=== PATIENT | female | born 1955 | race Caucasian/White ===

== ENCOUNTER → 2017-10-20 | Outpatient (CLI) | payer OTHER ==
--- NOTE | 2017-10-21 11:18 | Diagnostic Imaging Report ---
EXAMINATION: Digital mammogram INDICATION: Bilateral screening This study was compared to the prior exam of 05/24/2012. At this time there are no current complaints. The current study was also evaluated with a Computer Aided Detection (CAD) system. There are scattered fibroglandular densities in both breasts which could obscure a lesion. When compared to the previous study there does not appear to have been any significant change. There are numerous benign-appearing calcifications scattered throughout both breasts. These calcifications do not seem to have changed significantly in the 5-1/2 year interval since the prior exam. Vascular calcifications are seen as well. Small benign-appearing nodular densities are also evident in each breast. There is no primary or secondary sign of malignancy noted. IMPRESSION: 1. There is no evidence of malignancy. 2. The patient should have her annual bilateral screening mammogram on schedule in October 2018. ACR BI-RADS Category 1: Negative. Result letter will be mailed to the patient. Note: At least 10% of breast cancer is not imaged by mammography. Dictated by: Dictated on workstation # [id number]
== END ==
LOC: RAD 08:34
PROVIDERS: ATTEND Nurse Practitioner Family
DX: Z12.31 Encounter for screening mammogram for malignant neoplasm of breast (principal)
CPT/HCPCS: 77067

== ENCOUNTER → 2018-02-03 | Outpatient (CLI) | payer OTHER ==
--- NOTE | 2018-02-10 15:26 | RADIOLOGY REPORT ---
NAME: [facility] REC#: [id number] PT STATUS: REG CLI : 1955 PHYSICIAN: YARI RAMOS DO ADMIT DATE: 02/03/18/RAD CORRECTED Signed Date of Exam:02/03/18 KNEE, RIGHT, 2 VIEWS INDICATION: Right knee pain and arthritis. TIME OF EXAM: 09:26 a.m. Frontal and lateral views of the right knee demonstrate medial and patellofemoral compartmental degenerative change with joint space narrowing and marginal spurring. There is mild marginal spurring of the lateral compartment. No fracture, dislocation or effusion is seen. IMPRESSION: Degenerative changes. No acute bony abnormality is detected. Dictated by: Dictated on workstation # [id number] Dict: 02/03/18 1517 Trans: 02/03/18 1556 [facility] [id number] Interpreted by: LAWRENCE CRAWFORD MD Electronically signed by: LAWRENCE CRAWFORD MD 02/03/18 [facility]
== END ==
LOC: RAD 08:53
PROVIDERS: ATTEND Family Medicine
DX: Z02.71 Encounter for disability determination (principal); M17.11 Unilateral primary osteoarthritis, right knee
CPT/HCPCS: 73560

== ENCOUNTER 2020-05-31 05:27 | Outpatient (RCR) | payer MEDICARE ==
[~2020-05-31] VITALS: Ht 157 cm; Wt 100.0 kg
== END 2020-05-31 09:35 | disposition home or self-care (01) ==
LOC: PREOP 05:27
PROVIDERS: ATTEND Surgery
DX: Z01.812 Encounter for preprocedural laboratory examination (principal); Z20.828 Contact with and (suspected) exposure to other viral communicable diseases
CPT/HCPCS: 87635

== ENCOUNTER → 2020-05-31 | Outpatient (CLI) | payer MEDICARE ==
[~2020-05-31] MED LIST: ACET-2650 PO; ALPR0.254 PO; ATOR10TA66 PO; CELE200C PO; CETI10TA17 PO; FLUO20CA42 PO; GABA-486 PO; HYDR25TA4 PO; LEVO112T55 PO; METF-397 PO; NF-ESOM40C PO; RANITIDINE PO; SPIR100T4 PO; TURM538C PO
== END ==
LOC: CARD 08:24
PROVIDERS: ATTEND Surgery
DX: R07.9 Chest pain, unspecified (principal); Z20.828 Contact with and (suspected) exposure to other viral communicable diseases
CPT/HCPCS: 93005

== ENCOUNTER 2020-06-04 07:29 | Day surgery (SDC) | payer MEDICARE ==
[~2020-06-04] VITALS: Ht 157 cm; Wt 100.0 kg
[~2020-06-04 07:29] MED LIST changes: +ALPR.25T PO; -ALPR0.254 PO
[2020-06-04] MEDS ORDERED: LACTATED RINGERS 1,000 ML IV ONE (07:45)
[2020-06-04] MEDS ORDERED: LACTATED RINGERS 1,000 ML IV STA (07:46)
[2020-06-04 07:59] VITALS: BP 144/66
[2020-06-04] MEDS ORDERED: HURRICAINE EXT TUBE (BENZOCAINE) XX PRN (08:00)
[2020-06-04] MEDS ORDERED: MIDAZOLAM 2 MG/2 ML (VERSED) VIAL ONE (08:05)
[2020-06-04] MEDS ORDERED: PROPOFOL INJECTION 50 ML IV ONE ×2 (08:05→08:29)
[2020-06-04] MEDS ORDERED: HURRICAINE EXT TUBE (BENZOCAINE) ONE (08:11)
[2020-06-04 09:05] VITALS: BP 117/56
[2020-06-04 09:10] VITALS: BP 118/58
--- NOTE | 2020-06-04 09:12 | Progress Note-Post Operative ---
Post-Operative Progess Note Surgeon (s)/Fish Inspector (s) Surgeon WIL SANTOS DO Fish Inspector: Lacey Rausch, MSIII Pre-Operative Diagnosis Gastritis, Screening colon Post-Operative Diagnosis Gastritis Gastric ulcer Hiatal hernia - large Polyps diverticula Internal hemorrhoids Procedure & Operative Findings Date of Procedure 06/04/20 Procedure Performed/Findings EGD with bx Colon with snare Colon with hot bx Anesthesia Type IV sedation by PRESS OPERATOR MEAT Estimated Blood Loss Estimated blood loss (mL): scant Specimens/Packing Specimens Removed antral bx bx of ulcer body of stomach bx GE jxn bx Asc colon polyp Rectal polyp x 2 WIL SANTOS DO Jun 04, 2020 09:12
--- NOTE | 2020-06-04 09:12 | Endoscopy Discharge Instruct ---
Endo Procedure/Findings Findings 1.: Gastric Ulcer, Gastritis 2.: Hiatal Hernia 3.: Polyp 4.: Diverticulosis, Internal Hemorrhoids Discharge Instructions - Activity: You might feel a little sleepy until tomorrow. This is due to the medicine you received to relax you. Until tomorrow, you should: NOT drive a car, operate machinery or power tools. NOT drink any alcoholic beverages. NOT make any important decisions or sign importortant papers. Do not return to work until tomorrow, unless otherwise instructed. Resume previous activities tomorrow. Diet: Start by taking liquids. If you tolerate liquids, advance to solid food. 1.: Colonscopy in 3 years, EGD in 3 years Notify Physician - If you experience excessive bleeding, unusual abdominal pain, fever, or chest pain, contact your doctor immediately. WIL SANTOS DO Jun 04, 2020 09:12
[2020-06-04 09:30] VITALS: BP 145/69
[2020-06-04 09:45] VITALS: BP 145/69
--- NOTE | 2020-06-04 10:21 | Anesthesia-General Post-Op ---
MAC Patient Condition Mental Status/LOC: Same as Preop Cardiovascular: Satisfactory Nausea/Vomiting: Absent Respiratory: Satisfactory Pain: Controlled Complications: Absent Post Op Complications Complications None Follow Up Care/Instructions Patient Instructions None needed. Anesthesiology Discharge Order Discharge Order Patient is doing well, no complaints, stable vital signs, no apparent adverse anesthesia problems. No complications reported per nursing. MALA RAMOS CRNA Jun 04, 2020 10:21
--- NOTE | 2020-06-05 02:41 | OPERATIVE REPORT ---
DATE OF SERVICE: 06/04/2020 PREOPERATIVE DIAGNOSES: Gastritis and screening colonoscopy. POSTOPERATIVE DIAGNOSES: 1. Gastritis. 2. Gastric ulcer. 3. Hiatal hernia. 4. Colon polyps. 5. Diverticula. 6. Internal hemorrhoids. PROCEDURE: 1. EGD with biopsy. 2. Colonoscopy with snare polypectomy. 3. Colonoscopy with hot biopsy. SURGEON: Vineet Leone DO SWISS MACHINIST: Lacey Rausch, MS3 ANESTHESIA: IV sedation by the PIPE CLEANER. SPECIMEN: Antral biopsy, biopsy of ulcer, biopsy of body of stomach, biopsy of GE junction, then ascending colon polyp and rectal polyp x2. BLOOD LOSS: Scant. FLUIDS: Per anesthesia. POSTOPERATIVE CONDITION: Stable. INDICATION FOR PROCEDURE: The patient is a 65-year-old female who is having some gastritis and has never had a colonoscopy, need one for screening. DESCRIPTION OF PROCEDURE: The patient had gastritis and what looked like ulcers in the stomach. She also had a very large hiatal hernia. In the colon, she had a small polyp in the descending colon, then a very large polyp in the rectum, another small polyp in the rectum as well as multiple diverticula and some internal hemorrhoids. PROCEDURE NOTE: After informed consent was obtained, the patient was brought to the endoscopy suite, placed in bed in left lateral decubitus position. She was administered IV sedation by the PIPE CLEANER who then monitored her vitals the entire time, heart rate, blood pressure and pulse ox and the scope was inserted, started with the EGD, placing scope down the mouth through the esophagus into the stomach. Upon entering the stomach, noted some gastritis, took a picture, pushed into the duodenum. Duodenum looked fine, took a picture. Pulled back and then saw what looked like an ulcer, did a biopsy of the antrum, then did a biopsy of this ulcer, which is near the antrum, then retroflexed the scope, saw a large hiatal hernia and did a biopsy of body of stomach, pulled the scope into the GE junction, did a biopsy, then pushed the scope into the stomach, suctioned all the air out and then pulled the scope up the esophagus out the mouth. Switched camera, switched gloves, went down below, started the colonoscopy. Placed a scope in, pushed all the way to about 140 cm, able to get to the cecum. On the way in, noted large diverticula. Pictures were taken. Once in the cecum, took a picture of appendiceal orifice, noted the ileocecal valve and then slowly withdrew the scope insufflating the circumferential alvarado looking the cecum, up the ascending colon. In the ascending colon, saw flat polyp, was smaller one so I like to do a hot biopsy of this to remove it and then continued up to the hepatic flexure, then down the transverse colon, splenic flexure, into the descending colon down to the sigmoid and finally into the rectum. In the rectum, saw a large polyp, wanted to remove this completely, so used a snare polypectomy to remove this, able to get this out and suctioned this up, saw another small polyp, did another biopsy and then retroflexed the scope in the rectal vault and saw some internal hemorrhoids, took a picture and then removed the scope. The patient tolerated the procedure. She recovered in endoscopy suite. Job ID: [id number] DocumentID: [id number] Dictated Date: 06/04/2020 16:06:44 Electrical Development Engineer Date: 06/05/2020 02:41:11 Dictated By: VINEET LEONE DO MTDDennise
== END 2020-06-04 09:45 | disposition home or self-care (01) ==
LOC: ENDO 07:29
PROVIDERS: ATTEND Surgery
DX: Z12.11 Encounter for screening for malignant neoplasm of colon (principal); D12.2 Benign neoplasm of ascending colon; K62.1 Rectal polyp; K57.90 Diverticulosis of intestine, part unspecified, without perforation or abscess without bleeding; K64.8 Other hemorrhoids; K29.50 Unspecified chronic gastritis without bleeding; K25.9 Gastric ulcer, unspecified as acute or chronic, without hemorrhage or perforation; K44.9 Diaphragmatic hernia without obstruction or gangrene; K31.9 Disease of stomach and duodenum, unspecified; I10 Essential (primary) hypertension; F32.9 Major depressive disorder, single episode, unspecified; E11.9 Type 2 diabetes mellitus without complications; E03.9 Hypothyroidism, unspecified; F41.9 Anxiety disorder, unspecified; E78.5 Hyperlipidemia, unspecified; M06.9 Rheumatoid arthritis, unspecified; M19.91 Primary osteoarthritis, unspecified site; K21.9 Gastro-esophageal reflux disease without esophagitis; E66.01 Morbid (severe) obesity due to excess calories; Z68.41 Body mass index [BMI] 40.0-44.9, adult; Z79.890 Hormone replacement therapy; Z79.899 Other long term (current) drug therapy; Z79.84 Long term (current) use of oral hypoglycemic drugs
CPT/HCPCS: 82962; 88305

== ENCOUNTER 2021-02-25 05:29 | Outpatient (RCR) | payer MEDICARE ==
[2021-02-20 12:12] VITALS: BP 174/84
[2021-02-20 13:17] LABS: BASOPHILS # (AUTO) 0.1 10^3/uL (0.0-0.1); BASOPHILS % (AUTO) 1 % (0-10); EOSINOPHILS # (AUTO) 0.1 10^3/uL (0.0-0.3); EOSINOPHILS % (AUTO) 2 % (0-10); HEMATOCRIT 43 % (35-52); HEMOGLOBIN 13.5 g/dL (11.5-16.0); LYMPHOCYTES # (AUTO) 1.6 10^3/uL (1.0-4.0); LYMPHOCYTES % (AUTO) 23 % (12-44); MEAN CORPUSCULAR HEMOGLOBIN 29 pg (25-34); MEAN CORPUSCULAR HGB CONC 32 g/dL (32-36); MEAN CORPUSCULAR VOLUME 90 fL (80-99); MEAN PLATELET VOLUME 11.7 fL (9.0-12.2); MONOCYTES # (AUTO) 0.6 10^3/uL (0.0-1.0); MONOCYTES % (AUTO) 8 % (0-12); NEUTROPHILS # (AUTO) 4.7 10^3/uL (1.8-7.8); NEUTROPHILS % (AUTO) 66 % (42-75); PLATELET COUNT 264 10^3/uL (130-400); WHITE BLOOD COUNT 7.1 10^3/uL (4.3-11.0)
[2021-02-20 13:18] LABS: BILIRUBIN,URINE NEGATIVE (NEGATIVE); CLARITY,URINE CLEAR; COLOR,URINE YELLOW; GLUCOSE, URINE (UA) NEGATIVE (NEGATIVE); KETONES,URINE NEGATIVE (NEGATIVE); LEUKOCYTE ESTERASE ,URINE NEGATIVE (NEGATIVE); NITRITE,URINE NEGATIVE (NEGATIVE); PROTEIN,URINE TRACE (NEGATIVE)
[2021-02-20 13:27] LABS: INR 0.9 (0.8-1.4); PROTHROMBIN TIME PATIENT 12.6 SEC (12.2-14.7)
[2021-02-20 13:28] LABS: BACTERIA,URINE TRACE /HPF; RBC,URINE 0-2 /HPF
[2021-02-20 13:34] LABS: ALANINE AMINOTRANSFERASE 24 U/L (0-55); ALBUMIN 4.5 GM/DL (3.2-4.5); ALKALINE PHOSPHATASE 82 U/L (40-136); BILIRUBIN,TOTAL 0.4 MG/DL (0.1-1.0); BUN/CREATININE RATIO 21; CALCIUM 10.5 MG/DL (8.5-10.1); CARBON DIOXIDE 25 MMOL/L (21-32); CHLORIDE 107 MMOL/L (98-107); CREATININE SERUM 0.84 MG/DL (0.60-1.30); GFR ESTIMATED > 60; GLUCOSE 114 MG/DL (70-105); SODIUM 141 MMOL/L (135-145); TOTAL PROTEIN 7.2 GM/DL (6.4-8.2)
[2021-02-20 13:38] LABS: ERYTHROCYTE SEDIMENTATION RATE 13 MM/HR (0-30)
--- NOTE | 2021-02-20 13:47 | Diagnostic Imaging Report ---
INDICATION: Preop bilateral total knee arthroplasty. COMPARISON: There are no prior studies available for comparison. FINDINGS: The heart size is within normal limits. The lungs are clear. There is no evidence for failure, pneumonia, or pleural effusion. The mediastinum is not widened. The osseous structures are intact. IMPRESSION: There is no evidence for active disease. Dictated by: Dictated on workstation # [id number]
[~2021-02-25] VITALS: Ht 157.5 cm; Wt 97.9 kg
[~2021-02-25 05:29] MED LIST changes: +ACET-168 PO; +FAMO-119 PO; +SIMV10TA26 PO
== END 2021-02-25 09:08 | disposition home or self-care (01) ==
LOC: PREOP 05:29
PROVIDERS: ATTEND Orthopaedic Surgery
DX: Z01.812 Encounter for preprocedural laboratory examination (principal); M17.0 Bilateral primary osteoarthritis of knee
CPT/HCPCS: 36415; 71046; 80053; 81000; 85025; 85610; 85652; 86850; 86900; 86901; 87081; 87635

== ENCOUNTER 2021-02-27 06:01 | Inpatient (IN) | payer MEDICARE ==
--- NOTE | 2021-02-20 19:26 | HISTORY AND PHYSICAL ---
DATE OF SERVICE: ADMISSION HISTORY AND PHYSICAL This will be for regular inpatient admission for bilateral total knee arthroplasties. DATE OF ADMISSION: 02/27/2021. DATE OF SURGERY: 02/27/2021. The patient will require regular inpatient admission due to need for pain management, physical therapy and associated comorbidities. HISTORY OF PRESENT ILLNESS: The patient is a 65-year-old female with a 20-year history of bilateral knee pain. She has undergone treatment with injections without relief. She reports the pain has progressed to the point where it is limiting her activities of daily living and recreational activities. She reports stiffness in her knees. She reports inability to go to the store because of her knees. Radiographs reveal severe medial and patellofemoral arthrosis. Due to functional impairment and failure to improve with conservative measures, the patient has elected to proceed with surgical intervention. REVIEW OF SYSTEMS: No chest pain, no shortness of breath, no dysuria. PAST MEDICAL HISTORY: Allergic rhinitis, anxiety disorder, depression, diabetes, fibromyalgia, reflux, hyperlipidemia, hypertension, hypothyroidism, neck pain, osteoarthritis, history of ulcers. PAST SURGICAL HISTORY: Cataracts, hysterectomy, bladder sling, breast biopsy, hiatal hernia. FAMILY HISTORY: Consistent for congestive heart failure, and diabetes. PRIMARY CARE PROVIDER: Madina Nevarez. MEDICATIONS: Celebrex, simvastatin, Nexium, spironolactone, Prozac, Pepcid, nystatin, metformin, levothyroxine, gabapentin, alprazolam. ALLERGIES: No known drug allergies. SOCIAL HISTORY: The patient denies alcohol and tobacco use. PHYSICAL EXAMINATION: GENERAL: The patient is well-developed, well-nourished, in no acute distress. HEENT: Normocephalic, atraumatic. Pupils are equal, round, reactive to light. Oropharynx is clear. NECK: Supple, no lymphadenopathy. LUNGS: Clear to auscultation bilaterally. HEART: Regular rate and rhythm. ABDOMEN: Soft, nontender, nondistended. EXTREMITIES: Bilateral knees demonstrate varus alignment. She ambulates with an antalgic gait. She has slight effusions bilaterally. She has marked patellofemoral crepitus and pain with patellar loading. She is tender along the medial joint lines and has pain along the medial femoral condyle. Range of motion is 0/2/120 bilaterally. No varus or valgus laxity. Negative anterior and posterior drawer sign. IMPRESSION: Bilateral knee osteoarthritis. PLAN: Bilateral total knee arthroplasty. The risks, benefits, options, ramifications and recovery have been discussed at length with the patient. She understands and wishes to proceed. Job ID: [id number] DocumentID: [id number] Dictated Date: 02/18/2021 08:19:52 Applied Psychology Teacher Date: 02/18/2021 09:14:25 Dictated By: JAIR TAEVRA MD
[~2021-02-27] VITALS: Ht 157.5 cm; Wt 97.9 kg
[2021-02-27] VITALS (12 sets, daily range): BP systolic 110–181; BP diastolic 65–105
[2021-02-27] MEDS ORDERED: CEFUROXIME INJECTION 1,500 MG in WATER (STERILE) FOR INJECTION 15 ML IV ONE (06:15)
[2021-02-27] MEDS ORDERED: fentaNYL INJ 100 MCG/2 ML AMP ONE ×2 (06:22→09:21)
[2021-02-27] MEDS ORDERED: BUPIVACAINE 0.5% 30 ML (SENSORCAINE) VIAL ONE (06:22)
[2021-02-27] MEDS ORDERED: MIDAZOLAM 2 MG/2 ML (VERSED) VIAL ONE (06:22)
[2021-02-27] MEDS: LACTATED RINGERS 1,000 ML IV PRN ×2 (06:34→07:27)
[2021-02-27] MEDS ORDERED: proPOfol 200 MG/20 ML (DIPRIVAN) VIAL IV ONE ×2 (07:04→07:05)
[2021-02-27] MEDS ORDERED: LIDOCAINE PF 2% 5 ML (XYLOCAINE) VIAL ONE (07:04)
[2021-02-27] MEDS ORDERED: SUCCINYLCHOLINE INJ 100 MG/5 ML SYR/VIAL ONE (07:05)
[2021-02-27] MEDS ORDERED: TRANEXAMIC ACID 100 MG/ML 10 ML INJECTION ONE (07:05)
[2021-02-27] MEDS ORDERED: ONDANSETRON 4 MG/2 ML (SDV) Z0FRAN ONE ×3 (07:05→10:40)
[2021-02-27] MEDS ORDERED: morphine PCA 100 MG/100 ML BAG IV PRN ×3 (07:15→12:00)
[2021-02-27] MEDS ORDERED: diphenhydrAMINE 50 MG/ML INJ (BENADRYL) IVP PRN (07:15)
[2021-02-27] MEDS ORDERED: SCOPOLAMINE 1.5 MG (TRANSDERM-SCOP) PATCH TOP ONE (07:15)
[2021-02-27] MEDS ORDERED: ONDANSETRON 4 MG/2 ML (SDV) Z0FRAN IV ONE (07:15)
[2021-02-27] MEDS ORDERED: ACETAMINOPHEN 325 MG TABLET PO PRN (07:15)
[2021-02-27] MEDS ORDERED: FAMOTIDINE 20MG/2ML IV (PEPCID) IV ONE (07:15)
--- NOTE | 2021-02-27 07:25 | Progress Note-Pre Operative ---
Pre-Operative Progress Note H&P Reviewed The H&P was reviewed, patient examined and no changes noted. Date Seen by Provider: Feb 27, 2021 Time Seen by Provider: 07:15 Date H&P Reviewed: Feb 27, 2021 Time H&P Reviewed: 07:11 Pre-Operative Diagnosis: bilateral knee primary osteoarthritis JAIR TAVERA MD Feb 27, 2021 07:25
--- NOTE | 2021-02-27 07:26 | Progress Note-Post Operative ---
Post-Operative Progess Note Surgeon (s)/Marketing Technology Coordinator (s) Surgeon JAIR TAVERA MD Marketing Technology Coordinator: Misbah Jarquin Pre-Operative Diagnosis bilateral knee primary osteoarthritis Post-Operative Diagnosis bilateral knee primary osteoarthritis Procedure & Operative Findings Date of Procedure 02/27/21 Procedure Performed/Findings bilateral total knee arthroplasty Anesthesia Type GETA Estimated Blood Loss Estimated blood loss (mL): minimal Specimens/Packing Specimens Removed none Packing: none JAIR TAVERA MD Feb 27, 2021 07:26
--- NOTE | 2021-02-27 07:28 | D/C HH Face to Face Order ---
D/C Face to Face Orders Reconcile Patient Problems Problems Reviewed?: Yes Instructions for Patient Via Roxanne Cordium, Patient Instructions/FollowUp: three weeks Physician to follow Patient: three weeks Discharge Diet for Home: Regular Diet Patient Data-Allergies,Ht & Wt Patient Allergies: Coded Allergies: No Known Drug Allergies (Unverified , 02/27/21) Home Health Need/Face to Face Date of Face to Face: Feb 27, 2021 Clinical Findings: Instability, Muscle weakness, Pain with ambulation, Unsteady gait I have seen Pt [id number]: Yes Discharged To: Home Diagnosis/Conditions: bilateral total knee arhtroplasties Patient is Homebound due to: Muscle weakness, Pain w/ambulation Homebound Status Due to the above stated illness, injury or surgical procedure (medical condition or diagnosis) and associated clinical findings, the patient is homebound because of his/her inability to leave home except with aid of a supportive device and/or person AND leaving the home requires a considerable and taxing effort or is medically contraindicated. Pt req the following assistanc: Walker Home Health Nursing Orders Home Health Services Order: Physical Therapy-Evaluate & Treat DC bilateral knee keli and apply steri strips 03/13/21 Home Health Infusion Therapy Line Start Date: Feb 27, 2021 Therapy Orders Therapy Orders: Physical Therapy, PT to assess for OT Therapy Specific Orders: Eval assistive deivces, Gait training, Increase strength/endurance, Provider maintenance therapy, Restore ROM Certify Stmt I certify that this patient is under my care and that I, a nurse practitioner or a physician; a chiropractor assistant working with me, had a face to face encounter that - meets the physician face to face encounter requirements with this patient as dated. JAIR TAVERA MD Feb 27, 2021 07:28
[2021-02-27] MEDS ORDERED: INTRA-ARTICULAR IU ONE ×5 (07:45)
[2021-02-27] MEDS ORDERED: SEVOFLURANE (ULTANE) 15 ML INHAL SOLN ONE (09:04)
[2021-02-27] MEDS ORDERED: morphine INJ 10 MG/ML 1ML (SYR OR VIAL) ONE (10:49)
[2021-02-27] MEDS ORDERED: MEPERIDINE (DEMEROL) INJ 50 MG/ML ONE (10:49)
--- NOTE | 2021-02-27 10:55 | Anesthesia-General Post-Op ---
General Patient Condition Mental Status/LOC: Same as Preop Cardiovascular: Satisfactory Nausea/Vomiting: Absent Respiratory: Satisfactory Pain: Controlled Complications: Absent Post Op Complications Complications None Follow Up Care/Instructions Patient Instructions None needed. Anesthesia/Patient Condition Patient Condition Patient is doing well, no complaints, stable vital signs, no apparent adverse anesthesia problems. No complications reported per nursing. CHRISTAL WHITE CRNA Feb 27, 2021 10:55
[2021-02-27] MEDS ORDERED: PROMETHAZINE INJ 25 MG/ML (PHENERGAN) AMP ONE (10:59)
[2021-02-27] MEDS ORDERED: HYDROmorphone 2 MG/ML VIAL (DILAUDID) IV ONE (11:00)
[2021-02-27] MEDS ORDERED: morphine INJ 10 MG/ML 1ML (SYR OR VIAL) IVP ONE (11:00)
[2021-02-27] MEDS ORDERED: fentaNYL INJ 100 MCG/2 ML AMP IVP ONE (11:00)
[2021-02-27] MEDS ORDERED: ONDANSETRON 4 MG/2 ML (SDV) Z0FRAN IVP PRN (11:00)
[2021-02-27] MEDS ORDERED: MEPERIDINE (DEMEROL) INJ 50 MG/ML IVP ONE (11:00)
[2021-02-27] MEDS: NS IV 1000 ML 1,000 ML IV SCH ×2 (11:48→20:24)
--- NOTE | 2021-02-27 12:06 | Progress Note ---
Standard Progress Note Progress Notes/Assess & Plan Date Seen by a Provider: Feb 27, 2021 Time Seen by a Provider: 12:04 Progress/Assessment & Plan post op check no complaints denies paresthesias radiographs--HW well positioned without fractre BLE--2 plus DP pulse with brisk cap refill, INtact DF and PF of toes and ankle. intact sensation throughout s/p BTKA mobilize as able JAIR TAVERA MD Feb 27, 2021 12:05
--- NOTE | 2021-02-27 13:56 | Physical Therapy Evaluation ---
PT Evaluation-General Medical Diagnosis Admission Date Feb 27, 2021 at 06:01 Medical Diagnosis: bilateral TKA Onset Date: Feb 27, 2021 Therapy Diagnosis Therapy Diagnosis: impaired mobility, strength, endurance, ROM Precautions Precautions/Isolations: Fall Prevention, Standard Precautions Weight Bear Status Right Lower Extremity: Right Weight Bearing/Tolerated Left Lower Extremity: Left Weight Bearing/Tolerated Referral Physician: Britton Reason for Referral: Evaluation/Treatment Medical History Additional Medical History PAST MEDICAL HISTORY: Allergic rhinitis, anxiety disorder, depression, diabetes, fibromyalgia, reflux, hyperlipidemia, hypertension, hypothyroidism, neck pain, osteoarthritis, history of ulcers. PAST SURGICAL HISTORY: Cataracts, hysterectomy, bladder sling, breast biopsy, hiatal hernia. Reviewed History: Yes Social History Home: Single Level Current Living Status: Spouse Entry Into Home: Stairs Without Railing PT Steps Into Home: 2 Prior Prior Level of Function SCALE: Activities may be completed with or without assistive devices. 4-Sowbudraba-ciquabo completes the activity by him/herself with no assistance from a helper. 5-Set-up or Clean-up Assistance-helper sets up or cleans up; patient completes activity. [place] assists only prior to or following the activity. 4-Supervision or Touching Assistance-helper provides verbal cues and/or touching/steadying and/or contact guard assistance as patient completes a ctivity. Assistance may be provided throughout the activity or intermittently. 3-Partial/Moderate Assistance-helper does LESS THAN HALF the effort. [place] lifts, holds or supports trunk or limbs, but provides less than half the effort. 2-Substantial/Maximal Assistance-helper does MORE THAN HALF the effort. [place] lifts or holds trunk or limbs and provides more than half the effort. 0-Nugvrumfz-mfofex does ALL the effort. Patient does none of the effort to complete the activity. Or, the assistance of 2 or more helpers is required for the patient to complete the activity. If activity was not attempted, code reason: 7-Patient Refused. 9-Not Applicable-not attempted and the patient did not perform the activity before the current illness, exacerbation or injury. 10-Not Attempted due to Environmental Limitations-(lack of equipment, weather restraints, etc.). 88-Not Attempted due to Medical Conditions or Safety Concerns. Bed Mobility: 6 Transfers (B,C,W/C): 6 Gait: 6 Stairs: 6 Indoor Mobility (Ambulation): Independent Stairs: Independent PT Evaluation-Current Subjective Patient in bed pre tx, agrees to PT, has 5-7/10 pain in both knees. Pt/Family Goals to be independent at home Objective Patient Orientation: Person, Place, Situation Attachments: SCD's, Polar Pack, IV ROM/Strength ROM Lower Extremities left knee extension +5 degrees, flexion 85 degrees, right knee has full extension but only 50 degrees flexion Sensory Vision: Functional Hearing: Functional Sensation Right Lower Extremit: Intact Sensation Left Lower Extremity: Intact Transfers Roll Left to Right (QC): 6 Sit to Lying (QC): 4 Lying to Sitting/Side of Bed(Q: 4 Sit to Stand (QC): 4 Patient is able to perform supine <-> sit with SBA, patient starts to perform sit to stand but gets nauseated and ends up vomiting in her basin. Nurse notified. Patient lays back down. Balance Sitting Static: Good Treatment BLE TKA protocol x10 (AP, QS, HS, SAQ, SLR), CPM donned on right leg and set to 46/-2 degrees (put on this knee since it has less ROM) Assessment/Needs Patient in bed post tx with nurse call, phone, tray, all needs met, has CPM on, SCD's, polar care. Patient has impaired mobility, strength, endurance, ROM. Patient is still pretty nauseated, has less ROM in right knee. Rehab Potential: Fair PT Ex Assistant/Program Director Goals Senior Care Goals PT Ex Assistant/Program Director Goals Time Frame: Mar 06, 2021 Roll Left & Right (QC): 6 Sit to Lying (QC): 6 Lying-Sitting on Side/Bed(QC): 6 Sit to Stand (QC): 4 Chair/Soc-lj-Ayrof Xfer(QC): 4 Walk 10 feet (QC): 4 Walk 50ft with 2 Turns (QC): 4 Walk 150 ft (QC): 4 1 Step (curb) (QC): 4 4 Steps (QC): 4 PT Plan Problem List Problem List: Activity Tolerance, Functional Strength, Safety, Balance, Gait, Transfer, Bed Mobility, ROM Treatment/Plan Treatment Plan: Continue Plan of Care Treatment Plan: Bed Mobility, Education, Functional Activity Shelley, Functional Strength, Gait, Safety, Therapeutic Exercise, Transfers Treatment Duration: Mar 06, 2021 Frequency: 11 times per week Estimated Hrs Per Day: .25 hour per day Patient and/or Family Agrees t: Yes Safety Risks/Education Patient Education: Transfer Techniques, Reviewed Use of Ice, Correct Positioning, Safety Issues Teaching Recipient: Patient Teaching Methods: Demonstration, Discussion Response to Teaching: Reinforcement Needed Discharge Recommendations Plan Patient will perform bed mobility and transfer training, balance and endurance training, functional strengthening, stair training, gait training, and education, to improve functional mobility and independence at home. Therapy Discharge Recommendati: Home & Family, Post Acute PT Time/GCodes Time In: 1258 Time Out: 1323 Total Billed Treatment Time: 25 Total Billed Treatment 1 visit LOUANN 15' EX 10' ISH SIERRA PT Feb 27, 2021 13:56
[2021-02-27] MEDS: SENNA W/DOCUSATE (SENOKOT S) TABLET PO SCH ×2 (14:47→20:23)
[2021-02-27] MEDS: CEFUROXIME INJECTION 750 MG in WATER (STERILE) FOR INJECTION 10 ML IV SCH ×2 (15:28→22:38)
--- NOTE | 2021-02-27 16:18 | OPERATIVE REPORT ---
DATE OF SERVICE: 02/27/2021 PREOPERATIVE DIAGNOSES: 1. Right knee primary osteoarthritis. 2. Left primary knee osteoarthritis. POSTOPERATIVE DIAGNOSES: 1. Right knee primary osteoarthritis. 2. Left primary knee osteoarthritis. PROCEDURES: 1. Right total knee arthroplasty. 2. Left total knee arthroplasty. SURGEON: Raad Tavera MD HEADER SET UP OPERATOR: Misbah Jarquin, who assisted throughout the procedure and closed the incisions. ANESTHESIA: General endotracheal by Noel Hernandez CRNA. TOURNIQUET TIME: 63 minutes at 300 mmHg on the right and 65 minutes at 300 mmHg on the left. ESTIMATED BLOOD LOSS: Less than 50 mL. DRAINS: None. COMPLICATIONS: None. POSTOPERATIVE PLAN: Routine total knee protocol. The patient was transferred to the recovery room awake and in stable condition. MATERIALS: MicroPort. On the right, 4 femur with a 4 tibia, a 10 mm insert and 29 patella. On the left, 4 femur, 4 tibia with 12 mm insert and 29 patella. STATEMENT OF MEDICAL NECESSITY: The patient is a 65-year-old female with longstanding progressive bilateral knee pain. Radiographs revealed severe bilateral tricompartmental osteoarthritis. She has undergone treatment with injections, anti-inflammatories and rest without relief. She reported progressive functional loss and because of this, I elected to proceed with surgical intervention. DESCRIPTION OF PROCEDURE: After risks and benefits of procedure were discussed and questions were answered, an informed consent was signed and placed on the chart. The operative sites were confirmed in the preoperative holding area initialed by the surgeon. The patient was then transferred to the operating room and after adequate levels of general endotracheal anesthetic were obtained, a timeout was called, confirming the operative site. The right lower extremity was prepped and draped in the usual sterile fashion with the leg elevated and the knee flexed. The tourniquet was inflated to 300 mmHg. Standard anterior approach was utilized. Hemostasis was obtained with cautery. A medial parapatellar arthrotomy was performed leaving 1 cm cuff on the patella for later reattachment. A portion of the fat pad was resected and subperiosteal release was performed in the proximal medial tibia being careful to stay on the bony surface. The ACL was resected. The intramedullary guide was passed and the distal cutting block was placed. Distal cut was made and the femur sized to a size 4. The 4 cutting block was placed parallel to the epicondylar axis and cuts were made from posterior to anterior. Subperiosteal release was then carefully performed on the posterior distal femur, being careful to stay on the bony surface. Intramedullary guide was then passed into the tibia and the cutting block was placed. The drop otto transected the intermalleolar axis and the cut was made. The baseplate was then placed in this. The drop otto transected the intermalleolar axis. With the drill and keel punch, the femoral trial was placed and trochlear cut was made. The patella was then prepared using the freehand technique and resecting 10 mm off the undersurface. The peg guide was placed and peg holes were drilled. The trials were inserted with 10 mm insert. Full extension was easily obtained, greater than 120 degrees of flexion with gravity was easily obtained. There was trace varus laxity in full extension. No valgus laxity and no anterior/posterior or medial/lateral laxity in flexion. The trials were removed. The joint was irrigated with pulse lavage. Periarticular block was placed in the posterior capsule, medial and lateral retinaculum and extensor mechanism as well as subcutaneous tissues. The bone ends were irrigated and dried and the tibial baseplate was cemented into position. Excessive cement was removed. The superior surface was then irrigated and dried and the polyethylene insert was placed. The distal femur was irrigated and dried and the femoral prosthesis was cemented into position. The undersurface of the patella was irrigated and dried and the button was cemented into position. Excessive cement was removed. The knee was brought into full extension until cement had cured. Once the cement had cured, the knee was taken through range of motion. Full extension was easily obtained, 120 degrees of flexion with gravity was easily obtained. There was no anterior/posterior or medial/lateral laxity in flexion or extension with the exception of some mild varus laxity in flexion. The joint was further irrigated with pulse lavage. The arthrotomy was closed with #2 Tevdek in [id number] interrupted fashion. The knee was flexed. No new tension was noted at the repair site. The patella tracked well. The subcutaneous tissues were irrigated using a total of 6 liters throughout the procedure. A 0 Vicryl was used for deep subcutaneous tissue, 2-0 Vicryl for the superficial subcutaneous tissue, keli used on the skin. A soft dressing was applied. Tourniquet was deflated and the left lower extremity was then prepped and draped in the usual sterile fashion. Separate sets were used and re-gowning and gloving was performed after prepping and draping the left lower extremity with the leg elevated and the knee flexed, tourniquet was inflated to 300 mmHg. A standard anterior approach was utilized. Hemostasis was obtained with cautery. Medial parapatellar arthrotomy was performed leaving 1 cm cuff on the patella for later reattachment. A portion of the fat pad was resected. Subperiosteal release was performed on the proximal medial tibia being careful to stay on the bony surface. The ACL was resected. Intramedullary guide was passed into the femur. The distal cutting block was . Distal cut was made and the femur sized to a size 4. The 4 cutting block was placed parallel to the epicondylar axis and cuts were made from posterior to anterior. A subperiosteal release was then carefully performed on the posterior distal femur, being careful to stay on the bony surface. Intramedullary guide was then passed into the tibia. Cutting block was placed and drop otto transected the intermalleolar axis and the cut was made. The four baseplate was then placed. Again, the drop otto transected the intermalleolar axis and this was prepared with the drill and keel punch. The femoral trial was placed. Trochlear cut was made. The patella was then prepared by using the freehand technique and resecting 10 mm off the undersurface. Peg guide was placed and peg holes were drilled. A 12 mm insert was placed. Full extension was easily obtained, 120 degrees of flexion with gravity was easily obtained. The patella tracked well. There was no anterior/posterior or medial/lateral laxity in flexion or extension. Trials were removed. The bone ends were irrigated with pulse lavage as well as subcutaneous tissue. The other half of the periarticular block was placed in the posterior capsule, medial and lateral retinaculum extensor mechanism, subcutaneous tissues. The bone ends were irrigated and dried and the tibial baseplate was cemented into position. Excessive cement was removed. Superior surface was irrigated and dried and the polyethylene insert was placed. The distal femur was irrigated and dried and the femoral prosthesis was cemented into position. The knee was brought out into full extension until cement had cured. The undersurface of patella was irrigated and dried and the patellar button was cemented into position. Excessive cement was removed. Once the cement had cured, the knee was taken through range of motion. Patella tracked well. There was no anterior/posterior or medial/lateral laxity in flexion or extension. The joint was further irrigated with pulse lavage. Arthrotomy was closed with #2 Tevdek in [id number] interrupted fashion. The knee was flexed. No undue tension was noted at the repair site. The patella tracked well. Subcutaneous tissues were further irrigated using a total of 6 liters throughout the procedure. A 0 Vicryl was used to deep subcutaneous tissue, 2-0 Vicryl for the superficial subcutaneous tissue, keli used on the skin. A soft dressing was applied. The tourniquet was deflated and the patient was transferred to the recovery room awake and in stable condition. Job ID: [id number] DocumentID: [id number] Dictated Date: 02/27/2021 10:23:51 Media Operator Date: 02/27/2021 16:18:12 Dictated By: RAAD TAVERA MD
--- NOTE | 2021-02-27 16:44 | Diagnostic Imaging Report ---
INDICATION: Bilateral knee pain. TECHNIQUE: AP and lateral views of both knees were obtained. FINDINGS: The patient has had bilateral total knee arthroplasties with patellar resurfacing. The prostheses appear to be in good position. Alignment is normal. There is no acute fracture seen. IMPRESSION: Good alignment of the left and right knee following joint arthroplasties. Dictated by: Dictated on workstation # [id number]
[2021-02-27] MEDS: ONDANSETRON 4 MG/2 ML (SDV) Z0FRAN IVP PRN (22:38)
[2021-02-28] VITALS: BP 126/78
[2021-02-28 04:02] VITALS: BP 121/63
--- NOTE | 2021-02-28 05:52 | Consultation - Hospitalist ---
HPI History of Present Illness: HPI/Chief Complaint Chief complaint: Bilateral knee replacements by Dr. Alves uncomplicated postop day#1 History of present illness: This is a 65-year-old white female clinic patient of [facility] who presents to room 411 after an uncomplicated bilateral knee replacement procedure. Currently she is having a lot of pain. Méndez catheter in place: Blood pressure stable: Getting ready to work with therapy. Check meds and labs. Restarted home meds. Source: patient, RN/MD Exam Limitations: no limitations Date Seen 02/28/21 Attending Physician Raad Alves MD PCP Center/[facility] Referring Physician Date of Admission Feb 27, 2021 at 06:01 Home Medications & Allergies Home Medications Reviewed patient Home Medication Reconciliation performed by pharmacy medication reconciliations hvac maintenance technician and/or nursing. Patients Allergies have been reviewed. Allergies Allergies Coded Allergies No Known Drug Allergies (Unverified02/27/21) Past Rhlsjjo-Ptoqbz-Wgasgi Hx Patient Social History Marrital Status: Employed/Student: retired Tobacco Use?: No Smoking Status: Never a Smoker Substance use?: No Alcohol Use?: No Pt feels they are or have been: No Immunizations Up To Date Date of Influenza Vaccine: Jun 20, 2020 First/Initial COVID19 Vaccinat: 10/15/2020 Second COVID19 Vaccination Ambrose: 11/12/2020 Tetanus Booster (TDap): Unknown Seasonal Allergies Seasonal Allergies: Yes Current Status status: No status: No Advance Directives: No Communicates: Verbally Primary Language: Macanese Preferred Spoken Language: Macanese Is interpretation needed?: No Sensory deficits: Vision impairment Additional sensory deficits: ONLY TO READ Past Medical History Surgeries: Hysterectomy High Cholesterol Neuropathy 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 OCCUPATIONAL History: Hysterectomy Sexually Transmitted Disease: No HIV/AIDS: No Gastroesophageal Reflux, Chronic Constipation, Chronic Diarrhea, Irritable Bowel Degenerate Disk Disease, Arthritis, Chronic Back Pain Hypothyroidsim, Diabetes, Non-Insulin dep Loss of Vision: Denies Hearing Impairment: Denies Depression Blood Disorders: No Adverse Reaction/Blood Tranf: No (N/A) Review of Systems Constitutional: see HPI Musculoskeletal: joint pain Physical Exam Physical Exam Vital Signs Vital Signs - First Documented 02/27/21 07:06 Temp 35.9 Pulse 80 Resp 18 B/P (MAP) 139/65 (89) Pulse Ox 80 O2 Delivery Room Air Capillary Refill : Less Than 3 Seconds Height, Weight, BMI Height: '" Weight: lbs. oz. kg; 39.46 BMI Method: General Appearance: No Apparent Distress, WD/WN, Chronically ill, Obese Eyes: Bilateral Eye Normal Inspection, Bilateral Eye PERRL HEENT: PERRL/EOMI, Normal ENT Inspection, Pharynx Normal Neck: Full Range of Motion, Normal Inspection, Non Tender, Supple, Carotid Bruit Respiratory: Chest Non Tender, Lungs Clear, Normal Breath Sounds, No Accessory Muscle Use, No Respiratory Distress Cardiovascular: Regular Rate, Rhythm, No Edema, No Gallop, No JVD, No Murmur, Normal Peripheral Pulses Gastrointestinal: Normal Bowel Sounds, No Organomegaly, No Pulsatile Mass, Non Tender, Soft Back: Normal Inspection, No CVA Tenderness, No Vertebral Tenderness Extremity: Normal Capillary Refill, Normal Inspection, Normal Range of Motion (Except lower extremities due to bilateral surgical status), Non Tender, No Calf Tenderness, No Pedal Edema Neurologic/Psychiatric: Alert, Oriented x3, No Motor/Sensory Deficits, Normal Mood/Affect Skin: Normal Color, Warm/Dry Lymphatic: No Adenopathy Results Results/Procedures Labs Laboratory Tests 02/28/21 05:43 Patient resulted labs reviewed. Assessment/Plan Assessment and Plan Assess & Plan/Chief Complaint Assessment: Bilateral knee replacements by Dr. Alves uncomplicated Hypertension Osteoarthritis Diabetes Irritable bowel syndrome Plan: Knee pain management DVT prophylaxis per Ortho Inpatient rehab tomorrow Diagnosis/Problems Diagnosis/Problems (1) Osteoarthritis of knees, bilateral HARRIETT KELLY DO Feb 28, 2021 05:52
[2021-02-28] MEDS: MULTIVIT W/MINERALS TAB (THERAGRAN M) PO SCH (05:54)
[2021-02-28 06:15] LABS: BASOPHILS % (AUTO) 1 % (0-10); EOSINOPHILS # (AUTO) 0.1 10^3/uL (0.0-0.3); EOSINOPHILS % (AUTO) 1 % (0-10); HEMATOCRIT 32 % (35-52); HEMOGLOBIN 10.1 g/dL (11.5-16.0); LYMPHOCYTES # (AUTO) 1.3 10^3/uL (1.0-4.0); LYMPHOCYTES % (AUTO) 15 % (12-44); MEAN CORPUSCULAR HEMOGLOBIN 29 pg (25-34); MEAN CORPUSCULAR HGB CONC 32 g/dL (32-36); MEAN CORPUSCULAR VOLUME 92 fL (80-99); MEAN PLATELET VOLUME 11.6 fL (9.0-12.2); MONOCYTES % (AUTO) 12 % (0-12); NEUTROPHILS # (AUTO) 6.1 10^3/uL (1.8-7.8); NEUTROPHILS % (AUTO) 71 % (42-75); PLATELET COUNT 194 10^3/uL (130-400); WHITE BLOOD COUNT 8.6 10^3/uL (4.3-11.0)
[2021-02-28] MEDS: oxyCODONE/APAP 5/325MG (PERCOCET 5) TABLET PO PRN ×5 (06:23→18:37)
[2021-02-28] MEDS: ONDANSETRON 4 MG/2 ML (SDV) Z0FRAN IVP PRN (06:23)
[2021-02-28] MEDS: NS IV 1000 ML 1,000 ML IV SCH ×2 (06:32→16:27)
[2021-02-28 06:34] LABS: ALBUMIN 3.6 GM/DL (3.2-4.5); CHLORIDE 104 MMOL/L (98-107); SODIUM 138 MMOL/L (135-145)
[2021-02-28 06:35] LABS: CALCIUM 8.5 MG/DL (8.5-10.1)
[2021-02-28 06:37] LABS: GLUCOSE 109 MG/DL (70-105); TOTAL PROTEIN 5.7 GM/DL (6.4-8.2)
[2021-02-28 06:38] LABS: CARBON DIOXIDE 24 MMOL/L (21-32)
[2021-02-28 06:39] LABS: BILIRUBIN,TOTAL 0.7 MG/DL (0.1-1.0)
[2021-02-28 06:40] LABS: ALKALINE PHOSPHATASE 69 U/L (40-136); CREATININE SERUM 0.83 MG/DL (0.60-1.30); GFR ESTIMATED > 60
[2021-02-28 06:41] LABS: BUN/CREATININE RATIO 13
[2021-02-28 06:43] LABS: ALANINE AMINOTRANSFERASE 17 U/L (0-55)
--- NOTE | 2021-02-28 08:02 | Progress Note ---
Standard Progress Note Progress Notes/Assess & Plan Date Seen by a Provider: Feb 28, 2021 Time Seen by a Provider: 08:01 Progress/Assessment & Plan post op check no complaints denies paresthesias radiographs--HW well positioned without fractre BLE--2 plus DP pulse with brisk cap refill, INtact DF and PF of toes and ankle. intact sensation throughout s/p BTKA mobilize as able Final Diagnosis no complaints other than pain Vital Signs Date Time Temp Pulse Resp B/P (MAP) Pulse Ox O2 Delivery O2 Flow Rate FiO2 02/28/21 04:02 36.5 80 18 121/63 (82) 96 Nasal Cannula 2.00 02/28/21 00:00 36.0 88 18 126/78 (94) 92 Nasal Cannula 2.00 02/27/21 20:00 Room Air 02/27/21 20:00 35.8 79 20 110/67 (81) 94 Room Air 02/27/21 18:00 16 02/27/21 16:00 35.6 81 20 154/71 (98) 95 Room Air 02/27/21 12:58 35.7 88 19 167/77 (107) 94 Room Air 02/27/21 12:38 Room Air 02/27/21 12:36 95 Nasal Cannula 3.00 02/27/21 11:30 36.9 14 167/88 (114) 98 Nasal Cannula 4 02/27/21 11:30 Nasal Cannula 3 02/27/21 11:25 Nasal Cannula 3 02/27/21 11:20 14 146/81 (102) 98 Nasal Cannula 4 02/27/21 11:10 Nasal Cannula 4 02/27/21 11:10 14 169/86 (113) 98 Nasal Cannula 4 02/27/21 11:00 12 168/88 (114) 98 Nasal Cannula 4 02/27/21 10:55 Nasal Cannula 4 02/27/21 10:50 14 151/84 (106) 99 Nasal Cannula 4 02/27/21 10:43 OxyMask 4 02/27/21 10:40 20 165/105 (125) 98 OxyMask 4 02/27/21 10:30 14 181/92 (121) 100 OxyMask 6 02/27/21 10:23 OxyMask 8 02/27/21 10:23 37.3 16 160/88 (112) 99 OxyMask 8 I & O 6/17/21 07:00 Intake Total 3255 ml Balance 3255 ml Laboratory Tests Test 02/28/21 05:43 Range/Units White Blood Count 8.6 4.3-11.0 10^3/uL Red Blood Count 3.45 L 3.80-5.11 10^6/uL Hemoglobin 10.1 L 11.5-16.0 g/dL Hematocrit 32 L 35-52 % Mean Corpuscular Volume 92 80-99 fL Mean Corpuscular Hemoglobin 29 25-34 pg Mean Corpuscular Hemoglobin Concent 32 32-36 g/dL Red Cell Distribution Width 14.4 10.0-14.5 % Platelet Count 194 130-400 10^3/uL Mean Platelet Volume 11.6 9.0-12.2 fL Immature Granulocyte % (Auto) 0 % Neutrophils (%) (Auto) 71 42-75 % Lymphocytes (%) (Auto) 15 12-44 % Monocytes (%) (Auto) 12 0-12 % Eosinophils (%) (Auto) 1 0-10 % Basophils (%) (Auto) 1 0-10 % Neutrophils # (Auto) 6.1 1.8-7.8 10^3/uL Lymphocytes # (Auto) 1.3 1.0-4.0 10^3/uL Monocytes # (Auto) 1.0 0.0-1.0 10^3/uL Eosinophils # (Auto) 0.1 0.0-0.3 10^3/uL Basophils # (Auto) 0.0 0.0-0.1 10^3/uL Immature Granulocyte # (Auto) 0.0 0.0-0.1 10^3/uL Sodium Level 138 135-145 MMOL/L Potassium Level 4.0 3.6-5.0 MMOL/L Chloride Level 104 98-107 MMOL/L Carbon Dioxide Level 24 21-32 MMOL/L Anion Gap 10 5-14 MMOL/L Blood Urea Nitrogen 11 7-18 MG/DL Creatinine 0.83 0.60-1.30 MG/DL Estimat Glomerular Filtration Rate > 60 BUN/Creatinine Ratio 13 Glucose Level 109 H 70-105 MG/DL Calcium Level 8.5 8.5-10.1 MG/DL Corrected Calcium 8.8 8.5-10.1 MG/DL Total Bilirubin 0.7 0.1-1.0 MG/DL Aspartate Amino Transf (AST/SGOT) 20 5-34 U/L Alanine Aminotransferase (ALT/SGPT) 17 0-55 U/L Alkaline Phosphatase 69 40-136 U/L Total Protein 5.7 L 6.4-8.2 GM/DL Albumin 3.6 3.2-4.5 GM/DL BLE--dressings intact. NVI distally. No calf tenderness. Neg Carmen's s/p BTKA mobilize JAIR TAVERA MD Feb 28, 2021 08:02
[2021-02-28 08:09] VITALS: BP 109/64
[2021-02-28] MEDS: ENOXAPARIN 30 MG/0.3 ML (LOVENOX) SYR SC SCH ×2 (09:02→20:56)
[2021-02-28] MEDS: SENNA W/DOCUSATE (SENOKOT S) TABLET PO SCH ×2 (09:02→20:56)
[2021-02-28] MEDS: ASPIRIN E.C. 81 MG (ECOTRIN) TAB PO SCH (09:02)
--- NOTE | 2021-02-28 09:59 | Physical Therapy Daily Note ---
PT Daily Note-Current Subjective Patient agrees to PT. Pain Numeric Pain Scale: 10-Worst Possible Pain Location: Right, Left Location Body Site: Knee Pain Description: Acute Comment: with BLOCK INSPECTOR and pain pill issued Mental Status Patient Orientation: Normal For Age Attachments: IV Transfers SCALE: Activities may be completed with or without assistive devices. 2-Jqlvjlgfzf-cmcclpb completes the activity by him/herself with no assistance from a helper. 5-Set-up or Clean-up Assistance-helper sets up or cleans up; patient completes activity. Stevenson assists only prior to or following the activity. 4-Supervision or Touching Assistance-helper provides verbal cues and/or touching/steadying and/or contact guard assistance as patient completes activi ty. Assistance may be provided throughout the activity or intermittently. 3-Partial/Moderate Assistance-helper does LESS THAN HALF the effort. Stevenson lifts, holds or supports trunk or limbs, but provides less than half the effort. 2-Substantial/Maximal Assistance-helper does MORE THAN HALF the effort. Stevenson lifts or holds trunk or limbs and provides more than half the effort. 0-Rbitirodw-nypysd does ALL the effort. Patient does none of the effort to complete the activity. Or, the assistance of 2 or more helpers is required for the patient to complete the activity. If activity was not attempted, code reason: 7-Patient Refused. 9-Not Applicable-not attempted and the patient did not perform the activity before the current illness, exacerbation or injury. 10-Not Attempted due to Environmental Limitations-(lack of equipment, weather restraints, etc.). 88-Not Attempted due to Medical Conditions or Safety Concerns. Sit to Lying (QC): 2 Lying to Sitting/Side of Bed(Q: 2 Patient unable to perform sit to stand/patient attempted several time with PT assist, however, bilateral knee pain and morbid obesity prevents this task. Weight Bearing Right Lower Extremity: Right Weight Bearing/Tolerated Left Lower Extremity: Left Weight Bearing/Tolerated Gait Training Does the Patient Walk?: No and Walking Goal IS indicated Exercises Supine Ex: Ankle pumps, Quad Set, Heel Slides, Straight leg raise Supine Reps: 12 (AAROM bilateral LE x 2 sets with very slow AAROM) Seated Therapy Exercises: Long arc quads Seated Reps: 12 (bilateral AAROM x 3 sets) Treatments bilateral LE CPM 0-[address] with polar pack Assessment Patient unable to perform sit to stand with multiple attempts. PT assist attempt, however, due to morbid obesity and bilateral knee pain, unable to perform. PT to increase activity as tolerated by patient. PT Assisted Goals Manual Arts Therapist Goals PT Manual Arts Therapist Goals Time Frame: Mar 06, 2021 Roll Left & Right (QC): 6 Sit to Lying (QC): 6 Lying-Sitting on Side/Bed(QC): 6 Sit to Stand (QC): 4 Chair/Ctj-um-Wdwyd Xfer(QC): 4 Walk 10 feet (QC): 4 Walk 50ft with 2 Turns (QC): 4 Walk 150 ft (QC): 4 1 Step (curb) (QC): 4 4 Steps (QC): 4 PT Plan Treatment/Plan Treatment Plan: Continue Plan of Care Treatment Plan: Bed Mobility, Education, Functional Activity Shelley, Functional Strength, Gait, Safety, Therapeutic Exercise, Transfers Treatment Duration: Mar 06, 2021 Frequency: 11 times per week Estimated Hrs Per Day: .25 hour per day Patient and/or Family Agrees t: Yes Time/GCodes Time In: 815 Time Out: 855 Total Billed Treatment Time: 40 Total Billed Treatment 1 visit EX x 3 40 min CPM/PADS CARMEN LONGORIA PT Feb 28, 2021 09:59
[2021-02-28 11:55] VITALS: BP 127/68
--- NOTE | 2021-02-28 12:09 | Occupational Therapy Eval ---
OT Evaluation-General/PLF Medical Diagnosis Admission Date Feb 27, 2021 at 06:01 Medical Diagnosis: bilateral TKA Onset Date: Feb 27, 2021 Therapy Diagnosis Therapy Diagnosis: decreased ADL status, weakness Precautions Precautions/Isolations: Fall Prevention, Standard Precautions Referral Physician: Britton Referral Reason: Evaluation/Treatment Medical History Additional Medical History anxiety/depression, DM, fibromyalgia, reflux, HTN, hypothyroidism, OA Current History s/p Bilateral TKA 02/27/21 Social History Home: Single Level Current Living Status: Spouse Entry Into Home: Stairs Without Railing Steps Into Home: 2 ADL-Prior Level of Function SCALE: Activities may be completed with or without assistive devices. 6-Nmgxcgngyz-vtlhgto completes the activity by him/herself with no assistance from a helper. 5-Set-up or Clean-up Assistance-helper sets up or cleans up; patient completes activity. [place] assists only prior to or following the activity. 4-Supervision or Touching Assistance-helper provides verbal cues and/or touching/steadying and/or contact guard assistance as patient completes activity. Assistance may be provided throughout the activity or intermittently. 3-Partial/Moderate Assistance-helper does LESS THAN HALF the effort. [place] lifts, holds or supports trunk or limbs, but provides less than half the effort. 2-Substantial/Maximal Assistance-helper does MORE THAN HALF the effort. [place] lifts or holds trunk or limbs and provides more than half the effort. 0-Bxsoniadu-ynugxx does ALL the effort. Patient does none of the effort to complete the activity. Or, the assistance of 2 or more helpers is required for the patient to complete the activity. If activity was not attempted, code reason: 7-Patient Refused. 9-Not Applicable-not attempted and the patient did not perform the activity before the current illness, exacerbation or injury. 10-Not Attempted due to Environmental Limitations-(lack of equipment, weather restraints, etc.). 88-Not Attempted due to Medical Conditions or Safety Concerns. ADL PLOF Comments Pt indicates she was IND with ADLs at [facility] including bathing, dressing and toileting. She has assistance with cooking and cleaning. Pt indicates she was not using a walker/AD at [facility], instead held onto alvarado or other people as she walked. Self Care: Independent Functional Cognition: Independent DME/Equipment: Tub/Shower OT Current Status Subjective Pt laying in bed, agreeable to OT tx. Nurse and aide present at start of tx, and pt's present. Reports pain in LEs but does not verbalize pain rating. Mental Status/Objective Patient Orientation: Person, Place, Time, Situation Attachments: IV, Oxygen, Other-See Comments (purewick) Current Hand Dominance: Left Upper Extremity ROM WFL Upper Extremity Coordination WFL Upper Extremity Sensation pt reports tingling/numbness based on position of arms. Upper Extremity Strength grossly 3+/5 ADL-Treatment Eating (QC): 6 (per pt report) Oral Hygiene (QC): 5 (based on clincial judgement) Lower Body Dressing (QC): 1 (based on clincial judgement, pt would require total assistance with task.) On/Off Footwear (QC): 1 (based on clincial judgement, pt would require total assistance with task.) Toileting Hygiene (QC): 1 (Pt currently using purewick to void urine.) Other Treatments Pt laying in bed, OT assisted with placement of purewick/pericare and placing BLE CPMs. Pt provided information about PLOF and home set up, and participated in UE screen. OT educated pt on purpose and benefit of OT in order to increase safety and independence with ADLs. Pt indicates she believes she has a shower chair at home, but has a bathtub ledge to step over. OT educated pt on shower chair vs extended tub bench, with recommendations of bench, she verbalized understanding. OT informed pt about OT POC while she is admitted to the hospital. Pt indicates pain in R knee, OT assisted pt with repositioning CPM RLE. Post tx, pt laying in bed, call light in reach and all needs met. Education OT Patient Education: Correct positioning, Modified ADL techniques, Progress toward Goal/Update tx plan, Purpose of tx/functional activities, Rehab process, Safety issues Teaching Recipient: Patient Teaching Methods: Discussion Response to Teaching: Verbalize Understanding OT Route Driver Goals Residential Goals Time Frame: Mar 08, 2021 Eating (QC): 6 Oral Hygiene (QC): 5 Toileting Hygiene (QC): 4 Shower/Bathe Self (QC): 4 Upper Body Dressing (QC): 5 Lower Body Dressing (QC): 4 On/Off Footwear (QC): 4 1=Demonstrate adherence to instructed precautions during ADL tasks. 2=Patient will verbalize/demonstrate understanding of assistive devices/modifications for ADL. 3=Patient will improve strength/tolerance for activity to enable patient to perform ADL's. OT Education/Plan Problem List/Assessment Assessment: Decreased Activ Tolerance, Decreased UE Strength, Impaired Bed Mobility, Impaired Funct Balance, Impaired I ADL's, Impaired Self-Care Skills Discharge Recommendations Plan/Recommendations: Continue POC Equpiment Recommendations-D/C: Extended Bath Bench Treatment Plan/Plan of Care Patient would benefit from OT for education, treatment and training to promote independence in ADL's, mobility, safety and/or upper extremity function for ADL's. Plan of Care: ADL Retraining, Functional Mobility, UE Funct Exercise/Act Treatment Duration: Mar 08, 2021 Frequency: 5 times per week Estimated Hrs Per Day: .25 hour per day Rehab Potential: Fair Time/GCodes Start Time: 11:29 Stop Time: 11:44 Total Time Billed (hr/min): 15 Billed Treatment Time 1, PURA COLEMAN OT Feb 28, 2021 12:09
[2021-02-28] MEDS ORDERED: FAMOTIDINE 20 MG (PEPCID) TABLET PO PRN (12:45)
[2021-02-28] MEDS ORDERED: GABAPENTIN 100 MG (NEURONTIN) CAP PO PRN (12:45)
[2021-02-28] MEDS ORDERED: NON-FORMULARY MEDICATION 1 EA EA (Cetirizine HCl 10 MG) PO PRN (12:45)
[2021-02-28] MEDS ORDERED: ALPRAZolam 0.25 MG (XANAX) TAB PO PRN (12:45)
[2021-02-28] MEDS ORDERED: NON-FORMULARY MEDICATION 1 EA EA (Celecoxib (Celebrex) 200 MG) PO PRN (12:45)
[2021-02-28] MEDS: ACETAMINOPHEN 500 MG TAB (TYLENOL) PO SCH ×2 (13:00→20:56)
[2021-02-28] MEDS ORDERED: LORATADINE (CLARITIN) 10 MG TAB PO PRN (13:00)
--- NOTE | 2021-02-28 13:55 | Physical Therapy Daily Note ---
PT Daily Note-Current Subjective Patient agrees to PT. Continues to c/o 10/10 bilateral knee pain with pain pills and METAL DEALER. Pain Numeric Pain Scale: 10-Worst Possible Pain Location: Right, Left Location Body Site: Knee Pain Description: Acute Mental Status Patient Orientation: Normal For Age Attachments: IV Transfers SCALE: Activities may be completed with or without assistive devices. 1-Xzxpbywaer-oxxvwkx completes the activity by him/herself with no assistance from a helper. 5-Set-up or Clean-up Assistance-helper sets up or cleans up; patient completes activity. [place] assists only prior to or following the activity. 4-Supervision or Touching Assistance-helper provides verbal cues and/or touching/steadying and/or contact guard assistance as patient completes a ctivity. Assistance may be provided throughout the activity or intermittently. 3-Partial/Moderate Assistance-helper does LESS THAN HALF the effort. [place] lifts, holds or supports trunk or limbs, but provides less than half the effort. 2-Substantial/Maximal Assistance-helper does MORE THAN HALF the effort. [place] lifts or holds trunk or limbs and provides more than half the effort. 3-Twplwhkpg-abzbqn does ALL the effort. Patient does none of the effort to complete the activity. Or, the assistance of 2 or more helpers is required for the patient to complete the activity. If activity was not attempted, code reason: 7-Patient Refused. 9-Not Applicable-not attempted and the patient did not perform the activity before the current illness, exacerbation or injury. 10-Not Attempted due to Environmental Limitations-(lack of equipment, weather restraints, etc.). 88-Not Attempted due to Medical Conditions or Safety Concerns. Roll Left & Right (QC): 2 Sit to Lying (QC): 2 Lying to Sitting/Side of Bed(Q: 2 attempted to perform sit to stand to FWW, however, patient unable to perform this task Weight Bearing Right Lower Extremity: Right Weight Bearing/Tolerated Left Lower Extremity: Left Weight Bearing/Tolerated Gait Training Does the Patient Walk?: No and Walking Goal IS indicated Exercises Supine Ex: Ankle pumps, Quad Set, Heel Slides, Straight leg raise Supine Reps: 12 (AAROM with patient resisting knee flexion bilaterally) Seated Therapy Exercises: Long arc quads Seated Reps: 12 Treatments right knee AAROM flexion 25 degrees with increased resistance/left knee AAROM flexion 40 degrees Assessment Patient continues to be unable to perform sit to stand to FWW due to bilateral knee pain. not progressing with treatment plan PT Long-Term Goals Long-Term Goals PT Corporate Training Manager Goals Time Frame: Mar 06, 2021 Roll Left & Right (QC): 6 Sit to Lying (QC): 6 Lying-Sitting on Side/Bed(QC): 6 Sit to Stand (QC): 4 Chair/Stz-yj-Opecz Xfer(QC): 4 Walk 10 feet (QC): 4 Walk 50ft with 2 Turns (QC): 4 Walk 150 ft (QC): 4 1 Step (curb) (QC): 4 4 Steps (QC): 4 PT Plan Treatment/Plan Treatment Plan: Continue Plan of Care Treatment Plan: Bed Mobility, Education, Functional Activity Shelley, Functional Strength, Gait, Safety, Therapeutic Exercise, Transfers Treatment Duration: Mar 06, 2021 Frequency: 11 times per week Estimated Hrs Per Day: .25 hour per day Patient and/or Family Agrees t: Yes Time/GCodes Time In: 1301 Time Out: 1330 Total Billed Treatment Time: 29 Total Billed Treatment 1 visit EX x 2 29 min CARMEN LONGORIA PT Feb 28, 2021 13:55
[2021-02-28 16:30] VITALS: BP 128/60
[2021-02-28] MEDS: CELECOXIB 100 MG (CeleBREX) CAP PO PRN (16:56)
[2021-02-28] MEDS ORDERED: metFORMIN 500 MG (GLUCOPHAGE) TAB PO SCH (19:00)
[2021-02-28] MEDS: FLUoxetine HCL 20 MG (PROzac) CAP PO SCH (20:56)
[2021-02-28 21:00] VITALS: BP 115/66
[2021-02-28] MEDS ORDERED: NON-FORMULARY MEDICATION 1 EA EA (Turmeric Root Extract (Turmeric) 538 MG) PO SCH (21:00)
[2021-02-28] MEDS ORDERED: PANTOPRAZOLE 40 MG (PROTONIX) TAB PO SCH (21:00)
[2021-02-28] MEDS ORDERED: NON-FORMULARY MEDICATION 1 EA EA (Esomeprazole Magnesium (Nexium) 40 MG) PO SCH (21:00)
[2021-02-28] MEDS ORDERED: SIMvastatin 10 MG (ZOCOR) TAB PO SCH (21:00)
[2021-03-01 00:20] VITALS: BP 134/71
[2021-03-01] MEDS: oxyCODONE/APAP 5/325MG (PERCOCET 5) TABLET PO PRN ×3 (02:09→08:01)
[2021-03-01] MEDS: NS IV 1000 ML 1,000 ML IV SCH (02:12)
[2021-03-01 04:17] VITALS: BP 148/67
--- NOTE | 2021-03-01 04:55 | DISCHARGE SUMMARY ---
DATE OF SERVICE: DIAGNOSES: 1. Bilateral knee primary osteoarthritis. 2. Allergic rhinitis. 3. Anxiety disorder. 4. Depression. 5. Diabetes. 6. Fibromyalgia. 7. Reflux. 8. Hyperlipidemia. 9. Hypertension. 10. Hypothyroidism. 11. Peptic ulcer disease. PROCEDURE: Bilateral total knee arthroplasty. SUMMARY: The patient is a 65-year-old female who underwent bilateral total knee arthroplasties the day of admission. Postoperatively, she was slow to mobilize. Her wounds were clean and dry. She had no calf tenderness. Negative Homans sign. CONDITION AT DISCHARGE: Good. DISCHARGE DISPOSITION: Transferred to the patient rehabilitation unit for continued physical and occupational therapy. Job ID: [id number] DocumentID: [id number] Dictated Date: 02/28/2021 19:20:53 Ground Equipment Mechanic Date: 03/01/2021 04:54:23 Dictated By: JAIR TAVERA MD
[2021-03-01] MEDS: MULTIVIT W/MINERALS TAB (THERAGRAN M) PO SCH (05:20)
[2021-03-01 06:13] LABS: BASOPHILS # (AUTO) 0.1 10^3/uL (0.0-0.1); BASOPHILS % (AUTO) 1 % (0-10); EOSINOPHILS # (AUTO) 0.1 10^3/uL (0.0-0.3); EOSINOPHILS % (AUTO) 1 % (0-10); HEMATOCRIT 31 % (35-52); HEMOGLOBIN 9.7 g/dL (11.5-16.0); LYMPHOCYTES # (AUTO) 1.1 10^3/uL (1.0-4.0); LYMPHOCYTES % (AUTO) 14 % (12-44); MEAN CORPUSCULAR HEMOGLOBIN 29 pg (25-34); MEAN CORPUSCULAR HGB CONC 31 g/dL (32-36); MEAN CORPUSCULAR VOLUME 93 fL (80-99); MEAN PLATELET VOLUME 12.1 fL (9.0-12.2); MONOCYTES # (AUTO) 0.9 10^3/uL (0.0-1.0); MONOCYTES % (AUTO) 12 % (0-12); NEUTROPHILS # (AUTO) 5.4 10^3/uL (1.8-7.8); NEUTROPHILS % (AUTO) 71 % (42-75); PLATELET COUNT 179 10^3/uL (130-400); WHITE BLOOD COUNT 7.6 10^3/uL (4.3-11.0)
[2021-03-01 06:25] LABS: ALBUMIN 3.4 GM/DL (3.2-4.5); CHLORIDE 102 MMOL/L (98-107); POTASSIUM 3.6 MMOL/L (3.6-5.0); SODIUM 135 MMOL/L (135-145)
[2021-03-01 06:26] LABS: CALCIUM 9.1 MG/DL (8.5-10.1)
[2021-03-01 06:27] LABS: GLUCOSE 119 MG/DL (70-105)
[2021-03-01 06:28] LABS: CARBON DIOXIDE 23 MMOL/L (21-32)
[2021-03-01 06:29] LABS: BILIRUBIN,TOTAL 0.9 MG/DL (0.1-1.0)
[2021-03-01] MEDS ORDERED: LEVOTHYROXINE 112 MCG (LEVOTHROID) TAB PO SCH (06:30)
[2021-03-01 06:31] LABS: ALKALINE PHOSPHATASE 76 U/L (40-136); CREATININE SERUM 0.79 MG/DL (0.60-1.30); GFR ESTIMATED > 60
[2021-03-01 06:32] LABS: BUN/CREATININE RATIO 10
[2021-03-01 06:34] LABS: ALANINE AMINOTRANSFERASE 17 U/L (0-55)
--- NOTE | 2021-03-01 06:57 | Progress Note ---
Standard Progress Note Progress Notes/Assess & Plan Date Seen by a Provider: Mar 01, 2021 Time Seen by a Provider: 06:56 Progress/Assessment & Plan post op check no complaints denies paresthesias radiographs--HW well positioned without fractre BLE--2 plus DP pulse with brisk cap refill, INtact DF and PF of toes and ankle. intact sensation throughout s/p BTKA mobilize as able Final Diagnosis feeling better today Vital Signs Date Time Temp Pulse Resp B/P (MAP) Pulse Ox O2 Delivery O2 Flow Rate FiO2 03/01/21 04:17 36.6 99 18 148/67 (94) 91 Room Air 03/01/21 00:20 36.8 88 20 134/71 (92) 91 Room Air 02/28/21 21:00 36.8 87 20 115/66 (82) 92 Room Air 02/28/21 21:00 18 02/28/21 20:00 Room Air 02/28/21 16:30 36.0 75 20 128/60 (82) 94 Room Air 02/28/21 15:27 96 Nasal Cannula 2.00 02/28/21 11:55 37.0 74 18 127/68 (87) 97 Nasal Cannula 2.00 02/28/21 09:08 18 02/28/21 08:09 37.1 89 18 109/64 (79) 97 Nasal Cannula 2.00 02/28/21 08:00 Room Air I & O 03/01/21 07:00 Intake Total 1780 ml Output Total 1625 ml Balance 155 ml Laboratory Tests Test 03/01/21 05:15 Range/Units White Blood Count 7.6 4.3-11.0 10^3/uL Red Blood Count 3.33 L 3.80-5.11 10^6/uL Hemoglobin 9.7 L 11.5-16.0 g/dL Hematocrit 31 L 35-52 % Mean Corpuscular Volume 93 80-99 fL Mean Corpuscular Hemoglobin 29 25-34 pg Mean Corpuscular Hemoglobin Concent 31 L 32-36 g/dL Red Cell Distribution Width 14.2 10.0-14.5 % Platelet Count 179 130-400 10^3/uL Mean Platelet Volume 12.1 9.0-12.2 fL Immature Granulocyte % (Auto) 1 % Neutrophils (%) (Auto) 71 42-75 % Lymphocytes (%) (Auto) 14 12-44 % Monocytes (%) (Auto) 12 0-12 % Eosinophils (%) (Auto) 1 0-10 % Basophils (%) (Auto) 1 0-10 % Neutrophils # (Auto) 5.4 1.8-7.8 10^3/uL Lymphocytes # (Auto) 1.1 1.0-4.0 10^3/uL Monocytes # (Auto) 0.9 0.0-1.0 10^3/uL Eosinophils # (Auto) 0.1 0.0-0.3 10^3/uL Basophils # (Auto) 0.1 0.0-0.1 10^3/uL Immature Granulocyte # (Auto) 0.1 0.0-0.1 10^3/uL Sodium Level 135 135-145 MMOL/L Potassium Level 3.6 3.6-5.0 MMOL/L Chloride Level 102 98-107 MMOL/L Carbon Dioxide Level 23 21-32 MMOL/L Anion Gap 10 5-14 MMOL/L Blood Urea Nitrogen 8 7-18 MG/DL Creatinine 0.79 0.60-1.30 MG/DL Estimat Glomerular Filtration Rate > 60 BUN/Creatinine Ratio 10 Glucose Level 119 H 70-105 MG/DL Calcium Level 9.1 8.5-10.1 MG/DL Corrected Calcium 9.6 8.5-10.1 MG/DL Total Bilirubin 0.9 0.1-1.0 MG/DL Aspartate Amino Transf (AST/SGOT) 21 5-34 U/L Alanine Aminotransferase (ALT/SGPT) 17 0-55 U/L Alkaline Phosphatase 76 40-136 U/L Total Protein 6.0 L 6.4-8.2 GM/DL Albumin 3.4 3.2-4.5 GM/DL BLE--incisions clean and dry. No calf tenderness s/p BTKA with poor mobility DC to JAIR CHATMAN MD Mar 01, 2021 06:57
[2021-03-01] MEDS ORDERED: morphine INJ 4 MG/ML 1 ML (VIAL/SYRINGE) IVP PRN (07:00)
[2021-03-01 07:46] VITALS: BP 130/71
[2021-03-01] MEDS: ENOXAPARIN 30 MG/0.3 ML (LOVENOX) SYR SC SCH (07:58)
[2021-03-01] MEDS: ASPIRIN E.C. 81 MG (ECOTRIN) TAB PO SCH (07:58)
[2021-03-01] MEDS: SENNA W/DOCUSATE (SENOKOT S) TABLET PO SCH (07:58)
[2021-03-01] MEDS: ACETAMINOPHEN 500 MG TAB (TYLENOL) PO SCH (07:58)
[2021-03-01] MEDS: FLUoxetine HCL 20 MG (PROzac) CAP PO SCH (07:58)
[2021-03-01] MEDS: CELECOXIB 100 MG (CeleBREX) CAP PO PRN (08:01)
[2021-03-01] MEDS ORDERED: SPIRONOLACTONE 100 MG (ALDACTONE) TABLET PO SCH (09:00)
== END 2021-03-01 10:50 | DRG 462 ==
LOC: 4TH 06:01 → SURG 06:02 → 4TH 10:26
PROVIDERS: ADMIT Orthopaedic Surgery; ATTEND Orthopaedic Surgery
PROC: 0SRC0J9 Replacement of Right Knee Joint with Synthetic Substitute, Cemented, Open Approach (ICD-10-PCS; 2021-02-27)
PROC: 0SRD0J9 Replacement of Left Knee Joint with Synthetic Substitute, Cemented, Open Approach (ICD-10-PCS; principal; 2021-02-27 07:26)
DX: M17.0 Bilateral primary osteoarthritis of knee (principal); J31.0 Chronic rhinitis; F41.9 Anxiety disorder, unspecified; F32.9 Major depressive disorder, single episode, unspecified; M79.7 Fibromyalgia; K21.9 Gastro-esophageal reflux disease without esophagitis; I10 Essential (primary) hypertension; E03.9 Hypothyroidism, unspecified; K27.9 Peptic ulcer, site unspecified, unspecified as acute or chronic, without hemorrhage or perforation; E78.00 Pure hypercholesterolemia, unspecified; K58.9 Irritable bowel syndrome, unspecified; G89.29 Other chronic pain; M54.9 Dorsalgia, unspecified; E11.40 Type 2 diabetes mellitus with diabetic neuropathy, unspecified
CPT/HCPCS: 36415; 80053; 82947; 85025; 85027; 86850; 86900; 86901; 94664; 94760

== ENCOUNTER 2021-03-01 06:01 | Inpatient (IN) | payer MEDICARE ==
[~2021-03-01] VITALS: Ht 157.5 cm; Wt 106.1 kg
[~2021-03-01 06:01] MED LIST changes: +ACETAMINOPHEN 325 MG TABLET PO PRN; +ALPRAZolam 0.25 MG (XANAX) TAB PO PRN; +BISACODYL 10 MG SUPP (DULCOLAX) PR PRN; +CALCIUM CARBONATE 500 MG (TUMS) TAB.CHEW PO PRN; +DOCUSATE SODIUM 100 MG (COLACE) CAP PO PRN; +FLEET ENEMA ADULT 1 EA BTL PR PRN; +LACTULOSE SYRUP 10GM/15ML (ENULOSE) 30ML UDC PO PRN; +LOPERAMIDE 2 MG (IMODIUM) TABLET PO PRN; +MELATONIN 3 MG TABLET PO PRN; +diphenhydrAMINE 25 MG TAB (BENADRYL) PO PRN
[2021-03-01] MEDS: SENNA W/DOCUSATE (SENOKOT S) TABLET PO SCH ×2 (10:41→20:47)
[2021-03-01] MEDS: polyethylene glycoL POWDER 17 GM (MIRALAX) PACK PO SCH ×2 (10:41→21:00)
[2021-03-01] MEDS: DOCUSATE SODIUM 100 MG (COLACE) CAP PO SCH ×2 (10:41→20:47)
--- NOTE | 2021-03-01 11:50 | PM&R Post Admission Assessment ---
PM&R Date of Visit: Mar 01, 2021 Time of Visit: 11:00 History of Present Illness Chief complaint: Recovery from bilateral knee arthroplasties uncomplicated by Dr. TAVERA History of present illness: This is a 65-year-old white female status post uncomplicated bilateral knee arthroplasties who presents to inpatient rehab in need of recovery and strengthening. Méndez catheter has been discontinued. Restarting all home meds. Bowels have not moved but regimen initiated. Pain is manageable. Prior level of functioning was independent without the use of ass istive devices. Past Kjgxman-Tkzsfa-Jesdfz Hx Past Med/Social Hx: Reviewed Nursing Past Med/Soc Hx, Reviewed and Corrections made Patient Social History Marrital Status: Employed/Student: retired Alcohol Use: Denies Use Smoking Status: Never a Smoker 2nd Hand Smoke Exposure: No Recent Hopitalizations: No Immunizations Up To Date Date of Influenza Vaccine: Jun 20, 2020 Seasonal Allergies Seasonal Allergies: Yes Past Medical History Surgeries: Hysterectomy Cardiac: High Cholesterol Neurological: Neuropathy Sexually Transmitted Disease: No HIV/AIDS: No Hysterectomy Gastrointestinal: Gastroesophageal Reflux, Chronic Constipation, Chronic Diarrhea, Irritable Bowel Musculoskeletal: Degenerate Disk Disease, Arthritis, Chronic Back Pain Endocrine: Hypothyroidsim, Diabetes, Non-Insulin dep Loss of Vision: Denies Hearing Impairment: Denies Psychosocial: Depression History of Blood Disorders: No Adverse Reaction to Blood Morales: No (N/A) PM&R Allergy/Meds/Data Review Allergies Coded Allergies: No Known Drug Allergies (Unverified , 02/27/21) Home Medications Scheduled Acetaminophen (Acetaminophen Extra Strength), 500-1,000 MG PO TID, (Reported) Esomeprazole Magnesium (Nexium), 40 MG PO HS, (Reported) Fluoxetine HCl (Prozac), 20 MG PO BID, (Reported) Levothyroxine Sodium (Levothyroxine Sodium), 112 MCG PO DAILY, (Reported) Metformin HCl (Metformin HCl), 500 MG PO DAILY@1900, (Reported) Simvastatin (Simvastatin), 10 MG PO HS, (Reported) Spironolactone (Spironolactone), 100 MG PO DAILY, (Reported) Turmeric Root Extract (Turmeric), 538 MG PO BID, (Reported) Scheduled PRN ALPRAZolam (Xanax Tablet), 0.25 MG PO BID PRN for ANXIETY, (Reported) Celecoxib (Celebrex), 200 MG PO BID PRN for PAIN-MODERATE (5-7), (Reported) Cetirizine HCl (Cetirizine HCl), 10 MG PO DAILY PRN for CONGESTION, (Reported) Famotidine (Pepcid), 20 MG PO DAILY PRN for HEARTBURN, (Reported) Gabapentin (Gabapentin), 100-300 MG PO TID PRN for PAIN-MODERATE (5-7), (Reported) Hydrochlorothiazide (Hydrochlorothiazide), 25 MG PO DAILY PRN for SWELLING, (Reported) Current Medications Current Medications Reviewed Review of Systems Constitutional: see HPI, malaise, weakness EENTM: no symptoms reported Respiratory: no symptoms reported Cardiovascular: no symptoms reported Gastrointestinal: constipation Genitourinary: no symptoms reported Musculoskeletal: joint pain Skin: no symptoms reported Psychiatric/Neurological: No Symptoms Reported All Other Systems Reviewed Negative Unless Noted: Yes Physical Exam Physical Exam Vital Signs Capillary Refill : Height, Weight, BMI Height: '" Weight: lbs. oz. kg; 39.46 BMI Method: General Appearance: No Apparent Distress, WD/WN, Chronically ill, Obese Eyes: Bilateral Eye Normal Inspection, Bilateral Eye PERRL HEENT: PERRL/EOMI, Normal ENT Inspection, Pharynx Normal Neck: Full Range of Motion, Normal Inspection, Non Tender, Supple, Carotid Bruit Respiratory: Chest Non Tender, Lungs Clear, Normal Breath Sounds, No Accessory Muscle Use, No Respiratory Distress Cardiovascular: Regular Rate, Rhythm, No Edema, No Gallop, No JVD, No Murmur, Normal Peripheral Pulses Gastrointestinal: Normal Bowel Sounds, No Organomegaly, No Pulsatile Mass, Non Tender, Soft Back: Normal Inspection, No CVA Tenderness, No Vertebral Tenderness Extremity: Normal Capillary Refill, Normal Inspection, Normal Range of Motion (Decreased range of motion both legs), Non Tender, No Calf Tenderness, No Pedal Edema Neurologic/Psychiatric: Alert, Oriented x3, No Motor/Sensory Deficits, Normal Mood/Affect, Abnormal Gait Skin: Normal Color, Warm/Dry Lymphatic: No Adenopathy PM&R Medical Assessment & Plan REHAB/MEDICAL ASSESSMENT AND PLAN: REHAB IMPAIRMENT GROUP: Bilateral knee arthroplasties ETIOLOGIC DIAGNOSIS: Bilateral knee arthroplasties The comorbidities that impact the patients function and/or functional outcome by: Increased BMI, diabetes REHAB PLAN: The patient is being admitted to our comprehensive inpatient rehabilitation facility and can tolerate the intensity of service consisting of at least: 180 minutes of therapy a day, 5 out of 7 days a week Rehab treatment will consist of: PT and OT will focus on regaining function of postop knee replacements with the use of assistive devices to increase ADL independence and ambulation The patient/family has a good understanding of our discharge process and will benefit from an interdisciplinary inpatient rehabilitation program. The patient has potential to make improvement and is in need of at least two of the following multidisciplinary therapies including but not limited to physical, occupational, speech, and prosthetics and orthotics. Additionally the patient will need services from respiratory, nutritional services, wound care, psychology, etc. (Customize this to each patient). Given the patients complex condition and risk of further medical complications, rehabilitation services cannot be safely or effectively provided at a lower level of care such as a [facility] facility. BARRIERS TO DISCHARGE: Bilateral lower extremity surgeries ESTIMATED LOS: 7 days DISPOSITION: Home RELEVANT CHANGES SINCE PREADMISSION SCREENING: I have compared the patients medical and functional status at the time of the preadmission screening and there are: no changes PROGNOSIS: Good REHABILITATION GOALS: 1.PT and OT will focus on regaining function of postop knee replacements with the use of assistive devices to increase ADL independence and ambulation All the above goals were reviewed with the patient and he/she is in agreement. By signing this document, I acknowledge that I have personally performed a full physical examination on this patient within 24 hours of admission to this inpatient rehabilitation facility and have determined the patient to be able to tolerate the above course of treatment at an intensive level for a reasonable period of time. I will be completing a detailed individualized Plan of Care for this patient by day #4 of the patients stay based upon the Preadmission Screen, the Post-Admission Evaluation, and the therapy evaluations. Admission Dx/Comorbidities: (1) History of bilateral knee arthroplasty ICD Codes: Z96.653 - Presence of artificial knee joint, bilateral (2) Hypothyroidism ICD Codes: E03.9 - Hypothyroidism, unspecified (3) Diabetes ICD Codes: E11.9 - Type 2 diabetes mellitus without complications (4) Obesity ICD Codes: E66.9 - Obesity, unspecified Assessment/Plan Assessment and Plan Assess & Plan/Chief Complaint Assessment: Bilateral knee arthroplasties Obesity Diabetes Hypothyroidism Irritable bowel syndrome Plan: Inpatient rehab protocol Bowel regimen Monitor closely HARRIETT KELLY DO Mar 01, 2021 11:50
[2021-03-01] MEDS: ONDANSETRON 4 MG (ZOFRAN) ORAL DISSOLVE TAB PO PRN (11:55)
[2021-03-01] MEDS: HYDROcodone/APAP 5 MG/325 MG (LORTAB) TAB PO PRN ×2 (11:55→20:47)
[2021-03-01 11:59] VITALS: BP 139/87
[2021-03-01] MEDS ORDERED: SALIVA STIMULANT MOUTH SPRAY (BIOTENE) 1.5 OZ MM PRN (12:00)
--- NOTE | 2021-03-01 13:31 | Occupational Therapy Eval ---
OT Evaluation-General/PLF Medical Diagnosis Admission Date Mar 01, 2021 at 06:01 Medical Diagnosis: s/p Bilateral TKA Onset Date: Feb 27, 2021 Therapy Diagnosis Therapy Diagnosis: weakness, decreased ADL status. Precautions Precautions/Isolations: Fall Prevention, Standard Precautions, Pressure Ulcer Referral Physician: Fransisca Hopper Reason: Evaluation/Treatment Medical History Additional Medical History Hysterectomy, High Cholesterol, Neuropathy, Gastroesophageal Reflux, Chronic Constipation, Chronic Diarrhea, Irritable Bowel, Degenerate Disk Disease, Arthritis, Chronic Back Pain, Hypothyroidsim, Diabetes, Non-Insulin dep Current History s/p Bilateral TKA 02/27/21. Transfer to ARU 03/01/21 for continued medication management and skilled therapy. Social History Home: Single Level Current Living Status: Spouse Entry Into Home: Stairs Without Railing Steps Into Home: 2 ADL-Prior Level of Function SCALE: Activities may be completed with or without assistive devices. 9-Bwwdsnwffu-pslwtmq completes the activity by him/herself with no assistance from a helper. 5-Set-up or Clean-up Assistance-helper sets up or cleans up; patient completes activity. [place] assists only prior to or following the activity. 4-Supervision or Touching Assistance-helper provides verbal cues and/or touching/steadying and/or contact guard assistance as patient completes acti vity. Assistance may be provided throughout the activity or intermittently. 3-Partial/Moderate Assistance-helper does LESS THAN HALF the effort. [place] lifts, holds or supports trunk or limbs, but provides less than half the effort. 2-Substantial/Maximal Assistance-helper does MORE THAN HALF the effort. [place] lifts or holds trunk or limbs and provides more than half the effort. 9-Qfrctenjz-qyqmwr does ALL the effort. Patient does none of the effort to complete the activity. Or, the assistance of 2 or more helpers is required for the patient to complete the activity. If activity was not attempted, code reason: 7-Patient Refused. 9-Not Applicable-not attempted and the patient did not perform the activity before the current illness, exacerbation or injury. 10-Not Attempted due to Environmental Limitations-(lack of equipment, weather restraints, etc.). 88-Not Attempted due to Medical Conditions or Safety Concerns. ADL PLOF Comments Pt indicates she was IND with ADLs at PLOF including bathing, dressing and toileting. She has assistance with cooking and cleaning. Pt indicates she was not using a walker/AD at [facility], instead held onto alvarado or other people as she walked. Self Care: Independent Functional Cognition: Independent DME/Equipment: Tub/Shower OT Current Status Subjective Pt agreeable to OT evaluation and OT/PT cotreat. Mental Status/Objective Patient Orientation: Person, Place, Time, Situation Current Hand Dominance: Left Upper Extremity ROM WFL, BUE shoulder flexion to approx 140 degrees Upper Extremity Coordination WFL Upper Extremity Sensation Pt reports some tingling/numbness based on position of BUEs Upper Extremity Strength grossly 3+/5 ADL-Treatment Eating (QC): 6 (IND with utensils, able to open containers.) Oral Hygiene (QC): 5 (set up) Shower/Bathe Self (QC): 1 (Based on clinical judgement, pt would require assist x2 with task in order to wash buttocks) Upper Body Dressing (QC): 4 (based on clincial judgement, pt requires supervision with task.) Lower Body Dressing (QC): 1 (total assist donning brief at bed level) On/Off Footwear (QC): 1 (total assist with BLE gripper socks and TEDhose.) Toileting Hygiene (QC): 1 (total assist at bed level.) Other Treatments OT evaluation complete. OT/PT cotreat due to skill of 2 clinicians required which a rehabilitation center manager could not perform due to pt's limitations in pain, UE strength, activity tolerance, functional mobility, and transfers as well as to decrease fall risk. OT focused on UE placement, cues for safety and sequencing, ADLs, assist with mobility/transfers, PT focused on overall gross movements, ambulation, transfers, and LE placement. Pt laying in bed, states need to use bed ag. Pt's bed soiled. Pt rolled side to side in order to use bed pain, change linens, and don clean brief. Pt transferred supine to sit EOB, then transferred to w/c. Pt propelled w/c in hallway, requiring skilled cue for UE placement. Pt taken to parallel bars, stood x3 trials, skilled cues for UE placement with stands. Pt taken back to room, attempted to transfer to recliner, unsuccessful though multiple attempts with multiple staff. Pt then completed SB transfer (dependent, assist x2) from w/c to recliner. Post tx, pt seated in recliner, call light in reach and all needs met, nursing staff present Bed mobility min A, supine <-> sit max A, sit <-> stand dependent (assist x2) with difficulty bearing weight through UEs in order to maintain upright posture. Education OT Patient Education: Correct positioning, Energy conservation, Exercise program, Modified ADL techniques, Progress toward Goal/Update tx plan, Purpose of tx/functional activities, Rehab process, Safety issues, Transfer techniques Teaching Recipient: Patient Teaching Methods: Discussion Response to Teaching: Verbalize Understanding OT Short Term Goals Short Term Goals Time Frame: Mar 11, 2021 Toileting hygiene: 3 Shower/bathe self: 3 Upper body dressin Lower body dressin Putting on/taking off footwear: 3 OT Cadd Operator Goals Cadd Operator Goals Time Frame: Mar 29, 2021 Eating (QC): 6 Oral Hygiene (QC): 6 Toileting Hygiene (QC): 3 Shower/Bathe Self (QC): 3 Upper Body Dressing (QC): 5 Lower Body Dressing (QC): 3 On/Off Footwear (QC): 4 Additional Goals: 1-Demonstrate ADL Tasks, 2-Verbalize Understanding, 3- ImproveStrength/Shelley 1=Demonstrate adherence to instructed precautions during ADL tasks. 2=Patient will verbalize/demonstrate understanding of assistive devices/modifications for ADL. 3=Patient will improve strength/tolerance for activity to enable patient to perform ADL's. OT Education/Plan Problem List/Assessment Assessment: Decreased Activ Tolerance, Decreased UE Strength, Dependent Transfers, Impaired Bed Mobility, Impaired Funct Balance, Impaired I ADL's, Impaired Self-Care Skills Discharge Recommendations Plan/Recommendations: Continue POC Equpiment Recommendations-D/C: Extended Bath Bench Treatment Plan/Plan of Care Patient would benefit from OT for education, treatment and training to promote independence in ADL's, mobility, safety and/or upper extremity function for ADL's. Plan of Care: ADL Retraining, Functional Mobility, Group Exercise/Act as Ind, UE Funct Exercise/Act Treatment Duration: Mar 29, 2021 Frequency: At least 5 of 7 days/Wk (IRF) Estimated Hrs Per Day: 1.5 hours per day Agreement: Yes Rehab Potential: Fair Time/GCodes Start Time: 11:10 Stop Time: 12:20 Total Time Billed (hr/min): 60 Billed Treatment Time 1057-2708 OT evaluation, [id number] PT evaluation, 9413-6844 OT/PT cotreat 1, EVH (10'), ADL (20'), FA 2 (30') PURA CUEVAS OT Mar 01, 2021 13:31
--- NOTE | 2021-03-01 14:27 | Physical Therapy Evaluation ---
PT Evaluation-General Medical Diagnosis Admission Date Mar 01, 2021 at 06:01 Medical Diagnosis: s/p Bilateral TKA Onset Date: Feb 27, 2021 Therapy Diagnosis Therapy Diagnosis: impaired mobility, strength, endurance, ROM Precautions Precautions/Isolations: Fall Prevention, Standard Precautions, Pressure Ulcer Weight Bear Status Right Lower Extremity: Right Weight Bearing/Tolerated Left Lower Extremity: Left Weight Bearing/Tolerated Referral Physician: Fransisca Reason for Referral: Evaluation/Treatment Medical History Additional Medical History PAST MEDICAL HISTORY: Allergic rhinitis, anxiety disorder, depression, diabetes, fibromyalgia, reflux, hyperlipidemia, hypertension, hypothyroidism, neck pain, osteoarthritis, history of ulcers. PAST SURGICAL HISTORY: Cataracts, hysterectomy, bladder sling, breast biopsy, hiatal hernia. Reviewed History: Yes Social History Home: Single Level Current Living Status: Spouse Entry Into Home: Stairs Without Railing PT Steps Into Home: 2 Prior Prior Level of Function SCALE: Activities may be completed with or without assistive devices. 3-Hnfglfncbl-rmbmfur completes the activity by him/herself with no assistance from a helper. 5-Set-up or Clean-up Assistance-helper sets up or cleans up; patient completes activity. [place] assists only prior to or following the activity. 4-Supervision or Touching Assistance-helper provides verbal cues and/or touching/steadying and/or contact guard assistance as patient completes activity. Assistance may be provided throughout the activity or intermittently. 3-Partial/Moderate Assistance-helper does LESS THAN HALF the effort. [place] lifts, holds or supports trunk or limbs, but provides less than half the effort. 2-Substantial/Maximal Assistance-helper does MORE THAN HALF the effort. [place] lifts or holds trunk or limbs and provides more than half the effort. 4-Rqpduhmin-fhcxvw does ALL the effort. Patient does none of the effort to complete the activity. Or, the assistance of 2 or more helpers is required for the patient to complete the activity. If activity was not attempted, code reason: 7-Patient Refused. 9-Not Applicable-not attempted and the patient did not perform the activity before the current illness, exacerbation or injury. 10-Not Attempted due to Environmental Limitations-(lack of equipment, weather restraints, etc.). 88-Not Attempted due to Medical Conditions or Safety Concerns. Bed Mobility: 6 Transfers (B,C,W/C): 6 Gait: 6 Stairs: 6 Indoor Mobility (Ambulation): Independent Stairs: Independent PT Evaluation-Current Subjective Patient in bed pre tx, agrees to PT, has 10/10 bilateral knee pain. Will be co- treating with OT for part of tx due to poor patient mobility, strength, endurance, severe pain with activity, safety and reduce risk of falls, coordinate UE and LE during activity. Pt/Family Goals to be independent at home Objective Patient Orientation: Person, Place, Situation ROM/Strength ROM Lower Extremities severely limited bilateral knee ROM, motion is painful, patient resists flexion and extension, visible motion of about 20 degrees each side Sensory Vision: Functional Hearing: Functional Hand Dominance: Left Sensation Right Lower Extremit: Intact Sensation Left Lower Extremity: Intact Transfers Roll Left & Right (QC): 3 Sit to Lying (QC): 2 Lying to Sitting/Side of Bed(Q: 2 Sit to Stand (QC): 1 Chair/Xlw-mq-Syovz Xfer(QC): 1 Toilet Transfer (QC): 1 Car Transfer (QC): 88 Patient performs bed mobility with min assist, supine <-> sit max assist, sit <- > stand and transfers dependent. Patient requires the assist of 2 people and a very elevated bed in order to stand from the side of the bed, 2 people assist to get patient to turn and sit in WC, patient is able to bear very little weight through her legs due to pain and is very obese and cannot take the weight through her arms. After getting to rehab she performs a sliding board transfer (dependent) with 2 people assist. Gait Walk 10 feet (QC): 88 Walk 50 ft with 2 Turns(QC): 88 Walk 150 ft (QC): 88 Walking 10ft/uneven surface-QC: 88 Wheelchair Training Wheel 50 ft with 2 turns (QC): 3 Wheel 150 ft (QC): 3 Type of Wheelchair: Manual Stairs 1 Step (curb) (QC): 88 4 Steps (QC): 88 12 Steps (QC): 88 Balance Sitting Static: Fair Sitting Dynamic: Poor Standing Static: Poor Standing Dynamic: Poor Picking up an Object (QC): 88 Assessment/Needs Patient in recliner post tx with nurse call, phone, tray, all needs met. Patient is dependent for transfers. Bilateral knee ROM is very poor. Rehab Potential: Guarded PT Short Term Goals Short Term Goals Time Frame: Mar 08, 2021 Roll Left & Right: 6 Sit to lyin Lying to sitting on side of be: 3 Sit to stand: 2 Chair/eak-lh-tmjkn transfer: 2 PT Half-Way Goals Linen Checker Goals PT Linen Checker Goals Time Frame: Mar 22, 2021 Roll Left & Right (QC): 6 Sit to Lying (QC): 3 ([place]) Lying-Sitting on Side/Bed(QC): 3 ([place]) Sit to Stand (QC): 3 (modA) Chair/Ppj-eb-Ywvfr Xfer(QC): 3 (modA) Toilet Transfer (QC): 3 (modA) Car Transfer (QC): 3 (modA) Does the Patient Walk: Yes Walk 10 feet (QC): 3 (modA) Walk 50ft with 2 Turns (QC): 88 Walk 150 ft (QC): 88 Walking 10ft on Uneven Surface: 88 1 Step (curb) (QC): 88 4 Steps (QC): 88 12 Steps (QC): 88 Picking up an Object (QC): 88 Wheel 50 feet with 2 turns (QC: 6 Wheel 150 feet: 6 PT Plan Problem List Problem List: Activity Tolerance, Functional Strength, Safety, Balance, Gait, Transfer, Bed Mobility, ROM Treatment/Plan Treatment Plan: Continue Plan of Care Treatment Plan: Bed Mobility, Education, Functional Activity [place], Functional Strength, Group Therapy, Gait, Safety, Therapeutic Exercise, Transfers Treatment Duration: Mar 22, 2021 Frequency: At least 5 of 7 days/Wk (IRF) Estimated Hrs Per Day: 1.5 hours per day Patient and/or Family Agrees t: Yes Safety Risks/Education Patient Education: Transfer Techniques, Correct Positioning, W/C Management, Safety Issues Teaching Recipient: Patient Teaching Methods: Demonstration, Discussion Response to Teaching: Reinforcement Needed Discharge Recommendations Plan Patient will perform bed mobility and transfer training, balance and endurance training, functional strengthening, stair training, gait training, and education, to improve functional mobility and independence at home. Therapy Discharge Recommendati: Home & Family, Post Acute PT Time/GCodes Time In: 1120 Time Out: 1220 Total Billed Treatment Time: 60 Total Billed Treatment 1 visit EVM 10' FA 50' PT eval from [id number], co-treat from [id number] ISH SIERRA PT Mar 01, 2021 14:27
--- NOTE | 2021-03-01 15:00 | Therapy Group Daily Note ---
Therapy Daily Group Note Patient Education Topic Home Safety, Exercises Exercises LE Seated Exercise, ROM, Gross Motor, UE Exercise Session Ratio (pt:therapist): 4:1 Goal of Session: Home Safety Strategies, UE/LE Strengthing Goal Met for this Session: Yes Pt Benefit of Group: Contributions to Others, Increased Functional Safety, Increased Functional Strength, Improved Cognition, Recognition of Peers, Socialization Other/Notes Patient was pushed in her recliner to group therapy in the common area of rehab. Each patient introduced themselves and said where they were from and answered a question requiring recall and critical thinking. Each patient participated in a home safety activity involving flash cards and had to teach a couple of exercises (UE and LE) to the other patients from a card they were given, finally patients worked on UE strength with ball throw/catch. Patient was rolled back to her room and transferred to bed and put on bedpan, has nurse call. Start Time: 13:00 Stop Time: 14:00 Total Billed Treatment Time: 60 Total Billed Treatment 1 visit ISH AVILA PT Mar 01, 2021 15:00
--- NOTE | 2021-03-01 15:08 | ST Cognitive Linguistic Eval ---
Speech Evaluation-General Medical Diagnosis s/p Bilateral TKA Onset Date: Feb 27, 2021 Therapy Diagnosis Therapy Diagnosis: Cognitive-communication Precautions Precautions/Isolations: Fall Prevention, Standard Precautions Referral Referring Physician: Dr. Gongora Medical History Pertinent Medical History: DM, Neuropathy Reviewed History: Yes Social History Current Living Status: Spouse Speech PLF-Current Status Prior Level of Function Patient lives at home with her who assists her as needed. Subjective Patient was pleasant and cooperative with the cognitive assessment. Language Eval: Auditory Comprehends Simple Yes/No Ques: Functional Indent/Objects Multiple [place]: Functional Ident/Pics in Multiple Davis: Functional Follows 1-Step Commands: Functional Follows Complex Directions: Functional Follows General Conversations: Functional Language Eval: Verbal Language Completes Spontaneous Greeting: Functional Produces Auto, Serial Info: Functional Imitates Simple Words/Phrases: Functional Word Finding: Functional Requests Basic Needs: Functional States Basic Personal Info: Functional Expresses Complex Ideas: Functional Objective Cognitive Domain Attention: WNL Memory: WNL Problem Solving: Functional Executive Functions: WNL Visuospatial Skills: WNL Composite Severity Rating: WNL Clock Drawing Severity Rating: WNL Objective Formal/Standardized Tests [facility] Mental Status ([facility]) Results 28/30, within normal range of function Oral Motor/Speech Production Within Normal Limits Impression The patient is a 65 y/o female who was admitted to the ARU due to bilateral knee replacement. Patient was given the SLUMS at bedside with a score of 28/30 obta ined. Patient's score is within the normal range of function and does not indicate the need for further ST. Speech Patient Assess Expression of Ideas/Wants: Expression (4) Understanding Verbal Content: Understands (4) Brief Interview-Mental Status: Yes Repetition of Three Words: Three (3) Temporal Orientation: Year: Correct (3) Temporal Orientation: Month: Accurate within 5 days(2) Temporal Orientation: Day: Correct (1) Recall : Wear to say "Sock": Yes, no cue required (2) Recall : Color: Yes, no cue required (2) Recall : Bed: Yes, no cue required (2) Memory/Recall Ability: Current season, Location of own room, That he or she is in a hsp/hsp unit Speech-Plan Patient/Family Goals Patient/Family Goals: Patient plans on returning to her home where she lives with her . Treatment Plan Speech Therapy Treatment Plan: Discontinue ST Treatment Duration: Mar 01, 2021 Frequency: 1 time per week Estimated Hrs Per Day: .25 hour per day Rehab Potential: Guarded Barriers to Learning: None identified Pt/Family Agrees to Plan: Yes Safety Risks/Education Teaching Recipient: Patient Teaching Methods: Discussion Response to Teaching: Verbalize Understanding Education Topics Provided: Safety within her room and communication of wants/needs Time Speech Therapy Time In: 14:45 Speech Therapy Time Out: 15:00 Total Billed Time: 15 Billed Treatment Time 1, VIJAYA GUEVARA [address] Mar 01, 2021 15:08
[2021-03-01 20:00] VITALS: BP 127/58
[2021-03-01] MEDS ORDERED: CELECOXIB 100 MG (CeleBREX) CAP PO PRN (21:15)
[2021-03-01] MEDS ORDERED: ALPRAZolam 0.25 MG (XANAX) TAB PO PRN (21:15)
[2021-03-01] MEDS ORDERED: GABAPENTIN 100 MG (NEURONTIN) CAP PO PRN (21:15)
[2021-03-01] MEDS ORDERED: ACETAMINOPHEN 325 MG TABLET PO PRN (21:15)
[2021-03-01] MEDS ORDERED: diphenhydrAMINE 50 MG/ML INJ (BENADRYL) IVP PRN (21:15)
[2021-03-01] MEDS: ENOXAPARIN 40 MG/0.4 ML (LOVENOX) SYR SC SCH (22:57)
[2021-03-02] MEDS: FAMOTIDINE 20 MG (PEPCID) TABLET PO PRN ×2 (05:59→21:09)
[2021-03-02] MEDS: oxyCODONE/APAP 5/325MG (PERCOCET 5) TABLET PO PRN ×3 (06:00→13:40)
[2021-03-02 06:08] LABS: BASOPHILS % (AUTO) 1 % (0-10); EOSINOPHILS # (AUTO) 0.1 10^3/uL (0.0-0.3); EOSINOPHILS % (AUTO) 2 % (0-10); HEMATOCRIT 27 % (35-52); HEMOGLOBIN 8.6 g/dL (11.5-16.0); LYMPHOCYTES # (AUTO) 0.9 10^3/uL (1.0-4.0); LYMPHOCYTES % (AUTO) 13 % (12-44); MEAN CORPUSCULAR HEMOGLOBIN 29 pg (25-34); MEAN CORPUSCULAR HGB CONC 32 g/dL (32-36); MEAN CORPUSCULAR VOLUME 92 fL (80-99); MEAN PLATELET VOLUME 12.1 fL (9.0-12.2); MONOCYTES # (AUTO) 0.7 10^3/uL (0.0-1.0); MONOCYTES % (AUTO) 10 % (0-12); NEUTROPHILS # (AUTO) 5.2 10^3/uL (1.8-7.8); NEUTROPHILS % (AUTO) 75 % (42-75); PLATELET COUNT 169 10^3/uL (130-400); WHITE BLOOD COUNT 6.9 10^3/uL (4.3-11.0)
[2021-03-02 06:22] LABS: ALBUMIN 3.2 GM/DL (3.2-4.5); CHLORIDE 105 MMOL/L (98-107); POTASSIUM 4.1 MMOL/L (3.6-5.0); SODIUM 140 MMOL/L (135-145)
[2021-03-02 06:23] LABS: CALCIUM 9.6 MG/DL (8.5-10.1)
[2021-03-02 06:25] LABS: GLUCOSE 117 MG/DL (70-105); TOTAL PROTEIN 5.8 GM/DL (6.4-8.2)
[2021-03-02 06:26] LABS: BILIRUBIN,TOTAL 0.8 MG/DL (0.1-1.0); CARBON DIOXIDE 27 MMOL/L (21-32)
[2021-03-02 06:28] LABS: ALKALINE PHOSPHATASE 107 U/L (40-136); CREATININE SERUM 0.73 MG/DL (0.60-1.30); GFR ESTIMATED > 60
[2021-03-02 06:29] LABS: BUN/CREATININE RATIO 10
[2021-03-02 06:31] LABS: ALANINE AMINOTRANSFERASE 22 U/L (0-55)
[2021-03-02] MEDS: MULTIVIT W/MINERALS TAB (THERAGRAN M) PO SCH (06:39)
[2021-03-02] MEDS: LEVOTHYROXINE 112 MCG (LEVOTHROID) TAB PO SCH (06:40)
[2021-03-02 07:25] VITALS: BP 141/65
--- NOTE | 2021-03-02 07:32 | Progress Note ---
Standard Progress Note Progress Notes/Assess & Plan Date Seen by a Provider: Mar 02, 2021 Time Seen by a Provider: 07:31 Progress/Assessment & Plan no complaints dressings intact. No calf tenderness still difficulty with sit to stand cont;inue PT/OT JAIR TAVERA MD Mar 02, 2021 07:32
--- NOTE | 2021-03-02 08:41 | PM&R Progress Note ---
Subjective HPI/CC On Admission Date Seen by Provider: Mar 02, 2021 Time Seen by Provider: 11:30 Subjective/Events-last exam 03/02/2021: Patient doing pretty well but difficult to ambulate Celebrex twice daily will be restarted Home dosing of medication altered to her satisfaction No bowel movement yet Hemoglobin 8.6 Sisters are at the bedside Review of Systems General: Fatigue, Malaise Musculoskeletal: leg pain Objective Exam Vital Signs Vital Signs Date Time Temp Pulse Resp B/P (MAP) Pulse Ox O2 Delivery O2 Flow Rate FiO2 03/02/21 10:46 Room Air 03/02/21 07:25 36.8 88 20 141/65 (90) 94 Capillary Refill : General Appearance: No Apparent Distress, WD/WN, Chronically ill, Obese HEENT: PERRL/EOMI, Normal ENT Inspection, Pharynx Normal Neck: Full Range of Motion, Normal Inspection, Non Tender, Supple, Carotid Bruit Respiratory: Chest Non Tender, Lungs Clear, Normal Breath Sounds, No Accessory Muscle Use, No Respiratory Distress Cardiovascular: Regular Rate, Rhythm, No Edema, No Gallop, No JVD, No Murmur, Normal Peripheral Pulses Gastrointestinal: Normal Bowel Sounds, No Organomegaly, No Pulsatile Mass, Non Tender, Soft Back: Normal Inspection, No CVA Tenderness, No Vertebral Tenderness Extremity: Normal Capillary Refill, Normal Inspection, Normal Range of Motion (Decreased range of motion both legs), Non Tender, No Calf Tenderness, No Pedal Edema Neurologic/Psychiatric: Alert, Oriented x3, No Motor/Sensory Deficits, Normal Mood/Affect, Abnormal Gait Skin: Normal Color, Warm/Dry Lymphatic: No Adenopathy Results/Procedures Lab Laboratory Tests 03/02/21 05:25 Patient resulted labs reviewed. FIM Transfers Therapy Code Descriptions/Definitions Functional [place] Measure: 0=Not Assessed/NA 4=Minimal Assistance 1=Total Assistance 5=Supervision or Setup 2=Maximal Assistance 6=Modified [place] 3=Moderate Assistance 7=Complete IndependenceSCALE: Activities may be completed with or without assistive devices. 3-Klpdvgibtz-mxnbfik completes the activity by him/herself with no assistance from a helper. 5-Set-up or Clean-up Assistance-helper sets up or cleans up; patient completes activity. [place] assists only prior to or following the activity. 4-Supervision or Touching Assistance-helper provides verbal cues and/or touching/steadying and/or contact guard assistance as patient completes activity. Assistance may be provided throughout the activity or intermittently. 3-Partial/Moderate Assistance-helper does LESS THAN HALF the effort. [place] lifts, holds or supports trunk or limbs, but provides less than half the effort. 2-Substantial/Maximal Assistance-helper does MORE THAN HALF the effort. [place] lifts or holds trunk or limbs and provides more than half the effort. 6-Lhordvciz-psofel does ALL the effort. Patient does none of the effort to complete the activity. Or, the assistance of 2 or more helpers is required for the patient to complete the activity. If activity was not attempted, code reason: 7-Patient Refused. 9-Not Applicable-not attempted and the patient did not perform the activity before the current illness, exacerbation or injury. 10-Not Attempted due to Environmental Limitations-(lack of equipment, weather restraints, etc.). 88-Not Attempted due to Medical Conditions or Safety Concerns. Roll Left to Right (QC): 3 Sit to Lying (QC): 2 Sit to Stand (QC): 1 Chair/Qsd-at-Xtnds Xfer(QC): 1 Car Transfer (QC): 88 Gait Training Walk 10 feet (QC): 88 Walk 50 ft with 2 Turns(QC): 88 Walk 150 ft (QC): 88 Walking 10ft/uneven surface-QC: 88 Wheelchair Training Wheel 50 ft with 2 turns (QC): 3 Wheel 150 ft (QC): 3 Type of Wheelchair: Manual Stair Training 1 Step (curb) (QC): 88 4 Steps (QC): 88 12 Steps (QC): 88 Balance Picking up an Object (QC): 88 ADL-Treatment Eating (QC): 6 (IND with utensils, able to open containers.) Oral Hygiene (QC): 5 (set up) Shower/Bathe Self (QC): 1 (Based on clinical judgement, pt would require assist x2 with task in order to wash buttocks) Upper Body Dressing (QC): 4 (based on clincial judgement, pt requires supervision with task.) Lower Body Dressing (QC): 1 (total assist donning brief at bed level) On/Off Footwear (QC): 1 (total assist with BLE gripper socks and TEDhose.) Toileting Hygiene (QC): 1 (total assist at bed level.) Assessment/Plan Assessment and Plan Assess & Plan/Chief Complaint Assessment: Bilateral knee arthroplasties Obesity Diabetes Hypothyroidism Irritable bowel syndrome Plan: Inpatient rehab protocol Bowel regimen Monitor closely 03/02/2021: Pain control Ambulate Intensify bowel regimen (1) History of bilateral knee arthroplasty (2) Hypothyroidism (3) Diabetes (4) Obesity HARRIETT KELLY DO Mar 02, 2021 08:41
--- NOTE | 2021-03-02 08:42 | Individualized Plan of Care ---
Individualized Plan of Care Rehab Nursing IPOC Order Admission Date Mar 01, 2021 at 06:01 Current Orders Orders Admission Order(Inpt,Obs,Sdc) (03/01/21 05:59) Vital Signs: Per Unit Policy ( (03/01/21 05:59) Sammy Rhodasusie (03/01/21 05:59) Sequential Compression Device .admit (03/01/21 05:59) Continuous Process Machine Operator-Inpt Rehab Con (03/01/21 05:59) Rehab Nursing Orders-Ipoc (03/01/21 05:59) Physical Therapy Rehab Orders (03/01/21 05:59) Occupational Therapy Rehab Ord (03/01/21 05:59) Speech Therapy Rehab Orders (03/01/21 05:59) Cbc With Automated Diff (03/02/21 06:00) Comprehensive Metabolic Panel (03/02/21 06:00) Precautions (Aru) (03/01/21 05:59) Rehab-Intensity Of Therapy (03/01/21 05:59) Initiate Admission Nursing Pro .admission (03/01/21 05:59) Acetaminophen Tablet/Caplet (Tylenol T (03/01/21 06:00) Alprazolam Tablet (Xanax Tablet) (03/01/21 06:00) Calcium Carbonate Chew Tablet (Antacid C (03/01/21 06:00) Diphenhydramine Tablet (Benadryl Tablet) (03/01/21 06:00) Docusate Sodium Capsule (Colace Capsule) (03/01/21 09:00) Docusate Sodium Capsule (Colace Capsule) (03/01/21 06:00) Bisacodyl Suppository (Dulcolax Supposit (03/01/21 06:00) Lactulose Oral Solution (Enulose Oral So (03/01/21 06:00) Na Phos/Na Biphos Enema (Fleet Enema Tuan (03/01/21 06:00) Guaifenesin/Codeine Syrup (Robitussin Ac (03/01/21 06:00) Hydrocodone/Apap 5/325 Tablet (Lortab 5 (03/01/21 06:00) Loperamide Tablet (Imodium Tablet) (03/01/21 06:00) Melatonin Tablet (Melatonin Tablet) (03/01/21 06:00) Polyethylene Glycol Powder Pkt (Miralax (03/01/21 09:00) Ondansetron Oral Dissolve Tab (Zofran (03/01/21 06:00) Senna S Tablet (Senokot S Tablet) (03/01/21 09:00) Code/Resuscitation (03/01/21 05:59) Patient Visit (03/01/21 ) Speech Sound Lang Comp (03/01/21 ) Treat. Speech/Lang/Voice (03/01/21 ) Admission Arrival Bed Request (03/01/21 11:08) Saliva Stimulant Mouth [place] (Biotene Mo (03/01/21 12:00) General/Regular (03/01/21 Lunch) Patient Visit (03/01/21 ) Pt Eval Moderate Complexity (03/01/21 ) Functional Activities, Ea 15 (03/01/21 ) Therapeutic, Group (03/01/21 ) Dressing Order (Intervention) DAILY (03/01/21 21:01) Incentive Spirometry (Nursing) Q2H (03/01/21 21:01) General/Regular (03/02/21 Breakfast) Alprazolam Tablet (Xanax Tablet) (03/01/21 21:15) Acetaminophen Tablet (Tylenol Tablet) (03/02/21 09:00) Aspirin Enteric Coated Tablet (Ecotrin T (03/02/21 09:00) Celecoxib Capsule (Celebrex Capsule) (03/01/21 21:15) Fluoxetine Capsule (Prozac Capsule) (03/02/21 09:00) Famotidine Tablet (Pepcid Tablet) (03/01/21 21:15) Gabapentin Capsule/Tablet (Neurontin Cap (03/01/21 21:15) Levothyroxine Tablet (Synthroid Tablet) (03/02/21 06:30) Loratadine Tablet (Claritin Tablet) (03/01/21 21:15) Therapeutic Multivitamin Tab (Vitamins, (03/02/21 07:00) Pantoprazole Tablet (Protonix Tablet) (03/02/21 21:00) Senna S Tablet (Senokot S Tablet) (03/02/21 09:00) Simvastatin Tablet (Zocor Tablet) (03/02/21 21:00) Spironolactone Tablet (Aldactone Tablet) (03/02/21 09:00) Acetaminophen Tablet/Caplet (Tylenol T (03/01/21 21:15) Diphenhydramine Injection (Benadryl Inje (03/01/21 21:15) Metformin Tablet (Glucophage Tablet) (03/02/21 19:00) Oxycodone/Apap 5/325mg Tablet (Percocet (03/01/21 21:15) Incentive Spirometry Initial (03/01/21 21:01) Incentive Spirometry (Nursing) Q2H (03/01/21 21:01) Enoxaparin Injection (Lovenox Injection) (03/01/21 22:15) Celecoxib Capsule (Celebrex Capsule) (03/02/21 21:00) Gabapentin Capsule/Tablet (Neurontin Cap (03/02/21 13:00) Gabapentin Capsule/Tablet (Neurontin Cap (03/02/21 21:00) Patient Visit (03/02/21 ) Exercise Therap, Ea 15 Min (03/02/21 ) Functional Activities, Ea 15 (03/02/21 ) Rehab Nursing Orders: Ongoing Assess. of Function Status, Bladder Management, Bladder Scan, Bladder Training, Bowel Management, Bowel Training, Disease Management & Educaiton, DVT Prophylaxis, Fall Prevention, Fluid/Electrolyte/Nutrition Mgmt, Infection Prevention, Medication Management & Education, Management of Risks & Complications, Nutrition Management, Pain Management, Patient/Family Support, Safety Management Intensity of Therapy to be met Patient to be seen: Min.3h per day/5 of 7d PT IPOC Problem List: Activity Tolerance, Functional Strength, Safety, Balance, Gait, Transfer, Bed Mobility, ROM Treatment Plan: Continue Plan of Care Bed Mobility, Education, Functional Activity Shelley, Functional Strength, Group Therapy, Gait, Safety, Therapeutic Exercise, Transfers Treatment Duration: Mar 22, 2021 Frequency: At least 5 of 7 days/Wk (IRF) Estimated Hrs Per Day: 1.5 hours per day OT IPOC Problems: Decreased Activ Tolerance, Decreased UE Strength, Dependent Transfers, Impaired Bed Mobility, Impaired Funct Balance, Impaired I ADL's, Impaired Self-Care Skills OT Treatment, Training and Edu: Yes Plan of Care: ADL Retraining, Functional Mobility, Group Exercise/Act as Ind, UE Funct Exercise/Act Treatment Duration: Mar 29, 2021 Frequency: At least 5 of 7 days/Wk (IRF) Estimated Hrs Per Day: 1.[address] IPOC Speech Therapy Treatment Plan: Discontinue ST Treatment Duration: Mar 01, 2021 Frequency: 1 time per week Estimated Hrs Per Day: .25 hour per day Continuous Process Machine Operator/Case Mgmt Continuous Process Machine Operator/Case Managemen: Discharge Planning Dietitian/Rfid Analyst Dietitian/Rfid Analyst to monitor nutritional status and make changes and/or recommendations as needed and work with speech pathology on dietary upgrades as the occur. Physician IPOC Medical Issues being managed closely and that require the 24 hour availability of a physician: Recent bilateral knee replacements with postop acute blood loss anemia and postop constipation will require close monitoring for decline in status Medical Issues: Bowel/Bladder Function, DVT Prophylaxis, Falls Precautions, Fluid/Electrolyte/Nutrition Balance, Infection Protection, Pain Management Brief Synthesis of Preadmission Screen, Post-Admission Evaluation, and Therapy Evaluations: PT and OT will focus on ambulating and tolerating pain while recovering and increasing the use of assistive devices to increase independency of ADL Medical Prognosis: Good Anticipated Length of Stay: 10 days HARRIETT KELLY DO Mar 02, 2021 08:42
[2021-03-02] MEDS: FLUoxetine HCL 20 MG (PROzac) CAP PO SCH ×2 (09:20→21:09)
[2021-03-02] MEDS: ASPIRIN E.C. 81 MG (ECOTRIN) TAB PO SCH (09:20)
[2021-03-02] MEDS: DOCUSATE SODIUM 100 MG (COLACE) CAP PO SCH ×2 (09:20→21:09)
[2021-03-02] MEDS: SPIRONOLACTONE 100 MG (ALDACTONE) TABLET PO SCH (09:20)
[2021-03-02] MEDS: polyethylene glycoL POWDER 17 GM (MIRALAX) PACK PO SCH ×2 (09:21→21:00)
[2021-03-02] MEDS: SENNA W/DOCUSATE (SENOKOT S) TABLET PO SCH ×2 (09:21→21:00)
[2021-03-02] MEDS: ACETAMINOPHEN 500 MG TAB (TYLENOL) PO SCH ×3 (09:23→19:52)
[2021-03-02] MEDS: ENOXAPARIN 40 MG/0.4 ML (LOVENOX) SYR SC SCH ×2 (09:24→21:54)
--- NOTE | 2021-03-02 12:36 | Physical Therapy Daily Note ---
PT Daily Note-Current Subjective Patient reports knee pain isn't "too bad" currently. Reports that she feels like she is still very weak and cannot ambulate yet. Pain Numeric Pain Scale: 5-Moderate Pain Location: Right, Left Location Body Site: Knee Pain Description: Ache Mental Status Patient Orientation: Person, Place, Time, Situation Transfers SCALE: Activities may be completed with or without assistive devices. 6-Dgoywjhbyz-wfmnsue completes the activity by him/herself with no assistance from a helper. 5-Set-up or Clean-up Assistance-helper sets up or cleans up; patient completes activity. [place] assists only prior to or following the activity. 4-Supervision or Touching Assistance-helper provides verbal cues and/or touching/steadying and/or contact guard assistance as patient completes activity. Assistance may be provided throughout the activity or intermittently. 3-Partial/Moderate Assistance-helper does LESS THAN HALF the effort. [place] lifts, holds or supports trunk or limbs, but provides less than half the effort. 2-Substantial/Maximal Assistance-helper does MORE THAN HALF the effort. [place] lifts or holds trunk or limbs and provides more than half the effort. 3-Kjbdfespp-sfexkc does ALL the effort. Patient does none of the effort to complete the activity. Or, the assistance of 2 or more helpers is required for the patient to complete the activity. If activity was not attempted, code reason: 7-Patient Refused. 9-Not Applicable-not attempted and the patient did not perform the activity before the current illness, exacerbation or injury. 10-Not Attempted due to Environmental Limitations-(lack of equipment, weather restraints, etc.). 88-Not Attempted due to Medical Conditions or Safety Concerns. Roll Left & Right (QC): 3 Sit to Lying (QC): 3 Lying to Sitting/Side of Bed(Q: 3 Sit to Stand (QC): 2 Chair/Jyv-yz-Xezim Xfer(QC): 1 Toilet Transfer (QC): 1 Car Transfer (QC): 88 Weight Bearing Right Lower Extremity: Right Weight Bearing/Tolerated Left Lower Extremity: Left Weight Bearing/Tolerated Gait Training Does the Patient Walk?: No and Walking Goal IS indicated Distance: 0 Walk 10 feet (QC): 1 Walk 50 ft with 2 Turns(QC): 1 Walk 150 ft (QC): 1 Walking 10ft/uneven surface-QC: 1 Gait Persons Needed: 2 Gait Assistive Device: FWW Patient unable to safely take steps at this time due to strength deficit and patients report of fear of falling. Wheelchair Training Does the Pt Use a Wheelchair?: Yes Wheel 50 ft with 2 turns (QC): 88 Wheel 150 ft (QC): 88 Type of Wheelchair: Manual Stair Training #of Steps: 0 1 Step (curb) (QC): 1 4 Steps (QC): 1 12 Steps (QC): 1 Balance Picking up an Object (QC): 1 Exercises Supine Ex: LE Protocol Supine Reps: 20 Assessment Current Status: Fair Progress Patient lying supine in bed upon PT arrival, agreeable to treatment. Performs LE protocol while supine in bed, tolerated well. Patient performs all observed bed mobility with mod A. Patient performs all observed transfers with max A. Patient able to perform sit to stand with max A, however unable to stand fully erect. Patient required max A x 2 for stand pivot to chair. Patient in chair post treatment with all needs met, nursing notified, and call light in reach. PT Short Term Goals Short Term Goals Time Frame: Mar 08, 2021 Roll Left & Right: 6 Sit to lyin Lying to sitting on side of be: 3 Sit to stand: 2 Chair/sgc-wq-hdzhq transfer: 2 PT Fpc Goals Janitorial Services Supervisor Goals PT Janitorial Services Supervisor Goals Time Frame: Mar 22, 2021 Roll Left & Right (QC): 6 Sit to Lying (QC): 3 ([place]) Lying-Sitting on Side/Bed(QC): 3 ([place]) Sit to Stand (QC): 3 (modA) Chair/Sqk-yg-Rrrjf Xfer(QC): 3 (modA) Toilet Transfer (QC): 3 (modA) Car Transfer (QC): 3 (modA) Does the Patient Walk: Yes Walk 10 feet (QC): 3 (modA) Walk 50ft with 2 Turns (QC): 88 Walk 150 ft (QC): 88 Walking 10ft on Uneven Surface: 88 1 Step (curb) (QC): 88 4 Steps (QC): 88 12 Steps (QC): 88 Picking up an Object (QC): 88 Wheel 50 feet with 2 turns (QC: 6 Wheel 150 feet: 6 PT Plan Problem List Problem List: Activity Tolerance, Functional Strength, Safety, Balance, Gait, Transfer, Bed Mobility, ROM Treatment/Plan Treatment Plan: Continue Plan of Care Treatment Plan: Bed Mobility, Education, Functional Activity Shelley, Functional Strength, Group Therapy, Gait, Safety, Therapeutic Exercise, Transfers Treatment Duration: Mar 22, 2021 Frequency: At least 5 of 7 days/Wk (IRF) Estimated Hrs Per Day: 1.5 hours per day Patient and/or Family Agrees t: Yes Time/GCodes Time In: 1010 Time Out: 1035 Total Billed Treatment Time: 25 Total Billed Treatment Visit, exMUKESH JOHN A PT Mar 02, 2021 12:36
[2021-03-02] MEDS: GABAPENTIN 100 MG (NEURONTIN) CAP PO SCH (13:40)
[2021-03-02] MEDS: metFORMIN 500 MG (GLUCOPHAGE) TAB PO SCH (18:05)
[2021-03-02] MEDS: LORATADINE (CLARITIN) 10 MG TAB PO PRN (19:51)
[2021-03-02] MEDS: guaiFENesin/CODEINE (ROBITUSSIN AC) 10ML UDC PO PRN (19:52)
[2021-03-02 20:00] VITALS: BP 124/57
[2021-03-02] MEDS: SIMvastatin 10 MG (ZOCOR) TAB PO SCH (21:09)
[2021-03-02] MEDS: CELECOXIB 100 MG (CeleBREX) CAP PO SCH (21:10)
[2021-03-02] MEDS: PANTOPRAZOLE 40 MG (PROTONIX) TAB PO SCH (21:10)
[2021-03-02] MEDS: GABAPENTIN 300 MG (NEURONTIN) CAP PO SCH (21:10)
--- NOTE | 2021-03-03 05:56 | Progress Note - Hospitalist ---
Subjective HPI/CC On Admission Date Seen by Provider: Mar 03, 2021 Objective Exam Vital Signs Vital Signs Date Time Temp Pulse Resp B/P (MAP) Pulse Ox O2 Delivery O2 Flow Rate FiO2 03/02/21 21:00 Room Air 03/02/21 20:00 36.6 91 16 124/57 (79) 92 Capillary Refill : Results/Procedures Lab Patient resulted labs reviewed. Assessment/Plan Assessment and Plan Assess & Plan/Chief Complaint Assessment: Bilateral knee arthroplasties Obesity Diabetes Hypothyroidism Irritable bowel syndrome Plan: Inpatient rehab protocol Bowel regimen Monitor closely 03/02/2021: Pain control Ambulate Intensify bowel regimen Diagnosis/Problems Diagnosis/Problems (1) History of bilateral knee arthroplasty (2) Hypothyroidism (3) Diabetes (4) Obesity HARRIETT KELLY DO Mar 03, 2021 05:56
--- NOTE | 2021-03-03 05:57 | PM&R Progress Note ---
Subjective HPI/CC On Admission Date Seen by Provider: Mar 03, 2021 Time Seen by Provider: 12:00 Subjective/Events-last exam 03/03/2021: Patient doing pretty well Bowels moved yesterday Has a chronic cough but lungs remain clear Using her CPM machine Got out of bed for the first time 03/02/2021: Patient doing pretty well but difficult to ambulate Celebrex twice daily will be restarted Home dosing of medication altered to her satisfaction No bowel movement yet Hemoglobin 8.6 Sisters are at the bedside Review of Systems General: Fatigue Pulmonary: Cough Musculoskeletal: leg pain Objective Exam Vital Signs Vital Signs Date Time Temp Pulse Resp B/P (MAP) Pulse Ox O2 Delivery O2 Flow Rate FiO2 03/03/21 21:00 Room Air 03/03/21 20:00 36.8 111 18 159/68 (98) 97 Capillary Refill : General Appearance: No Apparent Distress, WD/WN, Chronically ill, Obese HEENT: PERRL/EOMI, Normal ENT Inspection, Pharynx Normal Neck: Full Range of Motion, Normal Inspection, Non Tender, Supple, Carotid Bruit Respiratory: Chest Non Tender, Lungs Clear, Normal Breath Sounds, No Accessory Muscle Use, No Respiratory Distress Cardiovascular: Regular Rate, Rhythm, No Edema, No Gallop, No JVD, No Murmur, Normal Peripheral Pulses Gastrointestinal: Normal Bowel Sounds, No Organomegaly, No Pulsatile Mass, Non Tender, Soft Back: Normal Inspection, No CVA Tenderness, No Vertebral Tenderness Extremity: Normal Capillary Refill, Normal Inspection, Normal Range of Motion (Decreased range of motion both legs), Non Tender, No Calf Tenderness, No Pedal Edema Neurologic/Psychiatric: Alert, Oriented x3, No Motor/Sensory Deficits, Normal Mood/Affect, Abnormal Gait Skin: Normal Color, Warm/Dry Lymphatic: No Adenopathy Results/Procedures Lab Laboratory Tests 03/04/21 06:10 Patient resulted labs reviewed. FIM Transfers Therapy Code Descriptions/Definitions Functional [place] Measure: 0=Not Assessed/NA 4=Minimal Assistance 1=Total Assistance 5=Supervision or Setup 2=Maximal Assistance 6=Modified [place] 3=Moderate Assistance 7=Complete IndependenceSCALE: Activities may be completed with or without assistive devices. 2-Pjykniowfm-qdptnna completes the activity by him/herself with no assistance from a helper. 5-Set-up or Clean-up Assistance-helper sets up or cleans up; patient completes activity. [place] assists only prior to or following the activity. 4-Supervision or Touching Assistance-helper provides verbal cues and/or touching/steadying and/or contact guard assistance as patient completes activity. Assistance may be provided throughout the activity or intermittently. 3-Partial/Moderate Assistance-helper does LESS THAN HALF the effort. [place] lifts, holds or supports trunk or limbs, but provides less than half the effort. 2-Substantial/Maximal Assistance-helper does MORE THAN HALF the effort. [place] lifts or holds trunk or limbs and provides more than half the effort. 6-Amuukowfz-nmgfcw does ALL the effort. Patient does none of the effort to complete the activity. Or, the assistance of 2 or more helpers is required for the patient to complete the activity. If activity was not attempted, code reason: 7-Patient Refused. 9-Not Applicable-not attempted and the patient did not perform the activity before the current illness, exacerbation or injury. 10-Not Attempted due to Environmental Limitations-(lack of equipment, weather re straints, etc.). 88-Not Attempted due to Medical Conditions or Safety Concerns. Roll Left to Right (QC): 3 Sit to Lying (QC): 3 Sit to Stand (QC): 2 Chair/Zvq-no-Uckvw Xfer(QC): 1 Car Transfer (QC): 88 Gait Training Does the Patient Walk?: No and Walking Goal IS indicated Distance: 0 Walk 10 feet (QC): 1 Walk 50 ft with 2 Turns(QC): 1 Walk 150 ft (QC): 1 Walking 10ft/uneven surface-QC: 1 Gait Persons Needed: 2 Gait Assistive Device: FWW Wheelchair Training Does the Pt Use a Wheelchair?: Yes Wheel 50 ft with 2 turns (QC): 88 Wheel 150 ft (QC): 88 Type of Wheelchair: Manual Stair Training #of Steps: 0 1 Step (curb) (QC): 1 4 Steps (QC): 1 12 Steps (QC): 1 Balance Picking up an Object (QC): 1 ADL-Treatment Eating (QC): 6 (IND with utensils, able to open containers.) Oral Hygiene (QC): 5 (set up) Shower/Bathe Self (QC): 1 (Based on clinical judgement, pt would require assist x2 with task in order to wash buttocks) Upper Body Dressing (QC): 4 (based on clincial judgement, pt requires supervision with task.) Lower Body Dressing (QC): 1 (total assist donning brief at bed level) On/Off Footwear (QC): 1 (total assist with BLE gripper socks and TEDhose.) Toileting Hygiene (QC): 1 (total assist at bed level.) Assessment/Plan Assessment and Plan Assess & Plan/Chief Complaint Assessment: Bilateral knee arthroplasties Obesity Diabetes Hypothyroidism Irritable bowel syndrome Plan: Inpatient rehab protocol Bowel regimen Monitor closely 03/02/2021: Pain control Ambulate Intensify bowel regimen 03/03/2021: Continue bowel regimen Monitor cough Pain control CPM machine use (1) History of bilateral knee arthroplasty (2) Hypothyroidism (3) Diabetes (4) Obesity HARRIETT KELLY DO Mar 03, 2021 05:57
[2021-03-03] MEDS: oxyCODONE/APAP 5/325MG (PERCOCET 5) TABLET PO PRN ×4 (06:30→20:07)
[2021-03-03] MEDS: LEVOTHYROXINE 112 MCG (LEVOTHROID) TAB PO SCH (06:30)
[2021-03-03] MEDS: MULTIVIT W/MINERALS TAB (THERAGRAN M) PO SCH (06:30)
[2021-03-03 07:20] VITALS: BP 143/63
[2021-03-03] MEDS: CELECOXIB 100 MG (CeleBREX) CAP PO SCH ×2 (08:47→21:18)
[2021-03-03] MEDS: ASPIRIN E.C. 81 MG (ECOTRIN) TAB PO SCH (08:47)
[2021-03-03] MEDS: SPIRONOLACTONE 100 MG (ALDACTONE) TABLET PO SCH (08:47)
[2021-03-03] MEDS: FLUoxetine HCL 20 MG (PROzac) CAP PO SCH ×2 (08:48→21:19)
[2021-03-03] MEDS: SENNA W/DOCUSATE (SENOKOT S) TABLET PO SCH ×2 (08:48→21:18)
[2021-03-03] MEDS: ACETAMINOPHEN 500 MG TAB (TYLENOL) PO SCH ×3 (08:48→21:19)
[2021-03-03] MEDS: DOCUSATE SODIUM 100 MG (COLACE) CAP PO SCH ×2 (08:48→21:20)
[2021-03-03] MEDS: GABAPENTIN 100 MG (NEURONTIN) CAP PO SCH ×2 (08:52→13:37)
[2021-03-03] MEDS: polyethylene glycoL POWDER 17 GM (MIRALAX) PACK PO SCH ×2 (08:52→21:24)
--- NOTE | 2021-03-03 09:17 | Progress Note ---
Standard Progress Note Progress Notes/Assess & Plan Date Seen by a Provider: Mar 03, 2021 Time Seen by a Provider: 09:16 Progress/Assessment & Plan no complaints dressings intact. No calf tenderness still difficulty with sit to stand cont;inue PT/OT Final Diagnosis feeling better Vital Signs Date Time Temp Pulse Resp B/P (MAP) Pulse Ox O2 Delivery O2 Flow Rate FiO2 03/03/21 07:20 37.0 86 16 143/63 (89) 94 Room Air 03/02/21 21:00 Room Air 03/02/21 20:00 36.6 91 16 124/57 (79) 92 03/02/21 10:46 Room Air walked a few steps yesterday fracture blister posterior right knee no calf tenderness s/p BTKA continue mobilizing JAIR TAVERA MD Mar 03, 2021 09:17
[2021-03-03] MEDS: ENOXAPARIN 40 MG/0.4 ML (LOVENOX) SYR SC SCH ×2 (10:35→21:20)
[2021-03-03] MEDS: guaiFENesin/CODEINE (ROBITUSSIN AC) 10ML UDC PO PRN (10:46)
[2021-03-03] MEDS: metFORMIN 500 MG (GLUCOPHAGE) TAB PO SCH (18:04)
[2021-03-03 20:00] VITALS: BP 159/68
[2021-03-03] MEDS: FAMOTIDINE 20 MG (PEPCID) TABLET PO PRN (20:21)
[2021-03-03] MEDS: GABAPENTIN 300 MG (NEURONTIN) CAP PO SCH (21:18)
[2021-03-03] MEDS: PANTOPRAZOLE 40 MG (PROTONIX) TAB PO SCH (21:19)
[2021-03-03] MEDS: SIMvastatin 10 MG (ZOCOR) TAB PO SCH (21:19)
[2021-03-03] MEDS: LORATADINE (CLARITIN) 10 MG TAB PO PRN (21:20)
[2021-03-04] MEDS: oxyCODONE/APAP 5/325MG (PERCOCET 5) TABLET PO PRN ×3 (04:46→20:38)
[2021-03-04] MEDS: ONDANSETRON 4 MG (ZOFRAN) ORAL DISSOLVE TAB PO PRN ×2 (04:50→22:15)
[2021-03-04] MEDS: LEVOTHYROXINE 112 MCG (LEVOTHROID) TAB PO SCH (06:27)
[2021-03-04] MEDS: MULTIVIT W/MINERALS TAB (THERAGRAN M) PO SCH (06:27)
[2021-03-04 06:28] LABS: BASOPHILS # (AUTO) 0.1 10^3/uL (0.0-0.1); BASOPHILS % (AUTO) 1 % (0-10); EOSINOPHILS # (AUTO) 0.3 10^3/uL (0.0-0.3); EOSINOPHILS % (AUTO) 4 % (0-10); HEMATOCRIT 28 % (35-52); HEMOGLOBIN 8.7 g/dL (11.5-16.0); LYMPHOCYTES # (AUTO) 1.3 10^3/uL (1.0-4.0); LYMPHOCYTES % (AUTO) 21 % (12-44); MEAN CORPUSCULAR HEMOGLOBIN 29 pg (25-34); MEAN CORPUSCULAR HGB CONC 31 g/dL (32-36); MEAN CORPUSCULAR VOLUME 93 fL (80-99); MEAN PLATELET VOLUME 10.9 fL (9.0-12.2); MONOCYTES # (AUTO) 0.7 10^3/uL (0.0-1.0); MONOCYTES % (AUTO) 12 % (0-12); NEUTROPHILS # (AUTO) 3.7 10^3/uL (1.8-7.8); NEUTROPHILS % (AUTO) 61 % (42-75); PLATELET COUNT 265 10^3/uL (130-400); WHITE BLOOD COUNT 6.1 10^3/uL (4.3-11.0)
[2021-03-04 06:37] LABS: ALBUMIN 3.3 GM/DL (3.2-4.5); CHLORIDE 103 MMOL/L (98-107); SODIUM 141 MMOL/L (135-145)
[2021-03-04 06:38] LABS: CALCIUM 9.8 MG/DL (8.5-10.1)
[2021-03-04 06:40] LABS: GLUCOSE 113 MG/DL (70-105); TOTAL PROTEIN 6.1 GM/DL (6.4-8.2)
[2021-03-04 06:41] LABS: BILIRUBIN,TOTAL 0.7 MG/DL (0.1-1.0); CARBON DIOXIDE 28 MMOL/L (21-32)
[2021-03-04 06:43] LABS: ALKALINE PHOSPHATASE 129 U/L (40-136); CREATININE SERUM 0.83 MG/DL (0.60-1.30); GFR ESTIMATED > 60
[2021-03-04 06:44] LABS: BUN/CREATININE RATIO 12
[2021-03-04 06:46] LABS: ALANINE AMINOTRANSFERASE 31 U/L (0-55)
[2021-03-04 07:35] VITALS: BP 179/77
[2021-03-04] MEDS: CELECOXIB 100 MG (CeleBREX) CAP PO SCH ×2 (09:24→20:37)
[2021-03-04] MEDS: ASPIRIN E.C. 81 MG (ECOTRIN) TAB PO SCH (09:24)
[2021-03-04] MEDS: FLUoxetine HCL 20 MG (PROzac) CAP PO SCH ×2 (09:24→20:54)
[2021-03-04] MEDS: DOCUSATE SODIUM 100 MG (COLACE) CAP PO SCH ×2 (09:24→20:50)
[2021-03-04] MEDS: SENNA W/DOCUSATE (SENOKOT S) TABLET PO SCH ×2 (09:24→20:50)
[2021-03-04] MEDS: SPIRONOLACTONE 100 MG (ALDACTONE) TABLET PO SCH (09:24)
[2021-03-04] MEDS: ACETAMINOPHEN 500 MG TAB (TYLENOL) PO SCH ×3 (09:25→20:51)
[2021-03-04] MEDS: GABAPENTIN 100 MG (NEURONTIN) CAP PO SCH ×2 (09:29→14:09)
[2021-03-04] MEDS: ENOXAPARIN 40 MG/0.4 ML (LOVENOX) SYR SC SCH ×2 (09:30→22:17)
[2021-03-04] MEDS: polyethylene glycoL POWDER 17 GM (MIRALAX) PACK PO SCH ×2 (09:36→20:50)
--- NOTE | 2021-03-04 10:03 | Occupational Ther Daily Note ---
OT Current Status-Daily Note Subjective Pt laying in bed, agreeable to OT/PT cotreat. Reports 2/10 pain at rest. Mental Status/Objective Patient Orientation: Normal For Age ADL-Treatment Therapy Code Descriptions/Definitions Functional [place] Measure: 0=Not Assessed/NA 4=Minimal Assistance 1=Total Assistance 5=Supervision or Setup 2=Maximal Assistance 6=Modified [place] 3=Moderate Assistance 7=Complete IndependenceSCALE: Activities may be completed with or without assistive devices. 3-Xelfbawbvz-vunvcvg completes the activity by him/herself with no assistance from a helper. 5-Set-up or Clean-up Assistance-helper sets up or cleans up; patient completes activity. [place] assists only prior to or following the activity. 4-Supervision or Touching Assistance-helper provides verbal cues and/or touching/steadying and/or contact guard assistance as patient completes activity. Assistance may be provided throughout the activity or intermittently. 3-Partial/Moderate Assistance-helper does LESS THAN HALF the effort. [place] lifts, holds or supports trunk or limbs, but provides less than half the effort. 2-Substantial/Maximal Assistance-helper does MORE THAN HALF the effort. [place] lifts or holds trunk or limbs and provides more than half the effort. 4-Xchuubcvu-wthddj does ALL the effort. Patient does none of the effort to c omplete the activity. Or, the assistance of 2 or more helpers is required for the patient to complete the activity. If activity was not attempted, code reason: 7-Patient Refused. 9-Not Applicable-not attempted and the patient did not perform the activity before the current illness, exacerbation or injury. 10-Not Attempted due to Environmental Limitations-(lack of equipment, weather restraints, etc.). 88-Not Attempted due to Medical Conditions or Safety Concerns. Eating (QC): 6 (Per pt report) Upper Body Dressing (QC): 5 (set up with bra and puller out shirt) Lower Body Dressing (QC): 2 (Max A at bed level, assist with threading pants, pt able to assist with managing up and pant hike, slight assist provided by OT with pant hike in backside.) Toileting Hygiene (QC): 2 (Assist with clothing management, pt able to complete pericare) Toilet Transfer (QC): 3 ([place]) Other Treatment OT/PT cotreat due to skill of 2 clinicians required which a rvda master certified rv technician could not perform in order to decrease fall risk, and due to pt's limitations in pain, activity tolerance, mobility, and BP. OT focused on ADLs, UE placement, and cues for sequencing and safety, PT focused on LE placement, gross overall movements, transfers/mobility. Pt in bed, CPM on RLE, and polar packs BLEs. Pt donned clothes at bed level, then transferred supine to sit EOB. Pt stood at FWW, transferring to w/c (min A). Pt began propelling w/c to therapy gym, BP 208/91 with nurse present. BP taken again 190/86 seated. Pt propelled to therapy gym. Pt completed x20 reps BUE shoulder flexion and elbow flexion/extension. BP 153/64. Pt performed functional mobility x2 in parallel bars with w/c follow, BP 182/69 upon sitting. Pt completed seated BUE exercises, x20 reps wrist flexion/extension and horizontal abduction, BP 150/66. Pt ambulated x1 in parallel bars, then propelled w/c back to room. Pt requests to use toilet, used FWW to transfer from w/c to toilet ([place]), then used FWW to perform functional mobility to recliner. Post tx, pt seated in recliner, call light in reach and all needs met. Education OT Patient Education: Correct positioning, Modified ADL techniques, Progress toward Goal/Update tx plan, Purpose of tx/functional activities Teaching Recipient: Patient Teaching Methods: Discussion Response to Teaching: Verbalize Understanding OT Short Term Goals Short Term Goals Time Frame: Mar 11, 2021 Toileting hygiene: 3 Shower/bathe self: 3 Upper body dressin Lower body dressin Putting on/taking off footwear: 3 OT [facility] Goals Special Service Representative Goals Time Frame: Mar 29, 2021 Eating (QC): 6 Oral Hygiene (QC): 6 Toileting Hygiene (QC): 3 Shower/Bathe Self (QC): 3 Upper Body Dressing (QC): 5 Lower Body Dressing (QC): 3 On/Off Footwear (QC): 4 Additional Goals: 1-Demonstrate ADL Tasks, 2-Verbalize Understanding, 3- ImproveStrength/[place]hel[place] 1=Demonstrate adherence to instructed precautions during ADL tasks. 2=Patient will verbalize/demonstrate understanding of assistive devices/m odifications for ADL. 3=Patient will improve strength/tolerance for activity to enable patient to perform ADL's. OT Education/Plan Problem List/Assessment Assessment: Decreased Activ Tolerance, Decreased UE Strength, Impaired Funct Balance, Impaired I ADL's, Impaired Self-Care Skills Discharge Recommendations Plan/Recommendations: Continue POC Treatment Plan/Plan of Care Patient would benefit from OT for education, treatment and training to promote independence in ADL's, mobility, safety and/or upper extremity function for ADL's. Plan of Care: ADL Retraining, Functional Mobility, Group Exercise/Act as Ind, UE Funct Exercise/Act Treatment Duration: Mar 29, 2021 Frequency: At least 5 of 7 days/Wk (IRF) Estimated Hrs Per Day: 1.5 hours per day Agreement: Yes Rehab Potential: Guarded Time/GCodes Start Time: 09:00 Stop Time: 10:00 Total Time Billed (hr/min): 60 Billed Treatment Time cotreat x60' 1, ADL 2 (25'), EX (15'), FA (20) PURA CUEVAS OT Mar 04, 2021 10:03
--- NOTE | 2021-03-04 10:15 | PM&R Progress Note ---
Subjective HPI/CC On Admission Date Seen by Provider: Mar 04, 2021 Time Seen by Provider: 10:15 Subjective/Events-last exam 03/04/2021: Patient doing pretty well Shortness of breath noted so will obtain echocardiogram she has never had one Add BNP to the labs Lasix will be given 1 dose Bowels are moving very well now Elevated blood pressure noted she has taken hydrochlorothiazide before Moving around a lot better now 03/03/2021: Patient doing pretty well Bowels moved yesterday Has a chronic cough but lungs remain clear Using her CPM machine Got out of bed for the first time 03/02/2021: Patient doing pretty well but difficult to ambulate Celebrex twice daily will be restarted Home dosing of medication altered to her satisfaction No bowel movement yet Hemoglobin 8.6 Sisters are at the bedside Review of Systems Pulmonary: Dyspnea Musculoskeletal: leg pain Objective Exam Vital Signs Vital Signs Date Time Temp Pulse Resp B/P (MAP) Pulse Ox O2 Delivery O2 Flow Rate FiO2 03/04/21 20:50 Nasal Cannula 2.00 03/04/21 20:00 36.4 78 14 164/70 (101) 94 Capillary Refill : General Appearance: No Apparent Distress, WD/WN, Chronically ill, Obese HEENT: PERRL/EOMI, Normal ENT Inspection, Pharynx Normal Neck: Full Range of Motion, Normal Inspection, Non Tender, Supple, Carotid Bruit Respiratory: Chest Non Tender, Lungs Clear, Normal Breath Sounds, No Accessory Muscle Use, No Respiratory Distress Cardiovascular: Regular Rate, Rhythm, No Edema, No Gallop, No JVD, No Murmur, Normal Peripheral Pulses Gastrointestinal: Normal Bowel Sounds, No Organomegaly, No Pulsatile Mass, Non Tender, Soft Back: Normal Inspection, No CVA Tenderness, No Vertebral Tenderness Extremity: Normal Capillary Refill, Normal Inspection, Normal Range of Motion (Decreased range of motion both legs), Non Tender, No Calf Tenderness, No Pedal Edema Neurologic/Psychiatric: Alert, Oriented x3, No Motor/Sensory Deficits, Normal Mood/Affect, Abnormal Gait Skin: Normal Color, Warm/Dry Lymphatic: No Adenopathy Results/Procedures Lab Laboratory Tests 03/04/21 06:10 Patient resulted labs reviewed. FIM Transfers Therapy Code Descriptions/Definitions Functional [place] Measure: 0=Not Assessed/NA 4=Minimal Assistance 1=Total Assistance 5=Supervision or Setup 2=Maximal Assistance 6=Modified [place] 3=Moderate Assistance 7=Complete IndependenceSCALE: Activities may be completed with or without assistive devices. 5-Etztsigwly-dslqwpi completes the activity by him/herself with no assistance fr om a helper. 5-Set-up or Clean-up Assistance-helper sets up or cleans up; patient completes activity. [place] assists only prior to or following the activity. 4-Supervision or Touching Assistance-helper provides verbal cues and/or touching/steadying and/or contact guard assistance as patient completes activity. Assistance may be provided throughout the activity or intermittently. 3-Partial/Moderate Assistance-helper does LESS THAN HALF the effort. [place] lifts, holds or supports trunk or limbs, but provides less than half the effort. 2-Substantial/Maximal Assistance-helper does MORE THAN HALF the effort. [place] lifts or holds trunk or limbs and provides more than half the effort. 2-Ghbxpwsxn-hwnzyf does ALL the effort. Patient does none of the effort to complete the activity. Or, the assistance of 2 or more helpers is required for the patient to complete the activity. If activity was not attempted, code reason: 7-Patient Refused. 9-Not Applicable-not attempted and the patient did not perform the activity before the current illness, exacerbation or injury. 10-Not Attempted due to Environmental Limitations-(lack of equipment, weather restraints, etc.). 88-Not Attempted due to Medical Conditions or Safety Concerns. Roll Left to Right (QC): 3 Sit to Lying (QC): 3 Sit to Stand (QC): 2 Chair/Mgr-ue-Ciusf Xfer(QC): 1 Car Transfer (QC): 88 Gait Training Does the Patient Walk?: No and Walking Goal IS indicated Distance: 0 Walk 10 feet (QC): 1 Walk 50 ft with 2 Turns(QC): 1 Walk 150 ft (QC): 1 Walking 10ft/uneven surface-QC: 1 Gait Persons Needed: 2 Gait Assistive Device: FWW Wheelchair Training Does the Pt Use a Wheelchair?: Yes Wheel 50 ft with 2 turns (QC): 88 Wheel 150 ft (QC): 88 Type of Wheelchair: Manual Stair Training #of Steps: 0 1 Step (curb) (QC): 1 4 Steps (QC): 1 12 Steps (QC): 1 Balance Picking up an Object (QC): 1 ADL-Treatment Eating (QC): 6 (Per pt report) Oral Hygiene (QC): 5 (set up) Shower/Bathe Self (QC): 1 (Based on clinical judgement, pt would require assist x2 with task in order to wash buttocks) Upper Body Dressing (QC): 5 (set up with bra and pull up hand shirt) Lower Body Dressing (QC): 2 (Max A at bed level, assist with threading pants, pt able to assist with managing up and pant hike, slight assist provided by OT with pant hike in backside.) On/Off Footwear (QC): 1 (total assist with BLE gripper socks and TEDhose.) Toileting Hygiene (QC): 2 (Assist with clothing management, pt able to complete pericare) Assessment/Plan Assessment and Plan Assess & Plan/Chief Complaint Assessment: Bilateral knee arthroplasties Obesity Diabetes Hypothyroidism Irritable bowel syndrome Plan: Inpatient rehab protocol Bowel regimen Monitor closely 03/02/2021: Pain control Ambulate Intensify bowel regimen 03/03/2021: Continue bowel regimen Monitor cough Pain control CPM machine use 03/04/2021: Echocardiogram Volume overload management Supportive care (1) History of bilateral knee arthroplasty (2) Hypothyroidism (3) Diabetes (4) Obesity HARRIETT KELLY DO Mar 04, 2021 10:15
[2021-03-04] MEDS ORDERED: PHENAZOPYRIDINE 100 MG (PYRIDIUM) TABLET PO ONE (10:30)
--- NOTE | 2021-03-04 10:35 | Physical Therapy Daily Note ---
PT Daily Note-Current Subjective Patient in bed pre tx, agrees to PT, voices no complaints of pain, will be co- treating with OT due to poor patient mobility, strength, endurance, coordinate UE and LE during activity, safety and reduce risk of falls. Appearance Patient in recliner post tx with nurse call, phone, tray, all needs met. Mental Status Patient Orientation: Normal For Age Transfers SCALE: Activities may be completed with or without assistive devices. 1-Mmnmihoghv-gzaamjx completes the activity by him/herself with no assistance from a helper. 5-Set-up or Clean-up Assistance-helper sets up or cleans up; patient completes activity. [place] assists only prior to or following the activity. 4-Supervision or Touching Assistance-helper provides verbal cues and/or touching/steadying and/or contact guard assistance as patient completes activity. Assistance may be provided throughout the activity or intermittently. 3-Partial/Moderate Assistance-helper does LESS THAN HALF the effort. [place] lifts, holds or supports trunk or limbs, but provides less than half the effort. 2-Substantial/Maximal Assistance-helper does MORE THAN HALF the effort. [place] lifts or holds trunk or limbs and provides more than half the effort. 5-Vehcqldlf-hduoxe does ALL the effort. Patient does none of the effort to complete the activity. Or, the assistance of 2 or more helpers is required for the patient to complete the activity. If activity was not attempted, code reason: 7-Patient Refused. 9-Not Applicable-not attempted and the patient did not perform the activity before the current illness, exacerbation or injury. 10-Not Attempted due to Environmental Limitations-(lack of equipment, weather restraints, etc.). 88-Not Attempted due to Medical Conditions or Safety Concerns. Roll Left & Right (QC): 6 Lying to Sitting/Side of Bed(Q: 4 Sit to Stand (QC): 3 Chair/Kzo-cd-Alcyr Xfer(QC): 3 Toilet Transfer (QC): 3 Patient dresses in bed and after sitting on the side of bed. Patient then stands from an elevated bed using a rolling walker with min assist, then transfers to with min assist. She propels to therapy gym. After getting back to her room she needs to use the restroom, stands and transfers to toilet with min assist, OT assists with cleaning and pants after she is done and then ambulates to the recliner. Weight Bearing Right Lower Extremity: Right Weight Bearing/Tolerated Left Lower Extremity: Left Weight Bearing/Tolerated Gait Training Does the Patient Walk?: Yes Distance: 6'x3, 10' Walk 10 feet (QC): 4 Gait Persons Needed: 1 Gait Assistive Device: Parallel Bars Patient ambulated 6'x3 in the parallel bars and 10' from toilet to recliner using a rolling walker. Gait is antalgic, has flexed bilateral knees but she can bear weight now and ambulate. Wheelchair Training Does the Pt Use a Wheelchair?: Yes Wheel 50 ft with 2 turns (QC): 3 Type of Wheelchair: Manual 120'x2 Exercises Seated Therapy Exercises: Ankle pumps, Long arc quads, Hip flexion, Hip abd/add Seated Reps: 20 Treatments PT performed bed mobility and transfers, ambulation, WC mobility, LE exercise, OT performed UE exercise, toileting, dressing, UE positioning and safety during activity. Assessment Current Status: Fair Progress Patient is finally able to ambulate but having problems with her BP. It started out pretty high at 208/91, a little later was 190/86, after rest and seated exercises it was 153/64, after ambulating it was 182/69, then after more rest and LE exercises it was 150/66. PT Short Term Goals Short Term Goals Time Frame: Mar 08, 2021 Roll Left & Right: 6 Sit to lyin Lying to sitting on side of be: 3 Sit to stand: 2 Chair/pdb-pl-qkerm transfer: 2 PT Detention Goals Felled Seam Operator Chainstitch Goals PT Felled Seam Operator Chainstitch Goals Time Frame: Mar 22, 2021 Roll Left & Right (QC): 6 Sit to Lying (QC): 3 ([place]) Lying-Sitting on Side/Bed(QC): 3 ([place]) Sit to Stand (QC): 3 (modA) Chair/Yye-se-Phosb Xfer(QC): 3 (modA) Toilet Transfer (QC): 3 (modA) Car Transfer (QC): 3 (modA) Does the Patient Walk: Yes Walk 10 feet (QC): 3 (modA) Walk 50ft with 2 Turns (QC): 88 Walk 150 ft (QC): 88 Walking 10ft on Uneven Surface: 88 1 Step (curb) (QC): 88 4 Steps (QC): 88 12 Steps (QC): 88 Picking up an Object (QC): 88 Wheel 50 feet with 2 turns (QC: 6 Wheel 150 feet: 6 PT Plan Problem List Problem List: Activity Tolerance, Functional Strength, Safety, Balance, Gait, Transfer, Bed Mobility, ROM Treatment/Plan Treatment Plan: Continue Plan of Care Treatment Plan: Bed Mobility, Education, Functional Activity [place], Functional Strength, Group Therapy, Gait, Safety, Therapeutic Exercise, Transfers Treatment Duration: Mar 22, 2021 Frequency: At least 5 of 7 days/Wk (IRF) Estimated Hrs Per Day: 1.5 hours per day Patient and/or Family Agrees t: Yes Safety Risks/Education Patient Education: Gait Training, Transfer Techniques, Correct Positioning, W/C Management, Safety Issues Teaching Recipient: Patient Teaching Methods: Demonstration, Discussion Response to Teaching: Reinforcement Needed Time/GCodes Time In: 0900 Time Out: 1000 Total Billed Treatment Time: 60 Total Billed Treatment 1 visit EX 15' GT 30' FA 15' ISH SIERRA PT Mar 04, 2021 10:35
[2021-03-04 11:08] VITALS: BP 173/73
[2021-03-04 12:14] VITALS: BP 152/67
[2021-03-04] MEDS: PHENAZOPYRIDINE 100 MG (PYRIDIUM) TABLET PO SCH ×2 (14:07→18:07)
--- NOTE | 2021-03-04 14:20 | Therapy Group Daily Note ---
Therapy Daily Group Note Patient Education Topic Home Safety, Fall Prevention, Exercises Exercises LE Seated Exercise, UE Exercise Session Ratio (pt:therapist): 3:1 Goal of Session: Home Safety Strategies, UE/LE Strengthing Goal Met for this Session: Yes Pt Benefit of Group: Contributions to Others, F/U Use of Strategies @Home, Increased Functional Safety, Increased Functional Strength, Improved Cognition, Recognition of Peers, Socialization Other/Notes Patient was transferred from bed to and propelled to therapy gym for group therapy. Each person had to introduce themselves and state where they were from and answer a question involving memory and critical thinking. Then patient's played home safety and fall prevention jeopardy with intermittent UE and LE exercises. When done patient propelled back to room and transferred back to bed with nurse call, phone, tray, all needs met. Start Time: 13:00 Stop Time: 14:00 Total Billed Treatment Time: 60 Total Billed Treatment 1 visit GRP 60ISH BEJARANO PT Mar 04, 2021 14:20
[2021-03-04 15:15] VITALS: BP 139/66
[2021-03-04] MEDS: metFORMIN 500 MG (GLUCOPHAGE) TAB PO SCH (18:07)
[2021-03-04 20:00] VITALS: BP 164/70
[2021-03-04] MEDS: PANTOPRAZOLE 40 MG (PROTONIX) TAB PO SCH (20:37)
[2021-03-04] MEDS: SIMvastatin 10 MG (ZOCOR) TAB PO SCH (20:37)
[2021-03-04] MEDS: GABAPENTIN 300 MG (NEURONTIN) CAP PO SCH (20:37)
[2021-03-04] MEDS: FAMOTIDINE 20 MG (PEPCID) TABLET PO PRN (20:39)
[2021-03-04] MEDS: guaiFENesin/CODEINE (ROBITUSSIN AC) 10ML UDC PO PRN (23:29)
[2021-03-05] MEDS: oxyCODONE/APAP 5/325MG (PERCOCET 5) TABLET PO PRN ×4 (03:48→18:24)
[2021-03-05] MEDS: ONDANSETRON 4 MG (ZOFRAN) ORAL DISSOLVE TAB PO PRN ×2 (03:52→21:23)
[2021-03-05] MEDS ORDERED: FUROSEMIDE 40 MG/4 ML INJ (LASIX) IVP ONE (06:15)
[2021-03-05] MEDS ORDERED: FUROSEMIDE 40 MG (LASIX) TAB PO ONE (06:15)
[2021-03-05] MEDS: LEVOTHYROXINE 112 MCG (LEVOTHROID) TAB PO SCH (06:41)
[2021-03-05] MEDS: MULTIVIT W/MINERALS TAB (THERAGRAN M) PO SCH (06:41)
[2021-03-05 07:50] VITALS: BP 163/70
[2021-03-05] MEDS: CELECOXIB 100 MG (CeleBREX) CAP PO SCH ×2 (09:06→20:16)
[2021-03-05] MEDS: ASPIRIN E.C. 81 MG (ECOTRIN) TAB PO SCH (09:07)
[2021-03-05] MEDS: FLUoxetine HCL 20 MG (PROzac) CAP PO SCH ×2 (09:07→20:16)
[2021-03-05] MEDS: DOCUSATE SODIUM 100 MG (COLACE) CAP PO SCH ×2 (09:07→20:17)
[2021-03-05] MEDS: amLODIPine 5 MG (NORVASC) TAB PO SCH (09:07)
[2021-03-05] MEDS: SPIRONOLACTONE 100 MG (ALDACTONE) TABLET PO SCH (09:07)
[2021-03-05] MEDS: ACETAMINOPHEN 500 MG TAB (TYLENOL) PO SCH ×3 (09:07→20:17)
[2021-03-05] MEDS: polyethylene glycoL POWDER 17 GM (MIRALAX) PACK PO SCH ×2 (09:07→20:54)
[2021-03-05] MEDS: PHENAZOPYRIDINE 100 MG (PYRIDIUM) TABLET PO SCH ×3 (09:07→18:10)
[2021-03-05] MEDS: SENNA W/DOCUSATE (SENOKOT S) TABLET PO SCH ×2 (09:08→20:16)
[2021-03-05] MEDS: GABAPENTIN 100 MG (NEURONTIN) CAP PO SCH ×2 (09:12→13:32)
--- NOTE | 2021-03-05 09:39 | PM&R Progress Note ---
Subjective HPI/CC On Admission Date Seen by Provider: Mar 05, 2021 Time Seen by Provider: 09:45 Subjective/Events-last exam 03/05/2021: Patient doing much better Bowels moved yesterday Lasix 40 mg p.o. 1 time given for elevated BNP and volume overload Moving around a little better Pain is more controlled Echocardiogram updated to patient 03/04/2021: Patient doing pretty well Shortness of breath noted so will obtain echocardiogram she has never had one Add BNP to the labs Lasix will be given 1 dose Bowels are moving very well now Elevated blood pressure noted she has taken hydrochlorothiazide before Moving around a lot better now 03/03/2021: Patient doing pretty well Bowels moved yesterday Has a chronic cough but lungs remain clear Using her CPM machine Got out of bed for the first time 03/02/2021: Patient doing pretty well but difficult to ambulate Celebrex twice daily will be restarted Home dosing of medication altered to her satisfaction No bowel movement yet Hemoglobin 8.6 Sisters are at the bedside Review of Systems General: Fatigue Pulmonary: Cough Musculoskeletal: leg pain Objective Exam Vital Signs Vital Signs Date Time Temp Pulse Resp B/P (MAP) Pulse Ox O2 Delivery O2 Flow Rate FiO2 03/05/21 21:00 Nasal Cannula 2.00 03/05/21 20:00 36.0 70 18 145/65 (91) 93 Capillary Refill : General Appearance: No Apparent Distress, WD/WN, Chronically ill, Obese HEENT: PERRL/EOMI, Normal ENT Inspection, Pharynx Normal Neck: Full Range of Motion, Normal Inspection, Non Tender, Supple, Carotid Bruit Respiratory: Chest Non Tender, Lungs Clear, Normal Breath Sounds, No Accessory Muscle Use, No Respiratory Distress Cardiovascular: Regular Rate, Rhythm, No Edema, No Gallop, No JVD, No Murmur, Normal Peripheral Pulses Gastrointestinal: Normal Bowel Sounds, No Organomegaly, No Pulsatile Mass, Non Tender, Soft Back: Normal Inspection, No CVA Tenderness, No Vertebral Tenderness Extremity: Normal Capillary Refill, Normal Inspection, Normal Range of Motion (Decreased range of motion both legs), Non Tender, No Calf Tenderness, No Pedal Edema Neurologic/Psychiatric: Alert, Oriented x3, No Motor/Sensory Deficits, Normal Mood/Affect, Abnormal Gait Skin: Normal Color, Warm/Dry Lymphatic: No Adenopathy Results/Procedures Lab Patient resulted labs reviewed. FIM Transfers Therapy Code Descriptions/Definitions Functional [place] Measure: 0=Not Assessed/NA 4=Minimal Assistance 1=Total Assistance 5=Supervision or Setup 2=Maximal Assistance 6=Modified [place] 3=Moderate Assistance 7=Complete IndependenceSCALE: Activities may be completed with or without assistive devices. 3-Gluterqjjo-kcverif completes the activity by him/herself with no assistance from a helper. 5-Set-up or Clean-up Assistance-helper sets up or cleans up; patient completes activity. [place] assists only prior to or following the activity. 4-Supervision or Touching Assistance-helper provides verbal cues and/or touching/steadying and/or contact guard assistance as patient completes activity. Assistance may be provided throughout the activity or intermittently. 3-Partial/Moderate Assistance-helper does LESS THAN HALF the effort. [place] lifts, holds or supports trunk or limbs, but provides less than half the effort. 2-Substantial/Maximal Assistance-helper does MORE THAN HALF the effort. [place] lifts or holds trunk or limbs and provides more than half the effort. 4-Bwgpnjtsm-ihzjyh does ALL the effort. Patient does none of the effort to complete the activity. Or, the assistance of 2 or more helpers is required for the patient to complete the activity. If activity was not attempted, code reason: 7-Patient Refused. 9-Not Applicable-not attempted and the patient did not perform the activity before the current illness, exacerbation or injury. 10-Not Attempted due to Environmental Limitations-(lack of equipment, weather restraints, etc.). 88-Not Attempted due to Medical Conditions or Safety Concerns. Roll Left to Right (QC): 6 Sit to Lying (QC): 3 Sit to Stand (QC): 3 Chair/Rco-fd-Ylxzh Xfer(QC): 3 Car Transfer (QC): 88 Gait Training Does the Patient Walk?: Yes Distance: 6'x3, 10' Walk 10 feet (QC): 4 Walk 50 ft with 2 Turns(QC): 1 Walk 150 ft (QC): 1 Walking 10ft/uneven surface-QC: 1 Gait Persons Needed: 1 Gait Assistive Device: Parallel Bars Wheelchair Training Does the Pt Use a Wheelchair?: Yes Wheel 50 ft with 2 turns (QC): 3 Wheel 150 ft (QC): 88 Type of Wheelchair: Manual Stair Training #of Steps: 0 1 Step (curb) (QC): 1 4 Steps (QC): 1 12 Steps (QC): 1 Balance Picking up an Object (QC): 1 ADL-Treatment Eating (QC): 6 (Per pt report) Oral Hygiene (QC): 5 (set up) Shower/Bathe Self (QC): 1 (Based on clinical judgement, pt would require assist x2 with task in order to wash buttocks) Upper Body Dressing (QC): 5 (set up with bra and farmworker pullet farm shirt) Lower Body Dressing (QC): 2 (Max A at bed level, assist with threading pants, pt able to assist with managing up and pant hike, slight assist provided by OT with pant hike in backside.) On/Off Footwear (QC): 1 (total assist with BLE gripper socks and TEDhose.) Toileting Hygiene (QC): 2 (Assist with clothing management, pt able to complete pericare) Toilet Transfer (QC): 3 ([place]) Assessment/Plan Assessment and Plan Assess & Plan/Chief Complaint Assessment: Bilateral knee arthroplasties Obesity Diabetes Hypothyroidism Irritable bowel syndrome Plan: Inpatient rehab protocol Bowel regimen Monitor closely 03/02/2021: Pain control Ambulate Intensify bowel regimen 03/03/2021: Continue bowel regimen Monitor cough Pain control CPM machine use 03/04/2021: Echocardiogram Volume overload management Supportive care 03/05/2021: Lasix for volume overload Bowel regimen Pain control Aggressive physical therapy (1) History of bilateral knee arthroplasty (2) Hypothyroidism (3) Diabetes (4) Obesity HARRIETT KELLY DO Mar 05, 2021 09:39
--- NOTE | 2021-03-05 09:56 | Physical Therapy Daily Note ---
PT Daily Note-Current Subjective Patient in recliner pre tx, agrees to PT, has 8/10 pain, nurse brings in meds during therapy. Mental Status Patient Orientation: Normal For Age Transfers SCALE: Activities may be completed with or without assistive devices. 1-Slylkgnrjd-mvfmzlx completes the activity by him/herself with no assistance from a helper. 5-Set-up or Clean-up Assistance-helper sets up or cleans up; patient completes activity. [place] assists only prior to or following the activity. 4-Supervision or Touching Assistance-helper provides verbal cues and/or touching/steadying and/or contact guard assistance as patient completes activity. Assistance may be provided throughout the activity or intermittently. 3-Partial/Moderate Assistance-helper does LESS THAN HALF the effort. [place] lifts, holds or supports trunk or limbs, but provides less than half the effort. 2-Substantial/Maximal Assistance-helper does MORE THAN HALF the effort. [place] lifts or holds trunk or limbs and provides more than half the effort. 2-Aiglwjtgo-bebsvf does ALL the effort. Patient does none of the effort to complete the activity. Or, the assistance of 2 or more helpers is required for the patient to complete the activity. If activity was not attempted, code reason: 7-Patient Refused. 9-Not Applicable-not attempted and the patient did not perform the activity before the current illness, exacerbation or injury. 10-Not Attempted due to Environmental Limitations-(lack of equipment, weather restraints, etc.). 88-Not Attempted due to Medical Conditions or Safety Concerns. Roll Left & Right (QC): 6 Sit to Lying (QC): 6 Lying to Sitting/Side of Bed(Q: 6 Sit to Stand (QC): 4 Chair/Eey-tt-Rszde Xfer(QC): 4 CGA for sit to stand and transfers now, good hand placement Weight Bearing Right Lower Extremity: Right Weight Bearing/Tolerated Left Lower Extremity: Left Weight Bearing/Tolerated Gait Training Distance: 10'x4 Walk 10 feet (QC): 4 Gait Assistive Device: FWW CGA, slow, antalgic, bilateral flexed knees, patient ambulates to the restroom at one point (she is able to do her pants herself and clean herself) and then ambulates back to the recliner when done. Exercises Supine Ex: Ankle pumps, Quad Set, Heel Slides, Short Arc Quads, Straight leg raise Supine Reps: 20 (BLE) Standing: Heel/toe raises, Mini squats Standing Reps: 10 Treatments toileting, bed mobility and transfers, ambulation, LE strengthening Assessment Current Status: Fair Progress slow progress with functional mobility, left knee extension +3 degrees, flexion 80 degrees, right knee extension +2 degrees, flexion 60 degrees PT Short Term Goals Short Term Goals Time Frame: Mar 08, 2021 Roll Left & Right: 6 Sit to lyin Lying to sitting on side of be: 3 Sit to stand: 2 Chair/hpz-jr-ggxgo transfer: 2 PT Half-Way Goals Life Skills Consultant Goals PT Half-Way Goals Time Frame: Mar 22, 2021 Roll Left & Right (QC): 6 Sit to Lying (QC): 3 ([place]) Lying-Sitting on Side/Bed(QC): 3 ([place]) Sit to Stand (QC): 3 (modA) Chair/Kfr-zi-Gfrsg Xfer(QC): 3 (modA) Toilet Transfer (QC): 3 (modA) Car Transfer (QC): 3 (modA) Does the Patient Walk: Yes Walk 10 feet (QC): 3 (modA) Walk 50ft with 2 Turns (QC): 88 Walk 150 ft (QC): 88 Walking 10ft on Uneven Surface: 88 1 Step (curb) (QC): 88 4 Steps (QC): 88 12 Steps (QC): 88 Picking up an Object (QC): 88 Wheel 50 feet with 2 turns (QC: 6 Wheel 150 feet: 6 PT Plan Problem List Problem List: Activity Tolerance, Functional Strength, Safety, Balance, Gait, Transfer, Bed Mobility, ROM Treatment/Plan Treatment Plan: Continue Plan of Care Treatment Plan: Bed Mobility, Education, Functional Activity [place], Functional Strength, Group Therapy, Gait, Safety, Therapeutic Exercise, Transfers Treatment Duration: Mar 22, 2021 Frequency: At least 5 of 7 days/Wk (IRF) Estimated Hrs Per Day: 1.5 hours per day Patient and/or Family Agrees t: Yes Safety Risks/Education Patient Education: Gait Training, Transfer Techniques, Correct Positioning, Safety Issues Teaching Recipient: Patient Teaching Methods: Demonstration, Discussion Response to Teaching: Reinforcement Needed Time/GCodes Time In: 0900 Time Out: 1000 Total Billed Treatment Time: 60 Total Billed Treatment 1 visit EX 20' FA 40' ISH SIERRA PT Mar 05, 2021 09:56
--- NOTE | 2021-03-05 10:23 | Occupational Ther Daily Note ---
OT Current Status-Daily Note Subjective Pt alert, sitting in recliner. Pt agrees to therapy. Pt rates pain 4/10, has already had pain meds. Mental Status/Objective Patient Orientation: Person, Place, Time, Situation ADL-Treatment Independent with meal set up and uses regular utensils to eat. Pt agrees to shower. CGA for sit to stand using FWW. CGA to ambulate to bathroom and transfer to toilet using FWW. CGA to manipulate clothing, pt attempts to cleanse self though will benefit from toilet tongs. CGA to transfer in/out of shower. Sitting on shower bench, pt able to complete shower with SBA using hand held shower, grabbars and LH sponge. After set up, pt able to complete upper body dressing. Using senior bi architect, pt able to thread clothing over feet by self then CGA in standing while pt hikes pants over hips. Pt educated on using sock aide and dressing stick to don/doff footwear, min A. Standing at sink, pt completes oral care independently. Pt takes increased time to complete all tasks due to increased pain with movement. After session, pt sitting in recliner with call light/phone in reach. All needs met in room. Therapy Code Descriptions/Definitions Functional [place] Measure: 0=Not Assessed/NA 4=Minimal Assistance 1=Total Assistance 5=Supervision or Setup 2=Maximal Assistance 6=Modified [place] 3=Moderate Assistance 7=Complete IndependenceSCALE: Activities may be completed with or without assistive devices. 0-Zagljekgph-bnpwkkt completes the activity by him/herself with no assistance from a helper. 5-Set-up or Clean-up Assistance-helper sets up or cleans up; patient completes activity. [place] assists only prior to or following the activity. 4-Supervision or Touching Assistance-helper provides verbal cues and/or touching/steadying and/or contact guard assistance as patient completes activity. Assistance may be provided throughout the activity or intermittently. 3-Partial/Moderate Assistance-helper does LESS THAN HALF the effort. [place] lifts, holds or supports trunk or limbs, but provides less than half the effort. 2-Substantial/Maximal Assistance-helper does MORE THAN HALF the effort. [place] lifts or holds trunk or limbs and provides more than half the effort. 2-Jjudjpjgf-jrabcj does ALL the effort. Patient does none of the effort to complete the activity. Or, the assistance of 2 or more helpers is required for the patient to complete the activity. If activity was not attempted, code reason: 7-Patient Refused. 9-Not Applicable-not attempted and the patient did not perform the activity before the current illness, exacerbation or injury. 10-Not Attempted due to Environmental Limitations-(lack of equipment, weather restraints, etc.). 88-Not Attempted due to Medical Conditions or Safety Concerns. Eating (QC): 6 Oral Hygiene (QC): 6 Shower/Bathe Self (QC): 4 Upper Body Dressing (QC): 5 Lower Body Dressing (QC): 4 On/Off Footwear: 3 Toileting Hygiene (QC): 3 Toilet Transfer (QC): 4 OT Short Term Goals Short Term Goals Time Frame: Mar 11, 2021 Toileting hygiene: 3 Shower/bathe self: 3 Upper body dressin Lower body dressin Putting on/taking off footwear: 3 OT Care Home Goals Ceo Goals Time Frame: Mar 29, 2021 Eating (QC): 6 Oral Hygiene (QC): 6 Toileting Hygiene (QC): 3 Shower/Bathe Self (QC): 3 Upper Body Dressing (QC): 5 Lower Body Dressing (QC): 3 On/Off Footwear (QC): 4 Additional Goals: 1-Demonstrate ADL Tasks, 2-Verbalize Understanding, 3- ImproveStrength/[place] 1=Demonstrate adherence to instructed precautions during ADL tasks. 2=Patient will verbalize/demonstrate understanding of assistive de vices/modifications for ADL. 3=Patient will improve strength/tolerance for activity to enable patient to perform ADL's. OT Education/Plan Problem List/Assessment Assessment: Decreased Activ Tolerance, Decreased UE Strength, Impaired Self- Care Skills Discharge Recommendations Plan/Recommendations: Continue POC Treatment Plan/Plan of Care Patient would benefit from OT for education, treatment and training to promote independence in ADL's, mobility, safety and/or upper extremity function for ADL's. Plan of Care: ADL Retraining, Functional Mobility, Group Exercise/Act as Ind, UE Funct Exercise/Act Treatment Duration: Mar 29, 2021 Frequency: At least 5 of 7 days/Wk (IRF) Estimated Hrs Per Day: 1.5 hours per day Agreement: Yes Rehab Potential: Guarded Time/GCodes Start Time: :30 Stop Time: 09:00 Total Time Billed (hr/min): 90 Billed Treatment Time 1 visit-ADL 6 (90 min) JOSHUA GASPAR Mar 05, 2021 10:23
[2021-03-05] MEDS: ENOXAPARIN 40 MG/0.4 ML (LOVENOX) SYR SC SCH ×2 (10:53→21:27)
[2021-03-05] MEDS ORDERED: PATIENT MAY USE OWN MED,SINGLE MED PO SCH (14:45)
[2021-03-05] MEDS ORDERED: ANTIACID PO PRN (15:30)
[2021-03-05] MEDS: metFORMIN 500 MG (GLUCOPHAGE) TAB PO SCH (18:10)
[2021-03-05 20:00] VITALS: BP 145/65
[2021-03-05] MEDS: LORATADINE (CLARITIN) 10 MG TAB PO PRN (20:16)
[2021-03-05] MEDS: SIMvastatin 10 MG (ZOCOR) TAB PO SCH (20:16)
[2021-03-05] MEDS: GABAPENTIN 300 MG (NEURONTIN) CAP PO SCH (20:16)
[2021-03-05] MEDS: PANTOPRAZOLE 40 MG (PROTONIX) TAB PO SCH (20:17)
[2021-03-05] MEDS: guaiFENesin/CODEINE (ROBITUSSIN AC) 10ML UDC PO PRN (21:26)
[2021-03-06] MEDS: ONDANSETRON 4 MG (ZOFRAN) ORAL DISSOLVE TAB PO PRN ×2 (06:03→14:24)
[2021-03-06] MEDS: oxyCODONE/APAP 5/325MG (PERCOCET 5) TABLET PO PRN ×3 (06:04→17:32)
[2021-03-06] MEDS: MULTIVIT W/MINERALS TAB (THERAGRAN M) PO SCH (06:04)
[2021-03-06] MEDS: LEVOTHYROXINE 112 MCG (LEVOTHROID) TAB PO SCH (06:04)
[2021-03-06 07:42] VITALS: BP 131/60
--- NOTE | 2021-03-06 08:47 | Progress Note ---
Standard Progress Note Progress Notes/Assess & Plan Date Seen by a Provider: Mar 06, 2021 Time Seen by a Provider: 08:46 Progress/Assessment & Plan no complaints dressings intact. No calf tenderness still difficulty with sit to stand cont;inue PT/OT Final Diagnosis patient doing much better Vital Signs Date Time Temp Pulse Resp B/P (MAP) Pulse Ox O2 Delivery O2 Flow Rate FiO2 03/06/21 07:42 36.1 82 16 131/60 (83) 92 Room Air 03/05/21 21:00 Nasal Cannula 2.00 03/05/21 20:00 36.0 70 18 145/65 (91) 93 Room Air 03/05/21 09:00 Room Air Bilateral knee incisions clean and dry. No calf tenderness. Neg Carmen's s/p B TKA with slow progress continue PT and OT JAIR TAVERA MD Mar 06, 2021 08:47
--- NOTE | 2021-03-06 08:47 | Occupational Ther Daily Note ---
OT Current Status-Daily Note Subjective Pt alert, sitting in recliner. Pt agrees to therapy. No c/o pain at this time. Mental Status/Objective Patient Orientation: Person, Place, Time, Situation ADL-Treatment Pt agrees to shower. SBA for sit to stand then uses FWW to ambulate to bathroom SBA. SBA for toilet transfers. Pt able to manipulate clothing with SBA, able to cleanse after voiding and assist for BM (toilet tongs). SBA to transfer into shower using FWW and grabbars. Sitting on shower bench, pt able to complete shower using LH sponge, hand held shower and grabbars by self (leans side to side to cleanse ciaran area and buttocks). After set up, pt able to complete upper body dressing by self. Threads pants and footwear on with AE then SBA while standing to hike pants over hips. Pt stands at sink to complete oral care independently. After session, pt sitting in recliner with call light/phone in reach. All needs met in room. Therapy Code Descriptions/Definitions Functional [place] Measure: 0=Not Assessed/NA 4=Minimal Assistance 1=Total Assistance 5=Supervision or Setup 2=Maximal Assistance 6=Modified [place] 3=Moderate Assistance 7=Complete IndependenceSCALE: Activities may be completed with or without assistive devices. 0-Debpzrkuec-xsgpttp completes the activity by him/herself with no assistance from a helper. 5-Set-up or Clean-up Assistance-helper sets up or cleans up; patient completes activity. [place] assists only prior to or following the activity. 4-Supervision or Touching Assistance-helper provides verbal cues and/or touching/steadying and/or contact guard assistance as patient completes activity. Assistance may be provided throughout the activity or intermittently. 3-Partial/Moderate Assistance-helper does LESS THAN HALF the effort. [place] lifts, holds or supports trunk or limbs, but provides less than half the effort. 2-Substantial/Maximal Assistance-helper does MORE THAN HALF the effort. [place] lifts or holds trunk or limbs and provides more than half the effort. 4-Kqljvsxag-hpitpo does ALL the effort. Patient does none of the effort to complete the activity. Or, the assistance of 2 or more helpers is required for the patient to complete the activity. If activity was not attempted, code reason: 7-Patient Refused. 9-Not Applicable-not attempted and the patient did not perform the activity before the current illness, exacerbation or injury. 10-Not Attempted due to Environmental Limitations-(lack of equipment, weather restraints, etc.). 88-Not Attempted due to Medical Conditions or Safety Concerns. Oral Hygiene (QC): 6 Shower/Bathe Self (QC): 4 Upper Body Dressing (QC): 5 Lower Body Dressing (QC): 4 On/Off Footwear: 5 Toileting Hygiene (QC): 3 Toilet Transfer (QC): 4 OT Short Term Goals Short Term Goals Time Frame: Mar 11, 2021 Toileting hygiene: 3 Shower/bathe self: 3 Upper body dressin Lower body dressin Putting on/taking off footwear: 3 OT Assisted Goals Assisted Goals Time Frame: Mar 29, 2021 Eating (QC): 6 Oral Hygiene (QC): 6 Toileting Hygiene (QC): 3 Shower/Bathe Self (QC): 3 Upper Body Dressing (QC): 5 Lower Body Dressing (QC): 3 On/Off Footwear (QC): 4 Additional Goals: 1-Demonstrate ADL Tasks, 2-Verbalize Understanding, 3- ImproveStrength/[place] 1=Demonstrate adherence to instructed precautions during ADL tasks. 2=Patient will verbalize/demonstrate understanding of assistive devices/modifications for ADL. 3=Patient will improve strength/tolerance for activity to enable patient to perform ADL's. OT Education/Plan Problem List/Assessment Assessment: Decreased Activ Tolerance, Impaired Self-Care Skills Discharge Recommendations Plan/Recommendations: Continue POC Equpiment Recommendations-D/C: Hip Kit Treatment Plan/Plan of Care Patient would benefit from OT for education, treatment and training to promote independence in ADL's, mobility, safety and/or upper extremity function for ADL's. Plan of Care: ADL Retraining, Functional Mobility, Group Exercise/Act as Ind, UE Funct Exercise/Act Treatment Duration: Mar 29, 2021 Frequency: At least 5 of 7 days/Wk (IRF) Estimated Hrs Per Day: 1.5 hours per day Agreement: Yes Rehab Potential: Guarded Time/GCodes Start Time: 07:30 Stop Time: 08:30 Total Time Billed (hr/min): 60 Billed Treatment Time 1 visit-ADL 4 (60 min) JOSHUA GASPAR Mar 06, 2021 08:47
--- NOTE | 2021-03-06 09:46 | PM&R Progress Note ---
Subjective HPI/CC On Admission Date Seen by Provider: Mar 06, 2021 Time Seen by Provider: 10:00 Subjective/Events-last exam 03/06/2021: Pt is doing pretty well She denies any issues Pt had a bowel movement yesterday She is having a lot of reflux so she will take her home Nexium and I will initiate Carafate before meals and at bedtime 03/05/2021: Patient doing much better Bowels moved yesterday Lasix 40 mg p.o. 1 time given for elevated BNP and volume overload Moving around a little better Pain is more controlled Echocardiogram updated to patient 03/04/2021: Patient doing pretty well Shortness of breath noted so will obtain echocardiogram she has never had one Add BNP to the labs Lasix will be given 1 dose Bowels are moving very well now Elevated blood pressure noted she has taken hydrochlorothiazide before Moving around a lot better now 03/03/2021: Patient doing pretty well Bowels moved yesterday Has a chronic cough but lungs remain clear Using her CPM machine Got out of bed for the first time 03/02/2021: Patient doing pretty well but difficult to ambulate Celebrex twice daily will be restarted Home dosing of medication altered to her satisfaction No bowel movement yet Hemoglobin 8.6 Sisters are at the bedside Review of Systems General: Fatigue Gastrointestinal: Nausea Musculoskeletal: leg pain Objective Exam Vital Signs Vital Signs Date Time Temp Pulse Resp B/P (MAP) Pulse Ox O2 Delivery O2 Flow Rate FiO2 03/06/21 20:20 Nasal Cannula 2.00 03/06/21 20:00 36.3 81 20 143/62 (89) 91 Capillary Refill : General Appearance: No Apparent Distress, WD/WN, Chronically ill, Obese HEENT: PERRL/EOMI, Normal ENT Inspection, Pharynx Normal Neck: Full Range of Motion, Normal Inspection, Non Tender, Supple, Carotid Bruit Respiratory: Chest Non Tender, Lungs Clear, Normal Breath Sounds, No Accessory Muscle Use, No Respiratory Distress Cardiovascular: Regular Rate, Rhythm, No Edema, No Gallop, No JVD, No Murmur, Normal Peripheral Pulses Gastrointestinal: Normal Bowel Sounds, No Organomegaly, No Pulsatile Mass, Non Tender, Soft Back: Normal Inspection, No CVA Tenderness, No Vertebral Tenderness Extremity: Normal Capillary Refill, Normal Inspection, Normal Range of Motion (Decreased range of motion both legs), Non Tender, No Calf Tenderness, No Pedal Edema Neurologic/Psychiatric: Alert, Oriented x3, No Motor/Sensory Deficits, Normal Mood/Affect, Abnormal Gait Skin: Normal Color, Warm/Dry Lymphatic: No Adenopathy Results/Procedures Lab Patient resulted labs reviewed. FIM Transfers Therapy Code Descriptions/Definitions Functional [place] Measure: 0=Not Assessed/NA 4=Minimal Assistance 1=Total Assistance 5=Supervision or Setup 2=Maximal Assistance 6=Modified [place] 3=Moderate Assistance 7=Complete IndependenceSCALE: Activities may be completed with or without assistive devices. 5-Pnyptyypjq-hxchavx completes the activity by him/herself with no assistance from a helper. 5-Set-up or Clean-up Assistance-helper sets up or cleans up; patient completes activity. [place] assists only prior to or following the activity. 4-Supervision or Touching Assistance-helper provides verbal cues and/or touching/steadying and/or contact guard assistance as patient completes activity. Assistance may be provided throughout the activity or intermittently. 3-Partial/Moderate Assistance-helper does LESS THAN HALF the effort. [place] lifts, holds or supports trunk or limbs, but provides less than half the effort. 2-Substantial/Maximal Assistance-helper does MORE THAN HALF the effort. [place] lifts or holds trunk or limbs and provides more than half the effort. 4-Dufwznzci-jtnsgj does ALL the effort. Patient does none of the effort to complete the activity. Or, the assistance of 2 or more helpers is required for the patient to complete the activity. If activity was not attempted, code reason: 7-Patient Refused. 9-Not Applicable-not attempted and the patient did not perform the activity before the current illness, exacerbation or injury. 10-Not Attempted due to Environmental Limitations-(lack of equipment, weather restraints, etc.). 88-Not Attempted due to Medical Conditions or Safety Concerns. Roll Left to Right (QC): 6 Sit to Lying (QC): 6 Sit to Stand (QC): 4 Chair/Knf-zk-Bhgou Xfer(QC): 4 Car Transfer (QC): 88 Gait Training Does the Patient Walk?: Yes Distance: 10'x4 Walk 10 feet (QC): 4 Walk 50 ft with 2 Turns(QC): 1 Walk 150 ft (QC): 1 Walking 10ft/uneven surface-QC: 1 Gait Persons Needed: 1 Gait Assistive Device: FWW Wheelchair Training Does the Pt Use a Wheelchair?: Yes Wheel 50 ft with 2 turns (QC): 3 Wheel 150 ft (QC): 88 Type of Wheelchair: Manual Stair Training #of Steps: 0 1 Step (curb) (QC): 1 4 Steps (QC): 1 12 Steps (QC): 1 Balance Picking up an Object (QC): 1 ADL-Treatment Eating (QC): 6 Oral Hygiene (QC): 6 Shower/Bathe Self (QC): 4 Upper Body Dressing (QC): 5 Lower Body Dressing (QC): 4 On/Off Footwear (QC): 5 Toileting Hygiene (QC): 3 Toilet Transfer (QC): 4 Assessment/Plan Assessment and Plan Assess & Plan/Chief Complaint Assessment: Bilateral knee arthroplasties Obesity Diabetes Hypothyroidism Irritable bowel syndrome GERD Volume overload with elevated BNP but normal echo Plan: Inpatient rehab protocol Bowel regimen Monitor closely 03/02/2021: Pain control Ambulate Intensify bowel regimen 03/03/2021: Continue bowel regimen Monitor cough Pain control CPM machine use 03/04/2021: Echocardiogram Volume overload management Supportive care 03/05/2021: Lasix for volume overload Bowel regimen Pain control Aggressive physical therapy 03/06/2021: Monitor for recurrence and edema Bowel regimen GERD treatment (1) History of bilateral knee arthroplasty (2) Hypothyroidism (3) Diabetes (4) Obesity HARRIETT KELLY DO Mar 06, 2021 09:46
[2021-03-06] MEDS: SENNA W/DOCUSATE (SENOKOT S) TABLET PO SCH ×2 (09:57→21:27)
[2021-03-06] MEDS: CELECOXIB 100 MG (CeleBREX) CAP PO SCH ×2 (09:57→21:28)
[2021-03-06] MEDS: FLUoxetine HCL 20 MG (PROzac) CAP PO SCH ×2 (09:58→21:27)
[2021-03-06] MEDS: ENOXAPARIN 40 MG/0.4 ML (LOVENOX) SYR SC SCH ×2 (09:58→21:26)
[2021-03-06] MEDS: ASPIRIN E.C. 81 MG (ECOTRIN) TAB PO SCH (09:58)
[2021-03-06] MEDS: ACETAMINOPHEN 500 MG TAB (TYLENOL) PO SCH ×3 (09:58→21:27)
[2021-03-06] MEDS: SPIRONOLACTONE 100 MG (ALDACTONE) TABLET PO SCH (09:58)
[2021-03-06] MEDS: PHENAZOPYRIDINE 100 MG (PYRIDIUM) TABLET PO SCH ×3 (09:58→17:50)
[2021-03-06] MEDS: DOCUSATE SODIUM 100 MG (COLACE) CAP PO SCH ×2 (09:58→21:27)
[2021-03-06] MEDS: polyethylene glycoL POWDER 17 GM (MIRALAX) PACK PO SCH ×2 (09:59→21:25)
[2021-03-06] MEDS: amLODIPine 5 MG (NORVASC) TAB PO SCH (09:59)
[2021-03-06] MEDS: GABAPENTIN 100 MG (NEURONTIN) CAP PO SCH ×2 (10:05→14:24)
--- NOTE | 2021-03-06 10:13 | Physical Therapy Daily Note ---
PT Daily Note-Current Subjective Pt agreeable and without complaint. Pt did not c/o or rate pain. Mental Status Patient Orientation: Person, Place, Situation Transfers SCALE: Activities may be completed with or without assistive devices. 4-Gwfzqfkixa-yrqbnjc completes the activity by him/herself with no assistance from a helper. 5-Set-up or Clean-up Assistance-helper sets up or cleans up; patient completes activity. [place] assists only prior to or following the activity. 4-Supervision or Touching Assistance-helper provides verbal cues and/or touching/steadying and/or contact guard assistance as patient completes activity. Assistance may be provided throughout the activity or intermittently. 3-Partial/Moderate Assistance-helper does LESS THAN HALF the effort. [place] lifts, holds or supports trunk or limbs, but provides less than half the effort. 2-Substantial/Maximal Assistance-helper does MORE THAN HALF the effort. [place] lifts or holds trunk or limbs and provides more than half the effort. 9-Yjaeiozlq-quxrci does ALL the effort. Patient does none of the effort to complete the activity. Or, the assistance of 2 or more helpers is required for the patient to complete the activity. If activity was not attempted, code reason: 7-Patient Refused. 9-Not Applicable-not attempted and the patient did not perform the activity before the current illness, exacerbation or injury. 10-Not Attempted due to Environmental Limitations-(lack of equipment, weather restraints, etc.). 88-Not Attempted due to Medical Conditions or Safety Concerns. Pt mod (I) with transfers in/out bed. Pt mod (I) sit<-.>stand from elevated plinth and bed, relies heavily on UEs. Pt used BR with SBA only. Weight Bearing Right Lower Extremity: Right Weight Bearing/Tolerated Left Lower Extremity: Left Weight Bearing/Tolerated Gait Training Gait Assistive Device: FWW Pt amb with FWW 2 x 125ft, CGA Exercises Supine Ex: LE Protocol Supine Reps: 20 Treatments (R) Knee AAROM flexion 70deg, (L) knee AAROM flexion 85deg. CPM (R) LE 0 - 60deg Assessment Current Status: Good Progress Pt showing improved functional mobility. Pt transfers are slow and careful but able to manage all transfers this morning mod (I). Pt gait is smooth with good stride length but little knee flexion at this time. Pt progressing appropriately. Pt resting in bed with (B) cryotherapy, (R) CPM and call light in reach. All needs met. PT Short Term Goals Short Term Goals Time Frame: Mar 08, 2021 Roll Left & Right: 6 Sit to lyin Lying to sitting on side of be: 3 Sit to stand: 2 Chair/nzd-jg-tserd transfer: 2 PT Belt Repairer Goals Skilled Nursing Goals PT Belt Repairer Goals Time Frame: Mar 22, 2021 Roll Left & Right (QC): 6 Sit to Lying (QC): 3 ([place]) Lying-Sitting on Side/Bed(QC): 3 ([place]) Sit to Stand (QC): 3 (modA) Chair/Vvq-xf-Sedjb Xfer(QC): 3 (modA) Toilet Transfer (QC): 3 (modA) Car Transfer (QC): 3 (modA) Does the Patient Walk: Yes Walk 10 feet (QC): 3 (modA) Walk 50ft with 2 Turns (QC): 88 Walk 150 ft (QC): 88 Walking 10ft on Uneven Surface: 88 1 Step (curb) (QC): 88 4 Steps (QC): 88 12 Steps (QC): 88 Picking up an Object (QC): 88 Wheel 50 feet with 2 turns (QC: 6 Wheel 150 feet: 6 PT Plan Treatment/Plan Treatment Plan: Continue Plan of Care Treatment Plan: Bed Mobility, Education, Functional Activity [place], Functional Strength, Group Therapy, Gait, Safety, Therapeutic Exercise, Transfers Treatment Duration: Mar 22, 2021 Frequency: At least 5 of 7 days/Wk (IRF) Estimated Hrs Per Day: 1.5 hours per day Patient and/or Family Agrees t: Yes Time/GCodes Time In: 830 Time Out: 945 Total Billed Treatment Time: 75 Total Billed Treatment 1, ther ex x 35', gait x 25, FA x 15'' ERIC ESPINAL CPTA Mar 06, 2021 10:13
[2021-03-06] MEDS ORDERED: PATIENT MAY USE OWN MED,SINGLE MED PO SCH (10:30)
[2021-03-06] MEDS: SUCRALFATE 1 GM (CARAFATE) TAB PO SCH ×3 (12:08→21:27)
[2021-03-06] MEDS: HYDROcodone/APAP 5 MG/325 MG (LORTAB) TAB PO PRN (12:09)
--- NOTE | 2021-03-06 14:35 | Therapy Group Daily Note ---
Therapy Daily Group Note Patient Education Topic Exercises Exercises LE Seated Exercise, UE Exercise Session Ratio (pt:therapist): 3:1 Goal of Session: UE/LE Strengthing Goal Met for this Session: Yes Pt Benefit of Group: Contributions to Others, F/U Use of Strategies @Home, Increased Functional Safety, Increased Functional Strength, Improved Cognition, Recognition of Peers, Socialization Other/Notes Pt ambulated using FWW to therapy gym for OT/PT group. Group consisted of introductions (name, place living, trivia question), socialization, B UE/LE seated exercises and education on benefits of exercise. Pt introduced self appropriately and actively listened to peers. Pt able to complete exercises and tolerated well. Pt given light resistance theraband and HEP for use in room and home. Pt gave personal strategies and examples of educational topics. After session, pt in bathroom, nrsg aware of position, call light in reach. All needs met in room. Start Time: 13:00 Stop Time: 14:00 Total Billed Treatment Time: 60 Total Billed Treatment 1-GRP JOSHUA GASPAR Mar 06, 2021 14:34
[2021-03-06] MEDS: metFORMIN 500 MG (GLUCOPHAGE) TAB PO SCH (17:50)
[2021-03-06 20:00] VITALS: BP 143/62
[2021-03-06] MEDS: SIMvastatin 10 MG (ZOCOR) TAB PO SCH (21:27)
[2021-03-06] MEDS: PANTOPRAZOLE 40 MG (PROTONIX) TAB PO SCH (21:27)
[2021-03-06] MEDS: GABAPENTIN 300 MG (NEURONTIN) CAP PO SCH (21:28)
[2021-03-07] MEDS: oxyCODONE/APAP 5/325MG (PERCOCET 5) TABLET PO PRN ×6 (00:35→21:10)
[2021-03-07] MEDS: SUCRALFATE 1 GM (CARAFATE) TAB PO SCH ×4 (06:32→21:09)
[2021-03-07] MEDS: MULTIVIT W/MINERALS TAB (THERAGRAN M) PO SCH (06:32)
[2021-03-07] MEDS: LEVOTHYROXINE 112 MCG (LEVOTHROID) TAB PO SCH (06:32)
[2021-03-07] MEDS: ONDANSETRON 4 MG (ZOFRAN) ORAL DISSOLVE TAB PO PRN ×2 (06:35→15:37)
[2021-03-07 07:36] VITALS: BP 120/58
[2021-03-07] MEDS: CELECOXIB 100 MG (CeleBREX) CAP PO SCH ×2 (08:07→21:09)
[2021-03-07] MEDS: PHENAZOPYRIDINE 100 MG (PYRIDIUM) TABLET PO SCH ×3 (08:07→18:35)
[2021-03-07] MEDS: ASPIRIN E.C. 81 MG (ECOTRIN) TAB PO SCH (08:08)
[2021-03-07] MEDS: FLUoxetine HCL 20 MG (PROzac) CAP PO SCH ×2 (08:08→21:09)
[2021-03-07] MEDS: amLODIPine 5 MG (NORVASC) TAB PO SCH (08:09)
[2021-03-07] MEDS: SPIRONOLACTONE 100 MG (ALDACTONE) TABLET PO SCH (08:09)
[2021-03-07] MEDS: ACETAMINOPHEN 500 MG TAB (TYLENOL) PO SCH ×4 (08:09→22:09)
[2021-03-07] MEDS: DOCUSATE SODIUM 100 MG (COLACE) CAP PO SCH ×2 (08:18→21:09)
[2021-03-07] MEDS: SENNA W/DOCUSATE (SENOKOT S) TABLET PO SCH ×2 (08:18→21:09)
[2021-03-07] MEDS: polyethylene glycoL POWDER 17 GM (MIRALAX) PACK PO SCH ×2 (08:24→21:07)
[2021-03-07] MEDS: GABAPENTIN 100 MG (NEURONTIN) CAP PO SCH ×2 (08:39→13:18)
[2021-03-07] MEDS: ENOXAPARIN 40 MG/0.4 ML (LOVENOX) SYR SC SCH ×2 (09:38→21:10)
--- NOTE | 2021-03-07 10:28 | Occupational Ther Daily Note ---
OT Current Status-Daily Note Subjective Pt alert, lying in bed. Pt agrees to therapy. Rated pain 5/10, nrsg brought pain meds. Mental Status/Objective Patient Orientation: Person, Place, Time, Situation ADL-Treatment Pt agrees to shower. SBA for supine to EOB then uses FWW to ambulate to bat hroom SBA. SBA for toilet transfers. Pt able to manipulate clothing with SBA, able to cleanse after voiding. Pt able to cleanse self easier using regular toilet instead of BSC. SBA to transfer into shower using FWW and grabbars. Sitting on shower bench, pt able to complete shower using LH sponge, hand held shower and grabbars by self (leans side to side to cleanse ciaran area and buttocks). After set up, pt able to complete upper body dressing by self. Threads pants and footwear on with AE then SBA while standing to hike pants over hips. Pt stands at sink to complete oral care independently. Therapy Code Descriptions/Definitions Functional [place] Measure: 0=Not Assessed/NA 4=Minimal Assistance 1=Total Assistance 5=Supervision or Setup 2=Maximal Assistance 6=Modified [place] 3=Moderate Assistance 7=Complete IndependenceSCALE: Activities may be completed with or without assistive devices. 1-Lhrrgyxxsb-vfswqym completes the activity by him/herself with no assistance from a helper. 5-Set-up or Clean-up Assistance-helper sets up or cleans up; patient completes activity. [place] assists only prior to or following the activity. 4-Supervision or Touching Assistance-helper provides verbal cues and/or touching/steadying and/or contact guard assistance as patient completes act ivity. Assistance may be provided throughout the activity or intermittently. 3-Partial/Moderate Assistance-helper does LESS THAN HALF the effort. [place] lifts, holds or supports trunk or limbs, but provides less than half the effort. 2-Substantial/Maximal Assistance-helper does MORE THAN HALF the effort. [place] lifts or holds trunk or limbs and provides more than half the effort. 0-Qqfudtzrs-zzieat does ALL the effort. Patient does none of the effort to complete the activity. Or, the assistance of 2 or more helpers is required for the patient to complete the activity. If activity was not attempted, code reason: 7-Patient Refused. 9-Not Applicable-not attempted and the patient did not perform the activity before the current illness, exacerbation or injury. 10-Not Attempted due to Environmental Limitations-(lack of equipment, weather restraints, etc.). 88-Not Attempted due to Medical Conditions or Safety Concerns. Oral Hygiene (QC): 6 Shower/Bathe Self (QC): 4 Upper Body Dressing (QC): 5 Lower Body Dressing (QC): 4 On/Off Footwear: 5 Toileting Hygiene (QC): 4 Toilet Transfer (QC): 4 Other Treatment Pt completed 1 set 10 reps of light resistance theraband exercises to increase B UE strength for daily functional tasks. Skilled instructions for technique required. After session, pt sitting in recliner with call light/phone in reach. All needs met in room. OT Short Term Goals Short Term Goals Time Frame: Mar 11, 2021 Toileting hygiene: 3 Shower/bathe self: 3 Upper body dressin Lower body dressin Putting on/taking off footwear: 3 OT Detention Goals Detention Goals Time Frame: Mar 29, 2021 Eating (QC): 6 Oral Hygiene (QC): 6 Toileting Hygiene (QC): 3 Shower/Bathe Self (QC): 3 Upper Body Dressing (QC): 5 Lower Body Dressing (QC): 3 On/Off Footwear (QC): 4 Additional Goals: 1-Demonstrate ADL Tasks, 2-Verbalize Understanding, 3-Impro veStrength/Shelley 1=Demonstrate adherence to instructed precautions during ADL tasks. 2=Patient will verbalize/demonstrate understanding of assistive devices/modifications for ADL. 3=Patient will improve strength/tolerance for activity to enable patient to perform ADL's. OT Education/Plan Problem List/Assessment Assessment: Decreased Activ Tolerance, Decreased UE Strength, Impaired Self- Care Skills Discharge Recommendations Plan/Recommendations: Continue POC Treatment Plan/Plan of Care Patient would benefit from OT for education, treatment and training to promote independence in ADL's, mobility, safety and/or upper extremity function for ADL's. Plan of Care: ADL Retraining, Functional Mobility, Group Exercise/Act as Ind, UE Funct Exercise/Act Treatment Duration: Mar 29, 2021 Frequency: At least 5 of 7 days/Wk (IRF) Estimated Hrs Per Day: 1.5 hours per day Agreement: Yes Rehab Potential: Guarded Time/GCodes Start Time: 07:30 Stop Time: 09:00 Total Time Billed (hr/min): 90 Billed Treatment Time 1 visit-ADL 5 (75 min) EX 1 (15 min) JOSHUA GASPAR Mar 07, 2021 10:28
--- NOTE | 2021-03-07 10:30 | Physical Therapy Daily Note ---
PT Daily Note-Current Subjective Pt sitting in recliner upon arrival. Pt agrees to PT but asks to use BR. Pain Numeric Pain Scale: 5-Moderate Pain Location: Right, Left Location Body Site: Knee Pain Description: Ache, Tightness Mental Status Patient Orientation: Person, Place, Time, Situation Transfers SCALE: Activities may be completed with or without assistive devices. 2-Cxqfmoorkd-yhysbma completes the activity by him/herself with no assistance from a helper. 5-Set-up or Clean-up Assistance-helper sets up or cleans up; patient completes activity. [place] assists only prior to or following the activity. 4-Supervision or Touching Assistance-helper provides verbal cues and/or touching/steadying and/or contact guard assistance as patient completes activity. Assistance may be provided throughout the activity or intermittently. 3-Partial/Moderate Assistance-helper does LESS THAN HALF the effort. [place] li fts, holds or supports trunk or limbs, but provides less than half the effort. 2-Substantial/Maximal Assistance-helper does MORE THAN HALF the effort. [place] lifts or holds trunk or limbs and provides more than half the effort. 6-Oxjhapedc-didesq does ALL the effort. Patient does none of the effort to complete the activity. Or, the assistance of 2 or more helpers is required for the patient to complete the activity. If activity was not attempted, code reason: 7-Patient Refused. 9-Not Applicable-not attempted and the patient did not perform the activity before the current illness, exacerbation or injury. 10-Not Attempted due to Environmental Limitations-(lack of equipment, weather restraints, etc.). 88-Not Attempted due to Medical Conditions or Safety Concerns. Sit to Stand (QC): 5 Toilet Transfer (QC): 5 Weight Bearing Right Lower Extremity: Right Weight Bearing/Tolerated Left Lower Extremity: Left Weight Bearing/Tolerated Gait Training Does the Patient Walk?: Yes Distance: 150' x2 Walk 10 feet (QC): 5 Walk 50 ft with 2 Turns(QC): 5 Walk 150 ft (QC): 5 Gait Persons Needed: 1 Gait Assistive Device: FWW Wheelchair Training Does the Pt Use a Wheelchair?: No Exercises Supine Ex: Ankle pumps, Quad Set, Glut sets, Heel Slides, Straight leg raise, Hip abd/add Supine Reps: 15 Seated Therapy Exercises: Ankle pumps, Long arc quads, Hip flexion Seated Reps: 15 Treatments TF to standing and uses BR. Pt returns to recliner to rest and receive Lovenox shot. Pt amb. in hallway then completes Supine & Seated Ex at Therapy mat. Pt amb. in hallway, returning to room. Pt asks to use BR again. Assessment Current Status: Good Progress Pt's amb. and mobility are improving. Pt continues to work on flexion & extension of B LE. PT Short Term Goals Short Term Goals Time Frame: Mar 08, 2021 Roll Left & Right: 6 Sit to lyin Lying to sitting on side of be: 3 Sit to stand: 2 Chair/vuc-wd-diqek transfer: 2 PT Usp Goals Air Bag Builder Goals PT Usp Goals Time Frame: Mar 22, 2021 Roll Left & Right (QC): 6 Sit to Lying (QC): 3 ([place]) Lying-Sitting on Side/Bed(QC): 3 ([place]) Sit to Stand (QC): 3 (modA) Chair/Boz-yk-Guocn Xfer(QC): 3 (modA) Toilet Transfer (QC): 3 (modA) Car Transfer (QC): 3 (modA) Does the Patient Walk: Yes Walk 10 feet (QC): 3 (modA) Walk 50ft with 2 Turns (QC): 88 Walk 150 ft (QC): 88 Walking 10ft on Uneven Surface: 88 1 Step (curb) (QC): 88 4 Steps (QC): 88 12 Steps (QC): 88 Picking up an Object (QC): 88 Wheel 50 feet with 2 turns (QC: 6 Wheel 150 feet: 6 PT Plan Problem List Problem List: ROM Treatment/Plan Treatment Plan: Continue Plan of Care Treatment Plan: Bed Mobility, Education, Functional Activity Shelley, Functional Strength, Group Therapy, Gait, Safety, Therapeutic Exercise, Transfers Treatment Duration: Mar 22, 2021 Frequency: At least 5 of 7 days/Wk (IRF) Estimated Hrs Per Day: 1.5 hours per day Patient and/or Family Agrees t: Yes Safety Risks/Education Patient Education: Correct Positioning Teaching Recipient: Patient Teaching Methods: Discussion Response to Teaching: Verbalize Understanding Time/GCodes Time In: 915 Time Out: 1015 Total Billed Treatment Time: 60 Total Billed Treatment 1, EX x2 (30m), GT (15m) & FA (15m) JOEL ZAMBRANO [employer]PERINTENDENT [employer] Mar 07, 2021 10:30
--- NOTE | 2021-03-07 10:58 | PM&R Progress Note ---
Subjective HPI/CC On Admission Date Seen by Provider: Mar 07, 2021 Time Seen by Provider: 11:00 Subjective/Events-last exam 03/07/2021: Patient improving dramatically Still has some nausea Bowels moved on 03/05 Percocet given 03/06/2021: Pt is doing pretty well She denies any issues Pt had a bowel movement yesterday She is having a lot of reflux so she will take her home Nexium and I will initiate Carafate before meals and at bedtime 03/05/2021: Patient doing much better Bowels moved yesterday Lasix 40 mg p.o. 1 time given for elevated BNP and volume overload Moving around a little better Pain is more controlled Echocardiogram updated to patient 03/04/2021: Patient doing pretty well Shortness of breath noted so will obtain echocardiogram she has never had one Add BNP to the labs Lasix will be given 1 dose Bowels are moving very well now Elevated blood pressure noted she has taken hydrochlorothiazide before Moving around a lot better now 03/03/2021: Patient doing pretty well Bowels moved yesterday Has a chronic cough but lungs remain clear Using her CPM machine Got out of bed for the first time 03/02/2021: Patient doing pretty well but difficult to ambulate Celebrex twice daily will be restarted Home dosing of medication altered to her satisfaction No bowel movement yet Hemoglobin 8.6 Sisters are at the bedside Review of Systems General: Fatigue, Malaise Objective Exam Vital Signs Vital Signs Date Time Temp Pulse Resp B/P (MAP) Pulse Ox O2 Delivery O2 Flow Rate FiO2 03/07/21 20:20 36.4 79 20 111/56 (74) 93 Nasal Cannula 2.00 Capillary Refill : General Appearance: No Apparent Distress, WD/WN, Chronically ill, Obese HEENT: PERRL/EOMI, Normal ENT Inspection, Pharynx Normal Neck: Full Range of Motion, Normal Inspection, Non Tender, Supple, Carotid Bruit Respiratory: Chest Non Tender, Lungs Clear, Normal Breath Sounds, No Accessory Muscle Use, No Respiratory Distress Cardiovascular: Regular Rate, Rhythm, No Edema, No Gallop, No JVD, No Murmur, Normal Peripheral Pulses Gastrointestinal: Normal Bowel Sounds, No Organomegaly, No Pulsatile Mass, Non Tender, Soft Back: Normal Inspection, No CVA Tenderness, No Vertebral Tenderness Extremity: Normal Capillary Refill, Normal Inspection, Normal Range of Motion (Decreased range of motion both legs), Non Tender, No Calf Tenderness, No Pedal Edema Neurologic/Psychiatric: Alert, Oriented x3, No Motor/Sensory Deficits, Normal Mood/Affect, Abnormal Gait Skin: Normal Color, Warm/Dry Lymphatic: No Adenopathy Results/Procedures Lab Patient resulted labs reviewed. FIM Transfers Therapy Code Descriptions/Definitions Functional [place] Measure: 0=Not Assessed/NA 4=Minimal Assistance 1=Total Assistance 5=Supervision or Setup 2=Maximal Assistance 6=Modified [place] 3=Moderate Assistance 7=Complete IndependenceSCALE: Activities may be completed with or without assistive devices. 1-Cbvszflyhm-hwuannc completes the activity by him/herself with no assistance from a helper. 5-Set-up or Clean-up Assistance-helper sets up or cleans up; patient completes activity. [place] assists only prior to or following the activity. 4-Supervision or Touching Assistance-helper provides verbal cues and/or touching/steadying and/or contact guard assistance as patient completes activity. Assistance may be provided throughout the activity or intermittently. 3-Partial/Moderate Assistance-helper does LESS THAN HALF the effort. [place] lifts, holds or supports trunk or limbs, but provides less than half the effort. 2-Substantial/Maximal Assistance-helper does MORE THAN HALF the effort. [place] lifts or holds trunk or limbs and provides more than half the effort. 6-Hwfojgfdp-cjgtee does ALL the effort. Patient does none of the effort to complete the activity. Or, the assistance of 2 or more helpers is required for the patient to complete the activity. If activity was not attempted, code reason: 7-Patient Refused. 9-Not Applicable-not attempted and the patient did not perform the activity before the current illness, exacerbation or injury. 10-Not Attempted due to Environmental Limitations-(lack of equipment, weather restraints, etc.). 88-Not Attempted due to Medical Conditions or Safety Concerns. Roll Left to Right (QC): 6 Sit to Lying (QC): 6 Sit to Stand (QC): 5 Chair/Sfj-zy-Ggeax Xfer(QC): 4 Car Transfer (QC): 88 Gait Training Does the Patient Walk?: Yes Distance: 150' x2 Walk 10 feet (QC): 5 Walk 50 ft with 2 Turns(QC): 5 Walk 150 ft (QC): 5 Walking 10ft/uneven surface-QC: 1 Gait Persons Needed: 1 Gait Assistive Device: FWW Wheelchair Training Does the Pt Use a Wheelchair?: No Wheel 50 ft with 2 turns (QC): 3 Wheel 150 ft (QC): 88 Type of Wheelchair: Manual Stair Training #of Steps: 0 1 Step (curb) (QC): 1 4 Steps (QC): 1 12 Steps (QC): 1 Balance Picking up an Object (QC): 1 ADL-Treatment Eating (QC): 6 Oral Hygiene (QC): 6 Shower/Bathe Self (QC): 4 Upper Body Dressing (QC): 5 Lower Body Dressing (QC): 4 On/Off Footwear (QC): 5 Toileting Hygiene (QC): 4 Toilet Transfer (QC): 4 Assessment/Plan Assessment and Plan Assess & Plan/Chief Complaint Assessment: Bilateral knee arthroplasties Obesity Diabetes Hypothyroidism Irritable bowel syndrome GERD Volume overload with elevated BNP but normal echo Plan: Inpatient rehab protocol Bowel regimen Monitor closely 03/02/2021: Pain control Ambulate Intensify bowel regimen 03/03/2021: Continue bowel regimen Monitor cough Pain control CPM machine use 03/04/2021: Echocardiogram Volume overload management Supportive care 03/05/2021: Lasix for volume overload Bowel regimen Pain control Aggressive physical therapy 03/06/2021: Monitor for recurrence and edema Bowel regimen GERD treatment 03/07/2021: Supportive care Pain control Bowel regimen (1) History of bilateral knee arthroplasty (2) Hypothyroidism (3) Diabetes (4) Obesity HARRIETT KELLY DO Mar 07, 2021 10:58
--- NOTE | 2021-03-07 14:57 | Physical Therapy Daily Note ---
PT Daily Note-Current Subjective Pt sitting in recliner upon arrival. Pt agrees to PT but asks to use BR. Mental Status Attachments: Polar Pack, Other-See Comments (CPM) Transfers SCALE: Activities may be completed with or without assistive devices. 5-Nxowczsrja-swqlagg completes the activity by him/herself with no assistance from a helper. 5-Set-up or Clean-up Assistance-helper sets up or cleans up; patient completes activity. [place] assists only prior to or following the activity. 4-Supervision or Touching Assistance-helper provides verbal cues and/or touching/steadying and/or contact guard assistance as patient completes activity. Assistance may be provided throughout the activity or intermittently. 3-Partial/Moderate Assistance-helper does LESS THAN HALF the effort. [place] lifts, holds or supports trunk or limbs, but provides less than half the effort. 2-Substantial/Maximal Assistance-helper does MORE THAN HALF the effort. [place] lifts or holds trunk or limbs and provides more than half the effort. 7-Omwvvzzks-duulps does ALL the effort. Patient does none of the effort to complete the activity. Or, the assistance of 2 or more helpers is required for the patient to complete the activity. If activity was not attempted, code reason: 7-Patient Refused. 9-Not Applicable-not attempted and the patient did not perform the activity before the current illness, exacerbation or injury. 10-Not Attempted due to Environmental Limitations-(lack of equipment, weather restraints, etc.). 88-Not Attempted due to Medical Conditions or Safety Concerns. Sit to Lying (QC): 5 Sit to Stand (QC): 5 Toilet Transfer (QC): 5 Weight Bearing Right Lower Extremity: Right Weight Bearing/Tolerated Left Lower Extremity: Left Weight Bearing/Tolerated Gait Training Does the Patient Walk?: Yes Distance: 200' Walk 10 feet (QC): 5 Walk 50 ft with 2 Turns(QC): 5 Walk 150 ft (QC): 5 Gait Persons Needed: 1 Gait Assistive Device: FWW DRAG DOWN gives VC to walk w/in FWW for improved posture and less WB through UE. Wheelchair Training Does the Pt Use a Wheelchair?: No Treatments TF to standing then uses BR before leaving room. Pt amb. in hallway before returning to room to rest in bed. [place] applied to B knees and CPM applied to L knee. All needs met, call light in hand. Assessment Current Status: Good Progress Pt is improving with mobility and ROM. PT Short Term Goals Short Term Goals Time Frame: Mar 08, 2021 Roll Left & Right: 6 Sit to lyin Lying to sitting on side of be: 3 Sit to stand: 2 Chair/zgt-zq-zzbpq transfer: 2 PT Residential Goals Residential Goals PT Residential Goals Time Frame: Mar 22, 2021 Roll Left & Right (QC): 6 Sit to Lying (QC): 3 ([place]) Lying-Sitting on Side/Bed(QC): 3 ([place]) Sit to Stand (QC): 3 (modA) Chair/Pvf-qc-Nahec Xfer(QC): 3 (modA) Toilet Transfer (QC): 3 (modA) Car Transfer (QC): 3 (modA) Does the Patient Walk: Yes Walk 10 feet (QC): 3 (modA) Walk 50ft with 2 Turns (QC): 88 Walk 150 ft (QC): 88 Walking 10ft on Uneven Surface: 88 1 Step (curb) (QC): 88 4 Steps (QC): 88 12 Steps (QC): 88 Picking up an Object (QC): 88 Wheel 50 feet with 2 turns (QC: 6 Wheel 150 feet: 6 PT Plan Problem List Problem List: Gait, ROM Treatment/Plan Treatment Plan: Continue Plan of Care Treatment Plan: Bed Mobility, Education, Functional Activity [place], Functional Strength, Group Therapy, Gait, Safety, Therapeutic Exercise, Transfers Treatment Duration: Mar 22, 2021 Frequency: At least 5 of 7 days/Wk (IRF) Estimated Hrs Per Day: 1.5 hours per day Patient and/or Family Agrees t: Yes Safety Risks/Education Patient Education: Gait Training, Reviewed Use of Ice, Correct Positioning Teaching Recipient: Patient Teaching Methods: Discussion Response to Teaching: Verbalize Understanding Time/GCodes Time In: 1330 Time Out: 1405 Total Billed Treatment Time: 35 Total Billed Treatment 1, GT (15m) & FA (20m) JOEL ZAMBRANO DRAG DOWN Mar 07, 2021 14:57
[2021-03-07] MEDS: metFORMIN 500 MG (GLUCOPHAGE) TAB PO SCH (18:35)
[2021-03-07 20:20] VITALS: BP 111/56
[2021-03-07] MEDS: SIMvastatin 10 MG (ZOCOR) TAB PO SCH (21:09)
[2021-03-07] MEDS: GABAPENTIN 300 MG (NEURONTIN) CAP PO SCH (21:09)
[2021-03-07] MEDS: PANTOPRAZOLE 40 MG (PROTONIX) TAB PO SCH (21:09)
[2021-03-08] MEDS: ONDANSETRON 4 MG (ZOFRAN) ORAL DISSOLVE TAB PO PRN (05:02)
[2021-03-08] MEDS: oxyCODONE/APAP 5/325MG (PERCOCET 5) TABLET PO PRN ×4 (05:02→20:48)
[2021-03-08] MEDS: SUCRALFATE 1 GM (CARAFATE) TAB PO SCH ×4 (06:25→20:47)
[2021-03-08] MEDS: MULTIVIT W/MINERALS TAB (THERAGRAN M) PO SCH (06:25)
[2021-03-08] MEDS: LEVOTHYROXINE 112 MCG (LEVOTHROID) TAB PO SCH (06:25)
[2021-03-08 07:23] VITALS: BP 128/58
--- NOTE | 2021-03-08 08:59 | Occupational Ther Daily Note ---
OT Current Status-Daily Note Subjective Pt alert, sitting in recliner. Pt agrees to therapy. No c/o pain at this time. Mental Status/Objective Patient Orientation: Person, Place, Time, Situation ADL-Treatment Pt agrees to shower. SBA for supine to EOB then uses FWW to ambulate to bathroom SBA. Independent for toilet transfers. Pt able to manipulate clothing and complete hygiene, independently. Pt able to cleanse self easier using regular toilet instead of BSC. Independent to transfer into shower using FWW and grabbars. Sitting on shower bench, pt able to complete shower using LH sponge, hand held shower and grabbars by self (leans side to side to cleanse ciaran area and buttocks), independently. After set up, pt able to complete upper body dressing by self. Threads pants and footwear on with AE then stands to hike pants over hips independently. Pt stands at sink to complete oral care independently. Therapy Code Descriptions/Definitions Functional [place] Measure: 0=Not Assessed/NA 4=Minimal Assistance 1=Total Assistance 5=Supervision or Setup 2=Maximal Assistance 6=Modified [place] 3=Moderate Assistance 7=Complete IndependenceSCALE: Activities may be completed with or without assistive devices. 2-Vkywckblca-crpatgh completes the activity by him/herself with no assistance from a helper. 5-Set-up or Clean-up Assistance-helper sets up or cleans up; patient completes activity. [place] [employer] assists only prior to or following the activity. 4-Supervision or Touching Assistance-helper provides verbal cues and/or touching/steadying and/or contact guard assistance as patient completes activity. Assistance may be provided throughout the activity or intermittently. 3-Partial/Moderate Assistance-helper does LESS THAN HALF the effort. [place] [employer] lifts, holds or supports trunk or limbs, but provides less than half the effort. 2-Substantial/Maximal Assistance-helper does MORE THAN HALF the effort. [place] [employer] lifts or holds trunk or limbs and provides more than half the effort. 5-Vespeowcp-niqqtx does ALL the effort. Patient does none of the effort to complete the activity. Or, the assistance of 2 or more helpers is required for the patient to complete the activity. If activity was not attempted, code reason: 7-Patient Refused. 9-Not Applicable-not attempted and the patient did not perform the activity before the current illness, exacerbation or injury. 10-Not Attempted due to Environmental Limitations-(lack of equipment, weather restraints, etc.). 88-Not Attempted due to Medical Conditions or Safety Concerns. Eating (QC): 6 (Opens containers and packages then uses regular utensils to eat.) Oral Hygiene (QC): 6 Shower/Bathe Self (QC): 6 Upper Body Dressing (QC): 5 Lower Body Dressing (QC): 5 On/Off Footwear: 5 Toileting Hygiene (QC): 6 Toilet Transfer (QC): 6 Other Treatment Pt ambulates to therapy gym using FWW with SBA. Completes arm bike at 20 adler resistance for 15 min to increase strength and activity tolerance for daily functional tasks. Pt then ambulated back to room and requested to use toilet. Independent with transfer, hygiene and clothing manipulation. Nrsg in room to assist pt back to bed. All needs met in room. OT Short Term Goals Short Term Goals Time Frame: Mar 11, 2021 Toileting hygiene: 3 Shower/bathe self: 3 Upper body dressin Lower body dressin Putting on/taking off footwear: 3 OT Fci Goals Fci Goals Time Frame: Mar 29, 2021 Eating (QC): 6 Oral Hygiene (QC): 6 Toileting Hygiene (QC): 3 Shower/Bathe Self (QC): 3 Upper Body Dressing (QC): 5 Lower Body Dressing (QC): 3 On/Off Footwear (QC): 4 Additional Goals: 1-Demonstrate ADL Tasks, 2-Verbalize Understanding, 3- ImproveStrength/[place] 1=Demonstrate adherence to instructed precautions during ADL tasks. 2=Patient will verbalize/demonstrate understanding of assistive devices/mo difications for ADL. 3=Patient will improve strength/tolerance for activity to enable patient to perform ADL's. OT Education/Plan Problem List/Assessment Assessment: Decreased Activ Tolerance, Decreased UE Strength, Impaired Self- Care Skills Discharge Recommendations Plan/Recommendations: Continue POC Treatment Plan/Plan of Care Patient would benefit from OT for education, treatment and training to promote independence in ADL's, mobility, safety and/or upper extremity function for ADL's. Plan of Care: ADL Retraining, Functional Mobility, Group Exercise/Act as Ind, UE Funct Exercise/Act Treatment Duration: Mar 29, 2021 Frequency: At least 5 of 7 days/Wk (IRF) Estimated Hrs Per Day: 1.5 hours per day Agreement: Yes Rehab Potential: Guarded Time/GCodes Start Time: 07:30 Stop Time: 09:00 Total Time Billed (hr/min): 90 Billed Treatment Time 1 visit-ADL 5 (75 min) EX 1 (15 min) JOSHUA GASPAR Mar 08, 2021 08:59
[2021-03-08] MEDS: amLODIPine 5 MG (NORVASC) TAB PO SCH (09:03)
[2021-03-08] MEDS: ASPIRIN E.C. 81 MG (ECOTRIN) TAB PO SCH (09:03)
[2021-03-08] MEDS: FLUoxetine HCL 20 MG (PROzac) CAP PO SCH ×2 (09:03→20:48)
[2021-03-08] MEDS: SPIRONOLACTONE 100 MG (ALDACTONE) TABLET PO SCH (09:03)
[2021-03-08] MEDS: polyethylene glycoL POWDER 17 GM (MIRALAX) PACK PO SCH ×2 (09:03→21:00)
[2021-03-08] MEDS: SENNA W/DOCUSATE (SENOKOT S) TABLET PO SCH ×2 (09:03→21:00)
[2021-03-08] MEDS: PHENAZOPYRIDINE 100 MG (PYRIDIUM) TABLET PO SCH ×3 (09:03→17:23)
[2021-03-08] MEDS: DOCUSATE SODIUM 100 MG (COLACE) CAP PO SCH ×2 (09:03→21:00)
[2021-03-08] MEDS: CELECOXIB 100 MG (CeleBREX) CAP PO SCH ×2 (09:04→21:11)
[2021-03-08] MEDS: GABAPENTIN 100 MG (NEURONTIN) CAP PO SCH ×2 (09:11→13:24)
[2021-03-08] MEDS: ACETAMINOPHEN 500 MG TAB (TYLENOL) PO SCH ×3 (09:13→21:00)
--- NOTE | 2021-03-08 10:14 | Physical Therapy Daily Note ---
PT Daily Note-Current Subjective Pt. agrees to Rx, hopes her is having rails installed at her home on steps. States pain in her Knees is at 5/10 . Pain Numeric Pain Scale: 5-Moderate Pain Location: Left (and right) Location Body Site: Knee Pain Description: Ache Mental Status Patient Orientation: Normal For Age Attachments: SCD's, Polar Pack, Other-See Comments (CPM) Transfers SCALE: Activities may be completed with or without assistive devices. 7-Qtpnyibasg-yyqisnn completes the activity by him/herself with no assistance from a helper. 5-Set-up or Clean-up Assistance-helper sets up or cleans up; patient completes activity. [place] assists only prior to or following the activity. 4-Supervision or Touching Assistance-helper provides verbal cues and/or to uching/steadying and/or contact guard assistance as patient completes activity. Assistance may be provided throughout the activity or intermittently. 3-Partial/Moderate Assistance-helper does LESS THAN HALF the effort. [place] lifts, holds or supports trunk or limbs, but provides less than half the effort. 2-Substantial/Maximal Assistance-helper does MORE THAN HALF the effort. [place] lifts or holds trunk or limbs and provides more than half the effort. 1-Fvghkixvu-ocvhjs does ALL the effort. Patient does none of the effort to complete the activity. Or, the assistance of 2 or more helpers is required for the patient to complete the activity. If activity was not attempted, code reason: 7-Patient Refused. 9-Not Applicable-not attempted and the patient did not perform the activity before the current illness, exacerbation or injury. 10-Not Attempted due to Environmental Limitations-(lack of equipment, weather restraints, etc.). 88-Not Attempted due to Medical Conditions or Safety Concerns. Roll Left & Right (QC): 6 Sit to Lying (QC): 6 Lying to Sitting/Side of Bed(Q: 6 Sit to Stand (QC): 6 Chair/Rvh-bx-Zypsb Xfer(QC): 6 Toilet Transfer (QC): 6 needs elevated surfaces but did fine with SBA Weight Bearing Right Lower Extremity: Right Weight Bearing/Tolerated Left Lower Extremity: Left Weight Bearing/Tolerated Gait Training Does the Patient Walk?: Yes Walk 10 feet (QC): 5 Walk 50 ft with 2 Turns(QC): 5 Walk 150 ft (QC): 5 Gait Persons Needed: 1 Exercises Supine Ex: Ankle pumps, Quad Set, Rolling, Glut sets, Heel Slides, Short Arc Quads, Straight leg raise, Hip abd/add Supine Reps: 20 (bilat) Seated Therapy Exercises: Sit to stand, Long arc quads Seated Reps: 15 NuStep Minutes: 10 NuStep Workload: 3 Treatments nustep with hold for flexion each cycle, toileted managing pants and clean up indep, in bed after with SCDs, CPM on right LE and polar packs bilat, AAROM on nustep, R 70deg flexiob, L 76deg flexion Assessment Current Status: Good Progress PT Short Term Goals Short Term Goals Time Frame: Mar 08, 2021 Roll Left & Right: 6 Sit to lyin Lying to sitting on side of be: 3 Sit to stand: 2 Chair/ggt-ux-kaixn transfer: 2 PT International Guest Coordinator Goals International Guest Coordinator Goals PT International Guest Coordinator Goals Time Frame: Mar 22, 2021 Roll Left & Right (QC): 6 Sit to Lying (QC): 3 ([place]) Lying-Sitting on Side/Bed(QC): 3 ([place]) Sit to Stand (QC): 3 (modA) Chair/Ple-dl-Xsser Xfer(QC): 3 (modA) Toilet Transfer (QC): 3 (modA) Car Transfer (QC): 3 (modA) Does the Patient Walk: Yes Walk 10 feet (QC): 3 (modA) Walk 50ft with 2 Turns (QC): 88 Walk 150 ft (QC): 88 Walking 10ft on Uneven Surface: 88 1 Step (curb) (QC): 88 4 Steps (QC): 88 12 Steps (QC): 88 Picking up an Object (QC): 88 Wheel 50 feet with 2 turns (QC: 6 Wheel 150 feet: 6 PT Plan Treatment/Plan Treatment Plan: Continue Plan of Care Treatment Plan: Bed Mobility, Education, Functional Activity [place], Functional Strength, Group Therapy, Gait, Safety, Therapeutic Exercise, Transfers Treatment Duration: Mar 22, 2021 Frequency: At least 5 of 7 days/Wk (IRF) Estimated Hrs Per Day: 1.5 hours per day Patient and/or Family Agrees t: Yes Safety Risks/Education Patient Education: Gait Training, Transfer Techniques, Correct Positioning, Disease Process, Safety Issues Teaching Recipient: Patient Teaching Methods: Demonstration, Discussion Response to Teaching: Verbalize Understanding, Return Demonstration, Reinforcement Needed Time/GCodes Time In: 915 Time Out: 1015 Total Billed Treatment Time: 60 Total Billed Treatment 1,EX30m,FA15m,GT15m DAVID CONTRERAS NOTE TELLER Mar 08, 2021 10:13
[2021-03-08] MEDS: ENOXAPARIN 40 MG/0.4 ML (LOVENOX) SYR SC SCH ×2 (11:52→22:13)
--- NOTE | 2021-03-08 14:09 | Progress Note ---
Standard Progress Note Progress Notes/Assess & Plan Date Seen by a Provider: Mar 08, 2021 Time Seen by a Provider: 14:08 Progress/Assessment & Plan no complaints dressings intact. No calf tenderness still difficulty with sit to stand cont;inue PT/OT Final Diagnosis no complaints Vital Signs Date Time Temp Pulse Resp B/P (MAP) Pulse Ox O2 Delivery O2 Flow Rate FiO2 03/08/21 09:50 Room Air 03/08/21 07:23 36.0 76 18 128/58 (81) 93 Nasal Cannula 2.00 03/07/21 20:20 36.4 79 20 111/56 (74) 93 Nasal Cannula 2.00 03/07/21 20:20 Nasal Cannula 2.00 03/07/21 18:01 64 20 95 Room Air ambulating in helm dressings intact s/p BTKA continue PT/OT JAIR TAVERA MD Mar 08, 2021 14:09
--- NOTE | 2021-03-08 14:13 | PM&R Progress Note ---
Subjective HPI/CC On Admission Date Seen by Provider: Mar 08, 2021 Time Seen by Provider: 14:15 Subjective/Events-last exam 03/08/2021: Patient really moving around pretty well Bowels move twice today Not taking too many pain medications Dramatic improvement 03/07/2021: Patient improving dramatically Still has some nausea Bowels moved on 03/05 Percocet given 03/06/2021: Pt is doing pretty well She denies any issues Pt had a bowel movement yesterday She is having a lot of reflux so she will take her home Nexium and I will initiate Carafate before meals and at bedtime 03/05/2021: Patient doing much better Bowels moved yesterday Lasix 40 mg p.o. 1 time given for elevated BNP and volume overload Moving around a little better Pain is more controlled Echocardiogram updated to patient 03/04/2021: Patient doing pretty well Shortness of breath noted so will obtain echocardiogram she has never had one Add BNP to the labs Lasix will be given 1 dose Bowels are moving very well now Elevated blood pressure noted she has taken hydrochlorothiazide before Moving around a lot better now 03/03/2021: Patient doing pretty well Bowels moved yesterday Has a chronic cough but lungs remain clear Using her CPM machine Got out of bed for the first time 03/02/2021: Patient doing pretty well but difficult to ambulate Celebrex twice daily will be restarted Home dosing of medication altered to her satisfaction No bowel movement yet Hemoglobin 8.6 Sisters are at the bedside Review of Systems Musculoskeletal: leg pain Objective Exam Vital Signs Vital Signs Date Time Temp Pulse Resp B/P (MAP) Pulse Ox O2 Delivery O2 Flow Rate FiO2 03/08/21 20:50 Nasal Cannula 2.00 03/08/21 20:00 36.2 71 16 140/63 (88) 93 Capillary Refill : General Appearance: No Apparent Distress, WD/WN, Chronically ill, Obese HEENT: PERRL/EOMI, Normal ENT Inspection, Pharynx Normal Neck: Full Range of Motion, Normal Inspection, Non Tender, Supple, Carotid Bruit Respiratory: Chest Non Tender, Lungs Clear, Normal Breath Sounds, No Accessory Muscle Use, No Respiratory Distress Cardiovascular: Regular Rate, Rhythm, No Edema, No Gallop, No JVD, No Murmur, Normal Peripheral Pulses Gastrointestinal: Normal Bowel Sounds, No Organomegaly, No Pulsatile Mass, Non Tender, Soft Back: Normal Inspection, No CVA Tenderness, No Vertebral Tenderness Extremity: Normal Capillary Refill, Normal Inspection, Normal Range of Motion (Decreased range of motion both legs), Non Tender, No Calf Tenderness, No Pedal Edema Neurologic/Psychiatric: Alert, Oriented x3, No Motor/Sensory Deficits, Normal Mood/Affect, Abnormal Gait Skin: Normal Color, Warm/Dry Lymphatic: No Adenopathy Results/Procedures Lab Patient resulted labs reviewed. FIM Transfers Therapy Code Descriptions/Definitions Functional [place] Measure: 0=Not Assessed/NA 4=Minimal Assistance 1=Total Assistance 5=Supervision or Setup 2=Maximal Assistance 6=Modified [place] 3=Moderate Assistance 7=Complete IndependenceSCALE: Activities may be completed with or without assistive devices. 5-Qgkjqvippf-ucjbblj completes the activity by him/herself with no assistance from a helper. 5-Set-up or Clean-up Assistance-helper sets up or cleans up; patient completes activity. [place] assists only prior to or following the activity. 4-Supervision or Touching Assistance-helper provides verbal cues and/or touching/steadying and/or contact guard assistance as patient completes activity. Assistance may be provided throughout the activity or intermittently. 3-Partial/Moderate Assistance-helper does LESS THAN HALF the effort. [place] lifts, holds or supports trunk or limbs, but provides less than half the effort. 2-Substantial/Maximal Assistance-helper does MORE THAN HALF the effort. [place] lifts or holds trunk or limbs and provides more than half the effort. 0-Luqhqvkmz-ryrdzt does ALL the effort. Patient does none of the effort to complete the activity. Or, the assistance of 2 or more helpers is required for the patient to complete the activity. If activity was not attempted, code reason: 7-Patient Refused. 9-Not Applicable-not attempted and the patient did not perform the activity before the current illness, exacerbation or injury. 10-Not Attempted due to Environmental Limitations-(lack of equipment, weather restraints, etc.). 88-Not Attempted due to Medical Conditions or Safety Concerns. Roll Left to Right (QC): 6 Sit to Lying (QC): 6 Sit to Stand (QC): 6 Chair/Vlv-na-Nfinp Xfer(QC): 6 Car Transfer (QC): 88 Gait Training Does the Patient Walk?: Yes Distance: 200' Walk 10 feet (QC): 5 Walk 50 ft with 2 Turns(QC): 5 Walk 150 ft (QC): 5 Walking 10ft/uneven surface-QC: 1 Gait Persons Needed: 1 Gait Assistive Device: FWW Wheelchair Training Does the Pt Use a Wheelchair?: No Wheel 50 ft with 2 turns (QC): 3 Wheel 150 ft (QC): 88 Type of Wheelchair: Manual Stair Training #of Steps: 0 1 Step (curb) (QC): 1 4 Steps (QC): 1 12 Steps (QC): 1 Balance Picking up an Object (QC): 1 ADL-Treatment Eating (QC): 6 (Opens containers and packages then uses regular utensils to eat.) Oral Hygiene (QC): 6 Shower/Bathe Self (QC): 6 Upper Body Dressing (QC): 5 Lower Body Dressing (QC): 5 On/Off Footwear (QC): 5 Toileting Hygiene (QC): 6 Toilet Transfer (QC): 6 Assessment/Plan Assessment and Plan Assess & Plan/Chief Complaint Assessment: Bilateral knee arthroplasties Obesity Diabetes Hypothyroidism Irritable bowel syndrome GERD Volume overload with elevated BNP but normal echo Elevated blood pressure requiring addition of amlodipine Plan: Inpatient rehab protocol Bowel regimen Monitor closely 03/02/2021: Pain control Ambulate Intensify bowel regimen 03/03/2021: Continue bowel regimen Monitor cough Pain control CPM machine use 03/04/2021: Echocardiogram Volume overload management Supportive care 03/05/2021: Lasix for volume overload Bowel regimen Pain control Aggressive physical therapy 03/06/2021: Monitor for recurrence and edema Bowel regimen GERD treatment 03/07/2021: Supportive care Pain control Bowel regimen 03/08/2021: Monitor closely Bowel regimen Pain control Decrease Norvasc dose to 2.5 mg daily (1) History of bilateral knee arthroplasty (2) Hypothyroidism (3) Diabetes (4) Obesity HARRIETT KELLY DO Mar 08, 2021 14:13
--- NOTE | 2021-03-08 14:23 | Physical Therapy Daily Note ---
PT Daily Note-Current Subjective Pt. agrees to Rx. Smiling, feels positive, Dr Alves visits during Rx. No pain c/o Pain Location: No Pain Reported Mental Status Patient Orientation: Normal For Age Attachments: SCD's, Polar Pack, Other-See Comments (CPM applied to R knee) Transfers SCALE: Activities may be completed with or without assistive devices. 2-Qabonuzlem-giyaqad completes the activity by him/herself with no assistance from a helper. 5-Set-up or Clean-up Assistance-helper sets up or cleans up; patient completes activity. [place] assists only prior to or following the activity. 4-Supervision or Touching Assistance-helper provides verbal cues and/or touching/steadying and/or contact guard assistance as patient completes activity. Assistance may be provided throughout the activity or intermittently. 3-Partial/Moderate Assistance-helper does LESS THAN HALF the effort. [place] lifts, holds or supports trunk or limbs, but provides less than half the effort. 2-Substantial/Maximal Assistance-helper does MORE THAN HALF the effort. [place] lifts or holds trunk or limbs and provides more than half the effort. 7-Xsfaavzmv-ewains does ALL the effort. Patient does none of the effort to complete the activity. Or, the assistance of 2 or more helpers is required for the patient to complete the activity. If activity was not attempted, code reason: 7-Patient Refused. 9-Not Applicable-not attempted and the patient did not perform the activity before the current illness, exacerbation or injury. 10-Not Attempted due to Environmental Limitations-(lack of equipment, weather restraints, etc.). 88-Not Attempted due to Medical Conditions or Safety Concerns. Roll Left & Right (QC): 6 Sit to Lying (QC): 6 Lying to Sitting/Side of Bed(Q: 6 Sit to Stand (QC): 6 Chair/[place] Xfer(QC): 6 Toilet Transfer (QC): 6 Weight Bearing Right Lower Extremity: Right Weight Bearing/Tolerated Left Lower Extremity: Left Weight Bearing/Tolerated Gait Training Does the Patient Walk?: Yes Gait Assistive Device: FWW gait 200ft x 3 on low carpet and linoleum too. All SBA Exercises Seated Therapy Exercises: Ankle pumps, Sit to stand, Long arc quads Seated Reps: 15 Treatments seated knee flexion stretches keeping foot in place moving hips forward in chair , holding 12 seconds x 4 each knee. Flexion approx 80 deg bilat, after in bed bilat SCDs, bilat polar packs, CPM placed on R LE at 74 deg Assessment Current Status: Good Progress PT Short Term Goals Short Term Goals Time Frame: Mar 08, 2021 Roll Left & Right: 6 Sit to lyin Lying to sitting on side of be: 3 Sit to stand: 2 Chair/kie-fo-yskbh transfer: 2 PT Night Guard Goals Night Guard Goals PT Retirement Goals Time Frame: Mar 22, 2021 Roll Left & Right (QC): 6 Sit to Lying (QC): 3 ([place]) Lying-Sitting on Side/Bed(QC): 3 ([place]) Sit to Stand (QC): 3 (modA) Chair/Yoz-gu-Utlzs Xfer(QC): 3 (modA) Toilet Transfer (QC): 3 (modA) Car Transfer (QC): 3 (modA) Does the Patient Walk: Yes Walk 10 feet (QC): 3 (modA) Walk 50ft with 2 Turns (QC): 88 Walk 150 ft (QC): 88 Walking 10ft on Uneven Surface: 88 1 Step (curb) (QC): 88 4 Steps (QC): 88 12 Steps (QC): 88 Picking up an Object (QC): 88 Wheel 50 feet with 2 turns (QC: 6 Wheel 150 feet: 6 PT Plan Treatment/Plan Treatment Plan: Continue Plan of Care Treatment Plan: Bed Mobility, Education, Functional Activity [place], Functional Strength, Group Therapy, Gait, Safety, Therapeutic Exercise, Transfers Treatment Duration: Mar 22, 2021 Frequency: At least 5 of 7 days/Wk (IRF) Estimated Hrs Per Day: 1.5 hours per day Patient and/or Family Agrees t: Yes Safety Risks/Education Patient Education: Gait Training, Transfer Techniques, Reviewed Use of Ice, Correct Positioning, Disease Process, Safety Issues Teaching Recipient: Patient Teaching Methods: Demonstration, Discussion Response to Teaching: Verbalize Understanding, Return Demonstration, Eddie nforcement Needed Time/GCodes Time In: 1345 Time Out: 1420 Total Billed Treatment Time: 35 Total Billed Treatment 1,GT15m,EX20m DAVID CONTRERAS MOLECULAR BIOLOGY DIRECTOR Mar 08, 2021 14:23
[2021-03-08] MEDS: metFORMIN 500 MG (GLUCOPHAGE) TAB PO SCH (17:25)
[2021-03-08 20:00] VITALS: BP 140/63
[2021-03-08] MEDS: GABAPENTIN 300 MG (NEURONTIN) CAP PO SCH (20:47)
[2021-03-08] MEDS: SIMvastatin 10 MG (ZOCOR) TAB PO SCH (20:47)
[2021-03-08] MEDS: PANTOPRAZOLE 40 MG (PROTONIX) TAB PO SCH (20:48)
--- NOTE | 2021-03-09 05:02 | PM&R Progress Note ---
Subjective HPI/CC On Admission Date Seen by Provider: Mar 09, 2021 Time Seen by Provider: 07:45 Subjective/Events-last exam 03/09/21: No major issues Incontinence when she can't get to the bathroom in time Carafate has resolved the GERD BM+ Pain controlled 03/08/2021: Patient really moving around pretty well Bowels move twice today Not taking too many pain medications Dramatic improvement 03/07/2021: Patient improving dramatically Still has some nausea Bowels moved on 03/05 Percocet given 03/06/2021: Pt is doing pretty well She denies any issues Pt had a bowel movement yesterday She is having a lot of reflux so she will take her home Nexium and I will initiate Carafate before meals and at bedtime 03/05/2021: Patient doing much better Bowels moved yesterday Lasix 40 mg p.o. 1 time given for elevated BNP and volume overload Moving around a little better Pain is more controlled Echocardiogram updated to patient 03/04/2021: Patient doing pretty well Shortness of breath noted so will obtain echocardiogram she has never had one Add BNP to the labs Lasix will be given 1 dose Bowels are moving very well now Elevated blood pressure noted she has taken hydrochlorothiazide before Moving around a lot better now 03/03/2021: Patient doing pretty well Bowels moved yesterday Has a chronic cough but lungs remain clear Using her CPM machine Got out of bed for the first time 03/02/2021: Patient doing pretty well but difficult to ambulate Celebrex twice daily will be restarted Home dosing of medication altered to her satisfaction No bowel movement yet Hemoglobin 8.6 Sisters are at the bedside Review of Systems General: Fatigue Genitourinary: Incontinence Musculoskeletal: leg pain Objective Exam Vital Signs Vital Signs Date Time Temp Pulse Resp B/P (MAP) Pulse Ox O2 Delivery O2 Flow Rate FiO2 03/09/21 09:00 Room Air 03/09/21 07:16 36.4 76 18 137/63 (87) 92 03/08/21 20:50 2.00 Capillary Refill : General Appearance: No Apparent Distress, WD/WN, Chronically ill, Obese HEENT: PERRL/EOMI, Normal ENT Inspection, Pharynx Normal Neck: Full Range of Motion, Normal Inspection, Non Tender, Supple, Carotid Bruit Respiratory: Chest Non Tender, Lungs Clear, Normal Breath Sounds, No Accessory Muscle Use, No Respiratory Distress Cardiovascular: Regular Rate, Rhythm, No Edema, No Gallop, No JVD, No Murmur, Normal Peripheral Pulses Gastrointestinal: Normal Bowel Sounds, No Organomegaly, No Pulsatile Mass, Non Tender, Soft Back: Normal Inspection, No CVA Tenderness, No Vertebral Tenderness Extremity: Normal Capillary Refill, Normal Inspection, Normal Range of Motion (Decreased range of motion both legs), Non Tender, No Calf Tenderness, No Pedal Edema Neurologic/Psychiatric: Alert, Oriented x3, No Motor/Sensory Deficits, Normal Mood/Affect, Abnormal Gait Skin: Normal Color, Warm/Dry Lymphatic: No Adenopathy Results/Procedures Lab Patient resulted labs reviewed. FIM Transfers Therapy Code Descriptions/Definitions Functional [place] Measure: 0=Not Assessed/NA 4=Minimal Assistance 1=Total Assistance 5=Supervision or Setup 2=Maximal Assistance 6=Modified [place] 3=Moderate Assistance 7=Complete IndependenceSCALE: Activities may be completed with or without assistive devices. 2-Lnaiehcrfm-gsqsaee completes the activity by him/herself with no assistance from a helper. 5-Set-up or Clean-up Assistance-helper sets up or cleans up; patient completes activity. [place] assists only prior to or following the activity. 4-Supervision or Touching Assistance-helper provides verbal cues and/or touching/steadying and/or contact guard assistance as patient completes activity. Assistance may be provided throughout the activity or intermittently. 3-Partial/Moderate Assistance-helper does LESS THAN HALF the effort. [place] lifts, holds or supports trunk or limbs, but provides less than half the effort. 2-Substantial/Maximal Assistance-helper does MORE THAN HALF the effort. [place] lifts or holds trunk or limbs and provides more than half the effort. 9-Iadcthlyc-pdarqt does ALL the effort. Patient does none of the effort to complete the activity. Or, the assistance of 2 or more helpers is required for the patient to complete the activity. If activity was not attempted, code reason: 7-Patient Refused. 9-Not Applicable-not attempted and the patient did not perform the activity before the current illness, exacerbation or injury. 10-Not Attempted due to Environmental Limitations-(lack of equipment, weather restraints, etc.). 88-Not Attempted due to Medical Conditions or Safety Concerns. Roll Left to Right (QC): 6 Sit to Lying (QC): 6 Sit to Stand (QC): 6 Chair/Cbe-kr-Hqzqn Xfer(QC): 6 Car Transfer (QC): 88 Gait Training Does the Patient Walk?: Yes Distance: 200' Walk 10 feet (QC): 5 Walk 50 ft with 2 Turns(QC): 5 Walk 150 ft (QC): 5 Walking 10ft/uneven surface-QC: 1 Gait Persons Needed: 1 Gait Assistive Device: FWW Wheelchair Training Does the Pt Use a Wheelchair?: No Wheel 50 ft with 2 turns (QC): 3 Wheel 150 ft (QC): 88 Type of Wheelchair: Manual Stair Training #of Steps: 0 1 Step (curb) (QC): 1 4 Steps (QC): 1 12 Steps (QC): 1 Balance Picking up an Object (QC): 1 ADL-Treatment Eating (QC): 6 (Opens containers and packages then uses regular utensils to eat.) Oral Hygiene (QC): 6 Shower/Bathe Self (QC): 6 Upper Body Dressing (QC): 5 Lower Body Dressing (QC): 5 On/Off Footwear (QC): 5 Toileting Hygiene (QC): 6 Toilet Transfer (QC): 6 Assessment/Plan Assessment and Plan Assess & Plan/Chief Complaint Assessment: Bilateral knee arthroplasties Obesity Diabetes Hypothyroidism Irritable bowel syndrome GERD Volume overload with elevated BNP but normal echo Elevated blood pressure requiring addition of amlodipine Plan: Inpatient rehab protocol Bowel regimen Monitor closely 03/02/2021: Pain control Ambulate Intensify bowel regimen 03/03/2021: Continue bowel regimen Monitor cough Pain control CPM machine use 03/04/2021: Echocardiogram Volume overload management Supportive care 03/05/2021: Lasix for volume overload Bowel regimen Pain control Aggressive physical therapy 03/06/2021: Monitor for recurrence and edema Bowel regimen GERD treatment 03/07/2021: Supportive care Pain control Bowel regimen 03/08/2021: Monitor closely Bowel regimen Pain control Decrease Norvasc dose to 2.5 mg daily 03/09/21: Monitor lower BP May need to DC Norvasc now since pain controlled and volume overload resolved (1) History of bilateral knee arthroplasty (2) Hypothyroidism (3) Diabetes (4) Obesity HARRIETT KELLY DO Mar 09, 2021 05:02
[2021-03-09] MEDS: LEVOTHYROXINE 112 MCG (LEVOTHROID) TAB PO SCH (06:20)
[2021-03-09] MEDS: SUCRALFATE 1 GM (CARAFATE) TAB PO SCH ×4 (06:20→20:51)
[2021-03-09] MEDS: MULTIVIT W/MINERALS TAB (THERAGRAN M) PO SCH (06:20)
[2021-03-09] MEDS: oxyCODONE/APAP 5/325MG (PERCOCET 5) TABLET PO PRN ×3 (06:20→20:52)
[2021-03-09 07:16] VITALS: BP 137/63
[2021-03-09] MEDS: SPIRONOLACTONE 100 MG (ALDACTONE) TABLET PO SCH (09:09)
[2021-03-09] MEDS: CELECOXIB 100 MG (CeleBREX) CAP PO SCH ×2 (09:09→20:52)
[2021-03-09] MEDS: PHENAZOPYRIDINE 100 MG (PYRIDIUM) TABLET PO SCH ×3 (09:10→19:08)
[2021-03-09] MEDS: FLUoxetine HCL 20 MG (PROzac) CAP PO SCH ×2 (09:10→20:51)
[2021-03-09] MEDS: ASPIRIN E.C. 81 MG (ECOTRIN) TAB PO SCH (09:10)
[2021-03-09] MEDS: ACETAMINOPHEN 500 MG TAB (TYLENOL) PO SCH ×3 (09:10→20:59)
[2021-03-09] MEDS: SENNA W/DOCUSATE (SENOKOT S) TABLET PO SCH ×2 (09:11→20:59)
[2021-03-09] MEDS: DOCUSATE SODIUM 100 MG (COLACE) CAP PO SCH ×2 (09:11→20:59)
[2021-03-09] MEDS: amLODIPine 2.5MG (NORVASC) TAB PO SCH (09:11)
[2021-03-09] MEDS: polyethylene glycoL POWDER 17 GM (MIRALAX) PACK PO SCH ×2 (09:11→20:59)
[2021-03-09] MEDS: GABAPENTIN 100 MG (NEURONTIN) CAP PO SCH ×2 (09:14→12:00)
[2021-03-09] MEDS: ENOXAPARIN 40 MG/0.4 ML (LOVENOX) SYR SC SCH ×2 (09:15→22:16)
--- NOTE | 2021-03-09 09:33 | Physical Therapy Daily Note ---
PT Daily Note-Current Subjective Agrees to PT. No complaints. Transfers SCALE: Activities may be completed with or without assistive devices. 6-Ugcqlqbmtj-koskknm completes the activity by him/herself with no assistance from a helper. 5-Set-up or Clean-up Assistance-helper sets up or cleans up; patient completes activity. [place] assists only prior to or following the activity. 4-Supervision or Touching Assistance-helper provides verbal cues and/or touching/steadying and/or contact guard assistance as patient completes activity. Assistance may be provided throughout the activity or intermittently. 3-Partial/Moderate Assistance-helper does LESS THAN HALF the effort. [place] lifts, holds or supports trunk or limbs, but provides less than half the effort. 2-Substantial/Maximal Assistance-helper does MORE THAN HALF the effort. [place] lifts or holds trunk or limbs and provides more than half the effort. 3-Oorfrwqdm-htvgnt does ALL the effort. Patient does none of the effort to complete the activity. Or, the assistance of 2 or more helpers is required for the patient to complete the activity. If activity was not attempted, code reason: 7-Patient Refused. 9-Not Applicable-not attempted and the patient did not perform the activity before the current illness, exacerbation or injury. 10-Not Attempted due to Environmental Limitations-(lack of equipment, weather restraints, etc.). 88-Not Attempted due to Medical Conditions or Safety Concerns. Lying to Sitting/Side of Bed(Q: 6 Sit to Stand (QC): 4 Chair/Xnq-xc-Bxdpf Xfer(QC): 4 Toilet Transfer (QC): 4 SBA with Sit tostand and transfers for safety. Correct sequencing and use of arms Weight Bearing Right Lower Extremity: Right Weight Bearing/Tolerated Left Lower Extremity: Left Weight Bearing/Tolerated Gait Training Walk 150 ft (QC): 4 Gait Assistive Device: FWW 250 ft x 3 with FWW with SBA. Decreased toe off and knee flexion with swing phase. Assessment Current Status: Good Progress Safe and steady gait. PT Short Term Goals Short Term Goals Time Frame: Mar 08, 2021 Roll Left & Right: 6 Sit to lyin (met) Lying to sitting on side of be: 3 (met) Sit to stand: 2 (met) Chair/stb-ho-nngfx transfer: 2 (net) PT Forestry Hunter Goals Forestry Hunter Goals PT Forestry Hunter Goals Time Frame: Mar 22, 2021 Roll Left & Right (QC): 6 Sit to Lying (QC): 3 ([place]) Lying-Sitting on Side/Bed(QC): 3 ([place]) Sit to Stand (QC): 3 (modA) Chair/Plx-eo-Pvsus Xfer(QC): 3 (modA) Toilet Transfer (QC): 3 (modA) Car Transfer (QC): 3 (modA) Does the Patient Walk: Yes Walk 10 feet (QC): 3 (modA) Walk 50ft with 2 Turns (QC): 88 Walk 150 ft (QC): 88 Walking 10ft on Uneven Surface: 88 1 Step (curb) (QC): 88 4 Steps (QC): 88 12 Steps (QC): 88 Picking up an Object (QC): 88 Wheel 50 feet with 2 turns (QC: 6 Wheel 150 feet: 6 PT Plan Problem List Problem List: Activity Tolerance, Functional Strength, Safety, Balance, Gait, Transfer, Bed Mobility Treatment/Plan Treatment Plan: Continue Plan of Care Treatment Plan: Bed Mobility, Education, Functional Activity [place], Functional Strength, Group Therapy, Gait, Safety, Therapeutic Exercise, Transfers Treatment Duration: Mar 22, 2021 Frequency: At least 5 of 7 days/Wk (IRF) Estimated Hrs Per Day: 1.5 hours per day Patient and/or Family Agrees t: Yes Safety Risks/Education Patient Education: Gait Training Teaching Recipient: Patient Teaching Methods: Demonstration, Discussion Response to Teaching: Reinforcement Needed KN[place] flexion during gait. Time/GCodes Time In: 810 Time Out: 840 Total Billed Treatment Time: 30 Total Billed Treatment visit GT 30 JOSHUA AWAD PT Mar 09, 2021 09:33
[2021-03-09] MEDS: metFORMIN 500 MG (GLUCOPHAGE) TAB PO SCH (19:08)
[2021-03-09 20:00] VITALS: BP 141/62
[2021-03-09] MEDS: SIMvastatin 10 MG (ZOCOR) TAB PO SCH (20:51)
[2021-03-09] MEDS: PANTOPRAZOLE 40 MG (PROTONIX) TAB PO SCH (20:51)
[2021-03-09] MEDS: FAMOTIDINE 20 MG (PEPCID) TABLET PO PRN (20:51)
[2021-03-09] MEDS: GABAPENTIN 300 MG (NEURONTIN) CAP PO SCH (20:52)
[2021-03-10] MEDS: oxyCODONE/APAP 5/325MG (PERCOCET 5) TABLET PO PRN ×4 (06:00→22:53)
[2021-03-10] MEDS: LEVOTHYROXINE 112 MCG (LEVOTHROID) TAB PO SCH (06:00)
[2021-03-10] MEDS: MULTIVIT W/MINERALS TAB (THERAGRAN M) PO SCH (06:00)
[2021-03-10] MEDS: SUCRALFATE 1 GM (CARAFATE) TAB PO SCH ×4 (06:00→20:35)
[2021-03-10 08:00] VITALS: BP 146/58
[2021-03-10] MEDS: ASPIRIN E.C. 81 MG (ECOTRIN) TAB PO SCH (09:36)
[2021-03-10] MEDS: amLODIPine 2.5MG (NORVASC) TAB PO SCH (09:37)
[2021-03-10] MEDS: DOCUSATE SODIUM 100 MG (COLACE) CAP PO SCH ×2 (09:37→20:35)
[2021-03-10] MEDS: ACETAMINOPHEN 500 MG TAB (TYLENOL) PO SCH ×3 (09:37→20:39)
[2021-03-10] MEDS: FLUoxetine HCL 20 MG (PROzac) CAP PO SCH ×2 (09:37→20:36)
[2021-03-10] MEDS: SPIRONOLACTONE 100 MG (ALDACTONE) TABLET PO SCH (09:37)
[2021-03-10] MEDS: CELECOXIB 100 MG (CeleBREX) CAP PO SCH ×2 (09:37→20:36)
[2021-03-10] MEDS: SENNA W/DOCUSATE (SENOKOT S) TABLET PO SCH ×2 (09:37→20:39)
[2021-03-10] MEDS: PHENAZOPYRIDINE 100 MG (PYRIDIUM) TABLET PO SCH ×3 (09:37→18:00)
[2021-03-10] MEDS: ENOXAPARIN 40 MG/0.4 ML (LOVENOX) SYR SC SCH ×2 (09:38→22:24)
[2021-03-10] MEDS: polyethylene glycoL POWDER 17 GM (MIRALAX) PACK PO SCH ×2 (09:38→20:39)
[2021-03-10] MEDS: GABAPENTIN 100 MG (NEURONTIN) CAP PO SCH ×2 (09:41→13:52)
--- NOTE | 2021-03-10 17:19 | PM&R Progress Note ---
Subjective HPI/CC On Admission Date Seen by Provider: Mar 10, 2021 Time Seen by Provider: 17:20 Subjective/Events-last exam 03/10/21: Patient is doing well Pain controlled DC Wed BM x 2 today 03/09/21: No major issues Incontinence when she can't get to the bathroom in time Carafate has resolved the GERD BM+ Pain controlled 03/08/2021: Patient really moving around pretty well Bowels move twice today Not taking too many pain medications Dramatic improvement 03/07/2021: Patient improving dramatically Still has some nausea Bowels moved on 03/05 Percocet given 03/06/2021: Pt is doing pretty well She denies any issues Pt had a bowel movement yesterday She is having a lot of reflux so she will take her home Nexium and I will initiate Carafate before meals and at bedtime 03/05/2021: Patient doing much better Bowels moved yesterday Lasix 40 mg p.o. 1 time given for elevated BNP and volume overload Moving around a little better Pain is more controlled Echocardiogram updated to patient 03/04/2021: Patient doing pretty well Shortness of breath noted so will obtain echocardiogram she has never had one Add BNP to the labs Lasix will be given 1 dose Bowels are moving very well now Elevated blood pressure noted she has taken hydrochlorothiazide before Moving around a lot better now 03/03/2021: Patient doing pretty well Bowels moved yesterday Has a chronic cough but lungs remain clear Using her CPM machine Got out of bed for the first time 03/02/2021: Patient doing pretty well but difficult to ambulate Celebrex twice daily will be restarted Home dosing of medication altered to her satisfaction No bowel movement yet Hemoglobin 8.6 Sisters are at the bedside Review of Systems General: Fatigue, Malaise Neurological: Weakness Objective Exam Vital Signs Vital Signs Date Time Temp Pulse Resp B/P (MAP) Pulse Ox O2 Delivery O2 Flow Rate FiO2 03/10/21 20:40 96 Room Air 03/10/21 20:00 36.6 77 16 149/63 (91) 03/08/21 20:50 2.00 Capillary Refill : General Appearance: No Apparent Distress, WD/WN, Chronically ill, Obese HEENT: PERRL/EOMI, Normal ENT Inspection, Pharynx Normal Neck: Full Range of Motion, Normal Inspection, Non Tender, Supple, Carotid Bruit Respiratory: Chest Non Tender, Lungs Clear, Normal Breath Sounds, No Accessory Muscle Use, No Respiratory Distress Cardiovascular: Regular Rate, Rhythm, No Edema, No Gallop, No JVD, No Murmur, Normal Peripheral Pulses Gastrointestinal: Normal Bowel Sounds, No Organomegaly, No Pulsatile Mass, Non Tender, Soft Back: Normal Inspection, No CVA Tenderness, No Vertebral Tenderness Extremity: Normal Capillary Refill, Normal Inspection, Normal Range of Motion (Decreased range of motion both legs), Non Tender, No Calf Tenderness, No Pedal Edema Neurologic/Psychiatric: Alert, Oriented x3, No Motor/Sensory Deficits, Normal Mood/Affect, Abnormal Gait Skin: Normal Color, Warm/Dry Lymphatic: No Adenopathy Results/Procedures Lab Laboratory Tests 03/11/21 05:30 Patient resulted labs reviewed. FIM Transfers Therapy Code Descriptions/Definitions Functional [place] Measure: 0=Not Assessed/NA 4=Minimal Assistance 1=Total Assistance 5=Supervision or Setup 2=Maximal Assistance 6=Modified [place] 3=Moderate Assistance 7=Complete IndependenceSCALE: Activities may be completed with or without assistive devices. 6-Wrjpvxsadb-tblhklg completes the activity by him/herself with no assistance from a helper. 5-Set-up or Clean-up Assistance-helper sets up or cleans up; patient completes activity. [place] assists only prior to or following the activity. 4-Supervision or Touching Assistance-helper provides verbal cues and/or touching/steadying and/or contact guard assistance as patient completes activity. Assistance may be provided throughout the activity or intermittently. 3-Partial/Moderate Assistance-helper does LESS THAN HALF the effort. [place] lifts, holds or supports trunk or limbs, but provides less than half the effort. 2-Substantial/Maximal Assistance-helper does MORE THAN HALF the effort. [place] lifts or holds trunk or limbs and provides more than half the effort. 6-Apsppmwsq-nkunfm does ALL the effort. Patient does none of the effort to complete the activity. Or, the assistance of 2 or more helpers is required for the patient to complete the activity. If activity was not attempted, code reason: 7-Patient Refused. 9-Not Applicable-not attempted and the patient did not perform the activity before the current illness, exacerbation or injury. 10-Not Attempted due to Environmental Limitations-(lack of equipment, weather restraints, etc.). 88-Not Attempted due to Medical Conditions or Safety Concerns. Roll Left to Right (QC): 6 Sit to Lying (QC): 6 Sit to Stand (QC): 4 Chair/Cze-qv-Dlbdx Xfer(QC): 4 Car Transfer (QC): 88 Gait Training Does the Patient Walk?: Yes Distance: 200' Walk 10 feet (QC): 5 Walk 50 ft with 2 Turns(QC): 5 Walk 150 ft (QC): 4 Walking 10ft/uneven surface-QC: 1 Gait Persons Needed: 1 Gait Assistive Device: FWW Wheelchair Training Does the Pt Use a Wheelchair?: No Wheel 50 ft with 2 turns (QC): 3 Wheel 150 ft (QC): 88 Type of Wheelchair: Manual Stair Training #of Steps: 0 1 Step (curb) (QC): 1 4 Steps (QC): 1 12 Steps (QC): 1 Balance Picking up an Object (QC): 1 ADL-Treatment Eating (QC): 6 (Opens containers and packages then uses regular utensils to eat.) Oral Hygiene (QC): 6 Shower/Bathe Self (QC): 6 Upper Body Dressing (QC): 5 Lower Body Dressing (QC): 5 On/Off Footwear (QC): 5 Toileting Hygiene (QC): 6 Toilet Transfer (QC): 6 Assessment/Plan Assessment and Plan Assess & Plan/Chief Complaint Assessment: Bilateral knee arthroplasties Obesity Diabetes Hypothyroidism Irritable bowel syndrome GERD Volume overload with elevated BNP but normal echo Elevated blood pressure requiring addition of amlodipine Plan: Inpatient rehab protocol Bowel regimen Monitor closely 03/02/2021: Pain control Ambulate Intensify bowel regimen 03/03/2021: Continue bowel regimen Monitor cough Pain control CPM machine use 03/04/2021: Echocardiogram Volume overload management Supportive care 03/05/2021: Lasix for volume overload Bowel regimen Pain control Aggressive physical therapy 03/06/2021: Monitor for recurrence and edema Bowel regimen GERD treatment 03/07/2021: Supportive care Pain control Bowel regimen 03/08/2021: Monitor closely Bowel regimen Pain control Decrease Norvasc dose to 2.5 mg daily 03/09/21: Monitor lower BP May need to DC Norvasc now since pain controlled and volume overload resolved 03/10/21: Monitor closely Pain control BM regimen (1) History of bilateral knee arthroplasty (2) Hypothyroidism (3) Diabetes (4) Obesity HARRIETT KELLY DO Mar 10, 2021 17:19
[2021-03-10] MEDS: metFORMIN 500 MG (GLUCOPHAGE) TAB PO SCH (18:00)
[2021-03-10 20:00] VITALS: BP 149/63
[2021-03-10] MEDS: GABAPENTIN 300 MG (NEURONTIN) CAP PO SCH (20:35)
[2021-03-10] MEDS: PANTOPRAZOLE 40 MG (PROTONIX) TAB PO SCH (20:35)
[2021-03-10] MEDS: SIMvastatin 10 MG (ZOCOR) TAB PO SCH (20:36)
[2021-03-10] MEDS: FAMOTIDINE 20 MG (PEPCID) TABLET PO PRN (20:36)
[2021-03-11 05:51] LABS: BASOPHILS # (AUTO) 0.1 10^3/uL (0.0-0.1); BASOPHILS % (AUTO) 1 % (0-10); EOSINOPHILS # (AUTO) 0.2 10^3/uL (0.0-0.3); EOSINOPHILS % (AUTO) 2 % (0-10); HEMATOCRIT 30 % (35-52); HEMOGLOBIN 9.2 g/dL (11.5-16.0); LYMPHOCYTES # (AUTO) 2.4 10^3/uL (1.0-4.0); LYMPHOCYTES % (AUTO) 21 % (12-44); MEAN CORPUSCULAR HEMOGLOBIN 28 pg (25-34); MEAN CORPUSCULAR HGB CONC 30 g/dL (32-36); MEAN CORPUSCULAR VOLUME 92 fL (80-99); MEAN PLATELET VOLUME 10.1 fL (9.0-12.2); MONOCYTES % (AUTO) 9 % (0-12); NEUTROPHILS # (AUTO) 7.3 10^3/uL (1.8-7.8); NEUTROPHILS % (AUTO) 63 % (42-75); PLATELET COUNT 539 10^3/uL (130-400); WHITE BLOOD COUNT 11.5 10^3/uL (4.3-11.0)
[2021-03-11 06:06] LABS: ALBUMIN 3.6 GM/DL (3.2-4.5); CHLORIDE 101 MMOL/L (98-107); POTASSIUM 4.5 MMOL/L (3.6-5.0); SODIUM 139 MMOL/L (135-145)
[2021-03-11 06:07] LABS: CALCIUM 10.6 MG/DL (8.5-10.1)
[2021-03-11 06:08] LABS: GLUCOSE 115 MG/DL (70-105)
[2021-03-11 06:09] LABS: TOTAL PROTEIN 6.9 GM/DL (6.4-8.2)
[2021-03-11 06:10] LABS: BILIRUBIN,TOTAL 0.3 MG/DL (0.1-1.0); CARBON DIOXIDE 26 MMOL/L (21-32)
[2021-03-11 06:12] LABS: ALKALINE PHOSPHATASE 110 U/L (40-136); CREATININE SERUM 0.88 MG/DL (0.60-1.30); GFR ESTIMATED > 60
[2021-03-11 06:13] LABS: BUN/CREATININE RATIO 18
[2021-03-11 06:15] LABS: ALANINE AMINOTRANSFERASE 16 U/L (0-55)
--- NOTE | 2021-03-11 06:31 | PM&R Progress Note ---
Subjective HPI/CC On Admission Date Seen by Provider: Mar 11, 2021 Time Seen by Provider: 11:00 Subjective/Events-last exam 03/11/2021: Pt doing really well Weaned of oxygen at night Bowels are moving well Pain is controlled 03/10/21: Patient is doing well Pain controlled DC Wed BM x 2 today 03/09/21: No major issues Incontinence when she can't get to the bathroom in time Carafate has resolved the GERD BM+ Pain controlled 03/08/2021: Patient really moving around pretty well Bowels move twice today Not taking too many pain medications Dramatic improvement 03/07/2021: Patient improving dramatically Still has some nausea Bowels moved on 03/05 Percocet given 03/06/2021: Pt is doing pretty well She denies any issues Pt had a bowel movement yesterday She is having a lot of reflux so she will take her home Nexium and I will initiate Carafate before meals and at bedtime 03/05/2021: Patient doing much better Bowels moved yesterday Lasix 40 mg p.o. 1 time given for elevated BNP and volume overload Moving around a little better Pain is more controlled Echocardiogram updated to patient 03/04/2021: Patient doing pretty well Shortness of breath noted so will obtain echocardiogram she has never had one Add BNP to the labs Lasix will be given 1 dose Bowels are moving very well now Elevated blood pressure noted she has taken hydrochlorothiazide before Moving around a lot better now 03/03/2021: Patient doing pretty well Bowels moved yesterday Has a chronic cough but lungs remain clear Using her CPM machine Got out of bed for the first time 03/02/2021: Patient doing pretty well but difficult to ambulate Celebrex twice daily will be restarted Home dosing of medication altered to her satisfaction No bowel movement yet Hemoglobin 8.6 Sisters are at the bedside Review of Systems Musculoskeletal: leg pain Objective Exam Vital Signs Vital Signs Date Time Temp Pulse Resp B/P (MAP) Pulse Ox O2 Delivery O2 Flow Rate FiO2 03/11/21 20:20 Room Air 03/11/21 20:00 36.8 78 20 124/56 (78) 94 03/08/21 20:50 2.00 Capillary Refill : General Appearance: No Apparent Distress, WD/WN, Chronically ill, Obese HEENT: PERRL/EOMI, Normal ENT Inspection, Pharynx Normal Neck: Full Range of Motion, Normal Inspection, Non Tender, Supple, Carotid Bruit Respiratory: Chest Non Tender, Lungs Clear, Normal Breath Sounds, No Accessory Muscle Use, No Respiratory Distress Cardiovascular: Regular Rate, Rhythm, No Edema, No Gallop, No JVD, No Murmur, Normal Peripheral Pulses Gastrointestinal: Normal Bowel Sounds, No Organomegaly, No Pulsatile Mass, Non Tender, Soft Back: Normal Inspection, No CVA Tenderness, No Vertebral Tenderness Extremity: Normal Capillary Refill, Normal Inspection, Normal Range of Motion (Decreased range of motion both legs), Non Tender, No Calf Tenderness, No Pedal Edema Neurologic/Psychiatric: Alert, Oriented x3, No Motor/Sensory Deficits, Normal Mood/Affect, Abnormal Gait Skin: Normal Color, Warm/Dry Lymphatic: No Adenopathy Results/Procedures Lab Laboratory Tests 03/11/21 05:30 Patient resulted labs reviewed. FIM Transfers Therapy Code Descriptions/Definitions Functional [place] Measure: 0=Not Assessed/NA 4=Minimal Assistance 1=Total Assistance 5=Supervision or Setup 2=Maximal Assistance 6=Modified [place] 3=Moderate Assistance 7=Complete IndependenceSCALE: Activities may be completed with or without assistive devices. 5-Dlvuqrlcvu-upwtepa completes the activity by him/herself with no assistance from a helper. 5-Set-up or Clean-up Assistance-helper sets up or cleans up; patient completes activity. [place] assists only prior to or following the activity. 4-Supervision or Touching Assistance-helper provides verbal cues and/or touching/steadying and/or contact guard assistance as patient completes activity. Assistance may be provided throughout the activity or intermittently. 3-Partial/Moderate Assistance-helper does LESS THAN HALF the effort. [place] lifts, holds or supports trunk or limbs, but provides less than half the effort. 2-Substantial/Maximal Assistance-helper does MORE THAN HALF the effort. [place] lifts or holds trunk or limbs and provides more than half the effort. 7-Xaazkjbvh-dpnraj does ALL the effort. Patient does none of the effort to complete the activity. Or, the assistance of 2 or more helpers is required for the patient to complete the activity. If activity was not attempted, code reason: 7-Patient Refused. 9-Not Applicable-not attempted and the patient did not perform the activity before the current illness, exacerbation or injury. 10-Not Attempted due to Environmental Limitations-(lack of equipment, weather restraints, etc.). 88-Not Attempted due to Medical Conditions or Safety Concerns. Roll Left to Right (QC): 6 Sit to Lying (QC): 6 Sit to Stand (QC): 4 Chair/Qce-pp-Rpscc Xfer(QC): 4 Car Transfer (QC): 88 Gait Training Does the Patient Walk?: Yes Distance: 200' Walk 10 feet (QC): 5 Walk 50 ft with 2 Turns(QC): 5 Walk 150 ft (QC): 4 Walking 10ft/uneven surface-QC: 1 Gait Persons Needed: 1 Gait Assistive Device: FWW Wheelchair Training Does the Pt Use a Wheelchair?: No Wheel 50 ft with 2 turns (QC): 3 Wheel 150 ft (QC): 88 Type of Wheelchair: Manual Stair Training #of Steps: 0 1 Step (curb) (QC): 1 4 Steps (QC): 1 12 Steps (QC): 1 Balance Picking up an Object (QC): 1 ADL-Treatment Eating (QC): 6 (Opens containers and packages then uses regular utensils to eat.) Oral Hygiene (QC): 6 Shower/Bathe Self (QC): 6 Upper Body Dressing (QC): 5 Lower Body Dressing (QC): 5 On/Off Footwear (QC): 5 Toileting Hygiene (QC): 6 Toilet Transfer (QC): 6 Assessment/Plan Assessment and Plan Assess & Plan/Chief Complaint Assessment: Bilateral knee arthroplasties Obesity Diabetes Hypothyroidism Irritable bowel syndrome GERD Volume overload with elevated BNP but normal echo Elevated blood pressure requiring addition of amlodipine Plan: Inpatient rehab protocol Bowel regimen Monitor closely 03/02/2021: Pain control Ambulate Intensify bowel regimen 03/03/2021: Continue bowel regimen Monitor cough Pain control CPM machine use 03/04/2021: Echocardiogram Volume overload management Supportive care 03/05/2021: Lasix for volume overload Bowel regimen Pain control Aggressive physical therapy 03/06/2021: Monitor for recurrence and edema Bowel regimen GERD treatment 03/07/2021: Supportive care Pain control Bowel regimen 03/08/2021: Monitor closely Bowel regimen Pain control Decrease Norvasc dose to 2.5 mg daily 03/09/21: Monitor lower BP May need to DC Norvasc now since pain controlled and volume overload resolved 03/10/21: Monitor closely Pain control BM regimen 03/11/2021: Monitor pain Monitor blood pressure (1) History of bilateral knee arthroplasty (2) Hypothyroidism (3) Diabetes (4) Obesity HARRIETT KELLY DO Mar 11, 2021 06:31
[2021-03-11] MEDS: MULTIVIT W/MINERALS TAB (THERAGRAN M) PO SCH (06:40)
[2021-03-11] MEDS: LEVOTHYROXINE 112 MCG (LEVOTHROID) TAB PO SCH (06:40)
[2021-03-11] MEDS: SUCRALFATE 1 GM (CARAFATE) TAB PO SCH ×4 (06:40→21:26)
[2021-03-11] MEDS: oxyCODONE/APAP 5/325MG (PERCOCET 5) TABLET PO PRN ×6 (06:41→19:41)
[2021-03-11 07:20] VITALS: BP 127/58
[2021-03-11] MEDS: ASPIRIN E.C. 81 MG (ECOTRIN) TAB PO SCH (08:47)
[2021-03-11] MEDS: amLODIPine 2.5MG (NORVASC) TAB PO SCH (08:47)
[2021-03-11] MEDS: SPIRONOLACTONE 100 MG (ALDACTONE) TABLET PO SCH (08:47)
[2021-03-11] MEDS: ACETAMINOPHEN 500 MG TAB (TYLENOL) PO SCH ×3 (08:47→21:26)
[2021-03-11] MEDS: PHENAZOPYRIDINE 100 MG (PYRIDIUM) TABLET PO SCH ×3 (08:47→19:39)
[2021-03-11] MEDS: FLUoxetine HCL 20 MG (PROzac) CAP PO SCH ×2 (08:47→21:26)
[2021-03-11] MEDS: CELECOXIB 100 MG (CeleBREX) CAP PO SCH ×2 (08:47→21:26)
[2021-03-11] MEDS: polyethylene glycoL POWDER 17 GM (MIRALAX) PACK PO SCH ×2 (08:48→20:08)
[2021-03-11] MEDS: SENNA W/DOCUSATE (SENOKOT S) TABLET PO SCH ×2 (08:48→21:26)
[2021-03-11] MEDS: DOCUSATE SODIUM 100 MG (COLACE) CAP PO SCH ×2 (08:50→21:26)
[2021-03-11] MEDS: GABAPENTIN 100 MG (NEURONTIN) CAP PO SCH ×2 (08:50→13:47)
--- NOTE | 2021-03-11 08:59 | Occupational Ther Daily Note ---
OT Current Status-Daily Note Subjective Pt alert, lying in bed. Pt agrees to therapy. No c/o pain at this time. Mental Status/Objective Patient Orientation: Person, Place, Time, Situation ADL-Treatment Pt able to set up own meal and use regular utensils to eat. Pt agrees to shower. Independent for supine to EOB then uses FWW to ambulate to bathroom. Independent for toilet transfers. Pt able to manipulate clothing and complete hygiene, independently.Independent to transfer into shower using FWW and grabbars. Sitting on shower bench, pt able to complete shower using LH sponge, hand held shower and grabbars by self (leans side to side to cleanse ciaran area and buttocks), independently. After set up, pt able to complete upper body dressing by self. Threads pants AE then stands to hike pants over hips independently. Pt stands at sink to complete oral care independently. Using sock aide, pt able to don socks and using dressing stick doffs socks. Placed elastic shoe laces in shoes. Using shoehorn and elastic laces, pt able to don/doff shoes by self after set up. Therapy Code Descriptions/Definitions Functional [place] Measure: 0=Not Assessed/NA 4=Minimal Assistance 1=Total Assistance 5=Supervision or Setup 2=Maximal Assistance 6=Modified [place] 3=Moderate Assistance 7=Complete IndependenceSCALE: Activities may be completed with or without assistive devices. 5-Rrqubbdeeg-cmairlf completes the activity by him/herself with no assistance from a helper. 5-Set-up or Clean-up Assistance-helper sets up or cleans up; patient completes activity. [place] assists only prior to or following the activity. 4-Supervision or Touching Assistance-helper provides verbal cues and/or touching/steadying and/or contact guard assistance as patient completes activity. Assistance may be provided throughout the activity or intermittently. 3-Partial/Moderate Assistance-helper does LESS THAN HALF the effort. [place] lifts, holds or supports trunk or limbs, but provides less than half the effort. 2-Substantial/Maximal Assistance-helper does MORE THAN HALF the effort. [place] lifts or holds trunk or limbs and provides more than half the effort. 5-Wqvtmkrvp-cxvmtp does ALL the effort. Patient does none of the effort to complete the activity. Or, the assistance of 2 or more helpers is required for the patient to complete the activity. If activity was not attempted, code reason: 7-Patient Refused. 9-Not Applicable-not attempted and the patient did not perform the activity before the current illness, exacerbation or injury. 10-Not Attempted due to Environmental Limitations-(lack of equipment, weather restraints, etc.). 88-Not Attempted due to Medical Conditions or Safety Concerns. Eating (QC): 6 Oral Hygiene (QC): 6 Shower/Bathe Self (QC): 6 Upper Body Dressing (QC): 5 Lower Body Dressing (QC): 5 On/Off Footwear: 5 Toileting Hygiene (QC): 6 Toilet Transfer (QC): 6 Other Treatment Pt able to ambulate using FWW around [facility] without LOB. Pt then transferred back into recliner after session. Call light/phone in reach. Nrsg in room. All needs met in room. OT Short Term Goals Short Term Goals Time Frame: Mar 11, 2021 Toileting hygiene: 3 Shower/bathe self: 3 Upper body dressin Lower body dressin Putting on/taking off footwear: 3 OT [facility] Goals Courier Driver Goals Time Frame: Mar 29, 2021 Eating (QC): 6 Oral Hygiene (QC): 6 Toileting Hygiene (QC): 3 Shower/Bathe Self (QC): 3 Upper Body Dressing (QC): 5 Lower Body Dressing (QC): 3 On/Off Footwear (QC): 4 Additional Goals: 1-Demonstrate ADL Tasks, 2-Verbalize Understanding, 3- ImproveStrength/[place] 1=Demonstrate adherence to instructed precautions during ADL tasks. 2=Patient will verbalize/demonstrate understanding of assistive devices/modifications for ADL. 3=Patient will improve strength/tolerance for activity to enable patient to perform ADL's. OT Education/Plan Problem List/Assessment Assessment: Decreased Activ Tolerance, Decreased UE Strength, Impaired Self- Care Skills Discharge Recommendations Plan/Recommendations: Continue POC Treatment Plan/Plan of Care Patient would benefit from OT for education, treatment and training to promote independence in ADL's, mobility, safety and/or upper extremity function for ADL's. Plan of Care: ADL Retraining, Functional Mobility, Group Exercise/Act as Ind, UE Funct Exercise/Act Treatment Duration: Mar 29, 2021 Frequency: At least 5 of 7 days/Wk (IRF) Estimated Hrs Per Day: 1.5 hours per day Agreement: Yes Rehab Potential: Guarded Time/GCodes Start Time: 07:30 Stop Time: 09:00 Total Time Billed (hr/min): 90 Billed Treatment Time 1 visit-ADL 5 (80 min) FA 1 (10 min) JOSHUA GASPAR Mar 11, 2021 08:59
[2021-03-11] MEDS: ENOXAPARIN 40 MG/0.4 ML (LOVENOX) SYR SC SCH ×2 (09:24→21:26)
[2021-03-11] MEDS: ONDANSETRON 4 MG (ZOFRAN) ORAL DISSOLVE TAB PO PRN (11:27)
--- NOTE | 2021-03-11 11:40 | Physical Therapy Daily Note ---
PT Daily Note-Current Subjective Patient in recliner pre tx, agrees to PT, has 8/10 pain in knees (nurse notified) Appearance Patient in recliner post tx with nurse call, phone, tray, all needs met, nurse notified patient can now but independent in her room and go to the restroom on her own but may still call nursing sometimes to take equipment off of her legs Mental Status Patient Orientation: Normal For Age Transfers SCALE: Activities may be completed with or without assistive devices. 0-Mgdllqcoul-nnwcxft completes the activity by him/herself with no assistance from a helper. 5-Set-up or Clean-up Assistance-helper sets up or cleans up; patient completes activity. [place] assists only prior to or following the activity. 4-Supervision or Touching Assistance-helper provides verbal cues and/or touching/steadying and/or contact guard assistance as patient completes activity. Assistance may be provided throughout the activity or intermittently. 3-Partial/Moderate Assistance-helper does LESS THAN HALF the effort. [place] lifts, holds or supports trunk or limbs, but provides less than half the effort. 2-Substantial/Maximal Assistance-helper does MORE THAN HALF the effort. [place] lifts or holds trunk or limbs and provides more than half the effort. 7-Eyvrzobfa-pjvjky does ALL the effort. Patient does none of the effort to complete the activity. Or, the assistance of 2 or more helpers is required for the patient to complete the activity. If activity was not attempted, code reason: 7-Patient Refused. 9-Not Applicable-not attempted and the patient did not perform the activity before the current illness, exacerbation or injury. 10-Not Attempted due to Environmental Limitations-(lack of equipment, weather restraints, etc.). 88-Not Attempted due to Medical Conditions or Safety Concerns. Roll Left & Right (QC): 6 Sit to Lying (QC): 6 Lying to Sitting/Side of Bed(Q: 6 Sit to Stand (QC): 6 Chair/Uwm-tl-Peanj Xfer(QC): 6 Toilet Transfer (QC): 6 Weight Bearing Right Lower Extremity: Right Weight Bearing/Tolerated Left Lower Extremity: Left Weight Bearing/Tolerated Gait Training Distance: 200'x2, 120' Walk 10 feet (QC): 6 Walk 50 ft with 2 Turns(QC): 6 Walk 150 ft (QC): 6 Gait Assistive Device: FWW slow, antalgic ambulation, very little knee flexion Stair Training Stair Training: Handrails/: 2 handrails #of Steps: 4 1 Step (curb) (QC): 4 4 Steps (QC): 4 Stairs: Pattern: Step to CGA, cues for foot placement Exercises Supine Ex: Ankle pumps, Quad Set, Heel Slides, Short Arc Quads, Straight leg raise, Hip abd/add Supine Reps: 20 Standing: Hip Abduction, Hamstring curls, Heel/toe raises, Mini squats Standing Reps: 15 LAQ alternating for 5 min with 2# ankle weights NuStep Minutes: 15 NuStep Workload: 3 Treatments bed mobility and transfers, ambulation, functional strengthening, stair training Assessment Current Status: Fair Progress good progress with functional mobility, ROM: LLE knee extension +5 degrees flexion 96 degrees, RLE extension +4 degrees flexion 76 degrees PT Short Term Goals Short Term Goals Time Frame: Mar 08, 2021 Roll Left & Right: 6 Sit to lyin (met) Lying to sitting on side of be: 3 (met) Sit to stand: 2 (met) Chair/xph-th-lewfu transfer: 2 (net) PT Snf Goals Dictaphone Transcriber Goals PT Dictaphone Transcriber Goals Time Frame: Mar 22, 2021 Roll Left & Right (QC): 6 Sit to Lying (QC): 3 ([place]) Lying-Sitting on Side/Bed(QC): 3 ([place]) Sit to Stand (QC): 3 (modA) Chair/Xxj-ff-Ryogn Xfer(QC): 3 (modA) Toilet Transfer (QC): 3 (modA) Car Transfer (QC): 3 (modA) Does the Patient Walk: Yes Walk 10 feet (QC): 3 (modA) Walk 50ft with 2 Turns (QC): 88 Walk 150 ft (QC): 88 Walking 10ft on Uneven Surface: 88 1 Step (curb) (QC): 88 4 Steps (QC): 88 12 Steps (QC): 88 Picking up an Object (QC): 88 Wheel 50 feet with 2 turns (QC: 6 Wheel 150 feet: 6 PT Plan Problem List Problem List: Activity Tolerance, Functional Strength, Safety, Balance, Gait, Transfer, ROM Treatment/Plan Treatment Plan: Continue Plan of Care Treatment Plan: Bed Mobility, Education, Functional Activity Shel[place], Functional Strength, Group Therapy, Gait, Safety, Therapeutic Exercise, Transfers Treatment Duration: Mar 22, 2021 Frequency: At least 5 of 7 days/Wk (IRF) Estimated Hrs Per Day: 1.5 hours per day Patient and/or Family Agrees t: Yes Safety Risks/Education Patient Education: Gait Training, Transfer Techniques, Steps, Correct Positioning, Safety Issues Teaching Recipient: Patient Teaching Methods: Demonstration, Discussion Response to Teaching: Reinforcement Needed Time/GCodes Time In: 1000 Time Out: 1130 Total Billed Treatment Time: 90 Total Billed Treatment 1 visit EX 45' FA 45' ISH SIERRA PT Mar 11, 2021 11:40
[2021-03-11] MEDS: metFORMIN 500 MG (GLUCOPHAGE) TAB PO SCH (19:39)
[2021-03-11 20:00] VITALS: BP 124/56
[2021-03-11] MEDS: GABAPENTIN 300 MG (NEURONTIN) CAP PO SCH (21:26)
[2021-03-11] MEDS: PANTOPRAZOLE 40 MG (PROTONIX) TAB PO SCH (21:26)
[2021-03-11] MEDS: SIMvastatin 10 MG (ZOCOR) TAB PO SCH (21:27)
[2021-03-12] MEDS: oxyCODONE/APAP 5/325MG (PERCOCET 5) TABLET PO PRN ×5 (01:57→22:38)
[2021-03-12] MEDS: LEVOTHYROXINE 112 MCG (LEVOTHROID) TAB PO SCH (06:35)
[2021-03-12] MEDS: MULTIVIT W/MINERALS TAB (THERAGRAN M) PO SCH (06:35)
[2021-03-12] MEDS: SUCRALFATE 1 GM (CARAFATE) TAB PO SCH ×4 (06:35→20:35)
--- NOTE | 2021-03-12 06:42 | PM&R Progress Note ---
Subjective HPI/CC On Admission Date Seen by Provider: Mar 12, 2021 Time Seen by Provider: 10:00 Subjective/Events-last exam 03/12/2021: Pt doing pretty well Set for discharge tomorrow [facility] will be the pharmacy she will want meds sent to 03/11/2021: Pt doing really well Weaned of oxygen at night Bowels are moving well Pain is controlled 03/10/21: Patient is doing well Pain controlled DC Wed BM x 2 today 03/09/21: No major issues Incontinence when she can't get to the bathroom in time Carafate has resolved the GERD BM+ Pain controlled 03/08/2021: Patient really moving around pretty well Bowels move twice today Not taking too many pain medications Dramatic improvement 03/07/2021: Patient improving dramatically Still has some nausea Bowels moved on 03/05 Percocet given 03/06/2021: Pt is doing pretty well She denies any issues Pt had a bowel movement yesterday She is having a lot of reflux so she will take her home Nexium and I will initiate Carafate before meals and at bedtime 03/05/2021: Patient doing much better Bowels moved yesterday Lasix 40 mg p.o. 1 time given for elevated BNP and volume overload Moving around a little better Pain is more controlled Echocardiogram updated to patient 03/04/2021: Patient doing pretty well Shortness of breath noted so will obtain echocardiogram she has never had one Add BNP to the labs Lasix will be given 1 dose Bowels are moving very well now Elevated blood pressure noted she has taken hydrochlorothiazide before Moving around a lot better now 03/03/2021: Patient doing pretty well Bowels moved yesterday Has a chronic cough but lungs remain clear Using her CPM machine Got out of bed for the first time 03/02/2021: Patient doing pretty well but difficult to ambulate Celebrex twice daily will be restarted Home dosing of medication altered to her satisfaction No bowel movement yet Hemoglobin 8.6 Sisters are at the bedside Review of Systems General: Fatigue, Malaise Musculoskeletal: leg pain Objective Exam Vital Signs Vital Signs Date Time Temp Pulse Resp B/P (MAP) Pulse Ox O2 Delivery O2 Flow Rate FiO2 03/12/21 20:30 Room Air 03/12/21 20:00 37.2 76 18 130/58 (82) 94 03/12/21 14:52 2.00 Capillary Refill : General Appearance: No Apparent Distress, WD/WN, Chronically ill, Obese HEENT: PERRL/EOMI, Normal ENT Inspection, Pharynx Normal Neck: Full Range of Motion, Normal Inspection, Non Tender, Supple, Carotid Bruit Respiratory: Chest Non Tender, Lungs Clear, Normal Breath Sounds, No Accessory Muscle Use, No Respiratory Distress Cardiovascular: Regular Rate, Rhythm, No Edema, No Gallop, No JVD, No Murmur, Normal Peripheral Pulses Gastrointestinal: Normal Bowel Sounds, No Organomegaly, No Pulsatile Mass, Non Tender, Soft Back: Normal Inspection, No CVA Tenderness, No Vertebral Tenderness Extremity: Normal Capillary Refill, Normal Inspection, Normal Range of Motion (Decreased range of motion both legs), Non Tender, No Calf Tenderness, No Pedal Edema Neurologic/Psychiatric: Alert, Oriented x3, No Motor/Sensory Deficits, Normal Mood/Affect, Abnormal Gait Skin: Normal Color, Warm/Dry Lymphatic: No Adenopathy Results/Procedures Lab Patient resulted labs reviewed. FIM Transfers Therapy Code Descriptions/Definitions Functional [place] Measure: 0=Not Assessed/NA 4=Minimal Assistance 1=Total Assistance 5=Supervision or Setup 2=Maximal Assistance 6=Modified [place] 3=Moderate Assistance 7=Complete IndependenceSCALE: Activities may be completed with or without assistive devices. 9-Loakujdyvp-yerhlwg completes the activity by him/herself with no assistance from a helper. 5-Set-up or Clean-up Assistance-helper sets up or cleans up; patient completes activity. [place] assists only prior to or following the activity. 4-Supervision or Touching Assistance-helper provides verbal cues and/or touching/steadying and/or contact guard assistance as patient completes activity. Assistance may be provided throughout the activity or intermittently. 3-Partial/Moderate Assistance-helper does LESS THAN HALF the effort. [place] lifts, holds or supports trunk or limbs, but provides less than half the effort. 2-Substantial/Maximal Assistance-helper does MORE THAN HALF the effort. [place] lifts or holds trunk or limbs and provides more than half the effort. 2-Tmppvsrdu-ptpkyu does ALL the effort. Patient does none of the effort to complete the activity. Or, the assistance of 2 or more helpers is required for the patient to complete the activity. If activity was not attempted, code reason: 7-Patient Refused. 9-Not Applicable-not attempted and the patient did not perform the activity bef ore the current illness, exacerbation or injury. 10-Not Attempted due to Environmental Limitations-(lack of equipment, weather r estraints, etc.). 88-Not Attempted due to Medical Conditions or Safety Concerns. Roll Left to Right (QC): 6 Sit to Lying (QC): 6 Sit to Stand (QC): 6 Chair/Aud-fs-Draks Xfer(QC): 6 Car Transfer (QC): 88 Gait Training Does the Patient Walk?: Yes Distance: 200'x2, 120' Walk 10 feet (QC): 6 Walk 50 ft with 2 Turns(QC): 6 Walk 150 ft (QC): 6 Walking 10ft/uneven surface-QC: 1 Gait Persons Needed: 1 Gait Assistive Device: FWW Wheelchair Training Does the Pt Use a Wheelchair?: No Wheel 50 ft with 2 turns (QC): 3 Wheel 150 ft (QC): 88 Type of Wheelchair: Manual Stair Training Stair Training: Handrails/: 2 handrails #of Steps: 4 1 Step (curb) (QC): 4 4 Steps (QC): 4 12 Steps (QC): 1 Stairs: Pattern: Step to Balance Picking up an Object (QC): 1 ADL-Treatment Eating (QC): 6 Oral Hygiene (QC): 6 Shower/Bathe Self (QC): 6 Upper Body Dressing (QC): 5 Lower Body Dressing (QC): 5 On/Off Footwear (QC): 5 Toileting Hygiene (QC): 6 Toilet Transfer (QC): 6 Assessment/Plan Assessment and Plan Assess & Plan/Chief Complaint Assessment: Bilateral knee arthroplasties Obesity Diabetes Hypothyroidism Irritable bowel syndrome GERD Volume overload with elevated BNP but normal echo Elevated blood pressure requiring addition of amlodipine Plan: Inpatient rehab protocol Bowel regimen Monitor closely 03/02/2021: Pain control Ambulate Intensify bowel regimen 03/03/2021: Continue bowel regimen Monitor cough Pain control CPM machine use 03/04/2021: Echocardiogram Volume overload management Supportive care 03/05/2021: Lasix for volume overload Bowel regimen Pain control Aggressive physical therapy 03/06/2021: Monitor for recurrence and edema Bowel regimen GERD treatment 03/07/2021: Supportive care Pain control Bowel regimen 03/08/2021: Monitor closely Bowel regimen Pain control Decrease Norvasc dose to 2.5 mg daily 03/09/21: Monitor lower BP May need to DC Norvasc now since pain controlled and volume overload resolved 03/10/21: Monitor closely Pain control BM regimen 03/11/2021: Monitor pain Monitor blood pressure 03/12/2021: Continue therapy Discharge plan for tomorrow (1) History of bilateral knee arthroplasty (2) Hypothyroidism (3) Diabetes (4) Obesity HARRIETT KELLY DO Mar 12, 2021 06:42
--- NOTE | 2021-03-12 07:50 | Occupational Ther Daily Note ---
OT Current Status-Daily Note Subjective Pt alert, lying in bed. Pt up ad gagan in room. No c/o pain. Pt to discharge home 03/13/2021. Mental Status/Objective Patient Orientation: Person, Place, Time, Situation ADL-Treatment Pt able to set up own meal and use regular utensils to eat. Pt agrees to shower. Independent for supine to EOB then uses FWW to ambulate to bathroom. Independent for toilet transfers. Pt able to manipulate clothing and complete hygiene, independently.Independent to transfer into shower using FWW and grabbars. Sitting on shower bench, pt able to complete shower using LH sponge, hand held shower and grabbars by self (leans side to side to cleanse ciaran area and buttocks), independently. Pt gathered clothing prior to OT session, pt able to complete upper body dressing by self. Threads pants AE then stands to hike pants over hips independently. Pt stands at sink to complete oral care independently. Using sock aide, pt able to don socks and using dressing stick doffs socks. Placed elastic shoe laces in shoes. Using LH shoehorn and elastic laces, pt able to don/doff shoes by self after set up. Therapy Code Descriptions/Definitions Functional [place] Measure: 0=Not Assessed/NA 4=Minimal Assistance 1=Total Assistance 5=Supervision or Setup 2=Maximal Assistance 6=Modified [place] 3=Moderate Assistance 7=Complete IndependenceSCALE: Activities may be completed with or without assistive devices. 9-Xmniusodva-ihxknjr completes the activity by him/herself with no assistance from a helper. 5-Set-up or Clean-up Assistance-helper sets up or cleans up; patient completes activity. [place] assists only prior to or following the activity. 4-Supervision or Touching Assistance-helper provides verbal cues and/or touching/steadying and/or contact guard assistance as patient completes activity. Assistance may be provided throughout the activity or intermittently. 3-Partial/Moderate Assistance-helper does LESS THAN HALF the effort. [place] lifts, holds or supports trunk or limbs, but provides less than half the effort. 2-Substantial/Maximal Assistance-helper does MORE THAN HALF the effort. [place] lifts or holds trunk or limbs and provides more than half the effort. 0-Nvltpaxwf-eanknr does ALL the effort. Patient does none of the effort to complete the activity. Or, the assistance of 2 or more helpers is required for the patient to complete the activity. If activity was not attempted, code reason: 7-Patient Refused. 9-Not Applicable-not attempted and the patient did not perform the activity before the current illness, exacerbation or injury. 10-Not Attempted due to Environmental Limitations-(lack of equipment, weather restraints, etc.). 88-Not Attempted due to Medical Conditions or Safety Concerns. Eating (QC): 6 (Independent with opening packaging/container then uses regular utensils to eat.) Oral Hygiene (QC): 6 Shower/Bathe Self (QC): 6 Upper Body Dressing (QC): 6 Lower Body Dressing (QC): 6 On/Off Footwear: 6 Toileting Hygiene (QC): 6 Toilet Transfer (QC): 6 Other Treatment Pt ambulated to therapy gym for B UE strengthening to increase strength and activity tolerance for daily functional tasks. Arm bike for 15 min at 25 adler resistance, no recovery break needed. After session, pt lying in bed with call light/phone in reach. All needs met in room. OT Short Term Goals Short Term Goals Time Frame: Mar 11, 2021 Toileting hygiene: 3 Shower/bathe self: 3 Upper body dressin Lower body dressin Putting on/taking off footwear: 3 OT Long-Term Goals Waste Oil Pumper Goals Time Frame: Mar 29, 2021 Eating (QC): 6 (met) Oral Hygiene (QC): 6 (met) Toileting Hygiene (QC): 3 (met) Shower/Bathe Self (QC): 3 (met) Upper Body Dressing (QC): 5 (met) Lower Body Dressing (QC): 3 (met) On/Off Footwear (QC): 4 (met) Additional Goals: 1-Demonstrate ADL Tasks, 2-Verbalize Understanding, 3- ImproveStrength/[place] 1=Demonstrate adherence to instructed precautions during ADL tasks. 2=Patient will verbalize/demonstrate understanding of assistive devices/modifications for ADL. 3=Patient will improve strength/tolerance for activity to enable patient to perform ADL's. OT Education/Plan Problem List/Assessment Assessment: Decreased Activ Tolerance, Impaired Self-Care Skills Discharge Recommendations Plan/Recommendations: Continue POC Treatment Plan/Plan of Care Patient would benefit from OT for education, treatment and training to promote independence in ADL's, mobility, safety and/or upper extremity function for ADL's. Plan of Care: ADL Retraining, Functional Mobility, Group Exercise/Act as Ind, UE Funct Exercise/Act Treatment Duration: Mar 29, 2021 Frequency: At least 5 of 7 days/Wk (IRF) Estimated Hrs Per Day: 1.5 hours per day Agreement: Yes Rehab Potential: Guarded Time/GCodes Start Time: 07:30 Stop Time: 09:00 Total Time Billed (hr/min): 90 Billed Treatment Time 1 visit-ADL 5 (75 min) EX 1 (15 min) JOSHUA GASPAR Mar 12, 2021 07:50
[2021-03-12] MEDS: ASPIRIN E.C. 81 MG (ECOTRIN) TAB PO SCH (07:53)
[2021-03-12] MEDS: SPIRONOLACTONE 100 MG (ALDACTONE) TABLET PO SCH (07:53)
[2021-03-12] MEDS: PHENAZOPYRIDINE 100 MG (PYRIDIUM) TABLET PO SCH ×3 (07:53→18:55)
[2021-03-12] MEDS: GABAPENTIN 100 MG (NEURONTIN) CAP PO SCH ×2 (07:53→13:22)
[2021-03-12] MEDS: CELECOXIB 100 MG (CeleBREX) CAP PO SCH ×2 (07:53→20:35)
[2021-03-12] MEDS: DOCUSATE SODIUM 100 MG (COLACE) CAP PO SCH ×2 (07:53→20:35)
[2021-03-12] MEDS: SENNA W/DOCUSATE (SENOKOT S) TABLET PO SCH ×2 (07:53→20:34)
[2021-03-12] MEDS: ACETAMINOPHEN 500 MG TAB (TYLENOL) PO SCH ×3 (07:54→20:35)
[2021-03-12] MEDS: FLUoxetine HCL 20 MG (PROzac) CAP PO SCH ×2 (07:54→20:35)
[2021-03-12 07:55] VITALS: BP 127/59
[2021-03-12] MEDS: ONDANSETRON 4 MG (ZOFRAN) ORAL DISSOLVE TAB PO PRN ×2 (07:57→15:44)
[2021-03-12] MEDS: polyethylene glycoL POWDER 17 GM (MIRALAX) PACK PO SCH ×2 (09:17→20:35)
[2021-03-12] MEDS: ENOXAPARIN 40 MG/0.4 ML (LOVENOX) SYR SC SCH ×2 (09:40→21:34)
--- NOTE | 2021-03-12 11:15 | Physical Therapy Daily Note ---
PT Daily Note-Current Subjective Pt laying Supine in bed upon arrival. Pt agrees to PT. Pt asks to use BR to start tx. Pain Comment: Pt reports stiffness but no pain. Mental Status Patient Orientation: Person, Place, Time, Situation Attachments: Polar [place] Transfers SCALE: Activities may be completed with or without assistive devices. 4-Tuepgpvwbn-hzwmfjn completes the activity by him/herself with no assistance from a helper. 5-Set-up or Clean-up Assistance-helper sets up or cleans up; patient completes activity. [place] assists only prior to or following the activity. 4-Supervision or Touching Assistance-helper provides verbal cues and/or touching/steadying and/or contact guard assistance as patient completes activity. Assistance may be provided throughout the activity or intermittently. 3-Partial/Moderate Assistance-helper does LESS THAN HALF the effort. [place] lifts, holds or supports trunk or limbs, but provides less than half the effort. 2-Substantial/Maximal Assistance-helper does MORE THAN HALF the effort. [place] lifts or holds trunk or limbs and provides more than half the effort. 1-Pjttgoaqe-uggkdf does ALL the effort. Patient does none of the effort to complete the activity. Or, the assistance of 2 or more helpers is required for the patient to complete the activity. If activity was not attempted, code reason: 7-Patient Refused. 9-Not Applicable-not attempted and the patient did not perform the activity before the current illness, exacerbation or injury. 10-Not Attempted due to Environmental Limitations-(lack of equipment, weather restraints, etc.). 88-Not Attempted due to Medical Conditions or Safety Concerns. Roll Left & Right (QC): 6 Sit to Lying (QC): 6 Lying to Sitting/Side of Bed(Q: 6 Sit to Stand (QC): 6 Chair/Nto-fo-Sgdss Xfer(QC): 6 Toilet Transfer (QC): 6 Car Transfer (QC): 6 Weight Bearing Right Lower Extremity: Right Weight Bearing/Tolerated Left Lower Extremity: Left Weight Bearing/Tolerated Gait Training Does the Patient Walk?: Yes Distance: 150' x2 Walk 10 feet (QC): 6 Walk 50 ft with 2 Turns(QC): 6 Walk 150 ft (QC): 6 Walking 10ft/uneven surface-QC: 6 Gait Persons Needed: 0 Gait Assistive Device: FWW Wheelchair Training Does the Pt Use a Wheelchair?: No Stair Training Stair Training: Handrails/: 2 handrails #of Steps: 4 1 Step (curb) (QC): 5 4 Steps (QC): 5 12 Steps (QC): 7 Stairs: Pattern: Step to Balance Picking up an Object (QC): 7 Special Test Comments Pt has a safety council director at home and reports will sit to pick something up, have someone else assist or use safety council director but not standing. Pt reports having Hiatal Hernia and is uncomfortable to bend over. Exercises Seated Therapy Exercises: Ankle pumps, Long arc quads, Hip flexion, Glut set Seated Reps: 15 Treatments [id number]: Pt toilets then Pt completes QC scoring items listed above. Pt re turns to room at end of tx to use BR and rest in bed with Polar Packs on. All needs met, call light in hand. [id number]: TF to standing and uses BR. Pt returns to EOB to rest. Pt completes Seated Ex. Pt asks MOLD MOVER questions regarding d/c tomorrow including medication and how to pick them up, when was OP PT appt set for & what does she get to take home (equipment, etc.) Pt resting at end of tx at EOB with all needs met, call light in hand. Assessment Current Status: Good Progress Pt is excited to d/c tomorrow and has improved with strength, mobility and ROM. PT Short Term Goals Short Term Goals Time Frame: Mar 08, 2021 Roll Left & Right: 6 Sit to lyin (met) Lying to sitting on side of be: 3 (met) Sit to stand: 2 (met) Chair/byq-jy-pdtfo transfer: 2 (net) PT Residential Goals Trim Sawyer Goals PT Residential Goals Time Frame: Mar 22, 2021 Roll Left & Right (QC): 6 Sit to Lying (QC): 3 ([place]) Lying-Sitting on Side/Bed(QC): 3 ([place]) Sit to Stand (QC): 3 (modA) Chair/Jvr-aj-Etfka Xfer(QC): 3 (modA) Toilet Transfer (QC): 3 (modA) Car Transfer (QC): 3 (modA) Does the Patient Walk: Yes Walk 10 feet (QC): 3 (modA) Walk 50ft with 2 Turns (QC): 88 Walk 150 ft (QC): 88 Walking 10ft on Uneven Surface: 88 1 Step (curb) (QC): 88 4 Steps (QC): 88 12 Steps (QC): 88 Picking up an Object (QC): 88 Wheel 50 feet with 2 turns (QC: 6 Wheel 150 feet: 6 PT Plan Problem List Problem List: ROM Treatment/Plan Treatment Plan: Continue Plan of Care Treatment Plan: Bed Mobility, Education, Functional Activity [place], Functional Strength, Group Therapy, Gait, Safety, Therapeutic Exercise, Transfers Treatment Duration: Mar 22, 2021 Frequency: At least 5 of 7 days/Wk (IRF) Estimated Hrs Per Day: 1.5 hours per day Patient and/or Family Agrees t: Yes Safety Risks/Education Patient Education: Reviewed Use of Ice Teaching Recipient: Patient Teaching Methods: Discussion Response to Teaching: Verbalize Understanding Time/GCodes Time In: 1015 Time Out: 1400 Total Billed Treatment Time: 90 Total Billed Treatment [id number]: 1, GT (20m), FA x3 (40m) [id number]: 1, EX (10m) & FA (20m) JOEL ZAMBRANO MOLD MOVER Mar 12, 2021 11:15
[2021-03-12] MEDS: metFORMIN 500 MG (GLUCOPHAGE) TAB PO SCH (18:55)
[2021-03-12 20:00] VITALS: BP 130/58
[2021-03-12] MEDS: SIMvastatin 10 MG (ZOCOR) TAB PO SCH (20:35)
[2021-03-12] MEDS: GABAPENTIN 300 MG (NEURONTIN) CAP PO SCH (20:35)
[2021-03-12] MEDS: PANTOPRAZOLE 40 MG (PROTONIX) TAB PO SCH (20:35)
[2021-03-13] MEDS ORDERED: ASPI-1238 PO (06:27)
[2021-03-13] MEDS ORDERED: OXYC1TAB87 PO (06:27)
[2021-03-13] MEDS ORDERED: SENN1TAB76 PO (06:27)
[2021-03-13] MEDS ORDERED: MULT1TAB63 PO (06:27)
[2021-03-13] MEDS ORDERED: SUCR1TAB PO (06:27)
[2021-03-13] MEDS ORDERED: ONDA4TAB11 PO (06:27)
[2021-03-13] MEDS: LEVOTHYROXINE 112 MCG (LEVOTHROID) TAB PO SCH (06:28)
[2021-03-13] MEDS: MULTIVIT W/MINERALS TAB (THERAGRAN M) PO SCH (06:28)
[2021-03-13] MEDS: SUCRALFATE 1 GM (CARAFATE) TAB PO SCH ×2 (06:28→11:22)
[2021-03-13] MEDS: oxyCODONE/APAP 5/325MG (PERCOCET 5) TABLET PO PRN ×2 (06:28→11:29)
--- NOTE | 2021-03-13 06:28 | Discharge Summary ---
Diagnosis/Chief Complaint Date of Admission Mar 01, 2021 at 11:10 Date of Discharge Discharge Date: Mar 13, 2021 Discharge Diagnosis Assessment: Bilateral knee arthroplasties Obesity Diabetes Hypothyroidism Irritable bowel syndrome GERD Volume overload with elevated BNP but normal echo Elevated blood pressure requiring addition of amlodipine Plan: Inpatient rehab protocol Bowel regimen Monitor closely 03/02/2021: Pain control Ambulate Intensify bowel regimen 03/03/2021: Continue bowel regimen Monitor cough Pain control CPM machine use 03/04/2021: Echocardiogram Volume overload management Supportive care 03/05/2021: Lasix for volume overload Bowel regimen Pain control Aggressive physical therapy 03/06/2021: Monitor for recurrence and edema Bowel regimen GERD treatment 03/07/2021: Supportive care Pain control Bowel regimen 03/08/2021: Monitor closely Bowel regimen Pain control Decrease Norvasc dose to 2.5 mg daily 03/09/21: Monitor lower BP May need to DC Norvasc now since pain controlled and volume overload resolved 03/10/21: Monitor closely Pain control BM regimen 03/11/2021: Monitor pain Monitor blood pressure 03/12/2021: Continue therapy Discharge plan for tomorrow (1) History of bilateral knee arthroplasty (2) Hypothyroidism (3) Diabetes (4) Obesity Discharge Summary Discharge Physical Examination Allergies: Coded Allergies: No Known Drug Allergies (Unverified , 02/27/21) Vitals & I&Os Vital Signs Date Time Temp Pulse Resp B/P (MAP) Pulse Ox O2 Delivery O2 Flow Rate FiO2 03/13/21 08:00 Room Air 03/13/21 08:00 36.4 82 14 121/56 (77) 95 03/12/21 14:52 2.00 General Appearance: Alert, Oriented X3, Cooperative Respiratory: Clear to Auscultation Cardiovascular: Regular Rate Psych/Mental Status: Mental Status NL Hospital Course Was the Problem List Reviewed?: Yes Hospital course: Pt had a lengthy hospital course for 13 days after she was admitted for B/L knee replacement recovery. She had a slow recovery at the beginning, labs remained stable, volume overload resolved with IV Lasix x1. Echocardiogram obtained, no evidence of any CHF, HTN was managed with Norvasc, that was discontinued at time of discharge since her BP was now very much under control. Overall she did well and will be seen in follow-up by Dr. Alves. Labs (last 24 hrs) Laboratory Tests 03/02/21 05:25: White Blood Count 6.9, Red Blood Count 2.96L, Hemoglobin 8.6L, Hematocrit 27L, Mean Corpuscular Volume 92, Mean Corpuscular Hemoglobin 29, Mean Corpuscular Hemoglobin Concent 32, Red Cell Distribution Width 13.8, Platelet Count 169, Mean Platelet Volume 12.1, Immature Granulocyte % (Auto) 1, Neutrophils (%) (Auto) 75, Lymphocytes (%) (Auto) 13, Monocytes (%) (Auto) 10, Eosinophils (%) (Auto) 2, Basophils (%) (Auto) 1, Neutrophils # (Auto) 5.2, Lymphocytes # (Auto) 0.9L, Monocytes # (Auto) 0.7, Eosinophils # (Auto) 0.1, Basophils # (Auto) 0.0, Immature Granulocyte # (Auto) 0.0, Sodium Level 140, Potassium Level 4.1, Chloride Level 105, Carbon Dioxide Level 27, Anion Gap 8, Blood Urea Nitrogen 7, Creatinine 0.73, Estimat Glomerular Filtration Rate > 60, BUN/Creatinine Ratio 10, Glucose Level 117H, Calcium Level 9.6, Corrected Calcium 10.2H, Total Bilirubin 0.8, Aspartate Amino Transf (AST/SGOT) 23, Alanine Aminotransferase (ALT/SGPT) 22, Alkaline Phosphatase 107, Total Protein 5.8L, Albumin 3.2 03/04/21 06:10: White Blood Count 6.1, Red Blood Count 3.01L, Hemoglobin 8.7L, Hematocrit 28L, Mean Corpuscular Volume 93, Mean Corpuscular Hemoglobin 29, Mean Corpuscular Hemoglobin Concent 31L, Red Cell Distribution Width 14.2, Platelet Count 265, Mean Platelet Volume 10.9, Immature Granulocyte % (Auto) 1, Neutrophils (%) (Auto) 61, Lymphocytes (%) (Auto) 21, Monocytes (%) (Auto) 12, Eosinophils (%) (Auto) 4, Basophils (%) (Auto) 1, Neutrophils # (Auto) 3.7, Lymphocytes # (Auto) 1.3, Monocytes # (Auto) 0.7, Eosinophils # (Auto) 0.3, Basophils # (Auto) 0.1, Immature Granulocyte # (Auto) 0.1, Sodium Level 141, Potassium Level 4.0, Chloride Level 103, Carbon Dioxide Level 28, Anion Gap 10, Blood Urea Nitrogen 10, Creatinine 0.83, Estimat Glomerular Filtration Rate > 60, BUN/Creatinine Ratio 12, Glucose Level 113H, Calcium Level 9.8, Corrected Calcium 10.4H, Total Bilirubin 0.7, Aspartate Amino Transf (AST/SGOT) 22, Alanine Aminotransferase (ALT/SGPT) 31, Alkaline Phosphatase 129, Total Protein 6.1L, Albumin 3.3, B-Type Natriuretic Peptide 185.4H 03/11/21 05:30: White Blood Count 11.5H, Red Blood Count 3.28L, Hemoglobin 9.2L, Hematocrit 30L, Mean Corpuscular Volume 92, Mean Corpuscular Hemoglobin 28, Mean Corpuscular Hemoglobin Concent 30L, Red Cell Distribution Width 14.5, Platelet Count 539H, Mean Platelet Volume 10.1, Immature Granulocyte % (Auto) 5, Neutrophils (%) (Auto) 63, Lymphocytes (%) (Auto) 21, Monocytes (%) (Auto) 9, Eosinophils (%) (Auto) 2, Basophils (%) (Auto) 1, Neutrophils # (Auto) 7.3, Lymphocytes # (Auto) 2.4, Monocytes # (Auto) 1.0, Eosinophils # (Auto) 0.2, Basophils # (Auto) 0.1, Immature Granulocyte # (Auto) 0.6H, Sodium Level 139, Potassium Level 4.5, Chloride Level 101, Carbon Dioxide Level 26, Anion Gap 12, Blood Urea Nitrogen 16, Creatinine 0.88, Estimat Glomerular Filtration Rate > 60, BUN/Creatinine Ratio 18, Glucose Level 115H, Calcium Level 10.6H, Corrected Calcium 10.9H, Total Bilirubin 0.3, Aspartate Amino Transf (AST/SGOT) 12, Alanine Aminotransferase (ALT/SGPT) 16, Alkaline Phosphatase 110, Total Protein 6.9, Albumin 3.6 Pending Labs Laboratory Tests 03/02/21 05:25: White Blood Count 6.9, Red Blood Count 2.96, Hemoglobin 8.6, Hematocrit 27, Mean Corpuscular Volume 92, Mean Corpuscular Hemoglobin 29, Mean Corpuscular Hemoglobin Concent 32, Red Cell Distribution Width 13.8, Platelet Count 169, Mean Platelet Volume 12.1, Immature Granulocyte % (Auto) 1, Neutrophils (%) (Auto) 75, Lymphocytes (%) (Auto) 13, Monocytes (%) (Auto) 10, Eosinophils (%) (Auto) 2, Basophils (%) (Auto) 1, Neutrophils # (Auto) 5.2, Lymphocytes # (Auto) 0.9, Monocytes # (Auto) 0.7, Eosinophils # (Auto) 0.1, Basophils # (Auto) 0.0, Immature Granulocyte # (Auto) 0.0, Sodium Level 140, Potassium Level 4.1, Chloride Level 105, Carbon Dioxide Level 27, Anion Gap 8, Blood Urea Nitrogen 7, Creatinine 0.73, Estimat Glomerular Filtration Rate > 60, BUN/Creatinine Ratio 10, Glucose Level 117, Calcium Level 9.6, Corrected Calcium 10.2, Total Bilirubin 0.8, Aspartate Amino Transf (AST/SGOT) 23, Alanine Aminotransferase (ALT/SGPT) 22, Alkaline Phosphatase 107, Total Protein 5.8, Albumin 3.2 03/04/21 06:10: White Blood Count 6.1, Red Blood Count 3.01, Hemoglobin 8.7, Hematocrit 28, Mean Corpuscular Volume 93, Mean Corpuscular Hemoglobin 29, Mean Corpuscular Hemoglobin Concent 31, Red Cell Distribution Width 14.2, Platelet Count 265, Mean Platelet Volume 10.9, Immature Granulocyte % (Auto) 1, Neutrophils (%) (Auto) 61, Lymphocytes (%) (Auto) 21, Monocytes (%) (Auto) 12, Eosinophils (%) (Auto) 4, Basophils (%) (Auto) 1, Neutrophils # (Auto) 3.7, Lymphocytes # (Auto) 1.3, Monocytes # (Auto) 0.7, Eosinophils # (Auto) 0.3, Basophils # (Auto) 0.1, Immature Granulocyte # (Auto) 0.1, Sodium Level 141, Potassium Level 4.0, Chloride Level 103, Carbon Dioxide Level 28, Anion Gap 10, Blood Urea Nitrogen 10, Creatinine 0.83, Estimat Glomerular Filtration Rate > 60, BUN/Creatinine Ratio 12, Glucose Level 113, Calcium Level 9.8, Corrected Calcium 10.4, Total Bilirubin 0.7, Aspartate Amino Transf (AST/SGOT) 22, Alanine Aminotransferase (ALT/SGPT) 31, Alkaline Phosphatase 129, Total Protein 6.1, Albumin 3.3, B-Type Natriuretic Peptide 185.4 03/11/21 05:30: White Blood Count 11.5, Red Blood Count 3.28, Hemoglobin 9.2, Hematocrit 30, Mean Corpuscular Volume 92, Mean Corpuscular Hemoglobin 28, Mean Corpuscular Hemoglobin Concent 30, Red Cell Distribution Width 14.5, Platelet Count 539, Mean Platelet Volume 10.1, Immature Granulocyte % (Auto) 5, Neutrophils (%) (Auto) 63, Lymphocytes (%) (Auto) 21, Monocytes (%) (Auto) 9, Eosinophils (%) (Auto) 2, Basophils (%) (Auto) 1, Neutrophils # (Auto) 7.3, Lymphocytes # (Auto) 2.4, Monocytes # (Auto) 1.0, Eosinophils # (Auto) 0.2, Basophils # (Auto) 0.1, Immature Granulocyte # (Auto) 0.6, Sodium Level 139, Potassium Level 4.5, Chloride Level 101, Carbon Dioxide Level 26, Anion Gap 12, Blood Urea Nitrogen 16, Creatinine 0.88, Estimat Glomerular Filtration Rate > 60, BUN/Creatinine Ratio 18, Glucose Level 115, Calcium Level 10.6, Corrected Calcium 10.9, Total Bilirubin 0.3, Aspartate Amino Transf (AST/SGOT) 12, Alanine Aminotransferase (ALT/SGPT) 16, Alkaline Phosphatase 110, Total Protein 6.9, Albumin 3.6 Discharge Home Medications: Active Scripts Active Oxyir Tablet (Oxycodone HCl) 5 Mg Tab 5 Mg PO Q4H Certavite-Antioxidant Tablet (Multivitamin/Iron/Folic Acid) 1 Each Tablet 1 Ea PO DAILY@0700 Sucralfate 1 Gm Tablet 1 Gm PO ACHS 30 Days Ondansetron Odt (Ondansetron) 4 Mg Tab.rapdis 4 Mg PO Q6H PRN Stool Softener-Laxative Tablet (Sennosides/Docusate Sodium) 1 Each Tablet 2 Ea PO BID Aspirin EC (Aspirin) 81 Mg Tablet.dr 81 Mg PO DAILY Reported Pepcid (Famotidine) 20 Mg Tablet 20 Mg PO DAILY PRN Simvastatin 10 Mg Tablet 10 Mg PO HS Acetaminophen Extra Strength (Acetaminophen) 500 Mg Tablet 500-1,000 Mg PO TID TAKE 1-2 500MG TABS Cetirizine HCl 10 Mg Tablet 10 Mg PO DAILY PRN Hydrochlorothiazide 25 Mg Tablet 25 Mg PO DAILY PRN Xanax Tablet (Alprazolam) 0.25 Mg Tablet 0.25 Mg PO BID PRN Gabapentin 100 Mg Capsule 100-300 Mg PO TID PRN TAKE 1-3 (100MG) TABS Celebrex (Celecoxib) 200 Mg Capsule 200 Mg PO BID PRN Turmeric (Turmeric Root Extract) 538 Mg Capsule 538 Mg PO BID Nexium (Esomeprazole Magnesium) 40 Mg Cap 40 Mg PO HS Metformin HCl 500 Mg Tablet 500 Mg PO DAILY@1900 Spironolactone 100 Mg Tablet 100 Mg PO DAILY Prozac (Fluoxetine HCl) 20 Mg Capsule 20 Mg PO BID Levothyroxine Sodium 112 Mcg Tablet 112 Mcg PO DAILY Instructions to patient/family Please see electronic discharge instructions given to patient. Diagnosis/Problems Diagnosis/Problems (1) History of bilateral knee arthroplasty (2) Hypothyroidism (3) Diabetes (4) Obesity HARRIETT KELLY DO Mar 13, 2021 06:28
[2021-03-13 08:00] VITALS: BP 121/56
--- NOTE | 2021-03-13 08:26 | Progress Note ---
Standard Progress Note Progress Notes/Assess & Plan Date Seen by a Provider: Mar 13, 2021 Time Seen by a Provider: 08:25 Progress/Assessment & Plan no complaints dressings intact. No calf tenderness still difficulty with sit to stand cont;inue PT/OT Final Diagnosis going home today incisions clean and dry. No calf tenderness. Able to perform SLR s/p BTKA DC home DC JAIR Gee MD Mar 13, 2021 08:26
[2021-03-13] MEDS: DOCUSATE SODIUM 100 MG (COLACE) CAP PO SCH (08:51)
[2021-03-13] MEDS: PHENAZOPYRIDINE 100 MG (PYRIDIUM) TABLET PO SCH (08:51)
[2021-03-13] MEDS: ASPIRIN E.C. 81 MG (ECOTRIN) TAB PO SCH (08:51)
[2021-03-13] MEDS: FLUoxetine HCL 20 MG (PROzac) CAP PO SCH (08:52)
[2021-03-13] MEDS: SENNA W/DOCUSATE (SENOKOT S) TABLET PO SCH (08:52)
[2021-03-13] MEDS: CELECOXIB 100 MG (CeleBREX) CAP PO SCH (08:52)
[2021-03-13] MEDS: SPIRONOLACTONE 100 MG (ALDACTONE) TABLET PO SCH (08:52)
[2021-03-13] MEDS: ACETAMINOPHEN 500 MG TAB (TYLENOL) PO SCH (08:52)
[2021-03-13] MEDS ORDERED: OXC5T PO (11:21)
[2021-03-13] MEDS: ENOXAPARIN 40 MG/0.4 ML (LOVENOX) SYR SC SCH (11:22)
[2021-03-13] MEDS: GABAPENTIN 100 MG (NEURONTIN) CAP PO SCH (11:22)
[2021-03-13] MEDS: polyethylene glycoL POWDER 17 GM (MIRALAX) PACK PO SCH (11:22)
[2021-03-13] MEDS: ONDANSETRON 4 MG (ZOFRAN) ORAL DISSOLVE TAB PO PRN (11:29)
--- NOTE | 2021-03-13 15:34 | Therapy Team Discharge Summary ---
Therapy Discharge Summary Discharge Recommendations Date of Discharge Mar 13, 2021 at 13:00 Occupational Therapy Pt admitted to ARU s/p bilateral TKA. At PLOF, pt was independent with all ADLs and functional mobility, no AD/AE (although she held onto alvarado/people when she walked). Upon initial evaluation, pt was independent with eating, set up oral care, total assist showering, SBA upper body dressing, total assist lower body dressing, total assist footwear and total assist toileting. OT tx focused on increasing BUE strength and activity tolerance, and increasing safety and independence with ADLs and functional mobility. At discharge, pt was independent with all ADLs. She made good functional progress, meeting all LTGs. OT recommendations include hip kit. Pt discharged from facility, d/c from OT. Decreased Activ Tolerance, Impaired Self-Care Skills PT Perianesthesia Manager Goals Snf Goals PT Snf Goals Time Frame: Mar 22, 2021 Roll Left to Right (QC): 6 Sit to Lying (QC): 3 ([place]) Lying-Sitting on Side/Bed(QC): 3 ([place]) Sit to Stand (QC): 3 (modA) Chair/Jyc-xo-Xgvcu Xfer(QC): 3 (modA) Car Transfer (QC): 3 (modA) Does the Patient Walk: Yes Walk 10 feet (QC): 3 (modA) Walk 10ft-Uneven Surface(QC): 88 Walk 50ft with 2 Turns (QC): 88 Walk 150 ft (QC): 88 Wheel 50 feet with 2 turns (QC: 6 1 Step (curb) (QC): 88 4 Steps (QC): 88 12 Steps (QC): 88 Picking up an Object (QC): 88 OT Snf Goals Perianesthesia Manager Goals Time Frame: Mar 29, 2021 Eating (QC): 6 (met) Oral Hygiene (QC): 6 (met) Shower/Bathe Self (QC): 3 (met) Upper Body Dressing (QC): 5 (met) Lower Body Dressing (QC): 3 (met) On/Off Footwear (QC): 4 (met) Toileting Hygiene (QC): 3 (met) Toilet/Commode Transfer (QC): 3 (modA) Additional Goals: 1-Demonstrate ADL Tasks, 2-Verbalize Understanding, 3- ImproveStrength/Shelley 1=Demonstrate adherence to instructed precautions during ADL tasks. 2=Patient will verbalize/demonstrate understanding of assistive devices/modifications for ADL. 3=Patient will improve strength/tolerance for activity to enable patient to perform ADL's. PURA CUEVAS OT Mar 13, 2021 15:34
--- NOTE | 2021-03-14 09:37 | Physician Query Clarification ---
PQ-Intro New Diagnosis Admission/Discharge Admission Date: Mar 01, 2021 at 11:10 Discharge Date: Mar 13, 2021 at 13:00 Dr. Gongora, The medical record reflects the following clinical scenario: History/Risk Factors: jj TKR Clinical Findings: s/p jj TKR Treatment: IP rehab Question: What condition best reflects the above clinical scenario? Please document a response in the Progress Noter or Discharge Summary. 1. Osteoarthritis jj knees s/p jj TKR 2. s/p jj TKR underlying cause undetermined 3. Other, with explanation of the clinical findings. 4. Clinically undetermined, no explanation for the clinical findings. PHYSICIAN RESPONSE What condition reflects above: 1 Please remember a lack of response to the above will prompt a phone page by CDI/Coding staff. In responding to this query, please exercise your independent professional judgment. The purpose of this communication is to more accurately reflect the complexity of your patients condition. The fact that a question is asked does not imply that any particular answer is desired or expected. Thank you for your timely response to this clarification. Requestors name: Joselito THIS PHYSICIAN QUERY FORM IS A PERMANENT PART OF THE MEDICAL RECORD JOSELITO PALMER Mar 14, 2021 09:37 HARRIETT GONGORA DO Mar 14, 2021 11:00
--- NOTE | 2021-03-14 12:34 | Therapy Team Discharge Summary ---
Therapy Discharge Summary Discharge Recommendations Date of Discharge Mar 13, 2021 at 13:00 Physical Therapy Patient came to rehab following a bilateral TKA. Upon evaluation patient performed bed mobility with min assist, supine <-> sit max assist, sit <-> stand and transfers dependent, and propelled a manual WC 150' with min assist. Patient has been performing bed mobility and transfers, ambulation, balance and endurance training, functional strengthening, stair training, and education. Patient has made good progress and has met all of her watermelon inspector goals. Now, jennifer phelan performs bed mobility and transfers with independence, car transfer independent, ambulates 150' with a rolling walker with independence (including 50' with at least 2 turns of 90 degrees and 10' over an uneven surface), and can go up and down 4 steps using 2 handrails with setup. Patient has been discharged from this facility and will be discharged from PT at this time. Occupational Therapy Decreased Activ Tolerance, Impaired Self-Care Skills PT Web Site Developer Goals Web Site Developer Goals PT Senior Living Goals Time Frame: Mar 22, 2021 Roll Left to Right (QC): 6 Sit to Lying (QC): 3 ([place]) Lying-Sitting on Side/Bed(QC): 3 ([place]) Sit to Stand (QC): 3 (modA) Chair/Vas-ij-Sjcvi Xfer(QC): 3 (modA) Car Transfer (QC): 3 (modA) Does the Patient Walk: Yes Walk 10 feet (QC): 3 (modA) Walk 10ft-Uneven Surface(QC): 88 Walk 50ft with 2 Turns (QC): 88 Walk 150 ft (QC): 88 Wheel 50 feet with 2 turns (QC: 6 1 Step (curb) (QC): 88 4 Steps (QC): 88 12 Steps (QC): 88 Picking up an Object (QC): 88 OT Senior Living Goals Web Site Developer Goals Time Frame: Mar 29, 2021 Eating (QC): 6 (met) Oral Hygiene (QC): 6 (met) Shower/Bathe Self (QC): 3 (met) Upper Body Dressing (QC): 5 (met) Lower Body Dressing (QC): 3 (met) On/Off Footwear (QC): 4 (met) Toileting Hygiene (QC): 3 (met) Toilet/Commode Transfer (QC): 3 (modA) Additional Goals: 1-Demonstrate ADL Tasks, 2-Verbalize Understanding, 3-ImproveStrength/Shelley 1=Demonstrate adherence to instructed precautions during ADL tasks. 2=Patient will verbalize/demonstrate understanding of assistive devices/modifications for ADL. 3=Patient will improve strength/tolerance for activity to enable patient to perform ADL's. ISH SIERRA PT Mar 14, 2021 12:34
== END 2021-03-13 13:00 | disposition home or self-care (01) | DRG 560 ==
LOC: UNDOADMIN 06:01
PROVIDERS: ADMIT Internal Medicine; ATTEND Internal Medicine
DX: Z47.1 Aftercare following joint replacement surgery (principal); D62 Acute posthemorrhagic anemia; Z68.41 Body mass index [BMI] 40.0-44.9, adult; Z96.653 Presence of artificial knee joint, bilateral; I10 Essential (primary) hypertension; E11.40 Type 2 diabetes mellitus with diabetic neuropathy, unspecified; E87.70 Fluid overload, unspecified; K59.00 Constipation, unspecified; E66.9 Obesity, unspecified; R32 Unspecified urinary incontinence; K21.9 Gastro-esophageal reflux disease without esophagitis; E78.00 Pure hypercholesterolemia, unspecified; E03.9 Hypothyroidism, unspecified; F32.9 Major depressive disorder, single episode, unspecified; K58.9 Irritable bowel syndrome, unspecified; Z79.84 Long term (current) use of oral hypoglycemic drugs
CPT/HCPCS: 36415; 80053; 83880; 85025; 93306; 94760

== ENCOUNTER 2021-06-11 10:50 | Outpatient (RCR) | payer MEDICARE ==
[~2021-06-11 10:50] MED LIST changes: -ACETAMINOPHEN 325 MG TABLET PO PRN; -ALPRAZolam 0.25 MG (XANAX) TAB PO PRN; +ASPI-1238 PO; -BISACODYL 10 MG SUPP (DULCOLAX) PR PRN; -CALCIUM CARBONATE 500 MG (TUMS) TAB.CHEW PO PRN; -DOCUSATE SODIUM 100 MG (COLACE) CAP PO PRN; -FLEET ENEMA ADULT 1 EA BTL PR PRN; -LACTULOSE SYRUP 10GM/15ML (ENULOSE) 30ML UDC PO PRN; -LOPERAMIDE 2 MG (IMODIUM) TABLET PO PRN; -MELATONIN 3 MG TABLET PO PRN; +MULT1TAB63 PO; +ONDA4TAB11 PO; +OXC5T PO; +OXYC1TAB87 PO; +SENN1TAB76 PO; +SUCR1TAB PO; -diphenhydrAMINE 25 MG TAB (BENADRYL) PO PRN
== END 2021-06-12 | disposition home or self-care (01) ==
PROVIDERS: ATTEND Orthopaedic Surgery
DX: Z47.1 Aftercare following joint replacement surgery (principal); Z96.653 Presence of artificial knee joint, bilateral; E11.9 Type 2 diabetes mellitus without complications; F32.9 Major depressive disorder, single episode, unspecified

== ENCOUNTER 2021-06-14 13:12 | Outpatient (RCR) | payer MEDICARE | END 2021-06-14 17:00 | disposition home or self-care (01) | PROVIDERS: ATTEND Orthopaedic Surgery | DX: Z47.1 Aftercare following joint replacement surgery (principal); Z96.653 Presence of artificial knee joint, bilateral ==

== ENCOUNTER → 2021-12-24 | Outpatient (CLI) | payer MEDICARE ==
[~2021-12-24] MED LIST changes: +FOLI1TAB30 PO; -MULT1TAB63 PO
--- NOTE | 2021-12-24 16:04 | Diagnostic Imaging Report ---
INDICATION: Low back pain. TIME OF EXAM: 2:25 PM. FINDINGS: The curvature and alignment of the lumbar spine are normal. The vertebral body heights are maintained without evidence of an acute compression fracture. There is some generalized degenerative disc disease with variable disc space narrowing and marginal spurring. IMPRESSION: Lumbar spondylosis. No acute bony abnormality is detected. Dictated by: Dictated on workstation # [id number]
--- NOTE | 2021-12-24 17:02 | Diagnostic Imaging Report ---
INDICATION: Postmenopausal screening for osteoporosis COMPARISON: None FINDINGS: AP Spine L1-L4: [BMD (g/cm2): 1.223] [T-Score: 0.2] [Z-Score: 0.8] [BMD Previous: na] [BMD % Change: na] LT Hip Neck: [BMD (g/cm2): 0.696] [T-Score: -2.5] [Z-Score: -1.6] LT Hip Total: [BMD (g/cm2):0.861] [T-Score:-1.2] [Z-Score: -0.6] [BMD Previous: na] [BMD % Change: na] RT Hip Neck: [BMD (g/cm2):0.724] [T-Score:-2.3] [Z-Score:-1.4] RT Hip Total: [BMD (g/cm2):0.820] [T-score:-1.5] [Z-Score:-1.0] [BMD Previous:na] [BMD % Change:na] *Indicates significant change from prior examination based on 95% confidence level. World Health Organization criteria for BMD interpretation classify patients as Normal (T-score at or above -1.0), Osteopenic (T-score between -1.0 and -2.5) or Osteoporotic (T-score at or below -2.5). LIMITATIONS AND MODIFICATION: None. FRACTURE RISK (FRAX SCORE): The ten year probability of (%): Major Osteoporotic Fracture: [12.1] Hip Fracture: [2.4] IMPRESSION: 1. Osteopenia (Low bone mass). 2. Baseline examination. 3. See below National Osteoporosis Foundation guidelines on when to potentially initiate pharmacologic therapy. Based on the National Osteoporosis Foundation Guidelines, pharmacologic treatment should be initiated in any of the following, unless clinical conditions suggest otherwise: * Any patient with prior fragility fracture of the hip or vertebrae. A spine fracture indicates 5X risk for subsequent spine fracture and 2X risk for subsequent hip fracture. * Osteoporosis (T-score <-2.5). * Postmenopausal women and men age 50 and older with low bone mass/osteopenia (T-score between -1.0 and -2.5) by DXA and 10-year major osteoporotic fracture greater than 20% or a 10-year probability of hip fracture greater than 3%. These fracture risks are supplied above in the FRAX score, if applicable. * Clinician judgement and/or patient preferences may indicate treatment for people with 10-year fracture probabilities above or below these levels. Dictated by: Dictated on workstation # [id number]
== END ==
LOC: RAD 13:30
PROVIDERS: ATTEND Nurse Practitioner
DX: Z13.820 Encounter for screening for osteoporosis (principal); M47.816 Spondylosis without myelopathy or radiculopathy, lumbar region; E21.3 Hyperparathyroidism, unspecified; Z78.0 Asymptomatic menopausal state
CPT/HCPCS: 72100; 77080

== ENCOUNTER 2022-01-09 15:15 | Outpatient (RCR) | payer MEDICARE | END 2022-01-11 | disposition still patient (30) | PROVIDERS: ATTEND Nurse Practitioner | DX: M54.50 Low back pain, unspecified (principal); I10 Essential (primary) hypertension; E11.9 Type 2 diabetes mellitus without complications ==

== ENCOUNTER → 2022-01-17 | Outpatient (CLI) | payer MEDICARE ==
[2022-01-17 12:24] LABS: ALBUMIN 4.4 GM/DL (3.2-4.5); POTASSIUM 4.6 MMOL/L (3.6-5.0)
[2022-01-17 12:25] LABS: CALCIUM 10.7 MG/DL (8.5-10.1)
[2022-01-17 12:29] LABS: PHOSPHORUS 2.5 MG/DL (2.3-4.7)
[2022-01-17 12:30] LABS: CREATININE SERUM 0.93 MG/DL (0.60-1.30)
== END ==
LOC: LAB 11:49
PROVIDERS: ATTEND Nurse Practitioner Family
DX: E83.52 Hypercalcemia (principal)
CPT/HCPCS: 36415; 80069; 82306; 83970

== ENCOUNTER 2022-02-04 14:51 | Outpatient (RCR) | payer MEDICARE | END 2022-02-04 16:02 | disposition home or self-care (01) | PROVIDERS: ATTEND Nurse Practitioner | DX: M54.50 Low back pain, unspecified (principal); I10 Essential (primary) hypertension; E11.9 Type 2 diabetes mellitus without complications ==

== ENCOUNTER → 2023-03-31 | Outpatient (CLI) | payer MEDICARE ==
[~2023-03-31] MED LIST changes: +SENN-271 PO; -SENN1TAB76 PO
--- NOTE | 2023-03-31 13:33 | Diagnostic Imaging Report ---
PROCEDURE: MR imaging cervical spine without contrast. TECHNIQUE: Multiplanar, multisequence MR imaging of the cervical spine was performed without contrast. INDICATION: Upper extremity weakness, paresthesias of skin, and cervical spondylosis. COMPARISON: I have no relevant comparison. FINDINGS: The patient's cervical spinal canal is somewhat small on a congenital basis from C3 through C6. Canal narrowing at these levels is exacerbated by endplate osteophytes, disc bulge, and facet arthrosis resulting in substantial degrees of multilevel canal stenoses. The patient has mild grade 1 degenerative retrolistheses of C3 on 4 and to a lesser extent C4 on C5. No marrow edema. No endplate Modic changes. No acute or suspicious marrow signal pathology. No paravertebral mass, hemorrhage, or fluid collection. The cervical spinal cord itself appears intrinsically unremarkable. The craniocervical relationship as well as the C1-C2 and C2-C3 levels and discs are unremarkable. No stenosis. C3-C4: Malalignment, disc bulge, endplate osteophytes, and congenital stenosis result in severe central canal narrowing. Osteophyte/disc material posteriorly effaces and indents the midline ventral spinal cord. There is moderate to severe bilateral foraminal stenosis as well. C4-C5: There is severe central canal stenosis at this level as well with osteophyte/disc material flattening and effacing the ventral cord surface. There is severe right greater than left foraminal narrowing. C5-C6: Severe central canal stenosis at this level is present owing to congenital stenosis, disc bulge, and endplate osteophytes with the osteophyte/disc material indenting and effacing the ventral spinal cord surface. There is severe left and moderate severity of right-sided foraminal stenoses. C6-C7: There is severe central canal stenosis owing to posterior osteophyte/disc material indenting the ventral thecal sac and mildly effacing the ventral spinal cord surface. There is severe left and moderate severity of right foraminal stenosis. C7-T1: This level and disc are unremarkable without stenosis. IMPRESSION: 1. This patient has severe multilevel spinal canal and foraminal stenoses on a multifactorial basis including congenital stenosis and degenerative hypertrophy as well as multilevel degenerative grade 1 listheses. 2. However, no acute appearing abnormality is found. Dictated by: Dictated on workstation # [id number]
== END ==
LOC: RAD 09:58
PROVIDERS: ATTEND Nurse Practitioner Family
DX: M48.02 Spinal stenosis, cervical region (principal); M47.812 Spondylosis without myelopathy or radiculopathy, cervical region; R29.898 Other symptoms and signs involving the musculoskeletal system; R20.2 Paresthesia of skin
CPT/HCPCS: 72141

== ENCOUNTER 2023-05-20 09:44 | Outpatient (CLI) | payer MEDICARE ==
[~2023-05-20] VITALS: Ht 157.5 cm; Wt 98.0 kg
[2023-05-20] MEDS ORDERED: DAPA10TA PO (12:57)
== END 2023-05-20 13:06 | disposition home or self-care (01) ==
LOC: PREOP 09:44
PROVIDERS: ATTEND Surgery
DX: Z01.818 Encounter for other preprocedural examination (principal)

== ENCOUNTER 2023-05-25 08:28 | Day surgery (SDC) | payer MEDICARE ==
[~2023-05-25] VITALS: Ht 158 cm; Wt 98.0 kg
[~2023-05-25 08:28] MED LIST changes: +DAPA10TA PO
[2023-05-25] MEDS ORDERED: LACTATED RINGERS 1,000 ML 1,000 ML IV STA (08:30)
[2023-05-25 09:05] VITALS: BP 168/77
[2023-05-25] MEDS: HURRICAINE EXT TUBE (BENZOCAINE) XX PRN ×2 (09:12→09:13)
[2023-05-25] MEDS ORDERED: proPOfol INJECTION 200 MG/20 ML VIAL IV ONE (09:14)
--- NOTE | 2023-05-25 09:33 | Progress Note-Post Operative ---
Post-Operative Progess Note Surgeon (s)/Senior Information Security Engineer (s) Surgeon WIL SANTOS DO Senior Information Security Engineer: none Pre-Operative Diagnosis Gastritis, Hiatal hernia Post-Operative Diagnosis Moderate Gastritis Hiatal hernia Procedure & Operative Findings Date of Procedure 05/25/23 Procedure Performed/Findings EGD with biopsy PROCEDURE NOTE: After informed consent was obtained, the patient was brought to the endoscopy suite, placed in bed in left lateral decubitus position. She was administered IV sedation by the SOLDERER PRODUCTION LINE who then monitored vitals the entire time, heart rate, blood pressure and pulse ox and the scope was inserted down the mouth through the esophagus into the stomach. On the way down, noted some mild esophagitis, took a picture, pushed into the stomach, noted some moderate gastritis and took a picture. Then, pushed past the antrum into the duodenum; duodenum looked good. Pulled back and did a biopsy of the antrum, then retroflexed the scope, saw a 2-3cm Grade III AFS hiatal hernia, took a picture of this and then pulled the scope into the GE junction. Took another picture of the hiatal hernia and then did a biopsy of the GE junction. Pushed the scope back into the stomach, suctioned all the air out of the stomach. At this point pulled the scope up the esophagus and out the mouth. The patient tolerated the procedure, and she recovered in endoscopy suite. Anesthesia Type IV sedation by SOLDERER PRODUCTION LINE Estimated Blood Loss Estimated blood loss (mL): scant Specimens/Packing Specimens Removed antral bx Body of stomach bx GE jxn bx WIL SANTOS DO May 25, 2023 09:33
--- NOTE | 2023-05-25 09:34 | Endoscopy Discharge Instruct ---
Endo Procedure/Findings Findings 1.: Gastritis 2.: Hiatal Hernia Discharge Instructions - Activity: You might feel a little sleepy until tomorrow. This is due to the medicine you received to relax you. Until tomorrow, you should: NOT drive a car, operate machinery or power tools. NOT drink any alcoholic beverages. NOT make any important decisions or sign importortant papers. Do not return to work until tomorrow, unless otherwise instructed. Resume previous activities tomorrow. Diet: Start by taking liquids. If you tolerate liquids, advance to solid food. 1.: EGD in 3 years Notify Physician - If you experience excessive bleeding, unusual abdominal pain, fever, or chest pain, contact your doctor immediately. Follow-Up: Other Follow up in my office in one week WIL SANTOS DO May 25, 2023 09:34
[2023-05-25 09:35] VITALS: BP 186/74
[2023-05-25 09:40] VITALS: BP 173/81
[2023-05-25 10:00] VITALS: BP 173/81
--- NOTE | 2023-05-25 14:49 | Anesthesia-General Post-Op ---
MAC Patient Condition Mental Status/LOC: Same as Preop Cardiovascular: Satisfactory Nausea/Vomiting: Absent Respiratory: Satisfactory Pain: Controlled Complications: Absent Post Op Complications Complications None Follow Up Care/Instructions Patient Instructions None needed. Anesthesiology Discharge Order Discharge Order Patient is doing well, no complaints, stable vital signs, no apparent adverse anesthesia problems. No complications reported per nursing. YAMIL TORRES CRNA May 25, 2023 14:49
== END 2023-05-25 10:05 | disposition home or self-care (01) ==
LOC: ENDO 08:28
PROVIDERS: ATTEND Surgery
DX: K29.50 Unspecified chronic gastritis without bleeding (principal); K44.9 Diaphragmatic hernia without obstruction or gangrene; K21.00 Gastro-esophageal reflux disease with esophagitis, without bleeding; E11.40 Type 2 diabetes mellitus with diabetic neuropathy, unspecified; E66.9 Obesity, unspecified; Z79.84 Long term (current) use of oral hypoglycemic drugs; Z68.39 Body mass index [BMI] 39.0-39.9, adult
CPT/HCPCS: 82947

== ENCOUNTER 2023-06-12 08:04 | Outpatient (CLI) | payer MEDICARE ==
[~2023-06-12] VITALS: Ht 158 cm; Wt 98.0 kg
== END 2023-06-12 11:13 | disposition home or self-care (01) ==
LOC: PREOP 08:04
PROVIDERS: ATTEND Surgery
DX: Z01.818 Encounter for other preprocedural examination (principal)

== ENCOUNTER 2023-06-15 09:01 | Day surgery (SDC) | payer MEDICARE ==
[~2023-06-15] VITALS: Ht 158 cm; Wt 98.0 kg
[2023-06-15] MEDS ORDERED: LACTATED RINGERS 1,000 ML 1,000 ML IV STA (09:03)
[2023-06-15 09:20] VITALS: BP 146/69
--- NOTE | 2023-06-15 09:49 | Progress Note-Pre Operative ---
Pre-Operative Progress Note Date of Available H&P: Jun 11, 2023 Date H&P Reviewed: Jun 15, 2023 Time H&P Reviewed: 09:42 History & Physical: H&P Reviewed, Patient Examed, No changes noted Pre-Operative Diagnosis: hematochezia WIL SANTOS DO Jun 15, 2023 09:49
--- NOTE | 2023-06-15 10:53 | Progress Note-Post Operative ---
Post-Operative Progess Note Surgeon (s)/Hr Assistant (s) Surgeon WIL SANTOS DO Hr Assistant: LIAM LoraII Pre-Operative Diagnosis hematochezia Post-Operative Diagnosis Polyp diverticula int hemorrhoids Procedure & Operative Findings Date of Procedure 06/15/23 Procedure Performed/Findings Colonoscopy with snare polypectomy PROCEDURE NOTE: After informed consent was obtained, the patient was brought to the endoscopy suite, placed in bed in left lateral decubitus position. She was administered IV sedation by the JEWELRY SALES COORDINATOR who then monitored her vitals the entire time, heart rate, blood pressure and pulse ox and the scope was inserted, pushed all the way to about 150 cm and pushed into the cecum, took a picture of appendiceal orifice and noted the ileocecal valve. Then slowly withdrew the scope insufflating to look circumferentially at the alvarado starting in the cecum and up the ascending colon. I found a polyp here and removed it with snare polypectomy. Continued up to the hepatic flexure, then down the transverse colon to the splenic flexure, into the descending colon and down into the sigmoid. I found a small flat polyp here, which I also removed with snare. I saw womd eiverticula during the colonoscopy. Finally, into the rectal vault and retroflexed the scope. Took a picture of the internal hemorrhoids. I didn't see any other cause of her bleeding. The patient tolerated the procedure. She was recovered in endoscopy suite. Recommended for repeat colonoscopy in 5 years. Anesthesia Type IV sedation by JEWELRY SALES COORDINATOR Estimated Blood Loss Estimated blood loss (mL): scant Specimens/Packing Specimens Removed asc colon polyp sigmoid colon polyp WIL SANTOS DO Jun 15, 2023 10:53
--- NOTE | 2023-06-15 10:54 | Endoscopy Discharge Instruct ---
Endo Procedure/Findings Findings 1.: Polyp 2.: Diverticulosis 3.: Internal Hemorrhoids Discharge Instructions - Activity: You might feel a little sleepy until tomorrow. This is due to the medicine you received to relax you. Until tomorrow, you should: NOT drive a car, operate machinery or power tools. NOT drink any alcoholic beverages. NOT make any important decisions or sign importortant papers. Do not return to work until tomorrow, unless otherwise instructed. Resume previous activities tomorrow. Diet: Start by taking liquids. If you tolerate liquids, advance to solid food. 1.: Colonscopy in 5 years Notify Physician - If you experience excessive bleeding, unusual abdominal pain, fever, or chest pain, contact your doctor immediately. Follow-Up: Other Follow up in my office in one week WIL SANTOS DO Jun 15, 2023 10:54
[2023-06-15 10:55] VITALS: BP_SYST 101; BP_SYST 104; BP_DIAS 55; BP_DIAS 56
[2023-06-15 11:48] VITALS: BP 155/78
--- NOTE | 2023-06-15 13:46 | Anesthesia-General Post-Op ---
MAC Patient Condition Mental Status/LOC: Same as Preop Cardiovascular: Satisfactory Nausea/Vomiting: Absent Respiratory: Satisfactory Pain: Controlled Complications: Absent Post Op Complications Complications None Follow Up Care/Instructions Patient Instructions None needed. Anesthesiology Discharge Order Discharge Order Patient is doing well, no complaints, stable vital signs, no apparent adverse anesthesia problems. No complications reported per nursing. YAMIL TORRES SWEATBAND SHAPER Jun 15, 2023 13:46
== END 2023-06-15 11:47 | disposition home or self-care (01) ==
LOC: ENDO 09:01
PROVIDERS: ATTEND Surgery
DX: D12.2 Benign neoplasm of ascending colon (principal); K63.5 Polyp of colon; K92.1 Melena; K57.30 Diverticulosis of large intestine without perforation or abscess without bleeding; K64.8 Other hemorrhoids; E66.01 Morbid (severe) obesity due to excess calories; Z68.39 Body mass index [BMI] 39.0-39.9, adult

== ENCOUNTER 2023-07-29 16:58 | Inpatient (IN) | payer MEDICARE ==
[~2023-07-29] VITALS: Ht 160 cm; Wt 94.3 kg
[2023-07-29 17:15] LABS: BASOPHILS # (AUTO) 0.1 10^3/uL (0.0-0.1); BASOPHILS % (AUTO) 1 % (0-10); EOSINOPHILS # (AUTO) 0.2 10^3/uL (0.0-0.3); EOSINOPHILS % (AUTO) 2 % (0-10); HEMATOCRIT 45 % (35-52); LYMPHOCYTES # (AUTO) 3.1 10^3/uL (1.0-4.0); LYMPHOCYTES % (AUTO) 37 % (12-44); MEAN CORPUSCULAR HEMOGLOBIN 27 pg (25-34); MEAN CORPUSCULAR HGB CONC 31 g/dL (32-36); MEAN CORPUSCULAR VOLUME 87 fL (80-99); MEAN PLATELET VOLUME 10.8 fL (9.0-12.2); MONOCYTES # (AUTO) 0.7 10^3/uL (0.0-1.0); MONOCYTES % (AUTO) 9 % (0-12); NEUTROPHILS # (AUTO) 4.2 10^3/uL (1.8-7.8); NEUTROPHILS % (AUTO) 51 % (42-75); PLATELET COUNT 413 10^3/uL (130-400); WHITE BLOOD COUNT 8.3 10^3/uL (4.3-11.0)
[2023-07-29 17:18] LABS: ALBUMIN 4.2 GM/DL (3.2-4.5); CHLORIDE 104 MMOL/L (98-107); POTASSIUM 3.6 MMOL/L (3.6-5.0); SODIUM 141 MMOL/L (135-145)
[2023-07-29 17:20] LABS: GLUCOSE 132 MG/DL (70-105); TOTAL PROTEIN 8.1 GM/DL (6.4-8.2)
[2023-07-29 17:21] LABS: CARBON DIOXIDE 25 MMOL/L (21-32); INR 0.9 (0.8-1.4); PROTHROMBIN TIME PATIENT 12.5 SEC (12.2-14.7)
[2023-07-29 17:22] LABS: BILIRUBIN,TOTAL 0.2 MG/DL (0.1-1.0)
--- NOTE | 2023-07-29 17:22 | ED Abdominal Pain ---
General Chief Complaint: Abdominal/GI Problems Stated Complaint: N/V ABD PAIN - CHEST PAIN Nursing Triage Note: PT TO ED W/ CHEST/EPIGASTRIC PAIN, N/V ET ABD PAIN. REPORTS WAS SEEN BY DR SANTOS YESTERDAY ET HE DISCUSSED DOING A CT OR GALLBLADDER ULTRASOUND. PT PALE, COOL ET DIAPHORETIC AT THIS TIME. Source of Information: Patient Exam Limitations: No Limitations History of Present Illness Date Seen by Provider: Jul 29, 2023 Time Seen by Provider: 17:19 Initial Comments Patient is a 68-year-old female with a history of IBS who presents to the ED for chest pain, epigastric pain and lower abdominal pain. This pain 45 minutes ago. Sharp stabbing pain with intermittent cramping. Pain radiates from the chest down to the lower abdomen and radiates to the left and right. She states the pain improved some but did vomit right before arrival. She has been experiencing this pain over the weekend. She did see Dr. Santos general surgery who recommended a outpatient ultrasound versus a CT scan. She states she did have a colonoscopy in April secondary to GI bleed which was unremarkable. She did have some mild blood in her urine around [facility] but that has resolved. History of IBS and not currently taking medication. She has been taken Tylenol and Mylanta with very minimal improvement. She denies any chest pain, shortness of breath, cough, headache, dizziness, fever, chills. She does report some frequent urination without pain. She denies of any diarrhea or constipation at this time. Allergies and Home Medications Allergies Coded Allergies: No Known Drug Allergies (Unverified , 02/27/21) Patient Home Medication List Home Medication List Reviewed: Yes Acetaminophen (Acetaminophen Extra Strength) 500 Mg Tablet, 500-1,000 MG PO TID, (Reported) Entered as Reported by: CORTEZ NASH on 02/20/21 1223 Dapagliflozin Propanediol (Farxiga) 10 Mg Tablet, 10 MG PO DAILY, (Reported) Entered as Reported by: GITA CHOWDARY on 05/20/23 1257 Fluoxetine HCl (Prozac) 20 Mg Capsule, 20 MG PO BID, (Reported) Entered as Reported by: OLIVIA DEUTSCH on 05/28/20 1027 Hydrochlorothiazide (Hydrochlorothiazide) 25 Mg Tablet, 25 MG PO DAILY PRN for SWELLING, (Reported) Entered as Reported by: OLIVIA DEUTSCH on 05/28/20 1027 Levothyroxine Sodium (Levothyroxine Sodium) 112 Mcg Tablet, 112 MCG PO DAILY, (Reported) Entered as Reported by: OLIVIA DEUTSCH on 05/28/20 1027 Simvastatin (Simvastatin) 10 Mg Tablet, 10 MG PO HS, (Reported) Entered as Reported by: CORTEZ NASH on 02/20/21 1223 Review of Systems Review of Systems Constitutional: No chills, No diaphoresis; malaise, weakness EENTM: No Blurred Vision, No Eye Pain Respiratory: Denies Cough, Denies Orthopnea Cardiovascular: Denies Chest Pain Gastrointestinal: Abdominal Pain, Nausea, Vomiting Genitourinary: Denies Burning, Denies Discharge, Denies Frequency, Denies Flank Pain Musculoskeletal: No back pain, No joint pain Skin: No change in color All Other Systems Reviewed Negative Unless Noted: Yes Past Vhgeyiw-Fvxiuk-Aaubna Hx Patient Social History Tobacco Use?: No Use of E-Cig and/or Vaping dev: No Substance use?: No Alcohol Use?: No Pt feels they are or have been: No Immunizations Up To Date First/Initial COVID19 Vaccinat: 10/15/2020 Second COVID19 Vaccination [place]: 11/12/2020 Third COVID19 Vaccination Date: 10/15/2020 Seasonal Allergies Seasonal Allergies: Yes Past Medical History Surgery/Hospitalization HX: THYROIDECTOMY Surgeries: Yes (A&P REPAIR, BLADDER SLING, CANDICE TKR, RECTOCILE REPAIR, CYSTOCELE REPAIR) Hysterectomy, Orthopedic, Parathyroidectomy Respiratory: No Cardiac: Yes High Cholesterol Neurological: No Neuropathy 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 Sexually Transmitted Disease: No HIV/AIDS: No Genitourinary: No Gastrointestinal: Yes (hematochezia) Gastroesophageal Reflux, Chronic Constipation, Chronic Diarrhea, Irritable Bowel Musculoskeletal: Yes Degenerate Disk Disease, Arthritis, Chronic Back Pain Endocrine: Yes Hypothyroidsim, Diabetes, Non-Insulin dep HEENT: Yes (READING GLASSES) Loss of Vision: Denies Hearing Impairment: Denies Cancer: No Psychosocial: Yes Depression Integumentary: No Blood Disorders: No Adverse Reaction/Blood Tranf: No (N/A) Physical Exam Vital Signs Vital Signs - First Documented 07/29/23 16:58 Temp 36.4 Pulse 81 Resp 20 B/P (MAP) 143/82 (102) Pulse Ox 96 O2 Delivery Room Air Capillary Refill : Less Than 3 Seconds Height/Weight/BMI Height: '" Weight: lbs. oz. kg; 35.00 BMI Method: General Appearance: WD/WN, no apparent distress HEENT: PERRL/EOMI, normal ENT inspection, TMs normal, pharynx normal Neck: non-tender, full range of motion, supple, normal inspection Respiratory: chest non-tender, lungs clear, normal breath sounds, no respiratory distress, no accessory muscle use Cardiovascular: regular rate, rhythm, no edema, no gallop, no JVD Gastrointestinal: normal bowel sounds, soft, no organomegaly, no pulsatile mass, tenderness (Generalized tenderness) Extremities: normal range of motion, non-tender, normal inspection Back: normal inspection, no CVA tenderness Neurologic/Psychiatric: pool nurse II-XII nml as tested, no motor/sensory deficits, alert, normal mood/affect, oriented x 3 Skin: normal color, warm/dry Progress/Results/Core Measures Results/Orders Lab Results Laboratory Tests Test 07/29/23 17:03 Range/Units White Blood Count 8.3 4.3-11.0 10^3/uL Red Blood Count 5.17 H 3.80-5.11 10^6/uL Hemoglobin 14.0 11.5-16.0 g/dL Hematocrit 45 35-52 % Mean Corpuscular Volume 87 80-99 fL Mean Corpuscular Hemoglobin 27 25-34 pg Mean Corpuscular Hemoglobin Concent 31 L 32-36 g/dL Red Cell Distribution Width 14.7 H 10.0-14.5 % Platelet Count 413 H 130-400 10^3/uL Mean Platelet Volume 10.8 9.0-12.2 fL Immature Granulocyte % (Auto) 1 % Neutrophils (%) (Auto) 51 42-75 % Lymphocytes (%) (Auto) 37 12-44 % Monocytes (%) (Auto) 9 0-12 % Eosinophils (%) (Auto) 2 0-10 % Basophils (%) (Auto) 1 0-10 % Neutrophils # (Auto) 4.2 1.8-7.8 10^3/uL Lymphocytes # (Auto) 3.1 1.0-4.0 10^3/uL Monocytes # (Auto) 0.7 0.0-1.0 10^3/uL Eosinophils # (Auto) 0.2 0.0-0.3 10^3/uL Basophils # (Auto) 0.1 0.0-0.1 10^3/uL Immature Granulocyte # (Auto) 0.1 0.0-0.1 10^3/uL Prothrombin Time 12.5 12.2-14.7 SEC INR Comment 0.9 0.8-1.4 Activated Partial Thromboplast Time 28 24-35 SEC Sodium Level 141 135-145 MMOL/L Potassium Level 3.6 3.6-5.0 MMOL/L Chloride Level 104 98-107 MMOL/L Carbon Dioxide Level 25 21-32 MMOL/L Anion Gap 12 5-14 MMOL/L Blood Urea Nitrogen 12 7-18 MG/DL Creatinine 1.01 0.60-1.30 MG/DL Estimat Glomerular Filtration Rate 61 BUN/Creatinine Ratio 12 Glucose Level 132 H 70-105 MG/DL Calcium Level 10.0 8.5-10.1 MG/DL Corrected Calcium 9.8 8.5-10.1 MG/DL Magnesium Level 2.3 1.6-2.4 MG/DL Total Bilirubin 0.2 0.1-1.0 MG/DL Aspartate Amino Transf (AST/SGOT) 15 5-34 U/L Alanine Aminotransferase (ALT/SGPT) 15 0-55 U/L Alkaline Phosphatase 103 40-136 U/L Myoglobin 20.5 10.0-92.0 NG/ML Troponin I < 0.028 <0.028 NG/ML B-Type Natriuretic Peptide 24.4 <100.0 PG/ML Total Protein 8.1 6.4-8.2 GM/DL Albumin 4.2 3.2-4.5 GM/DL Lipase 27 8-78 U/L My Orders Orders - NESSA RUIZ PA Cbc And Automated Diff (07/29/23 17:10) Magnesium (07/29/23 17:10) Chest 1 View, Ap/Pa Only (07/29/23 17:10) Ekg Tracing (07/29/23 17:10) Comprehensive Metabolic Panel (07/29/23 17:10) Myoglobin Serum (07/29/23 17:10) Protime With Inr (07/29/23 17:10) Partial Thromboplastin Time (07/29/23 17:10) O2 (07/29/23 17:10) Monitor-Rhythm Ecg Trace Only (07/29/23 17:10) Lipid Panel (07/30/23 06:00) Ed Iv/Invasive Line Start (07/29/23 17:10) Lipase (07/29/23 17:10) Bnp [place] (07/29/23 17:10) Troponin I [place] (07/29/23 17:10) Ct Abd/Pelv W (Appendicitis) (07/29/23 17:18) Ua Culture If Indicated (07/29/23 17:22) Iohexol Injection (Omnipaque 350 Mg/Ml 1 (07/29/23 17:45) Ns (Ivpb) 100 Ml (Sodium Chloride 0.9% 1 (07/29/23 17:45) Ondansetron Injection (Ondansetron Inj (07/29/23 17:45) Ondansetron Injection (Ondansetron Inj (07/29/23 17:45) Ns Iv 1000 Ml (Ns Iv 1000 Ml) (07/29/23 18:15) Piperacillin/Tazobactam (Piperacillin/Ta (07/29/23 18:15) Medications Given in ED Current Medications Medications Dose Ordered Sig/Pj Route Start Time Stop Time Status Last Admin Dose Admin Iohexol 100 ml ONCE ONCE IV 07/29/23 17:45 07/29/23 17:46 DC 07/29/23 17:58 80 ML Ondansetron HCl 4 mg ONCE ONCE IVP 07/29/23 17:45 07/29/23 17:46 DC 07/29/23 17:49 4 MG Piperacillin Sod/ Tazobactam Sod 4.5 gm/Sodium Chloride 100 ml @ 200 mls/hr ONCE ONCE IV 07/29/23 18:15 07/29/23 18:44 DC 07/29/23 18:47 200 MLS/HR Sodium Chloride 100 ml ONCE ONCE IV 07/29/23 17:45 07/29/23 17:46 DC 07/29/23 17:58 80 ML Vital Signs/I&O 07/29/23 16:58 Temp 36.4 Pulse 81 Resp 20 B/P (MAP) 143/82 (102) Pulse Ox 96 O2 Delivery Room Air Blood Pressure Mean: 102 Departure Communication (PCP) Reviewed previous ER visits, H&P, lab testing. Differential diagnosis IBS, colitis, cholecystitis, cholelithiasis, appendicitis, cystitis. History of IBS not currently taking medication. Followed Dr. Santos yesterday. There was talk for outpatient CT scan versus ultrasound as there was concern for her pain secondary to her gallbladder. She had some pain over Thursday and Thursday which did improve. She has tenderness throughout. She is afebrile and nontachycardic. Generalized lab work. She did states pain started from her epigastric and radiated throughout the abdomen concerning for more IBS. CBC, CMP was grossly unremarkable. she Was started on liter of fluid. She did vomit here. She did receive Zofran with improvement. She refused anything for pain. EKG was obtained which did not note any ST elevation or depression. Cardiac enzymes unremarkable. Chest x-ray unremarkable. CT abdomen pelvis shows acute Penta situs with contained perforation and associated small rim enhancing abscess. No khadijah free air is seen. Small amount of ascites. Abscess is about 3 x [address] patient with Dr[address] Santos patient's general surgeon. At this time recommended admission, Zosyn, IV fluids, IV pain medication, clear liquid. May need interventional radiology to drain. Patient agreed with admission at this time. Patient agrees with plan of action. Impression Primary Impression: Appendicitis with abscess Disposition: ADMITTED INPATIENT Condition: Stable Admissions Decision to Admit Reason: Admit from ER (General) Decision to Admit/Date: Jul 29, 2023 Time/Decision to Admit Time: 18:28 Departure-Patient Inst. Referrals: OSVALDO AMARAL DO (PCP) Primary Care Physician NESSA RUIZ Jul 29, 2023 17:22
[2023-07-29 17:24] LABS: ALKALINE PHOSPHATASE 103 U/L (40-136); CREATININE SERUM 1.01 MG/DL (0.60-1.30); GFR ESTIMATED 61
[2023-07-29 17:25] LABS: BUN/CREATININE RATIO 12
[2023-07-29 17:27] LABS: ALANINE AMINOTRANSFERASE 15 U/L (0-55); MAGNESIUM 2.3 MG/DL (1.6-2.4)
[2023-07-29 17:28] LABS: LIPASE 27 U/L (8-78)
[2023-07-29] MEDS ORDERED: NS 100 ML (IVPB) BAG IV ONE (17:45)
[2023-07-29] MEDS ORDERED: ONDANSETRON INJECTION 4 MG/2 ML (SDV) ONE (17:45)
[2023-07-29] MEDS ORDERED: IOHEXOL 350 MG/ML 100 ML (OMNIPAQUE 350) VIAL IV ONE (17:45)
[2023-07-29] MEDS ORDERED: ONDANSETRON INJECTION 4 MG/2 ML (SDV) IVP ONE (17:45)
[2023-07-29] MEDS ORDERED: PIPERACILLIN/Tazobactam 4.5 GM in NS (IVPB) 100 ML 100 ML IV ONE (18:15)
[2023-07-29] MEDS ORDERED: NS IV 1000 ML 1,000 ML IV STA (18:15)
--- NOTE | 2023-07-29 18:17 | Diagnostic Imaging Report ---
EXAMINATION: Chest radiograph, portable AP view. DATE: July 29, 2023. INDICATION: 68-year-old female, chest and epigastric pain. COMPARISON: Chest radiographs February 20, 2021. FINDINGS: Heart size and mediastinal contours are unchanged. There is no identified pneumothorax. There is no large pleural effusion. There is no identified focal airspace consolidation. IMPRESSION: No identified acute cardiopulmonary abnormality. Dictated by: Dictated on workstation # [id number]
--- NOTE | 2023-07-29 18:21 | Diagnostic Imaging Report ---
PROCEDURE: CT abdomen and pelvis with contrast, rule out appendicitis. TECHNIQUE: Multiple contiguous axial images were obtained through the abdomen and pelvis after the administration of intravenous contrast. All CT scans use one or more of the following dose optimizing techniques: automated exposure control, MA and/or KvP adjustment based on patient size and exam type or iterative reconstruction. INDICATION: Generalized abdominal pain. COMPARISON: None. FINDINGS: Lung bases are clear. The heart is normal in size. There is a moderate size hiatal hernia. The liver demonstrates no focal lesion. There is a small amount of ascites about the liver. The portal vein appears patent. The spleen appears normal. The pancreas is mildly atrophic but otherwise unremarkable. The adrenal glands appear normal. The kidneys demonstrate no enhancing lesion or hydronephrosis. There is a small cyst in the right kidney. The aorta has mild atherosclerosis but appears normal in caliber. No lymphadenopathy is seen. The bowel loops are nondistended without obstruction. There is wall thickening of multiple loops of small bowel. There is a small amount of ascites. The appendix is thickened with surrounding edema. There is a rim-enhancing fluid collection at the tip of the appendix which measures 3.8 x 3.1 cm in size, with surrounding fluid. There is a small amount of air within this fluid collection but no khadijah free air is seen. There are degenerative changes in the spine with no acute osseous abnormality seen. IMPRESSION: 1. Acute appendicitis with contained perforation and associated small rim-enhancing abscess. No khadijah free air is seen. 2. Small amount of ascites. 3. Moderate size hiatal hernia. Findings discussed with SPENCER Still by Dr. Krueger, on 07/29/2023 6:11 PM. Dictated by: Dictated on workstation # [id number]
[2023-07-29 19:15] VITALS: BP 130/63
[2023-07-29] MEDS ORDERED: NS IV 1000 ML 1,000 ML ONE (19:27)
[2023-07-29] MEDS: NS IV 1000 ML 1,000 ML IV SCH (19:45)
[2023-07-29] MEDS: fentaNYL INJECTION 100 MCG/2 ML VIAL IV PRN (19:45)
[2023-07-29] MEDS: KETOROLAC INJ 30 MG/ML VIAL IV PRN (22:39)
[2023-07-29] MEDS: ONDANSETRON INJECTION 4 MG/2 ML (SDV) IV PRN (22:40)
[2023-07-29 23:03] VITALS: BP 128/71
[2023-07-30] VITALS (11 sets, daily range): BP systolic 107–136; BP diastolic 51–74
[2023-07-30] MEDS: PIPERACILLIN/Tazobactam 4.5 GM in NS (IVPB) 100 ML 100 ML IV SCH ×3 (00:31→17:17)
[2023-07-30] MEDS: NS IV 1000 ML 1,000 ML IV SCH ×3 (03:40→19:48)
[2023-07-30] MEDS: fentaNYL INJECTION 100 MCG/2 ML VIAL IV PRN (03:50)
[2023-07-30 05:44] LABS: BASOPHILS # (AUTO) 0.1 10^3/uL (0.0-0.1); BASOPHILS % (AUTO) 0 % (0-10); EOSINOPHILS % (AUTO) 0 % (0-10); HEMATOCRIT 38 % (35-52); HEMOGLOBIN 12.2 g/dL (11.5-16.0); LYMPHOCYTES # (AUTO) 1.1 10^3/uL (1.0-4.0); LYMPHOCYTES % (AUTO) 10 % (12-44); MEAN CORPUSCULAR HEMOGLOBIN 27 pg (25-34); MEAN CORPUSCULAR HGB CONC 32 g/dL (32-36); MEAN CORPUSCULAR VOLUME 85 fL (80-99); MONOCYTES # (AUTO) 0.7 10^3/uL (0.0-1.0); MONOCYTES % (AUTO) 7 % (0-12); NEUTROPHILS # (AUTO) 9.2 10^3/uL (1.8-7.8); NEUTROPHILS % (AUTO) 83 % (42-75); PLATELET COUNT 317 10^3/uL (130-400); WHITE BLOOD COUNT 11.2 10^3/uL (4.3-11.0)
[2023-07-30 05:59] LABS: CALCIUM 8.5 MG/DL (8.5-10.1)
[2023-07-30 06:03] LABS: CREATININE SERUM 1.02 MG/DL (0.60-1.30)
[2023-07-30] MEDS: KETOROLAC INJ 30 MG/ML VIAL IV PRN (08:34)
[2023-07-30] MEDS ORDERED: BUPIVACAINE 0.5% 30 ML VIAL ONE (12:47)
[2023-07-30] MEDS ORDERED: LIDOCAINE 2% w/EPI 1:100,000 20 ML VIAL ONE (12:50)
--- NOTE | 2023-07-30 13:03 | History & Physical-Surgical ---
History of Present Illness History of Present Illness Patient Consulted On(jennifer/time) 07/30/23 12:57 Time Seen by Provider: 10:38 History of Present Illness Surgery asked to admit regarding ruptured appendicitis with abscess. HPI per ED: Patient is a 68-year-old female with a history of IBS who presents to the ED for chest pain, epigastric pain and lower abdominal pain. This pain 45 minutes ago. Sharp stabbing pain with intermittent cramping. Pain radiates from the chest down to the lower abdomen and radiates to the left and right. She states the pain improved some but did vomit right before arrival. She has been experiencing this pain over the weekend. She did see Dr. Santos general surgery who recommended a outpatient ultrasound versus a CT scan. She states she did have a colonoscopy in April secondary to GI bleed which was unremarkable. She did have some mild blood in her urine around [facility] but that has resolved. History of IBS and not currently taking medication. She has been taken Tylenol and Mylanta with very minimal improvement. She denies any chest pain, shortness of breath, cough, headache, dizziness, fever, chills. She does report some frequent urination without pain. She denies of any diarrhea or constipation at this time. When I saw pt this am she stated pain was a little worse than last night, but she is doing ok. She denied N/V and rated her pain as 4 out of 10. Allergies and Home Medications Allergies Coded Allergies: No Known Drug Allergies (Unverified , 02/27/21) Patient Home Medication List Home Medication List Reviewed: Yes Acetaminophen (Acetaminophen Extra Strength) 500 Mg Tablet, 500-1,000 MG PO TID, (Reported) Entered as Reported by: CORTEZ NASH on 02/20/21 1223 Dapagliflozin Propanediol (Farxiga) 10 Mg Tablet, 10 MG PO DAILY, (Reported) Entered as Reported by: GITA CHOWDARY on 05/20/23 1257 Fluoxetine HCl (Prozac) 20 Mg Capsule, 20 MG PO BID, (Reported) Entered as Reported by: OLIVIA DEUTSCH on 05/28/20 1027 Hydrochlorothiazide (Hydrochlorothiazide) 25 Mg Tablet, 25 MG PO DAILY PRN for SWELLING, (Reported) Entered as Reported by: OLIVIA DEUTSCH on 05/28/20 1027 Levothyroxine Sodium (Levothyroxine Sodium) 112 Mcg Tablet, 112 MCG PO DAILY, (Reported) Entered as Reported by: OLIVIA DEUTSCH on 05/28/20 1027 Simvastatin (Simvastatin) 10 Mg Tablet, 10 MG PO HS, (Reported) Entered as Reported by: CORTEZ NASH on 02/20/21 1223 Past Yaxdfww-Otwybr-Xywcnm Hx Patient Social History Smoking Status: Never a Smoker 2nd Hand Smoke Exposure: No Recent Hopitalizations: No Alcohol Use?: No Immunizations Up To Date Date of Influenza Vaccine: Jul 14, 2023 Seasonal Allergies Seasonal Allergies: Yes Surgeries History of Surgeries: Yes (A&P REPAIR, BLADDER SLING, CANDICE TKR, RECTOCILE REPAIR, CYSTOCELE REPAIR) Surgeries: Hysterectomy, Orthopedic, Parathyroidectomy Respiratory History of Respiratory Disorde: No Cardiovascular History of Cardiac Disorders: Yes Cardiac Disorders: High Cholesterol Neurological History of Neurological Disord: No Neurological Disorders: Neuropathy Reproductive System Sexually Transmitted Disease: No HIV/AIDS: No 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 Genitourinary History of Genitourinary Disor: No Gastrointestinal History of Gastrointestinal Di: Yes (hematochezia) Gastrointestinal Disorders: Gastroesophageal Reflux, Chronic Constipation, Chronic Diarrhea, Irritable Bowel Musculoskeletal History of Musculoskeletal Dis: Yes Musculoskeletal Disorders: Degenerate Disk Disease, Arthritis, Chronic Back Pain Endocrine History of Endocrine Disorders: Yes Endocrine Disorders: Hypothyroidsim, Diabetes, Non-Insulin dep HEENT History of HEENT Disorders: Yes (READING GLASSES) Loss of Vision: Denies Hearing Impairment: Denies Cancer History of Cancer: No Psychosocial History of Psychiatric Problem: Yes Behavioral Health Disorders: Depression Integumentary History of Skin or Integumenta: No Blood Transfusions History of Blood Disorders: No Adverse Reaction to a Blood Tr: No (N/A) Family Medical History Significant Family History: Cancer, Stroke (sister) Review of Systems-General Constitutional: No chills, No diaphoresis; malaise, weakness EENTM: No blurred vision, No double vision, No mouth swelling, No epistaxis Respiratory: No cough Cardiovascular: No chest pain, No palpitations Gastrointestinal: abdominal pain; No jaundice, No nausea, No vomiting Genitourinary: No dysuria, No frequency, No hematuria Musculoskeletal: No joint pain, No muscle pain, No muscle stiffness Skin: No change in color, No change in hair/nails Psychiatric/Neurological: Denies Anxiety, Denies Depressed, Denies Headache, Denies Seizure Physical Exam-General Problems Physical Exam Vital Signs Vital Signs - First Documented 07/29/23 16:58 Temp 36.4 Pulse 81 Resp 20 B/P (MAP) 143/82 (102) Pulse Ox 96 O2 Delivery Room Air Capillary Refill : Less Than 3 Seconds General Appearance: mild distress, obese Eyes: Bilateral Eye PERRL, Bilateral Eye EOMI HEENT: pharynx normal; No scleral icterus (R), No scleral icterus (L) Neck: non-tender, supple Respiratory: lungs clear, normal breath sounds, no respiratory distress, no ac cessory muscle use Cardiovascular: regular rate, rhythm, no murmur Gastrointestinal: soft, no organomegaly, tenderness (suprapubic and RLQ), hernia (small umbilical) Rectal: deferred Back: no CVA tenderness, no vertebral tenderness Extremities: no pedal edema, no calf tenderness, normal capillary refill Neurologic/Psychiatric: motor adjuster II-XII nml as tested, no motor/sensory deficits, alert, normal mood/affect, oriented x 3 Skin: normal color, warm/dry Lymphatic: no adenopathy (neck, axilla or groin) Data Review Labs Laboratory Tests 07/29/23 17:03: White Blood Count 8.3, Red Blood Count 5.17H, Hemoglobin 14.0, Hematocrit 45, Mean Corpuscular Volume 87, Mean Corpuscular Hemoglobin 27, Mean Corpuscular Hemoglobin Concent 31L, Red Cell Distribution Width 14.7H, Platelet Count 413H, Mean Platelet Volume 10.8, Immature Granulocyte % (Auto) 1, Neutrophils (%) (Auto) 51, Lymphocytes (%) (Auto) 37, Monocytes (%) (Auto) 9, Eosinophils (%) (Auto) 2, Basophils (%) (Auto) 1, Neutrophils # (Auto) 4.2, Lymphocytes # (Auto) 3.1, Monocytes # (Auto) 0.7, Eosinophils # (Auto) 0.2, Basophils # (Auto) 0.1, Immature Granulocyte # (Auto) 0.1, Prothrombin Time 12.5, INR Comment 0.9, Activated Partial Thromboplast Time 28, Sodium Level 141, Potassium Level 3.6, Chloride Level 104, Carbon Dioxide Level 25, Anion Gap 12, Blood Urea Nitrogen 12, Creatinine 1.01, Estimat Glomerular Filtration Rate 61, BUN/Creatinine Ratio 12, Glucose Level 132H, Calcium Level 10.0, Corrected Calcium 9.8, Magnesium Level 2.3, Total Bilirubin 0.2, Aspartate Amino Transf (AST/SGOT) 15, Alanine Aminotransferase (ALT/SGPT) 15, Alkaline Phosphatase 103, Myoglobin 20.5, Troponin I < 0.028, B-Type Natriuretic Peptide 24.4, Total Protein 8.1, Albumin 4.2, Lipase 27 07/30/23 05:27: White Blood Count 11.2H, Red Blood Count 4.52, Hemoglobin 12.2, Hematocrit 38, Mean Corpuscular Volume 85, Mean Corpuscular Hemoglobin 27, Mean Corpuscular Hemoglobin Concent 32, Red Cell Distribution Width 15.0H, Platelet Count 317, Mean Platelet Volume 11.0, Immature Granulocyte % (Auto) 1, Neutrophils (%) (Auto) 83H, Lymphocytes (%) (Auto) 10L, Monocytes (%) (Auto) 7, Eosinophils (%) (Auto) 0, Basophils (%) (Auto) 0, Neutrophils # (Auto) 9.2H, Lymphocytes # (Auto) 1.1, Monocytes # (Auto) 0.7, Eosinophils # (Auto) 0.0, Basophils # (Auto) 0.1, Immature Granulocyte # (Auto) 0.1, Sodium Level 137, Potassium Level 4.0, Chloride Level 103, Carbon Dioxide Level 24, Anion Gap 10, Blood Urea Nitrogen 12, Creatinine 1.02, Estimat Glomerular Filtration Rate 60, BUN/Creatinine Ratio 12, Glucose Level 129H, Calcium Level 8.5, Triglycerides Level 86, Cholesterol L evel 123, LDL Cholesterol Direct 69, VLDL Cholesterol 17, HDL Cholesterol 39L Radiology Date of Exam:07/29/23 CT ABD/PELV W (APPENDICITIS) PROCEDURE: CT abdomen and pelvis with contrast, rule out appendicitis. TECHNIQUE: Multiple contiguous axial images were obtained through the abdomen and pelvis after the administration of intravenous contrast. All CT scans use one or more of the following dose optimizing techniques: automated exposure control, MA and/or KvP adjustment based on patient size and exam type or iterative reconstruction. INDICATION: Generalized abdominal pain. COMPARISON: None. FINDINGS: Lung bases are clear. The heart is normal in size. There is a moderate size hiatal hernia. The liver demonstrates no focal lesion. There is a small amount of ascites about the liver. The portal vein appears patent. The spleen appears normal. The pancreas is mildly atrophic but otherwise unremarkable. The adrenal glands appear normal. The kidneys demonstrate no enhancing lesion or hydronephrosis. There is a small cyst in the right kidney. The aorta has mild atherosclerosis but appears normal in caliber. No lymphadenopathy is seen. The bowel loops are nondistended without obstruction. There is wall thickening of multiple loops of small bowel. There is a small amount of ascites. The appendix is thickened with surrounding edema. There is a rim-enhancing fluid collection at the tip of the appendix which measures 3.8 x 3.1 cm in size, with surrounding fluid. There is a small amount of air within this fluid collection but no khadijah free air is seen. There are degenerative changes in the spine with no acute osseous abnormality seen. IMPRESSION: 1. Acute appendicitis with contained perforation and associated small rim-enhancing abscess. No khadijah free air is seen. 2. Small amount of ascites. 3. Moderate size hiatal hernia. Findings discussed with SPENCER Still by Dr. Orourke, on 07/29/2023 6:11 PM. Dictated by: Dictated on workstation # [id number] Dict: 07/29/231806 Trans: 07/29/231906 [facility] [id number] Interpreted by: PONCHO OROURKE MD Electronically signed by: PONCHO OROURKE MD 07/29/231906 Assessment/Plan Assessment/Plan Admission Diagonsis Ruptured Appendicitis Intra-Abdominal Abcess Admission Status: Observation Assessment/Plan Ruptured Appendicitis Intra-Abdominal Abcess I looked at the CT today and spoke with ED yesterday; I was hoping we could drain the abscess, let it calm down and then do surgery later. Unfortunately, when looking at the CT I found that the abscess is right in the midline and not accessible for IR drainage. I talked with the pt and went over her options; could try ABX and wait it out, but WBC did jump up today and I see some free fluid in the abdomen which concerns me for free floating purulence. Her other option is surgery; which I think is the best option. She wants to go to surgery to make sure it doesn't get worse. She is NPO, was started on IV fluids, pain meds as needed and on a routine ABX. Plan will be to take her to the OR for Laparoscopic Appendectomy possible open and all other indicated procedures (consent ordered). I told her we may have to leave a drain in place and depending on how bad it looks she may need to stay one more day in the hospital. I went over all risks and complications not limited to pain, bleeding, infection, scar, damage to bowel and need for further procedure. All questions answered to her satisfaction. Will plan on OR. WIL SANTOS DO Jul 30, 2023 13:03
[2023-07-30] MEDS ORDERED: LIDOCAINE PF 2% 5 ML VIAL ONE (13:37)
[2023-07-30] MEDS ORDERED: proPOfol INJECTION 200 MG/20 ML VIAL IV ONE (13:37)
[2023-07-30] MEDS ORDERED: NEOSTIGMINE 1 MG/1ML 10 ML VIAL ONE (13:37)
[2023-07-30] MEDS ORDERED: ONDANSETRON INJECTION 4 MG/2 ML (SDV) ONE ×2 (13:37→16:20)
[2023-07-30] MEDS ORDERED: ROCURONIUM 50 MG/5 ML VIAL IV ONE (13:37)
[2023-07-30] MEDS ORDERED: dexAMETHasone INJ 10 MG/ML 1 ML VIAL ONE (13:37)
[2023-07-30] MEDS ORDERED: GLYCOPYRROLATE INJ 0.2 MG/ML 2 ML VIAL ONE (13:37)
[2023-07-30] MEDS ORDERED: fentaNYL INJECTION 100 MCG/2 ML VIAL ONE (13:37)
[2023-07-30] MEDS ORDERED: LACTATED RINGERS 1,000 ML 1,000 ML IV PRN (13:45)
[2023-07-30] MEDS ORDERED: morphine INJ 10 MG/ML 1ML (SYR OR VIAL) ONE (15:17)
[2023-07-30] MEDS ORDERED: CYAN500T8 PO (15:21)
[2023-07-30] MEDS ORDERED: MULT-1136 PO (15:21)
[2023-07-30] MEDS ORDERED: SIMV40TA25 PO (15:21)
[2023-07-30] MEDS ORDERED: ESOM40CA52 PO (15:21)
[2023-07-30] MEDS ORDERED: FAMO-356 PO (15:21)
[2023-07-30] MEDS ORDERED: DAPA10TA PO (15:21)
[2023-07-30] MEDS ORDERED: SPIR100T4 PO (15:21)
[2023-07-30] MEDS ORDERED: LEVO100T7 PO (15:21)
[2023-07-30] MEDS ORDERED: SEVOFLURANE (ULTANE) 15 ML INHAL SOLN ONE (16:00)
--- NOTE | 2023-07-30 16:09 | Progress Note-Post Operative ---
Post-Operative Progess Note Surgeon (s)/Manager Chemistry (s) Surgeon WIL SANTOS DO Manager Chemistry: none Pre-Operative Diagnosis Rupture Appendicitis, intra-abdominal abscess Post-Operative Diagnosis same pending path Procedure & Operative Findings Date of Procedure 07/30/23 Procedure Performed/Findings PROCEDURE: Laparoscopic appendectomy with washout and drain placement COMPLICATIONS: None. INDICATIONS: The patient is a 68 year old female who has been having lower quadrant abdominal pain. Patient's exam consistent with appendicitis and CT was read as ruptured appendicitis. I discussed risk and benefits of laparoscopic appendectomy and all indicated procedures. The patient understands the risks and benefits and wishes to proceed. Consent was signed on the chart. DESCRIPTION OF PROCEDURE: The patient was taken to the operating suite, prepped and draped in a sterile fashion. Timeout was performed. Local anesthetic was infiltrated just above the umbilicus and 11-blade scalpel was used to make a skin incision. Cautery was used to dissect down to the fascia and scored. Kochers were used to grasp and elevate it and the abdomen was then entered. A 0 Vicryl was placed in a [id number] fashion for closure at the end of the case. The balloon trocar was inserted into the abdomen and pneumoperitoneum was achieved. Under direct visualiza- tion of the laparoscope, a 5 mm trocar was placed in the suprapubic region and a 5 mm trocar was placed in the left lower quadrant. Immediately upon entering found a lot of inflammation and pt was place trendelenburg and rotated slightly left. Had to start moving all of the small intestine out of the pelvis and found fibrinous material. I also encountered some purulence, abdomen was copiously irrigate and I was finally able to find the terminal ileum. From there I found a large round firm mass, I believe it was the tip of appendix. I carefully started coming along the mesoappendix with the Ligasure and I was able to get to the base of the appendix. Once at the base an Endo-LAUREN 2.5 stapler was then fired and it was then placed in an Endobag. I could not remove it through the 12 mm trocar site and I had to make the incision larger. I used the bovie cautery on the fascia and was then able to get it out of the abdomen. The abdomen was then irrigated and suctioned. No other pathology noted. I then placed a 19 Maltese jenny drain through the midline and pulled it out through the supra-pubic incision. It was suture in place with 2-0 nylon. The abdomen was then desufflated and the trocars were removed. Because I mad the fascial defect larger I had to close with a #1 double stranded PDS suture. The skin was then closed using keli. The abdomen was then washed and dried and band-aids were placed over the incisions. The patient tolerated the procedure well without any complications and was taken to the recovery room in stable condition. Anesthesia Type GET Estimated Blood Loss Estimated blood loss (mL): appx 20ml Specimens/Packing Specimens Removed appendix WIL SANTOS DO Jul 30, 2023 16:08
[2023-07-30] MEDS: ONDANSETRON INJECTION 4 MG/2 ML (SDV) IV PRN (19:46)
[2023-07-30] MEDS ORDERED: PROMETHAZINE INJ 25 MG/ML VIAL IVP STA (20:59)
[2023-07-31] VITALS: BP 136/65
[2023-07-31] MEDS: PIPERACILLIN/Tazobactam 4.5 GM in NS (IVPB) 100 ML 100 ML IV SCH ×3 (01:08→17:10)
[2023-07-31] MEDS: NS IV 1000 ML 1,000 ML IV SCH ×3 (01:47→21:18)
[2023-07-31 03:48] VITALS: BP 108/60
[2023-07-31] MEDS: fentaNYL INJECTION 100 MCG/2 ML VIAL IV PRN (04:44)
[2023-07-31 08:00] VITALS: BP 115/65
[2023-07-31] MEDS: KETOROLAC INJ 30 MG/ML VIAL IV PRN ×2 (08:57→19:33)
--- NOTE | 2023-07-31 11:37 | Progress Note - Surgery ---
Subjective Time Seen by a Provider: 11:08 Subjective/Events-last exam Pt seen and examined, states she is doing ok. Only had to take some pain meds at 2:30am. She is tolerating clears. Review of Systems Pulmonary: No Dyspnea, No Cough Cardiovascular: No: Chest Pain, Palpitations Gastrointestinal: Nausea (when she takes pain meds), Abdominal Pain; No: Vomiting Objective Exam Vital Signs Date Time Temp Pulse Resp B/P (MAP) Pulse Ox O2 Delivery O2 Flow Rate FiO2 07/31/23 08:33 Room Air 07/31/23 08:00 36.3 73 16 115/65 (82) 96 Room Air 07/31/23 07:00 69 07/31/23 03:48 36.2 77 16 108/60 (76) 94 Room Air 07/31/23 00:18 75 07/31/23 00:00 36.4 80 10 136/65 (88) 92 Room Air 07/30/23 20:59 36.1 88 16 115/65 (82) 91 Room Air 07/30/23 20:00 Room Air 07/30/23 19:24 81 07/30/23 16:51 36.9 90 16 130/73 (92) 90 Room Air 07/30/23 16:45 Room Air 07/30/23 16:40 38.2 14 134/60 (84) 95 Room Air 07/30/23 16:40 OxyMask 4.00 07/30/23 16:30 12 113/53 (73) 96 OxyMask 4.00 07/30/23 16:25 OxyMask 4.00 07/30/23 16:20 16 127/59 (81) 96 OxyMask 4.00 07/30/23 16:10 16 135/55 (81) 100 OxyMask 8.00 07/30/23 16:10 OxyMask 8 07/30/23 16:00 12 125/51 (75) 98 OxyMask 8 07/30/23 15:56 37.0 12 113/68 (83) 100 OxyMask 8 07/30/23 15:56 8 07/30/23 13:00 94 07/30/23 12:21 36.5 93 16 136/74 (94) 94 Room Air I & O 07/31/23 06:59 Intake Total 330 ml Output Total 1200 ml Balance -870 ml Capillary Refill : Less Than 3 Seconds General Appearance: No Apparent Distress Respiratory: Lungs Clear, Normal Breath Sounds, No Accessory Muscle Use, No Respiratory Distress Cardiovascular: Regular Rate, Rhythm, No Murmur Gastrointestinal: soft, no organomegaly, tenderness (mostly at umbilical incision, and some suprapubic) Results Lab Microbiology 07/30/23 MRSA Screen - Final, Complete MRSA not isolated Assessment/Plan Assessment/Plan Assessment/Plan S/P Lap Appy for Ruptured Appendicitis and Intra-Abdominal Abcess Will get pt a soft diet and if she tolerates can go home and f/u at her appt scheduled for 08/11. WIL SANTOS DO Jul 31, 2023 11:36
[2023-07-31] MEDS ORDERED: ACHD5005 PO (11:39)
[2023-07-31] MEDS ORDERED: ONDA8TAB13 SL (11:39)
[2023-07-31] MEDS ORDERED: AMOX-355 PO (11:39)
[2023-07-31 11:41] VITALS: BP 119/73
--- NOTE | 2023-07-31 11:42 | Discharge Inst-Surgical ---
Discharge Inst-Surgical Depart Medication/Instructions New, Converted or Re-Newed RX: Transmitted to Pharmacy Patient Instructions Follow up Appt: Make appointment for 1 week. [phone] Instructions: No lifting greater than 20 pounds. No strenuous activity. May shower in 24 hours, no tub bath or soaking. Use incentive spirometer at home as directed. No Smoking Skin/Wound Care: May remove bandages in am. You need to leave the keli in place and come to the office to remove them. Symptoms to Report: Appetite Changes, Extremity Discoloration, Numbness/Tingling, Swelling Increased, Bleeding Excessive, Eyesight Changes, Pain Increased, Urine Color Change, Constipation(Persistent), Fever over 101 degree F, Pain/Pressure in chest, Urinating Difficulty, Cough Up/Vomit Blood, Heart Beat Irreg/Pounding, Pain/Pressure in jaw, Cramps in feet or legs, Lightheadedness, Pain/Pressure in shoulder, Diarrhea(Persistent), Memory Changes Suddenly, Questions/Concerns, Weight gain consecutive days, Dizziness/Fainting, Nausea/Vomiting, Shortness of Breath, Weight gain over 2 pounds If questions or concerns contact your physician Or seek help at emergency department. Activity Activity as Tolerated: Yes Activity Instructions: Avoid Stress to Incision Driving Instructions: No Driving/Refer to Dr. Conley Discharge Diet: No Restrictions Diet After 24 Hours: Clear Liquid if Nauseous If Any Problems/Questions/Issu: Contact Your Physician, Go to Emergency Room Skin/Wound Care Infection Signs and Symptoms: Increased Redness, Foul Odor of Wound, Increased Drainage, Skin Itchy or Has a Rash, Increased Swelling, Temperature Above 101 F Wound Care Comment: KO drain teaching and recording Bathing Instructions: Shower Stitches/Keli/Dermabond Dis: Care of Keli WIL SANTOS DO Jul 31, 2023 11:42
--- NOTE | 2023-07-31 14:38 | Anesthesia-General Post-Op ---
General Patient Condition Mental Status/LOC: Same as Preop Cardiovascular: Satisfactory Nausea/Vomiting: Absent Respiratory: Satisfactory Pain: Controlled Complications: Absent Post Op Complications Complications None Follow Up Care/Instructions Patient Instructions None needed. Anesthesia/Patient Condition Patient Condition Patient is doing well, no complaints, stable vital signs, no apparent adverse anesthesia problems. No complications reported per nursing. CHRISTAL WHITE CRNA Jul 31, 2023 14:37
[2023-07-31] MEDS: ONDANSETRON INJECTION 4 MG/2 ML (SDV) IV PRN (15:47)
[2023-07-31 16:40] VITALS: BP 137/64
[2023-07-31 19:33] VITALS: BP 118/58
[2023-08-01 00:07] VITALS: BP 125/72
[2023-08-01] MEDS: PIPERACILLIN/Tazobactam 4.5 GM in NS (IVPB) 100 ML 100 ML IV SCH (00:39)
[2023-08-01 04:24] VITALS: BP 128/64
[2023-08-01] MEDS: NS IV 1000 ML 1,000 ML IV SCH (04:45)
[2023-08-01 07:34] VITALS: BP 144/73
[2023-08-01] MEDS: KETOROLAC INJ 30 MG/ML VIAL IV PRN (08:21)
== END 2023-08-01 09:30 | disposition home or self-care (01) | DRG 399 ==
LOC: EDUNIT# 16:58 → ER 16:59 → 4TH 18:57
PROVIDERS: ADMIT Surgery; ATTEND Surgery
PROC: 0H97X0Z Drainage of Abdomen Skin with Drainage Device, External Approach (ICD-10-PCS; 2023-07-30)
PROC: 0DTJ4ZZ Resection of Appendix, Percutaneous Endoscopic Approach (ICD-10-PCS; principal; 2023-07-30 13:47)
DX: K35.33 Acute appendicitis with perforation, localized peritonitis, and gangrene, with abscess (principal); E78.00 Pure hypercholesterolemia, unspecified; K21.9 Gastro-esophageal reflux disease without esophagitis; M19.90 Unspecified osteoarthritis, unspecified site; E03.9 Hypothyroidism, unspecified; E11.40 Type 2 diabetes mellitus with diabetic neuropathy, unspecified; F32.A Depression, unspecified; Z96.653 Presence of artificial knee joint, bilateral; G89.29 Other chronic pain; M54.9 Dorsalgia, unspecified
CPT/HCPCS: 36415; 71045; 74177; 80048; 80053; 80061; 83690; 83735; 83874; 83880; 84484; 85025; 85610; 85730; 87081; 93005; 93041; 96374; 96375

== ENCOUNTER 2023-08-12 13:06 | Outpatient (RCR) | payer MEDICARE ==
[~2023-08-12 13:06] MED LIST changes: +ACHD5005 PO; +AMOX-355 PO; +CYAN500T8 PO; +ESOM40CA52 PO; +FAMO-356 PO; +LEVO100T7 PO; +MULT-1136 PO; +ONDA8TAB13 SL; +SIMV40TA25 PO
== END 2023-08-13 ==
LOC: ONC 13:06
PROVIDERS: ATTEND Internal Medicine Hematology & Oncology
DX: C18.1 Malignant neoplasm of appendix (principal); K58.9 Irritable bowel syndrome, unspecified
CPT/HCPCS: 99204

== ENCOUNTER 2023-08-20 05:32 | Outpatient (CLI) | payer MEDICARE ==
[~2023-08-20] VITALS: Ht 157.5 cm; Wt 89.5 kg
[2023-08-20] MEDS ORDERED: ALPR0.25 PO (16:16)
[2023-08-20] MEDS ORDERED: CETI10TA17 PO (16:16)
[2023-08-20] MEDS ORDERED: MAG30ORA22 PO (16:16)
[2023-08-20] MEDS ORDERED: FLUT9.9S NS (16:16)
[2023-08-20] MEDS ORDERED: DOCU-26 PO (16:16)
[2023-08-20] MEDS ORDERED: ACET-168 PO (16:16)
[2023-08-20] MEDS ORDERED: SPIR50TA PO (16:16)
[2023-08-20] MEDS ORDERED: NYST1POW5 MC (16:16)
[2023-08-20] MEDS ORDERED: LOPE2CAP PO (16:16)
[2023-08-20] MEDS ORDERED: PSYL2WAF PO (16:18)
== END 2023-08-20 16:53 | disposition home or self-care (01) ==
LOC: PREOP 05:32
PROVIDERS: ATTEND Surgery
DX: Z01.818 Encounter for other preprocedural examination (principal)